=== PATIENT | male | born 1960 | race Caucasian/White ===

== ENCOUNTER → 2017-01-19 | Outpatient (CLI) | payer OTHER ==
--- NOTE | 2017-01-19 22:31 | CT ---
EXAMINATION TYPE: CT abdomen pelvis wo con DATE OF EXAM: 01/19/2017 7:41 PM COMPARISON: NONE INDICATION: Right sided abdominal and flank pain. DLP: 611.7 mGycm, Automated exposure control for dose reduction was used. CONTRAST: 0 mL of Omnipaque 300. Study performed without Oral Contrast TECHNIQUE: Axial images were obtained from above the diaphragm to the pubic rami in the axial plane a t 5 mm thick sections. Reconstructed images are reviewed on the computer in the coronal plane. FINDINGS: Limited CT sections are obtained the lung bases. The lung bases are clear. Some minimal calcificati on may be within coronary vessels. CT ABDOMEN: Liver: Normal Spleen: Normal Pancreas: Normal Adrenal glands: The adrenal glands are normal. Gallbladder: Normal Kidneys: No masses are evident. No hydronephrosis is present. No cysts are present. No renal stone s are identified. Aorta: Vascular calcification is within the aorta. Inferior vena cava: Normal. CT PELVIS: Loops of bowel within the abdomen and pelvis are normal. Study is without oral contrast limiting the evaluation. Appendix: Normal as visualized. Urinary bladder: Normal. No abnormal calcifications are evident. Genitourinary structures: Prostate contains calcification. Osseous structures: No suspicious lytic or sclerotic lesions. There may be hemangioma on the initial thoracic vertebral level. Schmorl's be considered. IMPRESSIONS: 1. No abnormal findings to account for right upper quadrant pain. 2. Normal appendix.
== END | disposition home or self-care (01) ==
LOC: RADCTMAIN 19:17
PROVIDERS: ATTEND Family Medicine
DX: R10.11 Right upper quadrant pain (principal)
CPT/HCPCS: 74176

== ENCOUNTER → 2017-01-29 | Outpatient (CLI) | payer OTHER ==
--- NOTE | 2017-01-29 13:32 | FL ---
EXAMINATION TYPE: FL small bowel follow through DATE OF EXAM: 01/29/2017 11:18 AM COMPARISON: NONE HISTORY: Abdominal Pain The patient ingested thin liquid barium without difficulty. Small bowel follow-through was performed with transit time of 2 hours 50 minutes. There is nonrotation of small and large bowel with small zoe wel residing within the right hemiabdomen and large bowel within the left hemiabdomen. Small bowel lo ops appear to be of normal caliber and demonstrate normal mucosal fold pattern. No evidence for intr insic or extrinsic mass. No evidence for mucosal abnormality. I do not see evidence for Crohn's dis ease. Normal-appearing terminal ileum. IMPRESSION: 1. Nonrotation of small and large bowel. Otherwise unremarkable study.
== END ==
LOC: RADFLMAIN 08:13
PROVIDERS: ATTEND Surgery
DX: R10.84 Generalized abdominal pain (principal); R10.11 Right upper quadrant pain
CPT/HCPCS: 74250

== ENCOUNTER → 2017-02-14 | Outpatient (CLI) | payer OTHER ==
[2017-02-14 12:00] LABS: CH 32.6; HCT 39.3 % (39.0-53.0); HDW 2.61; HGB 13.3 gm/dL (13.0-17.5); MCH 31.8 pg (25.0-35.0); MCV 93.6 fL (80.0-100.0); RDW 13.5 % (11.5-15.5); WBC 5.9 k/uL (3.8-10.6)
[2017-02-14 12:08] LABS: ALT 55 U/L (21-72); AST 39 U/L (17-59); Alkaline Phosphatase 84 U/L (38-126); Anion Gap 12 mmol/L; Blood Urea Nitrogen 16 mg/dL (9-20); Calcium 9.2 mg/dL (8.4-10.2); Carbon Dioxide 23 mmol/L (22-30); Chloride 110 mmol/L (98-107); Glucose 145 mg/dL (74-99); Non-African American GFR(MDRD) >60 (>60 ml/min/1.73 sqM); Potassium 4.3 mmol/L (3.5-5.1); Sodium 145 mmol/L (137-145); Total Bilirubin 0.5 mg/dL (0.2-1.3); Total Protein 7.3 g/dL (6.3-8.2)
== END | disposition home or self-care (01) ==
LOC: LABWHC1 10:22
PROVIDERS: ATTEND Surgery
DX: Z01.812 Encounter for preprocedural laboratory examination (principal); R10.11 Right upper quadrant pain
CPT/HCPCS: 80053; 85027

== ENCOUNTER 2017-02-18 10:57 | Inpatient (IN) | payer OTHER ==
[2017-02-13 13:43] VITALS: BMI 29.7
[~2017-02-18 10:57] MED LIST: DEXAMETHASONE SOD PHOSPHATE 10 MG/ML 1 ML VIAL IV ONE; ONDANSETRON 4 MG/2 ML VIAL IVP ONE; Pre Op ABX Message 1 EACH MISC MISCELLANE ONE; ceFAZolin 2 GM in SODIUM CHLORIDE 0.9% 100 ML IVPB ONE; metroNIDAZOLE-NS PMX 500 MG in SALINE 1 100ML.BAG IVPB ONE
[2017-02-18] MEDS: LACTATED RINGERS 1,000 ML IV SCH ×3 (11:39→23:45)
[2017-02-18] MEDS ORDERED: LIDOCAINE 1% 20 ML VIAL (10MG/ML) FOR IV START INTRADERMA ONE (11:39)
[2017-02-18] MEDS ORDERED: ONDANSETRON 4 MG/2 ML VIAL IVP ONE (12:03)
[2017-02-18] MEDS ORDERED: DEXAMETHASONE SOD PHOS (MDV) 100 MG/10 ML VIAL IVP ONE (12:04)
[2017-02-18] MEDS ORDERED: HEPARIN SODIUM,PORCINE 5,000 UNIT/ML 1 ML VIAL SQ ONE (12:38)
[2017-02-18] MEDS ORDERED: HEPARIN SODIUM,PORCINE 5,000 UNIT/ML 1 ML VIAL SQ STA (12:41)
[2017-02-18] MEDS ORDERED: ALVIMOPAN 12 MG CAPSULE PO ONE (12:41)
[2017-02-18] MEDS ORDERED: BUPIVACAIN-EPI 0.25%-1:200,000 30 ML VIAL SQ ONE ×3 (13:24)
[2017-02-18] MEDS ORDERED: NEOSTIGMINE 1 MG/ML 10 ML VIAL ONE (13:28)
[2017-02-18] MEDS ORDERED: GLYCOPYRROLATE 0.2 MG/ML 2 ML VIAL ONE (13:28)
[2017-02-18] MEDS ORDERED: PROPOFOL 10 MG/ML 20 ML VIAL IV ONE (13:28)
[2017-02-18] MEDS ORDERED: LIDOCAINE 1% INJ 10MG/ML (20 ML MDV) ONE (13:28)
[2017-02-18] MEDS ORDERED: fentaNYL (PF) 50 MCG/ML 2 ML AMP ONE (13:28)
[2017-02-18] MEDS ORDERED: SUCCINYLCHOLINE CHLORIDE 100 MG/5 ML SYR IV ONE (13:28)
[2017-02-18] MEDS ORDERED: PHENYLEPHRINE-0.9% NACL SYG 1 MG/10 ML SYRINGE ONE (13:28)
[2017-02-18] MEDS ORDERED: ROCURONIUM BROMIDE 10 MG/ML 10 ML VIAL IV ONE (13:28)
[2017-02-18] MEDS ORDERED: ALBUMIN HUMAN 5% 250 ML BOTTLE IVPB ONE (13:28)
[2017-02-18] MEDS ORDERED: HYDROmorphone (PF) 1 MG/ML ONE (13:28)
[2017-02-18] MEDS ORDERED: MIDAZOLAM 2 MG/2 ML VIAL ONE (13:28)
[2017-02-18] MEDS ORDERED: LACTATED RINGERS 1,000 ML IV ONE ×2 (13:53→15:34)
[2017-02-18] MEDS: HYDROmorphone 1 MG/ML 1 ML SYRINGE IVP PRN ×5 (15:55→23:51)
[2017-02-18] MEDS ORDERED: METOCLOPRAMIDE 5 MG/ML 2 ML VIAL IVP PRN (15:59)
[2017-02-18] MEDS ORDERED: KETOROLAC 30 MG/ML 1 ML VIAL IVP ONE (15:59)
[2017-02-18] MEDS ORDERED: BENZOCAINE/MENTHOL LOZENG 1 EACH LOZENGE MUCOUS MEM PRN (15:59)
[2017-02-18] MEDS ORDERED: KETOROLAC 30 MG/ML 1 ML VIAL IVP PRN (15:59)
--- NOTE | 2017-02-18 15:59 | P.OP ---
Date of Procedure: 02/18/17 Preoperative Diagnosis: Partial malrotation of the bowel, umbilical hernia Postoperative Diagnosis: Pastial malrotation of the bowel, right inguinal hernia and umbilical hernia Procedure(s) Performed: Diagnositic laparoscopy Lysis of adhesions Repair of umbilical hernia Appendectomy Implants: Anesthesia: DARRENA Surgeon: Gerda Toth Pathology: none sent Condition: stable Disposition: PACU Indications for Procedure: Pain in the upper abdomen History of intermittant bowel problems. Operative Findings: Pasrtial malrotation Congenital bands over the duodenum were causing partial obstrcuction. VEry floppy CEcum that easily recahes up accross the midline. was normal. Bowel was not twisted and it was healthy viable. Description of Procedure: A 6-year-old male who presented with upper abdominal pain. It was intermittent with bowel issues. Studies revealed partial malrotation of the bowel. Due to his continued symptoms had recommended a diagnostic laparoscopy. He is also known to have an umbilical hernia which is bothering him. He did not have any symptoms or any inguinal hernia at the time. He was seen in the preop operating holding area informed consent was obtained and sent to the operating room in supine position given general anesthesia after which appropriate timeout was called. Patient was prepped and draped in the usual sterile surgical fashion. The upper quadrant was identified and using the Optiview technique abdomen was entered and insufflated 15 mm of 3. Subumbilical 12 mm port left lower quadrant 5 mm port and 2 further left upper quadrant 5 mm port replaced. The small bowel was identified clearly and was run proximally and distally distracted and into the very floppy significant cecum which easily came or to the midline the cecum looked healthy however the appendix especially the mesentery looked congested. The appendix otherwise did not look abnormal. Small bowel was run all the way up to the ligament of Treitz and the wound was noted there was some adhesion bands between the colon and the duodenum partially obstructing it. These were taken down with the help of harmonic completely exposing the duodenum going down to the duodenojejunal flexure. This was on the right side of the abdomen. There were no other bands identified. Small incidental burn injury was noted on the surface of the bowel which was imbricated with the help of 2-0 silk thrombin was also applied over it. At this time attention was turned to the appendix and because of the unusual floppiness of the cecum malrotation an appendectomy was performed. The appendix was pulled up and by transecting the mesentery with the Harmonic and this staple was fired across the base of the appendix thus transecting and placed in Endo Catch bag and removed the 12 mm port site. Once that had been done and it was made sure that the hemostasis had been secured the 12 mm port was removed and using a Filemon Grayson the umbilical hernia site was closed as well as the port site. Local anesthesia was infiltrated in all the spaces and the stent procedure was terminated gas was turned off all ports were removed abdomen was desufflated. NG and Griffin catheter were removed prior to removing coming out of the operating room. Procedure was tolerated well there were no complications he was extubated.
[2017-02-18] MEDS ORDERED: diphenhydrAMINE 50 MG/ML 1 ML VIAL IVP ONE (16:00)
[2017-02-18] MEDS: MEPERIDINE 50 MG/ML SYRINGE IVP ONE ×2 (16:20→16:30)
[2017-02-18] MEDS: D5-0.45% NACL WITH KCL 20MEQ/L 1,000 ML IV SCH (19:57)
[2017-02-18] MEDS: FAMOTIDINE 20 MG/2 ML VIAL IV SCH (23:51)
[2017-02-19] MEDS: HEPARIN SODIUM,PORCINE 5,000 UNIT/ML 1 ML VIAL SQ SCH ×4 (01:28→23:47)
[2017-02-19] MEDS: D5-0.45% NACL WITH KCL 20MEQ/L 1,000 ML IV SCH ×3 (03:43→11:22)
[2017-02-19] MEDS: HYDROmorphone 1 MG/ML 1 ML SYRINGE IVP PRN ×4 (03:44→18:09)
[2017-02-19 08:58] LABS: Basophils % (A) 0 %; CH 32.9; CHCM 35.1; Eosinophils % (A) 0 %; HCT 39.5 % (39.0-53.0); HDW 2.61; HGB 13.5 gm/dL (13.0-17.5); Luc # (Auto) 0.09; Luc % (Auto) 1; Lymphocytes # (A) 1.1 k/uL (1.0-4.8); Lymphocytes % (A) 8 %; MCH 32.3 pg (25.0-35.0); MCHC 34.2 g/dL (31.0-37.0); MCV 94.3 fL (80.0-100.0); Mean Platelet Volume 6.6; Monocytes # (A) 0.5 k/uL (0-1.0); Monocytes % (A) 4 %; Neutrophils # (A) 12.1 k/uL (1.3-7.7); Neutrophils % (A) 88 %; RBC 4.19 m/uL (4.30-5.90); RDW 13.3 % (11.5-15.5); WBC 13.8 k/uL (3.8-10.6); WBC (Perox) 13.76
[2017-02-19 09:10] LABS: ALT 47 U/L (21-72); AST 28 U/L (17-59); Alkaline Phosphatase 91 U/L (38-126); Anion Gap 11 mmol/L; Blood Urea Nitrogen 13 mg/dL (9-20); Calcium 8.9 mg/dL (8.4-10.2); Carbon Dioxide 24 mmol/L (22-30); Chloride 106 mmol/L (98-107); Glucose 134 mg/dL (74-99); Non-African American GFR(MDRD) >60 (>60 ml/min/1.73 sqM); Potassium 4.7 mmol/L (3.5-5.1); Sodium 141 mmol/L (137-145); Total Bilirubin 0.6 mg/dL (0.2-1.3); Total Protein 7.2 g/dL (6.3-8.2)
[2017-02-19] MEDS: HYDROcodone/APAP 7.5-325MG 1 EACH TAB PO PRN ×4 (09:12→21:48)
[2017-02-19] MEDS: FAMOTIDINE 20 MG/2 ML VIAL IV SCH ×2 (09:16→21:49)
[2017-02-19] MEDS: ALVIMOPAN 12 MG CAPSULE PO SCH ×2 (09:16→21:48)
--- NOTE | 2017-02-19 13:56 | P.PN ---
Subjective A 56-year-old being seen postop for partial malrotation of the bowel an umbilical hernia patient elected to undergo diagnostic laparoscopic lysis of adhesions a repair of umbilical hernia and appendectomy done on the 18 of February. Early sitting up in bed has taken a diet. Denies any bloating. Has not had a bowel movement but does state passing gas. 56-year-old who presented on February 18 with a chief complaint of upper abdominal pain intermittent with bowel issues. Studies reviewed partial malrotation of the bowel. Patient continued to have symptoms recommendations were to undergo diagnostic laparoscopic. Patient is known to have an umbilical hernia. Patient elected to proceed and did undergo the diagnostic laparoscopic lysis of adhesions repair of the umbilical hernia with an appendectomy on the Objective - Vital Signs Vital signs: Vital Signs Temp 97.7 F 02/19/17 07:00 Pulse 95 02/19/17 07:00 Resp 16 02/19/17 07:00 BP 127/86 02/19/17 07:00 Pulse Ox 95 02/19/17 07:00 Intake & Output 02/18/17 02/19/17 02/19/17 18:59 06:59 18:59 Intake Total 2820 1500 Output Total 520 Balance 2300 1500 Intake: IV 2700 Intake, IV Titration 1500 Amount D5-0.45% NaCl with KCl 1500 20Meq/l 1,000 ml @ 125 mls/hr IV .Q8H [facility] Rx#: [id number] Oral 120 Output: Urine 500 Estimated Blood Loss 20 - Exam GENERAL APPEARANCE: 56-year-old male patient is alert, oriented, in no acute distress. Sitting up in bed taking a diet VITAL SIGNS: Reviewed HEENT: Head is normocephalic and atraumatic. Pupils are equal and reactive. The nares are patent. Oropharynx is clear without lesions. NECK: Supple without lymphadenopathy. Traches midline. HEART: S1, S2. Regular rate and rhythm. Denying any chest pain LUNGS: No crackles or wheezes are heard. Adequate air movement on room air ABDOMEN: Soft, surgical sites no redness slight surgical tenderness states urinating no difficulty reports no nausea vomiting tolerated diet no stool passing gas rectally nontender, nondistended with good bowel sounds. No peritoneal signs. No palpable organomegaly or masses. EXTREMITIES: Normal skin color and turgor. No cyanosis, rash, ulceration, clubbing or edema. Radial pedal pulses are 2/4 bilaterally. NEUROLOGICAL: No focal deficits. Strength and sensation are grossly intact. - Labs CBC & Chem 7: 02/19/17 08:31 02/19/17 08:31 Labs: Abnormal Lab Results - Last 24 Hours (Table) 02/19/17 02/19/17 Range/Units 08:31 08:31 WBC 13.8 H (3.8-10.6) k/uL RBC 4.19 L (4.30-5.90) m/uL Neutrophils # 12.1 H (1.3-7.7) k/uL Glucose 134 H (74-99) mg/dL Assessment and Plan Plan: Impression Present on admission upper abdominal pain with intermittent episodes of bowel issues Present on admission radiographic studies revealed partial malrotation of the bowel with an umbilical hernia Known history of an umbilical hernia 02/18/2017 diagnostic laparoscopic, lysis of adhesions, repair of an umbilical hernia, appendectomy Present on admission leukocytosis Plan Continue postop surgical care Increase activity to the level of tolerance IV fluid for hydration Resume home meds as appropriate pain control DVT and GI prophylaxis The above dictated assessment and findings were discussed with dr gilbert Lund and the plan of care have been dictated as directed. Kat Fay nurse practitioner acting as a scribe for dr hunt
[2017-02-19] MEDS ORDERED: ATORVASTATIN 20 MG TAB PO SCH (21:00)
[2017-02-20] MEDS: D5-0.45% NACL WITH KCL 20MEQ/L 1,000 ML IV SCH ×2 (01:23→10:09)
[2017-02-20 07:06] LABS: Basophils % (A) 0 %; CH 32.8; CHCM 35.1; Eosinophils # (A) 0.2 k/uL (0-0.7); Eosinophils % (A) 2 %; HCT 38.5 % (39.0-53.0); HDW 2.64; HGB 13.2 gm/dL (13.0-17.5); Luc # (Auto) 0.15; Luc % (Auto) 1; Lymphocytes # (A) 2.7 k/uL (1.0-4.8); Lymphocytes % (A) 26 %; MCH 32.2 pg (25.0-35.0); MCHC 34.3 g/dL (31.0-37.0); MCV 93.9 fL (80.0-100.0); Mean Platelet Volume 7.2; Monocytes # (A) 0.5 k/uL (0-1.0); Monocytes % (A) 4 %; Neutrophils # (A) 6.7 k/uL (1.3-7.7); Neutrophils % (A) 66 %; RDW 13.7 % (11.5-15.5); WBC 10.2 k/uL (3.8-10.6); WBC (Perox) 10.29
[2017-02-20 07:17] LABS: ALT 45 U/L (21-72); AST 27 U/L (17-59); Alkaline Phosphatase 88 U/L (38-126); Anion Gap 10 mmol/L; Blood Urea Nitrogen 14 mg/dL (9-20); Calcium 8.7 mg/dL (8.4-10.2); Carbon Dioxide 26 mmol/L (22-30); Chloride 106 mmol/L (98-107); Glucose 112 mg/dL (74-99); Non-African American GFR(MDRD) >60 (>60 ml/min/1.73 sqM); Potassium 3.9 mmol/L (3.5-5.1); Sodium 142 mmol/L (137-145); Total Bilirubin 0.4 mg/dL (0.2-1.3); Total Protein 6.9 g/dL (6.3-8.2)
[2017-02-20 07:48] VITALS: BP 153/104; PULSE 74; RESP 14; TEMP 97.9
[2017-02-20] MEDS: ALVIMOPAN 12 MG CAPSULE PO SCH (08:30)
[2017-02-20] MEDS: HEPARIN SODIUM,PORCINE 5,000 UNIT/ML 1 ML VIAL SQ SCH (08:30)
[2017-02-20] MEDS ORDERED: FAMOTIDINE 20 MG TAB PO SCH (09:00)
[2017-02-20] MEDS: HYDROcodone/APAP 7.5-325MG 1 EACH TAB PO PRN (10:12)
--- NOTE | 2017-02-20 10:55 | P.DS ---
Providers Date of admission: 02/18/17 10:57 Expected date of discharge: 02/20/17 Attending physician: Gerda Hunt Primary care physician: Rod Ramos [facility] Course: 56-year-old who presented on February 18 with a chief complaint of upper abdominal pain intermittent with bowel issues. Studies reviewed partial malrotation of the bowel. Patient continued to have symptoms recommendations were to undergo diagnostic laparoscopic. Patient is known to have an umbilical hernia. Patient elected to proceed and did undergo the diagnostic laparoscopic lysis of adhesions repair of the umbilical hernia with an appendectomy on the Postop patient stated pain was controlled with analgesics. Patient was up ambulating in the hallway. Patient had a bowel movement was tolerating a diet was felt to be appropriate to be discharged to home Impression Present on admission upper abdominal pain with intermittent episodes of bowel issues Present on admission radiographic studies revealed partial malrotation of the bowel with an umbilical hernia Known history of an umbilical hernia 02/18/2017 diagnostic laparoscopic, lysis of adhesions, repair of an umbilical hernia, appendectomy Present on admission leukocytosis The above dictated assessment and findings were discussed with dr gilbert Lund and the plan of care have been dictated as directed. Kat Fay nurse practitioner acting as a scribe for dr hunt Plan - Discharge Summary New Discharge Prescriptions: New Hydrocodone/Acetaminophen [[place] 7.5-325 Tablet] 1 each PO Q6H PRN #15 tablet PRN Reason: Mild Pain Continue Esomeprazole Magnesium [NexIUM] 20 mg PO DAILY Atorvastatin [Lipitor] 20 mg PO HS Losartan Potassium 100 mg PO DAILY Adalimumab [Humira Pen] 40 mg IM DAILY Discharge Medication List Adalimumab [Humira Pen] 40 mg IM DAILY 01/26/17 [History] Atorvastatin [Lipitor] 20 mg PO HS 01/26/17 [History] Esomeprazole Magnesium [NexIUM] 20 mg PO DAILY 01/26/17 [History] Losartan Potassium 100 mg PO DAILY 01/26/17 [History] Hydrocodone/Acetaminophen [[place] 7.5-325 Tablet] 1 each PO Q6H PRN #15 tablet [Rx] Follow up Appointment(s)/Referral(s): Gerda Hunt MD [STAFF PHYSICIAN] - 1 Week Activity/Diet/Wound Care/Special Instructions: May shower No lifting over 10 pounds Discharge Disposition: HOME SELF-CARE
== END 2017-02-20 11:20 | disposition home or self-care (01) | DRG 342 ==
LOC: 2ORMAIN 10:57 → 5MS5E 16:39 → 3SUR 17:04
PROVIDERS: ADMIT Surgery; ATTEND Surgery
PROC: 0WQF4ZZ Repair Abdominal Wall, Percutaneous Endoscopic Approach (ICD-10-PCS; principal; 2017-02-18 12:30)
PROC: 0DTJ4ZZ Resection of Appendix, Percutaneous Endoscopic Approach (ICD-10-PCS; 2017-02-18 12:30)
DX: Q43.3 Congenital malformations of intestinal fixation (principal); K31.5 Obstruction of duodenum; I10 Essential (primary) hypertension; K42.9 Umbilical hernia without obstruction or gangrene; K40.90 Unilateral inguinal hernia, without obstruction or gangrene, not specified as recurrent; E78.5 Hyperlipidemia, unspecified; I25.9 Chronic ischemic heart disease, unspecified; L40.9 Psoriasis, unspecified; Z79.899 Other long term (current) drug therapy; D72.829 Elevated white blood cell count, unspecified; Z87.891 Personal history of nicotine dependence
CPT/HCPCS: 80053; 85025; 88304

== ENCOUNTER → 2017-02-25 | Outpatient (CLI) | payer OTHER ==
[2017-02-25 16:12] LABS: Basophils # (A) 0.1 k/uL (0-0.2); Basophils % (A) 1 %; CH 33.3; CHCM 35.3; Eosinophils # (A) 0.7 k/uL (0-0.7); Eosinophils % (A) 6 %; HCT 45.6 % (39.0-53.0); HDW 2.65; Luc # (Auto) 0.17; Luc % (Auto) 2; Lymphocytes # (A) 2.1 k/uL (1.0-4.8); Lymphocytes % (A) 19 %; MCH 31.4 pg (25.0-35.0); MCV 95.1 fL (80.0-100.0); Mean Platelet Volume 6.7; Monocytes # (A) 0.7 k/uL (0-1.0); Monocytes % (A) 6 %; Neutrophils # (A) 7.7 k/uL (1.3-7.7); Neutrophils % (A) 67 %; RDW 13.7 % (11.5-15.5); WBC 11.4 k/uL (3.8-10.6); WBC (Perox) 10.59
== END | disposition home or self-care (01) ==
LOC: LABWHC1 15:29
PROVIDERS: ATTEND Surgery
DX: R10.84 Generalized abdominal pain (principal)
CPT/HCPCS: 36415; 85025

== ENCOUNTER 2017-06-04 06:08 | Day surgery (SDC) | payer OTHER ==
[2017-06-01 09:33] VITALS: BMI 27.8
[~2017-06-04 06:08] MED LIST changes: +HEPARIN SODIUM,PORCINE 5,000 UNIT/ML 1 ML VIAL SQ ONE; -Pre Op ABX Message 1 EACH MISC MISCELLANE ONE; -metroNIDAZOLE-NS PMX 500 MG in SALINE 1 100ML.BAG IVPB ONE
[2017-06-04 06:21] VITALS: TEMP 97.5
[2017-06-04] MEDS ORDERED: LIDOCAINE 1% 20 ML VIAL (10MG/ML) FOR IV START INTRADERMA ONE ×2 (06:30→06:35)
[2017-06-04] MEDS: LACTATED RINGERS 1,000 ML IV SCH ×2 (06:33→06:35)
[2017-06-04] MEDS ORDERED: BUPIVACAINE (PF) 0.25% 30 ML VIAL SQ ONE ×2 (07:20→07:57)
[2017-06-04] MEDS ORDERED: NEOSTIGMINE 1 MG/ML 10 ML VIAL ONE (07:30)
[2017-06-04] MEDS ORDERED: PROPOFOL 10 MG/ML 20 ML VIAL IV ONE (07:30)
[2017-06-04] MEDS ORDERED: LIDOCAINE 1% INJ 10MG/ML (20 ML MDV) ONE (07:30)
[2017-06-04] MEDS ORDERED: SUCCINYLCHOLINE CHLORIDE 100 MG/5 ML SYR IV ONE (07:30)
[2017-06-04] MEDS ORDERED: ROCURONIUM BROMIDE 10 MG/ML 10 ML VIAL IV ONE (07:30)
[2017-06-04] MEDS ORDERED: fentaNYL (PF) 50 MCG/ML 2 ML AMP ONE (07:30)
[2017-06-04] MEDS ORDERED: ePHEDrine SULFATE/0.9% NACL/PF 50 MG/5 ML SYRINGE IV ONE (07:30)
[2017-06-04] MEDS ORDERED: GLYCOPYRROLATE 0.2 MG/ML 2 ML VIAL ONE (07:30)
[2017-06-04] MEDS ORDERED: MIDAZOLAM 2 MG/2 ML VIAL ONE (07:30)
[2017-06-04] MEDS ORDERED: LACTATED RINGERS 1,000 ML IV ONE (09:18)
--- NOTE | 2017-06-04 09:47 | P.OP ---
Date of Procedure: 06/04/17 Preoperative Diagnosis: Symptomatic right inguinal hernia possible bilateral and umbilical hernia Postoperative Diagnosis: Right direct inguinal hernia Procedure(s) Performed: Robot assisted laparoscopic right inguinal hernia with mesh Anesthesia: RONALDO Surgeon: Gerda Toth Estimated Blood Loss (ml): 50 Condition: stable Disposition: PACU Description of Procedure: Informed consent was obtained patient and then The patient was brought to the operating room and placed in supine position. General anesthesia with endotracheal intubation was performed as per anesthesia team. A newberry catheter was inserted under sterile aseptic precautions. Chlorhexidine was used to prep the skin followed by application of sterile drapes . He was placed in the lithotomy position. A timeout was performed to verify correct patient, correct procedure and correct side. Patient was confirmed to receive perioperative IV antibiotics, subcutaneous heparin 5000 units and bilateral SCDs were placed. The left upper quadrant point was identified and a stab incision was made. Veress needle was introduced and placement was confirmed with the help of the drop test. The abdomen was then insufflated to 15 mmHg. Once that was done 5 mm port was introduced into the left upper quadrant using the Optiview technique after which a 12 mm port was placed in the infraraumbilical position and a 8 mm port in the right lower quadrant and then after that the left-sided 5 mm port was replaced with a robot 8 mm port under direct vision. The robot was then docked with the central camera port and the 2 side working ports. The scope was introduced into the abdomen down through the 12 mm port site. After taking the appropriate instruments the median umbilical fold was retracted laterally towards the left side a small incision was made at the junction of the umbilical fold and the peritoneum and carried all the way laterally thus creating a small plane in the preperitoneal space. This did this was further dissected with the help of blunt dissection using gentle stroking maneuvers all the way down to Ricardo ligament medially and laterally we went inferior exposing the vessels inferiorly. Patient was noted only to have a right inguinal hernia. It was direct. He was easily reduced. There was no indirect component to the hernia. The hernia sac was gradually removed with easy dissection. The pubic tubercle and the bone was easily identified. There was some bleeding from during this dissection which required suction irrigation as well as controlled with the help of bipolar and stated cautery which was used. Bleeding was completely controlled. The cavity was completely sucked dry. FloSeal was used to help with additional hemostasis. Once that was done in the appropriate lower fold having created 10 x 15 Bard Pro delphi programmer mesh was introduced in the abdominal cavity with the lower part above the level of the peritoneal fold was then unfolded so that it covered all the orifices and covered the Ricardo's ligament medially once again pain positioned perfectly to seal was applied to the inferior edge of the mesh as well as around the Ricardo's ligament after which the peritoneal flaps were closed with the help of running oh Vioxx suture once that was done procedure was completed all incisions and camera was removed and a laparoscope was introduced and the 12 mm port site was closed with the help of a Filemon Grayson the direct vision after which gas was turned off abdomen was thoroughly desufflated skins was closed with the help of 4-0 Monocryl and Dermabond. Newberry catheter was removed patient was extubated and taken to recovery room in stable condition patient tolerated the procedure well there were no complications
[2017-06-04] MEDS: HYDROmorphone 1 MG/ML 1 ML SYRINGE IVP PRN ×4 (09:59→10:25)
[2017-06-04 10:01] VITALS: RESP 16
[2017-06-04] MEDS ORDERED: HYDROcodone/APAP 5-325MG 1 EACH TAB PO ONE (10:50)
[2017-06-04 13:13] VITALS: BP 127/79; PULSE 93
== END 2017-06-04 13:32 | disposition home or self-care (01) ==
LOC: OR 06:08
PROVIDERS: ATTEND Surgery
DX: K40.90 Unilateral inguinal hernia, without obstruction or gangrene, not specified as recurrent (principal); Z79.1 Long term (current) use of non-steroidal anti-inflammatories (NSAID); Z79.891 Long term (current) use of opiate analgesic; Z79.52 Long term (current) use of systemic steroids; Z79.899 Other long term (current) drug therapy; Z87.891 Personal history of nicotine dependence; I10 Essential (primary) hypertension; E78.5 Hyperlipidemia, unspecified; L40.9 Psoriasis, unspecified; K21.9 Gastro-esophageal reflux disease without esophagitis
CPT/HCPCS: 49650; S2900

== ENCOUNTER → 2018-02-25 | Outpatient (CLI) | payer OTHER | END | disposition home or self-care (01) | LOC: LABWHC1 06:31 | PROVIDERS: ATTEND Nurse Practitioner Adult Health | DX: I10 Essential (primary) hypertension (principal); E78.5 Hyperlipidemia, unspecified | CPT/HCPCS: 36415; 80061; 84443 ==

== ENCOUNTER → 2018-09-29 | Outpatient (CLI) | payer BC ==
--- NOTE | 2018-09-29 19:16 | CT ---
EXAMINATION TYPE: CT abdomen pelvis w con DATE OF EXAM: 09/29/2018 COMPARISON: 01/19/2017 HISTORY: Right side abdominal pain x3 weeks. CT DLP: 1047 mGycm Automated exposure control for dose reduction was used. TECHNIQUE: Helical acquisition of images was performed from the lung bases through the pelvis. CONTRAST: Performed with Oral Contrast and with IV Contrast, patient injected with 100ml mL of Isovue 300. FINDINGS: LUNG BASES: No significant abnormality is appreciated. LIVER/GB: No significant abnormality is appreciated. PANCREAS: No significant abnormality is seen. SPLEEN: No significant abnormality is seen. ADRENALS: No significant abnormality is seen. KIDNEYS: No significant abnormality is seen. FREE AIR: No free air is visualized. RETROPERITONEAL ADENOPATHY: None visualized REPRODUCTIVE ORGANS: No significant abnormality is seen URINARY BLADDER: No significant abnormality is seen. PELVIC ADENOPATHY: None visualized. OSSEOUS STRUCTURES: No significant abnormality is seen. BOWEL: Small bowel occupies the right upper and lower quadrants whereas the large bowel occupies the left upper and lower quadrants; congenital variant anatomy. OTHER: No acute vascular findings. IMPRESSION: 1. NO ACUTE PROCESS IN THE: NO CT CORRELATE FOR THE PATIENT'S RIGHT-SIDED ABDOMINAL PAIN FOR 2 WEEKS. 2. Congenital anatomical variant hollow viscera noted.
== END | disposition home or self-care (01) ==
LOC: RADCTMAIN 16:39
PROVIDERS: ATTEND Family Medicine
DX: R10.9 Unspecified abdominal pain (principal)
CPT/HCPCS: 74177; Q9967

== ENCOUNTER → 2018-11-03 | Outpatient (CLI) | payer BC ==
--- NOTE | 2018-11-04 08:05 | US ---
EXAMINATION TYPE: US kidneys/renal and bladder DATE OF EXAM: 11/03/2018 COMPARISON: CT abdomen and pelvis September 29, 2018 CLINICAL HISTORY: N20.0 Kidney stones R31.9 Hematuria. Right side pain. EXAM MEASUREMENTS: Right Kidney: 10.5 x 5.0 x 5.0 cm Left Kidney: 9.3 x 4.1 x 5.8 cm Right Kidney: No hydronephrosis or masses seen Left Kidney: Mid anterior pedunculated cystic appearing lesion = 0.8 x 0.9 x 0.6 cm Bladder: wnl, distended Left jet seen There is no evidence for hydronephrosis at this point in time. No nephrolithiasis is seen. Subcentim eter exophytic lesion favor simple cyst posteriorly laterally mid pole level left kidney but too smal l to definitively characterize. The urinary bladder is satisfactorily distended. Distal left ureter jet is seen. Distal right jet is not clearly identified. IMPRESSION: No hydronephrosis or renal calculi identified bilaterally. Nonspecific subcentimeter lesions favored benign etiology. Consider image reevaluation 6-12 months time to reassess.
== END | disposition home or self-care (01) ==
LOC: RADUSWWP 15:57
PROVIDERS: ATTEND Surgery Plastic and Reconstructive Surgery
DX: N28.89 Other specified disorders of kidney and ureter (principal); R31.9 Hematuria, unspecified
CPT/HCPCS: 76770

== ENCOUNTER 2018-12-08 11:02 | Day surgery (SDC) | payer BC ==
[2018-12-07 13:19] VITALS: BMI 24.0
--- NOTE | 2018-12-08 06:08 | P.GSHP ---
History of Present Illness H&P Date: 12/08/18 CHIEF COMPLAINT: GERD and colon screen HISTORY OF PRESENT ILLNESS: The patient is a 57-year-old male who presents with gastroesophageal reflux disease and need for colon screen. Upper and lower endoscopy were offered for further evaluation and management. PAST MEDICAL HISTORY: Please see list. PAST SURGICAL HISTORY: Please see list. MEDICATIONS: Please see list. ALLERGIES: Please see list. SOCIAL HISTORY: No illicit drug use FAMILY HISTORY: No reports of Crohn disease or ulcerative colitis. REVIEW OF ORGAN SYSTEMS: CONSTITUTIONAL: No reports of fevers or chills. GI: Denies any blood in stools or constipation. PHYSICAL EXAM: VITAL SIGNS: Stable GENERAL: Well-developed pleasant in no acute distress. HEENT: No scleral icterus. Extraocular movements grossly intact. Moist buccal mucosa. NECK: Supple without lymphadenopathy. CHEST: Unlabored respirations. Equal bilateral excursions. CARDIOVASCULAR: Regular rate and rhythm. Distal 2+ pulses. ABDOMEN: Soft, nondistended. MUSCULOSKELETAL: No clubbing, cyanosis, or edema. ASSESSMENT: 1. Gastroesophageal reflux disease 2. Colon screen. PLAN: 1. Recommend proceeding with an upper and lower endoscopy Past Medical History Past Medical History: GERD/Reflux, Hyperlipidemia, Hypertension, Skin Disorder Additional Past Medical History / Comment(s): "PINCHED NERVE" HX PSORIASIS, HX DETACHED. RETINA RON EYES. PAST HX OF V-TACH,HX INTESTINAL MALROTATION History of Any Multi-Drug Resistant Organisms: None Reported Past Surgical History: Appendectomy, Cardiac Ablation, Heart Catheterization, Hernia Repair Additional Past Surgical History / Comment(s): 02/18/17-DIAG. LAP, LYSIS OF ADHESIONS, APPENDECTOMY, BILAT CATRACTS,RON EYE SX X7 Past Anesthesia/Blood Transfusion Reactions: No Reported Reaction Smoking Status: Former smoker - Past Family History Mother Family Medical History: No Reported History Medications and Allergies Home Medications Medication Instructions Recorded Confirmed Type Esomeprazole Magnesium [NexIUM] 20 mg PO DAILY 01/26/17 12/07/18 History Atorvastatin [Lipitor] 10 mg PO HS 12/06/18 12/07/18 History Gabapentin 600 mg PO TID 12/06/18 12/07/18 History Losartan [Cozaar] 50 mg PO QAM 12/06/18 12/07/18 History Secukinumab [Cosentyx Pen] 150 mg SQ Q30D 12/06/18 12/07/18 History Allergies Allergy/AdvReac Type Severity Reaction Status Date / Time No Known Allergies Allergy Verified 12/07/18 13:10
[~2018-12-08 11:02] MED LIST changes: -DEXAMETHASONE SOD PHOSPHATE 10 MG/ML 1 ML VIAL IV ONE; -HEPARIN SODIUM,PORCINE 5,000 UNIT/ML 1 ML VIAL SQ ONE; +LACTATED RINGERS 1,000 ML IV SCH; -ONDANSETRON 4 MG/2 ML VIAL IVP ONE; -ceFAZolin 2 GM in SODIUM CHLORIDE 0.9% 100 ML IVPB ONE
[2018-12-08 11:53] VITALS: RESP 16; TEMP 97.6
[2018-12-08] MEDS ORDERED: LIDOCAINE 1% 20 ML VIAL (10MG/ML) FOR IV START INTRADERMA ONE (11:57)
[2018-12-08] MEDS ORDERED: PROPOFOL 10 MG/ML 20 ML VIAL IV ONE (12:34)
--- NOTE | 2018-12-08 12:57 | P.PCN ---
Date of Procedure: 12/08/18 Description of Procedure: PREOPERATIVE DIAGNOSIS: Gastroesophageal reflux disease. POSTOPERATIVE DIAGNOSIS: Gastroesophageal reflux disease. Diaphragmatic hiatal hernia Gastritis OPERATION: Esophagogastroduodenoscopy with biopsies along antrum and gastroesophageal junction SURGEON: Lora Araya MD ANESTHESIA: MAC. INDICATIONS: The patient is a 57-year-old female who presents with a history of reflux disease. Benefits and risks of the procedure were described. Informed consent was obtained. DESCRIPTION: The patient was brought into the endoscopy suite and laid in the left lateral decubitus position. An Olympus gastroscope was passed along the posterior oropharynx down to the distal esophagus where the squamocolumnar junction was encountered at 40 cm from the incisors. The stomach was entered and no bile reflux was found. Additional findings are listed below. Biopsies with cold for ceps were obtained of the antrum. The first through third portion of the duodenum was examined and unremarkable. Retroflexion of the scope confirmed Hill grade 3 lower esophageal valve. The squamocolumnar junction demonstrated LA grade B erosive esophagitis. The stomach was desufflated. The patient tolerated the procedure well. FINDINGS: Squamocolumnar junction 37 cm from the incisors. Diaphragmatic hiatus at 40 cm. Hiatal hernia, 3 cm Hill grade 3 lower esophageal valve. LA grade B erosive esophagitis. No active duodenitis. Chronic gastritis Inflammatory polyp at gastroesophageal junction biopsied RECOMMENDATIONS: Upper endoscopy as needed.
--- NOTE | 2018-12-08 13:01 | P.PCN ---
Date of Procedure: 12/08/18 Description of Procedure: PREOPERATIVE DIAGNOSIS: Altered bowel function Left lower quadrant abdominal pain Chronic constipation POSTOPERATIVE DIAGNOSIS: Altered bowel function Left lower quadrant abdominal pain Chronic constipation Intermittent sigmoid volvulus OPERATION: Colonoscopy to the ascending colon SURGEON: Lora Araya MD. ANESTHESIA: MAC. INDICATIONS: The patient is a 57-year-old male who presents with altered bowel function including left lower quadrant abdominal pain and severe chronic constipation. Benefits and risks were described and informed consent was obtained. DESCRIPTION OF PROCEDURE: The patient had undergone Gatorade, MiraLAX and Dulcolax prep. He had been brought into the operating room and laid in the left lateral decubitus position. After adequate intravenous sedation, the rectum was examined with 2% lidocaine jelly. No external hemorrhoids were encountered. The rectal tone was within normal limits. No lesions were palpated in the rectal vault. The prostate was smooth and without abnormality. An Olympus colonoscope was advanced to the ascending colon however intermittent sigmoid volvulus was identified despite abdominal wall pressure and change of position of the patient. The prep was good. No scattered diverticulosis was encountered. No colonic polyps were found. No evidence of focal colitis was found. Retroflexion of the scope demonstrated no internal hemorrhoids without active bleeding or inflammation. The colon was desufflated. The patient had tolerated the procedure well. Withdrawal time was over 6 minutes. FINDINGS: [place]ch[place] preparation quality scale 2 (1-5) No internal hemorrhoids, grade 1 No external prolapsed hemorrhoids. No arteriovenous malformations. No adenomatous polyps. No focal colitis. No sigmoid diverticulosis Intermittent sigmoid volvulus with redundant sigmoid colon RECOMMENDATIONS: Lower endoscopy in 10 years, 2028 or Cologaurd Plan - Discharge Summary Discharge Rx Participant: Yes New Discharge Prescriptions: No Action Esomeprazole Magnesium [NexIUM] 20 mg PO DAILY Gabapentin 600 mg PO TID Losartan [Cozaar] 50 mg PO QAM Atorvastatin [Lipitor] 10 mg PO HS Secukinumab [Cosentyx Pen] 150 mg SQ Q30D Discharge Medication List Esomeprazole Magnesium [NexIUM] 20 mg PO DAILY 01/26/17 [History] Atorvastatin [Lipitor] 10 mg PO HS 12/06/18 [History] Gabapentin 600 mg PO TID 12/06/18 [History] Losartan [Cozaar] 50 mg PO QAM 12/06/18 [History] Secukinumab [Cosentyx Pen] 150 mg SQ Q30D 12/06/18 [History] Follow up Appointment(s)/Referral(s): Lora Araya MD [STAFF PHYSICIAN] - 12/14/18 Patient Instructions/Handouts: Hiatal Hernia (DC), Gastroesophageal Reflux Disease (DC) Activity/Diet/Wound Care/Special Instructions: Repeat colonoscopy in 10 years, 2028 or Cologaurd Discharge Disposition: HOME SELF-CARE
[2018-12-08 13:23] VITALS: BP 101/77; PULSE 67
== END 2018-12-08 13:39 | disposition home or self-care (01) ==
LOC: ORWHC2ENDO 11:02
PROVIDERS: ATTEND Surgery Plastic and Reconstructive Surgery
DX: K29.50 Unspecified chronic gastritis without bleeding (principal); K59.09 Other constipation; R10.32 Left lower quadrant pain; K56.2 Volvulus; Q43.8 Other specified congenital malformations of intestine; K21.0 Gastro-esophageal reflux disease with esophagitis; K44.9 Diaphragmatic hernia without obstruction or gangrene; K31.7 Polyp of stomach and duodenum; I10 Essential (primary) hypertension; E78.5 Hyperlipidemia, unspecified; L40.9 Psoriasis, unspecified; Z98.61 Coronary angioplasty status; Z87.891 Personal history of nicotine dependence; Z79.899 Other long term (current) drug therapy
CPT/HCPCS: 88305; 45378; 43239; J2704

== ENCOUNTER 2018-12-10 09:17 | Day surgery (SDC) | payer BC ==
[2018-12-06 13:55] VITALS: BMI 24.0
--- NOTE | 2018-12-10 02:44 | P.GSHP ---
History of Present Illness H&P Date: 12/10/18 CHIEF COMPLAINT: Ventral hernia HISTORY OF PRESENT ILLNESS: The patient is a 57-year-old male who presents with a history of swelling and pain along the abdomen from a hernia. Now he presents for surgical intervention. Separately he reports previous surgery with potential scar tissue and peritoneal adhesions. PAST MEDICAL HISTORY: Please see list. PAST SURGICAL HISTORY: Please see list. MEDICATIONS: Please see list. ALLERGIES: Please see list. SOCIAL HISTORY: No illicit drug use FAMILY HISTORY: No reports of Crohn disease or ulcerative colitis. REVIEW OF ORGAN SYSTEMS: CONSTITUTIONAL: No reports of fevers or chills. No reports of weight loss despite prior attempts. GI: Denies any blood in stools or constipation. PHYSICAL EXAM: VITAL SIGNS: Stable GENERAL: Well-developed pleasant male in no acute distress. HEENT: No scleral icterus. Extraocular movements grossly intact. Moist buccal mucosa. NECK: Supple without lymphadenopathy. CHEST: Unlabored respirations. Equal bilateral excursions. CARDIOVASCULAR: Regular rate and rhythm. Distal 2+ pulses. ABDOMEN: Soft, nondistended. Palpable defect of the abdomen. No peritoneal signs. MUSCULOSKELETAL: No clubbing, cyanosis, or edema. ASSESSMENT: 1. Ventral hernia 2. Previous surgery were peritoneal adhesions PLAN: 1. Recommend proceeding with robotic ventral hernia repair with mesh including lysis of adhesions 2. Benefits and risks of surgical intervention was discussed including possibility of open technique. 3. DVT prophylaxis. 4. Antibiotic prophylaxis. Past Medical History Past Medical History: GERD/Reflux, Hyperlipidemia, Hypertension, Skin Disorder Additional Past Medical History / Comment(s): "PINCHED NERVE" HX PSORIASIS, HX DETACHED. RETINA RON EYES. PAST HX OF V-TACH,HX INTESTINAL MALROTATION History of Any Multi-Drug Resistant Organisms: None Reported Past Surgical History: Appendectomy, Cardiac Ablation, Heart Catheterization, Hernia Repair Additional Past Surgical History / Comment(s): 02/18/17-DIAG. LAP, LYSIS OF ADHESIONS, APPENDECTOMY, BILAT CATRACTS,RON EYE SX X7 Past Anesthesia/Blood Transfusion Reactions: No Reported Reaction Smoking Status: Former smoker - Past Family History Mother Family Medical History: No Reported History Medications and Allergies Home Medications Medication Instructions Recorded Confirmed Type Esomeprazole Magnesium [NexIUM] 20 mg PO DAILY 01/26/17 12/08/18 History Atorvastatin [Lipitor] 10 mg PO HS 12/06/18 12/08/18 History Gabapentin 600 mg PO TID 12/06/18 12/08/18 History Losartan [Cozaar] 50 mg PO QAM 12/06/18 12/08/18 History Secukinumab [Cosentyx Pen] 150 mg SQ Q30D 12/06/18 12/08/18 History Allergies Allergy/AdvReac Type Severity Reaction Status Date / Time No Known Allergies Allergy Verified 12/07/18 13:10
[~2018-12-10 09:17] MED LIST changes: +DEXAMETHASONE SOD PHOSPHATE 10 MG/ML 1 ML VIAL IV ONE; +HEPARIN SODIUM,PORCINE 5,000 UNIT/ML 1 ML VIAL SQ ONE; +LIDOCAINE 1% 20 ML VIAL (10MG/ML) FOR IV START INTRADERMA PRN; +MIDAZOLAM (PF) 2 MG/2 ML VIAL IV PRN; +Pre Op ABX Message 1 EACH MISC MISCELLANE ONE; +ceFAZolin IN SWFI 2 GM/20 ML SYRINGE IVP ONE; +fentaNYL (PF) 50 MCG/ML 2 ML AMP IV PRN
[2018-12-10] MEDS ORDERED: MIDAZOLAM (PF) 2 MG/2 ML VIAL IV ONE (10:17)
--- NOTE | 2018-12-10 11:04 | P.ONQ ---
Anesthesiology Proc Note - PNB - Peripheral Nerve Block Performed Bilateral Rectus Abdominis Single Time Out Performed: Yes Procedure Stop Time: 10:15 Indication: Acute Post-Operative Pain Specifically requested for management of pain by DrAl: Lora Araya Sedation Type: Sedate with meaningful contact maintained Preparation: Sterile Prep Position: Supine Catheter: None Needle Types: Other (see comment) (Pajunk) Needle Size: 100mm (4") Needle Gauge: 21 Technique: Ultrasound Injectate: Other (see comment) (0.5% lidocaine/0.25% ropivacaine 30 mL per side) Adjunct: Epinephrine (see comment for dilution ratio) (1:200,000) Blood Aspirated: No Pain Paresthesia on Injection Noted: No Resistance on Injection: Normal Events: Uneventful and Well Tolerated
[2018-12-10 11:20] LABS: Basophils # (A) 0.1 k/uL (0-0.2); Basophils % (A) 1 %; Eosinophils # (A) 0.9 k/uL (0-0.7); Eosinophils % (A) 13 %; HCT 40.5 % (39.0-53.0); HGB 14.2 gm/dL (13.0-17.5); Lymphocytes # (A) 1.4 k/uL (1.0-4.8); Lymphocytes % (A) 20 %; MCH 31.8 pg (25.0-35.0); MCV 90.8 fL (80.0-100.0); Mean Platelet Volume 7.1; Monocytes # (A) 0.4 k/uL (0-1.0); Monocytes % (A) 5 %; Neutrophils % (A) 59 %; Platelet Count 263 k/uL (150-450); RBC 4.46 m/uL (4.30-5.90); RDW 14.4 % (11.5-15.5); WBC 6.9 k/uL (3.8-10.6)
[2018-12-10] MEDS ORDERED: BUPIVACAIN-EPI 0.5%-1:200,000 30 ML VIAL SQ ONE ×3 (14:21)
[2018-12-10] MEDS ORDERED: NEOSTIGMINE 1 MG/ML 10 ML VIAL ONE (14:30)
[2018-12-10] MEDS ORDERED: ROPIVACAINE 5 MG/ML 30 ML VIAL ONE (14:30)
[2018-12-10] MEDS ORDERED: ROCURONIUM BROMIDE 10 MG/ML 10 ML VIAL IV ONE (14:30)
[2018-12-10] MEDS ORDERED: PROPOFOL 10 MG/ML 20 ML VIAL IV ONE (14:30)
[2018-12-10] MEDS ORDERED: LIDOCAINE 1% INJ 10MG/ML (20 ML MDV) ONE (14:30)
[2018-12-10] MEDS ORDERED: fentaNYL (PF) 50 MCG/ML 2 ML AMP ONE (14:30)
[2018-12-10] MEDS ORDERED: HYDROmorphone (PF) 1 MG/ML ONE (14:30)
[2018-12-10] MEDS ORDERED: SUCCINYLCHOLINE CHLORIDE 100 MG/5 ML SYR IV ONE (14:30)
[2018-12-10] MEDS ORDERED: GLYCOPYRROLATE 0.2 MG/ML 2 ML VIAL ONE (14:30)
[2018-12-10] MEDS ORDERED: MIDAZOLAM 2 MG/2 ML VIAL ONE (14:30)
[2018-12-10] MEDS ORDERED: LIDOCAINE 0.5% (PF) 5 MG/ML (50 ML SDV) ONE (14:30)
[2018-12-10] MEDS ORDERED: LACTATED RINGERS 1,000 ML IV ONE ×2 (14:38→16:23)
[2018-12-10 16:19] VITALS: RESP 18; TEMP 97.7
[2018-12-10] MEDS: HYDROmorphone 1 MG/ML 1 ML SYRINGE IVP ONE ×4 (16:29→16:55)
[2018-12-10] MEDS ORDERED: TAMSULOSIN 0.4 MG CAP.ER.24H PO STA (16:40)
[2018-12-10] MEDS ORDERED: KETOROLAC 30 MG/ML 1 ML VIAL IVP ONE (16:43)
--- NOTE | 2018-12-10 16:49 | P.OP ---
Date of Procedure: 12/10/18 Description of Procedure: SURGEON: BAKARI SWEET MD PREOPERATIVE DIAGNOSES: 1. Right lower quadrant pain 2. Initial incarcerated umbilical hernia 3. Intra-abdominal peritoneal adhesions 4. Chronic pain syndrome 5. Hyperlipidemia 6. Hypertensive heart disease 7. Gastroesophageal reflux disease 8. History of intestinal malrotation 9. History of ventricular tachycardia 10. Psoariasis 11. Previous history of right inguinal hernia repair, robotic approach POSTOPERATIVE DIAGNOSES: 1. Right lower quadrant pain 2. Initial incarcerated umbilical hernia, 3-cm 3. Intra-abdominal peritoneal adhesions 4. Chronic pain syndrome 5. Hyperlipidemia 6. Hypertensive heart disease 7. Gastroesophageal reflux disease 8. History of intestinal malrotation 9. History of ventricular tachycardia 10. Psoariasis 11. Previous history of right inguinal hernia repair, robotic approach OPERATION: 1. Robotic-assisted daVinci Xi laparoscopic extensive lysis of adhesions 2. Robotic-assisted da Song Xi laparoscopic repair of initial incarcerated ventral hernia 3-cm with mesh, ventralight ST mesh 11.4 cm ANESTHESIA: General with local ESTIMATED BLOOD LOSS: 5 mL. SPECIMENS: None. COMPLICATIONS: None. Operative Findings: 1. Adhesion of distal jejunum to right lower quadrant mesh repair. 2. Evidence of recurrent right inguinal hernia 3. Colon unremarkable 4. Rest of small bowel unremarkable 5. Gallbladder with mild thickness INDICATIONS: The patient is a 57-year-old male who presents with moderate to severe right lower quadrant pain. He reports prior right inguinal hernia repair and persistent pain following. Surgical intervention with laparoscopic versus robotic and open techniques were reviewed. Placement of mesh was also reviewed. Benefits and risks were thoroughly described. Informed consent was obtained. DESCRIPTION OF PROCEDURE: The patient was brought into the operating room and laid in supine position. After general induction, the abdomen had been prepped and draped in standard sterile fashion. Ioban draping was also placed. Prior to incision, a timeout protocol was confirmed with surgical team regarding the patient's name including procedures to be performed. The robot was primed prior to the procedure. A field block using local anesthetia was placed along hernia site including the proposed port sites. Initial incision was made with an #11 blade along the left upper quadrant. A 0 degree 5 mm laparoscopic trocar entry was performed. Diagnostic laparoscopy demonstrated peritoneal adhesions along the right lower quadrant of jejunum to the abdominal wall. A 8 mm trocar was placed along the epigastrium and right upper quadrant. The 5-m m port was exchanged for an 8 mm robotic port. Placements of the ports were 20 cm from the target anatomy and 10 cm apart. The da Song XI robot was previously primed, prepped and draped then docked along the left side of the patient. I then sat at the robot Da Song XI console where working arms of the robot including Bovie cautery connected to robotic scissors, vessel sealer and graspers placed by the executive personal assistant. Fascial defect of 3 cm of the umbilicus was identified after cleaning the peritoneal fat of the abdominal wall and reducing incarcerated pre-peritoneal adhesions. A 12 mm port was placed along the left upper quadrant for placement of the mesh and for sutures. The incarcerated contents was reduced as the peritoneal fat was cleaned from the abdominal wall. Next, hemostasis was checked with cautery. The hernia defect was oversewn using #1 Stratafix with fascial imbrication x 3. Next, ventralight ST mesh 11.4 cm was placed with the rough side towards the abdominal wall. 2-0 VLOC 9 inch sutures were used to fixate the mesh. A final endoscopic imaging was obtained. All instruments and pneumoperitoneum were evacuated from the abdominal cavity. The da Song XI robot was undocked from the patient. I re-scrubbed into the case for closure of incisions. The incisions were reapproximated using 4-0 Monocryl in an interrupted subcuticular fashion. Liquid glue was applied to the skin. At the end of the procedure, needle, sponge, and instrument count had been verified correct by medical surgical tech. The patient was taken to the postanesthesia care unit in stable condition with abdominal binder.
[2018-12-10] MEDS ORDERED: ONDANSETRON 4 MG/2 ML VIAL IVP ONE (16:58)
[2018-12-10 17:58] VITALS: BP 130/91; PULSE 97
[2018-12-10] MEDS ORDERED: HYDROcodone/APAP 5-325MG 1 EACH TAB PO ONE ×2 (17:58→19:01)
[2018-12-10] MEDS ORDERED: PROMETHAZINE INJ 25 MG/ML 1 ML VIAL IVPB ONE (18:22)
== END 2018-12-10 19:21 | disposition home or self-care (01) ==
LOC: OR 09:17
PROVIDERS: ATTEND Surgery Plastic and Reconstructive Surgery
DX: K42.0 Umbilical hernia with obstruction, without gangrene (principal); K66.0 Peritoneal adhesions (postprocedural) (postinfection); K21.9 Gastro-esophageal reflux disease without esophagitis; E78.5 Hyperlipidemia, unspecified; I11.9 Hypertensive heart disease without heart failure; L40.9 Psoriasis, unspecified; Z87.891 Personal history of nicotine dependence; Z79.899 Other long term (current) drug therapy; G89.4 Chronic pain syndrome; Q43.3 Congenital malformations of intestinal fixation
CPT/HCPCS: 49653; S2900; 64488; 85025; 88302

== ENCOUNTER → 2019-01-06 | Outpatient (CLI) | payer BC ==
--- NOTE | 2019-01-06 07:31 | US ---
EXAMINATION TYPE: US abdomen limited DATE OF EXAM: 01/06/2019 COMPARISON: CT CLINICAL HISTORY: Chronic Cholecystitis K81.1. Pt states RUQ pain EXAM MEASUREMENTS: Liver Length: 15.8 cm Gallbladder Wall: 0.2 cm CBD: 0.3 cm Right Kidney: 11.3 x 5.1 x 5.0 cm Pancreas: wnl, body wnl head and tail obscured by overlying bowel gas Liver: wnl Gallbladder: wnl Evidence for sonographic Lantigua's sign: No CBD: wnl Right Kidney: wnl IMPRESSION: No sonographic evidence of cholelithiasis or acute cholecystitis. Unremarkable limited ab dominal ultrasound other than obscuration portions of the pancreas by overlying bowel gas.
== END | disposition home or self-care (01) ==
LOC: RADUSWWP 06:54
PROVIDERS: ATTEND Surgery Plastic and Reconstructive Surgery
DX: K81.1 Chronic cholecystitis (principal)
CPT/HCPCS: 76705

== ENCOUNTER → 2019-01-08 | Outpatient (CLI) | payer BC ==
--- NOTE | 2019-01-08 11:40 | NM ---
EXAMINATION TYPE: NM hepatobiliary w EF DATE OF EXAM: 01/08/2019 COMPARISON: NONE HISTORY: Right upper quadrant pain TECHNIQUE: After the intravenous administration of 4.5 mCi Tc 99m Mebrofenin hepatobiliary scintigrap hy is performed. Immediate images post injection. FINDINGS: There is satisfactory initial accumulation of tracer by the liver. The gallbladder is visualized wit hin 12 minutes. The small bowel activity is noted within 60 minutes. At one hour 8 ounces of oral e nsure plus is given to mimic CCK and gallbladder ejection fraction is calculated at 51 %, in the norm al range. Therefore there is no scintigraphic evidence of cystic or common bile duct obstruction to suggest acute cholecystitis or gallbladder dyskinesia. IMPRESSION: Exam is within normal limits.
== END | disposition home or self-care (01) ==
LOC: RADNMMAIN 08:53
PROVIDERS: ATTEND Surgery Plastic and Reconstructive Surgery
DX: K81.1 Chronic cholecystitis (principal)
CPT/HCPCS: 78226; A9537

== ENCOUNTER 2019-01-13 10:53 | Day surgery (SDC) | payer BC ==
[2019-01-11 14:39] VITALS: BMI 24.4
[~2019-01-13 10:53] MED LIST changes: +ONDANSETRON 4 MG/2 ML VIAL IVP ONE; -Pre Op ABX Message 1 EACH MISC MISCELLANE ONE; +SCOPOLAMINE 1.5MG/72HR PATCH TRANSDERM ONE; -fentaNYL (PF) 50 MCG/ML 2 ML AMP IV PRN
[2019-01-13] MEDS ORDERED: INDOCYANINE GREEN 25 MG VIAL IV STA (11:01)
--- NOTE | 2019-01-13 11:02 | P.GSHP ---
History of Present Illness H&P Date: 01/13/19 CHIEF COMPLAINT: Cholecystitis HISTORY OF PRESENT ILLNESS: The patient is a 58-year-old male who presents with history of epigastric including right upper quadrant abdominal pain. He underwent diagnostic studies for the gallbladder. Separately his clinical picture was consistent with cholecystitis. Now he presents for surgical intervention. PAST MEDICAL HISTORY: Please see list PAST SURGICAL HISTORY: Please see list MEDICATIONS: Please see list ALLERGIES: Denies. SOCIAL HISTORY: No illicit drug use or recent tobacco use FAMILY HISTORY: Pertinent for gallbladder disease REVIEW OF ORGAN SYSTEMS: CONSTITUTIONAL: No reports of fevers or chills. HEENT: Denies any troubles with the vision or hearing. PHYSICAL EXAM: VITAL SIGNS: Afebrile vital signs stable GENERAL: Well-developed pleasant male in no acute distress. HEENT: No scleral icterus. Extraocular movements grossly intact. Moist buccal mucosa. NECK: Supple without lymphadenopathy. CHEST: Unlabored respirations. Equal bilateral excursions. CARDIOVASCULAR: Regular rate regular rhythm rhythm. Distal 2+ pulses. ABDOMEN: Soft, nondistended. Tender along the epigastrium and right upper quadrant. MUSCULOSKELETAL: No clubbing, cyanosis, or edema. NEURO : No focal or lateralizing signs. Cranial nerves II-12 within normal limits. PSYCH: Alert and oriented to person, place and time. SKIN: Well perfused. Good skin turgor. ASSESSMENT: 1. Epigastric and right upper quadrant abdominal pain 2. Chronic cholecystitis PLAN: 1. Will need a robotic cholecystectomy possible open. Benefits and risks were described. 2. Heparin for DVT prophylaxis 5000 units. 3. Antibiotic prophylaxis. Past Medical History Past Medical History: GERD/Reflux, Hyperlipidemia, Hypertension, Skin Disorder Additional Past Medical History / Comment(s): "PINCHED NERVE" WITH CERVICAL PAIN., PSORIASIS, HX DETACHED. RETINA RON .,. HX OF V-TACH, HX INTESTINAL MALROTATION, ELONGATED COLON., CONSTIPATION. , UMBILICAL HERNIA & LYSIS OF ADHESIONS 12/10/18. History of Any Multi-Drug Resistant Organisms: None Reported Past Surgical History: Appendectomy, Cardiac Ablation, Heart Catheterization, Hernia Repair Additional Past Surgical History / Comment(s): 02/18/17-DIAG. LAP, LYSIS OF ADHESIONS, APPENDECTOMY, BILAT CATRACTS,RON EYE SX X7, HX OF RIGHT INGUINAL HERNIA REPAIR., UMBILICAL HERNIA REPAIR WITH LYSIS OF ADHESIONS (12/10/18). Past Anesthesia/Blood Transfusion Reactions: Postoperative Nausea & Vomiting (PONV) Past Psychological History: No Psychological Hx Reported Smoking Status: Former smoker Past Alcohol Use History: None Reported Additional Past Alcohol Use History / Comment(s): QUIT SMOKING 2006, SMOKED 1PACK A WEEK FROM AGE 22 Past Drug Use History: None Reported - Past Family History Mother Family Medical History: No Reported History Father Family Medical History: Pulmonary Embolus Medications and Allergies Home Medications Medication Instructions Recorded Confirmed Type Esomeprazole Magnesium [NexIUM] 20 mg PO DAILY 01/26/17 01/11/19 History Atorvastatin [Lipitor] 10 mg PO HS 12/06/18 01/11/19 History Gabapentin 600 mg PO TID 12/06/18 01/11/19 History Losartan [Cozaar] 50 mg PO QAM 12/06/18 01/11/19 History Secukinumab [Cosentyx Pen] 150 mg SQ Q30D 12/06/18 01/11/19 History HYDROcodone/APAP 5-325MG [[place] 1 tab PO Q6HR PRN 3 Days #10 tab 12/10/18 01/11/19 Rx 5-325] Cholecalciferol (Vitamin D3) 5,000 unit PO DAILY 01/11/19 01/11/19 History [Vitamin D3] Ibuprofen [Motrin] 800 mg PO Q8HR 01/11/19 01/11/19 History Multivitamins, Thera [Multivitamin 1 tab PO DAILY 01/11/19 01/11/19 History (formulary)] Allergies Allergy/AdvReac Type Severity Reaction Status Date / Time No Known Allergies Allergy Verified 01/11/19 14:04
[2019-01-13 11:51] LABS: Basophils % (A) 1 %; Eosinophils # (A) 0.8 k/uL (0-0.7); Eosinophils % (A) 12 %; HCT 37.9 % (39.0-53.0); HGB 13.2 gm/dL (13.0-17.5); Lymphocytes # (A) 1.6 k/uL (1.0-4.8); Lymphocytes % (A) 25 %; MCHC 34.9 g/dL (31.0-37.0); MCV 91.8 fL (80.0-100.0); Monocytes # (A) 0.4 k/uL (0-1.0); Monocytes % (A) 6 %; Neutrophils # (A) 3.5 k/uL (1.3-7.7); Neutrophils % (A) 55 %; Platelet Count 215 k/uL (150-450); RBC 4.13 m/uL (4.30-5.90); RDW 13.9 % (11.5-15.5); WBC 6.4 k/uL (3.8-10.6)
[2019-01-13 11:55] LABS: ALT 34 U/L (21-72); AST 29 U/L (17-59); Albumin 4.4 g/dL (3.5-5.0); Alkaline Phosphatase 65 U/L (38-126); Anion Gap 4 mmol/L; Blood Urea Nitrogen 21 mg/dL (9-20); Calcium 9.5 mg/dL (8.4-10.2); Carbon Dioxide 31 mmol/L (22-30); Chloride 108 mmol/L (98-107); Glucose 96 mg/dL (74-99); Potassium 4.4 mmol/L (3.5-5.1); Sodium 143 mmol/L (137-145); Total Bilirubin 0.4 mg/dL (0.2-1.3); Total Protein 6.9 g/dL (6.3-8.2)
[2019-01-13] MEDS ORDERED: BUPIVACAINE-EPI 0.5%-1:200,000 10 ML VIAL SQ ONE (13:25)
[2019-01-13] MEDS ORDERED: NEOSTIGMINE 1 MG/ML 10 ML VIAL ONE (13:36)
[2019-01-13] MEDS ORDERED: ROCURONIUM BROMIDE 10 MG/ML 10 ML VIAL IV ONE (13:36)
[2019-01-13] MEDS ORDERED: GLYCOPYRROLATE 0.2 MG/ML 2 ML VIAL ONE (13:36)
[2019-01-13] MEDS ORDERED: PROPOFOL 10 MG/ML 20 ML VIAL IV ONE (13:36)
[2019-01-13] MEDS ORDERED: fentaNYL (PF) 50 MCG/ML 2 ML AMP ONE (13:36)
[2019-01-13] MEDS ORDERED: MIDAZOLAM 2 MG/2 ML VIAL ONE (13:36)
[2019-01-13] MEDS ORDERED: LIDOCAINE 1% INJ 10MG/ML (20 ML MDV) ONE (13:36)
[2019-01-13] MEDS ORDERED: INDOCYANINE GREEN 25 MG VIAL IV ONE (13:36)
[2019-01-13] MEDS ORDERED: LACTATED RINGERS 1,000 ML IV ONE ×2 (14:13→16:30)
[2019-01-13 15:28] VITALS: TEMP 97.1
[2019-01-13] MEDS: HYDROmorphone 0.5 MG/0.5 ML SYRINGE IVP PRN ×4 (15:30→15:52)
[2019-01-13 15:47] VITALS: RESP 16
--- NOTE | 2019-01-13 15:52 | P.OP ---
Date of Procedure: 01/13/19 Description of Procedure: SURGEON: LORA ARAYA MD PREOPERATIVE DIAGNOSES: 1. Right upper quadrant abdominal pain 2. Chronic cholecystitis 3. History of Intra-abdominal peritoneal adhesions 4. Chronic pain syndrome 5. Hyperlipidemia 6. Hypertensive heart disease 7. Gastroesophageal reflux disease 8. History of ventricular tachycardia 9. Psoariasis 10. Previous history of right inguinal hernia repair with chronic right lower quadrant abdominal pain 11. Pre-existing obstructive uropathy POSTOPERATIVE DIAGNOSES: 1. Right upper quadrant abdominal pain 2. Chronic cholecystitis 3. History of Intra-abdominal peritoneal adhesions 4. Chronic pain syndrome 5. Hyperlipidemia 6. Hypertensive heart disease 7. Gastroesophageal reflux disease 8. History of ventricular tachycardia 9. Psoariasis 10. Previous history of right inguinal hernia repair with chronic right lower quadrant abdominal pain 11. Pre-existing obstructive uropathy 12. Abdominal wall seroma OPERATION: Robotic-assisted da Song Xi laparoscopic cholecystectomy, multiport with FIREFLY Robotic-assisted da Song Xi laparoscopic lysis of adhesions Drainage of intra-abdominal seroma midabdomen ESTIMATED BLOOD LOSS: 5 mL. SPECIMENS REMOVED: Gallbladder. COMPLICATIONS: None. OPERATIVE FINDINGS: 1. Chronic cholecystitis with pericholecystic adhesions duodenum to gallbladder 2. Recurrent peritoneal adhesions small bowel to right groin released 3. Abdominal seroma involving recent mesh drained 4. Identified recurrent indirect right inguinal hernia without obstruction 5. Left-sided unremarkable for inguinal hernia 6. Small bowel unremarkable 7. Colon unremarkable INDICATIONS: The patient is a 58-year-old male who presents with cholelcystitis. Surgical intervention with a laparoscopic cholecystectomy was described at length including injury to the biliary tree, bleeding, infection, need for further surgery. Informed consent was obtained. Robotic assisted laparoscopic approach was described. Benefits and risks of the procedure including but not limited to bleeding, infection, injury to the biliary tree was described. Informed consent was obtained. DESCRIPTION OF PROCEDURE: Patient was brought to the operating room, placed in supine position. After general induction, the abdomen had been prepped and draped in standard sterile fashion. The robotic da Song XI system was primed. After a timeout protocol was performed, the patient had been prepped and draped in standard sterile fashion. The patient was injected with indocyanine green. A 5 mm 0 degrees laparoscopic trocar entry was performed along the left upper quadrant. The abdomen insufflated to 15 mmHg pressure which was tolerated well. Diagnostic laparoscopy demonstrated no injury to bowel or viscera. A small defect along the mesentery was identified and explored without bleeding. Initially a gelatinous material was identified of the abdominal wall from his most recent umbilical hernia repair with mesh placement. Recurrent small bowel peritoneal adhesion to the right lower pelvis was identified. All findings are consistent with this area of pain. The left groin was without defect or hernias. The small bowel and colon were unremarkable. The liver surface was unremarkable. Next, two 8 mm robotic ports were placed along the right upper abdomen. The camera 8-mm port was maintained along the epigastrium. Another 8 mm port was placed along the left upper abdominal wall after exchanging the 5 mm port. Please note that the ports were placed at least 10 to 15 cm away from the target anatomy of the gallbladder. The robot was docked along the left lateral abdomen. The patient was repositioned in reverse Trendelenburg position. Using a grasper for arm 3, a grasper for arm 4, including hook cautery for arm 1, the robotic system was docked and primed as described. Instruments were interchanged by the emergency medicine physician assistant including hook cautery, Bovie cautery and clip appliers. I had sat at the console. The gallbladder was elevated and immediately adhesions of the infundibulum and body was identified consistent with chronic cholecystitis. Adhesions were addressed using cautery. Once the gallbladder was released. Cholecystectomy was performed. The gallbladder fundus was retracted over the dome of the liver. Initial attention was brought to the infundibulum which was gently retracted in the inferior lateral approach. Using a grasper, the cystic duct including the cystic artery was carefully skeletonized. FIREFLY was used to identify the cystic artery and cystic structures. Large PLASTIC clips were used throughout the entire case. Using a clip agricultural specialist 2 clips were placed proximally, and 1 clip was placed distally along the cystic duct and then cauterized with the cautery. Again care was taken to avoid any injury to the biliary tree as the common bile duct was clearly visualized during this portion of dissection. Next, the cystic artery was similarly clipped and cauterized. Electro-Bovie cautery was used to remove the gallbladder from the hepatic fossa. Hemostasis was checked and found to be adequate. The robot was undocked and repositioned for the pelvis. The bed was flattened. Next, the abdominal wall gelatinous material was explored and released of clear fluid consistent with seroma along the mesh. No evidence of infection of the mesh was identified. Next along the right pelvis, recurrent peritoneal adhesion was addressed with both blunt including sharp dissection was minimal Bovie cautery without injury to the small bowel. Careful inspection of the right groin confirmed recurrent indirect inguinal hernia without obstruction. The fluid of seroma was removed using a sponge. The robot was undocked. I re-scrubbed into the case. Using a 10 mm Endo Catch bag via the left upper quadrant incision, the specimen was removed from the abdominal cavity. All pneumoperitoneum instruments were evacuated from the abdominal cavity. The incisions were reapproximated using 4-0 Monocryl in an interrupted subcuticular fashion. Fascial defects were less than 8 mm in size. Please note along the trocar sites, local anesthetic was placed as a field block prior to insertion of all instruments. Liquid glue was applied to the skin. At the end of the procedure needle, sponge, and instrument count had been verified correct by the surgical tech. The patient was transferred to postanesthesia care unit in stable condition. Intraoperative films were shared with the patient's family who were very pleased with the level of care. Plan - Discharge Summary Discharge Rx Participant: Yes New Discharge Prescriptions: New Tamsulosin [Flomax] 0.4 mg PO DAILY #30 cap Ibuprofen [Motrin] 600 mg PO Q8HR PRN #30 tab PRN Reason: Pain HYDROcodone/APAP 5-325MG [[place] 5-325] 1 tab PO Q4HR PRN 3 Days #18 tab PRN Reason: Pain No Action Esomeprazole Magnesium [NexIUM] 20 mg PO DAILY Gabapentin 600 mg PO TID Losartan [Cozaar] 50 mg PO QAM Atorvastatin [Lipitor] 10 mg PO HS Secukinumab [Cosentyx Pen] 150 mg SQ Q30D HYDROcodone/APAP 5-325MG [[place] 5-325] 1 tab PO Q6HR PRN 3 Days #10 tab PRN Reason: Pain Multivitamins, Thera [Multivitamin (formulary)] 1 tab PO DAILY Ibuprofen [Motrin] 800 mg PO Q8HR Cholecalciferol (Vitamin D3) [Vitamin D3] 5,000 unit PO DAILY Discharge Medication List Esomeprazole Magnesium [NexIUM] 20 mg PO DAILY 01/26/17 [History] Atorvastatin [Lipitor] 10 mg PO HS 12/06/18 [History] Gabapentin 600 mg PO TID 12/06/18 [History] Losartan [Cozaar] 50 mg PO QAM 12/06/18 [History] Secukinumab [Cosentyx Pen] 150 mg SQ Q30D 12/06/18 [History] HYDROcodone/APAP 5-325MG [[place] 5-325] 1 tab PO Q6HR PRN 3 Days #10 tab 12/10/18 [Rx] Cholecalciferol (Vitamin D3) [Vitamin D3] 5,000 unit PO DAILY 01/11/19 [History] Ibuprofen [Motrin] 800 mg PO Q8HR 01/11/19 [History] Multivitamins, Thera [Multivitamin (formulary)] 1 tab PO DAILY 01/11/19 [Histor y] HYDROcodone/APAP 5-325MG [[place] 5-325] 1 tab PO Q4HR PRN 3 Days #18 tab 01/13/19 [Rx] Ibuprofen [Motrin] 600 mg PO Q8HR PRN #30 tab 01/13/19 [Rx] Tamsulosin [Flomax] 0.4 mg PO DAILY #30 cap 01/13/19 [Rx] Follow up Appointment(s)/Referral(s): Lora Araya MD [STAFF PHYSICIAN] - 02/02/19 Patient Instructions/Handouts: Low Fat Diet (DC), Laparoscopic Cholecystectomy (DC) Activity/Diet/Wound Care/Special Instructions: No lifting over 4 pounds 1 week. May shower. No bathtub soaks. Low fat diet for the weekend. Discharge Disposition: HOME SELF-CARE
[2019-01-13] MEDS ORDERED: ONDANSETRON 4 MG/2 ML VIAL IVP ONE (15:53)
[2019-01-13] MEDS ORDERED: TAMSULOSIN 0.4 MG CAP.ER.24H PO STA (16:17)
[2019-01-13] MEDS ORDERED: HYDROcodone/APAP 5-325MG 1 EACH TAB PO ONE (16:36)
[2019-01-13 16:44] VITALS: BP 116/94; PULSE 99
== END 2019-01-13 17:23 | disposition home or self-care (01) ==
LOC: OR 10:53
PROVIDERS: ATTEND Surgery Plastic and Reconstructive Surgery
DX: K81.1 Chronic cholecystitis (principal); E78.5 Hyperlipidemia, unspecified; G89.4 Chronic pain syndrome; I11.9 Hypertensive heart disease without heart failure; K21.9 Gastro-esophageal reflux disease without esophagitis; L40.9 Psoriasis, unspecified; N13.9 Obstructive and reflux uropathy, unspecified; Z87.891 Personal history of nicotine dependence; Z98.42 Cataract extraction status, left eye; Z98.41 Cataract extraction status, right eye; Z79.1 Long term (current) use of non-steroidal anti-inflammatories (NSAID); Z79.891 Long term (current) use of opiate analgesic; Z79.899 Other long term (current) drug therapy; I47.2 Ventricular tachycardia; K66.0 Peritoneal adhesions (postprocedural) (postinfection); L76.34 Postprocedural seroma of skin and subcutaneous tissue following other procedure; Y83.8 Other surgical procedures as the cause of abnormal reaction of the patient, or of later complication, without mention of misadventure at the time of the procedure
CPT/HCPCS: 88304; 80053; 85025; 47562; 10140; J2250 ×2; J1644; J1100; J2710; J2405; J2001; J3010; J2704; J1170; J0690

== ENCOUNTER → 2019-02-24 | Outpatient (CLI) | payer BC ==
[2019-02-24 12:37] VITALS: BP 143/91; PULSE 81; RESP 16
--- NOTE | 2019-02-24 14:55 | P.PAINCN ---
History of Present Illness - Reason for Consult Consult date: 02/24/19 - History of Present Illness This is 58 years old male with a chronic history of abdominal pain, upper abdominal pain and right groin pain, patient reported that he had multiple surgical interventions, secondary to gastrointestinal problems, and recently he had robotic-assisted laparoscopic cholecystectomy with lysis of epidural adhesions, and he continued to have upper abdominal pain, but his main problem currently is right side lower quadrant abdominal, pain associated with numbness and tingling sensation, patient had right inguinal hernia surgery, and currently he continued to have severe numbness and pain, he denies any motor or sensory deficit he denies any fever or night sweats Past Medical History Past Medical History: GERD/Reflux, Hyperlipidemia, Hypertension, Skin Disorder Additional Past Medical History / Comment(s): "PINCHED NERVE" WITH CERVICAL PAIN., PSORIASIS, Hx ron. detached retinas,. HX OF V-TACH, HX INTESTINAL MALROTATION, ELONGATED COLON., CONSTIPATION. inguinal hernia currently History of Any Multi-Drug Resistant Organisms: None Reported Past Surgical History: Appendectomy, Cardiac Ablation, Cholecystectomy, Heart Catheterization, Hernia Repair Additional Past Surgical History / Comment(s): DIAG. LAP, LYSIS OF ADHESIONS, BILAT CATARACTS,RON EYE SX X7, HX OF RIGHT INGUINAL HERNIA REPAIR., UMBILICAL HERNIA REPAIR WITH LYSIS OF ADHESIONS (12/10/18). Past Anesthesia/Blood Transfusion Reactions: Postoperative Nausea & Vomiting (PONV) Past Psychological History: No Psychological Hx Reported Smoking Status: Former smoker Past Alcohol Use History: None Reported Additional Past Alcohol Use History / Comment(s): QUIT SMOKING 2006, SMOKED 1PACK A WEEK FROM AGE 22 Past Drug Use History: None Reported - Past Family History Mother Family Medical History: No Reported History Father Family Medical History: Pulmonary Embolus Medications and Allergies Home Medications Medication Instructions Recorded Confirmed Type Esomeprazole Magnesium [NexIUM] 20 mg PO DAILY 01/26/17 02/24/19 History Atorvastatin [Lipitor] 10 mg PO HS 12/06/18 02/24/19 History Gabapentin 600 mg PO TID 12/06/18 02/24/19 History Losartan [Cozaar] 50 mg PO QAM 12/06/18 02/24/19 History Secukinumab [Cosentyx Pen] 150 mg SQ Q30D 12/06/18 02/24/19 History Cholecalciferol (Vitamin D3) 5,000 unit PO DAILY 01/11/19 02/24/19 History [Vitamin D3] Multivitamins, Thera [Multivitamin 1 tab PO DAILY 01/11/19 02/24/19 History (formulary)] Allergies Allergy/AdvReac Type Severity Reaction Status Date / Time No Known Allergies Allergy Verified 02/24/19 12:28 Physical Exam Vitals: Vital Signs Pulse Resp BP Pulse Ox 02/24/19 12:29 81 16 143/91 99 Physical Examinations : -Constitutiona : Cooperative , not in acute distress . -HEENT : nech ; supple , no Lymphadenopathy , normal thyroid size . eyes : no ptosis , no icterus, no photophobia . ENT : normal of hearing , normal oropharynx , no Thrush . - Respiratory : Chest clear to auscultations Bilaterally , no wheezing , no Rhonchi . - Cardiovascula : regular rate and rhythem , S1 , S2 , no S3 , no S4. - Gastrointestina : abdomen soft ,tenderness in the right lower quadrant,++ dysesthesia, right lower quadrant, bowel sounds , no organomegally . - Genitourinary : Defferred . - neurologic : Cranial nerve II to XII intact , no focal neurological deffecit . -psychatric : alert , oriented X 3 , appropriate affect , intact judgment and insight . -Lymphatic : no Lymphadenopathy . - musculoskeltal : Lumber spine moter stegnth lower extremities ,thigh and legs 5/5 Right side , 5/5 Left side Assessment and Plan Plan: Assessment and plan= right ilioinguinal and right iliohypogastric neuralgia Patient could benefit from right ilioinguinal right iliohypogastric nerve block x2 under ultrasound guidance and possible RFA in the future Patient should continue to use Neurontin 600 mg 3 times a day Time with Patient: Less than 30 PQRS Measure Charge Sheet PQRS Narrative: Smoking Status Former smoker Blood Pressure 143/91 Pain Intensity [Bilateral 5 Abdomen] Scale Used Numeric (1 - 10) Hx Alcohol Use (MH) No Home Medications: Ambulatory Orders Esomeprazole Magnesium [NexIUM] 20 mg PO DAILY 01/26/17 Atorvastatin [Lipitor] 10 mg PO HS 12/06/18 Gabapentin 600 mg PO TID 12/06/18 Losartan [Cozaar] 50 mg PO QAM 12/06/18 Secukinumab [Cosentyx Pen] 150 mg SQ Q30D 12/06/18 Cholecalciferol (Vitamin D3) [Vitamin D3] 5,000 unit PO DAILY 01/11/19 Multivitamins, Thera [Multivitamin (formulary)] 1 tab PO DAILY 01/11/19
== END | disposition home or self-care (01) ==
LOC: PNWHC3 12:05
PROVIDERS: ATTEND Specialist
DX: G89.29 Other chronic pain (principal); G58.8 Other specified mononeuropathies; E78.5 Hyperlipidemia, unspecified; I10 Essential (primary) hypertension; Z87.891 Personal history of nicotine dependence; Z90.49 Acquired absence of other specified parts of digestive tract; Z98.890 Other specified postprocedural states; Z79.899 Other long term (current) drug therapy
CPT/HCPCS: 99211

== ENCOUNTER → 2019-03-02 | Day surgery (SDC) | payer BC ==
[2019-02-28 14:56] VITALS: BMI 24.4
[~2019-03-02] MED LIST changes: -DEXAMETHASONE SOD PHOSPHATE 10 MG/ML 1 ML VIAL IV ONE; -HEPARIN SODIUM,PORCINE 5,000 UNIT/ML 1 ML VIAL SQ ONE; +IV FLUID CONTINUATION 1,000 ML IV ONE; +LACTATED RINGERS 1,000 ML IV ONE; +LIDOCAINE 1% 20 ML VIAL (10MG/ML) FOR IV START INTRADERMA ONE; -LIDOCAINE 1% 20 ML VIAL (10MG/ML) FOR IV START INTRADERMA PRN; -MIDAZOLAM (PF) 2 MG/2 ML VIAL IV PRN; -ONDANSETRON 4 MG/2 ML VIAL IVP ONE; -SCOPOLAMINE 1.5MG/72HR PATCH TRANSDERM ONE; -ceFAZolin IN SWFI 2 GM/20 ML SYRINGE IVP ONE
[2019-03-02 06:34] VITALS: TEMP 97.1
[2019-03-02 07:49] VITALS: BP 126/85; PULSE 79; RESP 18
--- NOTE | 2019-03-02 09:03 | P.PCN ---
Date of Procedure: 03/02/19 Description of Procedure: PREOPERATIVE DIAGNOSIS: Intractable abdominal pain POSTOPERATIVE DIAGNOSIS: Same PROCEDURE Right sided ilioinguinal and iliohypogastric nerve block with ultrasound guidance ANESTHESIA: Local with 1% lidocaine 2 mL EBL: Minimal PROCEDURE INDICATION: This is a very pleasant 58 showed gentleman with a history of right sided groin pain who presents today for right ilioinguinal and iliohypogastric nerve block.. PROCEDURE DESCRIPTION / TECHNIQUE: The patient was seen and identified in the preoperative area. Risks, benefits, complications including but not limited to infections ,bleeding ,allergic reaction to the medications ,nerve damage and not complete pain relief , and alternatives were discussed with the patient. The patient agreed to proceed with the procedure and signed the consent. IV was started, and vital signs were stable. Patient was taken to the OR and time out was completed. The patient was placed in the supine position. The area over the right groin was prepped and draped in usual sterile fashion the ultrasound machine was used to identify the appropriate fascial planes. Local anesthetic was applied to skin subcu taste tissue. A needle was then advanced through the skin and subcutaneous tissue and the tip of the needle was seen to be in the fascial plane between the internal oblique and the transversalis abdominis. After negative aspiration, solution containing 10 mL of 0.5% bupivacaine and 40 mg of Depo-Medrol was injected in incremental fashion. Good spread was seen in the fascial planes. The needle was withdrawn intact, skin was cleansed, and bandages were applied. COMPLICATIONS: None DISPOSITION / PLANS: The patient was returned to the supine position and transferred to the recovery area in a stable condition for observation. There was no evidence of lower extremity motor or sensory deficit after the procedure. Patient was discharged from the recovery room after meeting discharge criteria. Home discharge instructions were given to the patient by the staff. Follow up plan: Follow-up in the clinic in 2-3 weeks.
== END ==
LOC: ORPAIN 06:20
PROVIDERS: ATTEND Pain Medicine Pain Medicine
DX: R10.31 Right lower quadrant pain (principal); R10.10 Upper abdominal pain, unspecified; I10 Essential (primary) hypertension; E78.5 Hyperlipidemia, unspecified; K21.9 Gastro-esophageal reflux disease without esophagitis; L40.9 Psoriasis, unspecified; Z90.49 Acquired absence of other specified parts of digestive tract; K59.00 Constipation, unspecified; Z87.891 Personal history of nicotine dependence; Z79.899 Other long term (current) drug therapy
CPT/HCPCS: 64425; J1030

== ENCOUNTER → 2019-03-23 | Outpatient (CLI) | payer BC ==
[2019-03-23 13:45] VITALS: BP 138/89; PULSE 79; RESP 16
--- NOTE | 2019-03-23 16:55 | P.PAINPG ---
Subjective Progress Note Date: 03/23/19 This is a follow-up visit for this 58 years old male the chronic history of severe right groin pain, he is diagnosed with right sided ilioinguinal and iliohypogastric neuralgia, recently we have none right-sided ilioinguinal and iliohypogastric nerve block under ultrasound guidance, patient reported that his pain is completely gone after the block, currently is pain free he denies any numbness or tingling, he is very satisfied with the results of the treatment Objective - Vital Signs Vital signs: Vital Signs Temp Pulse 79 03/23/19 13:36 Resp 16 03/23/19 13:36 BP 138/89 03/23/19 13:36 Pulse Ox 99 03/23/19 13:36 Intake & Output 03/22/19 03/23/19 03/23/19 18:59 06:59 18:59 Weight 86.183 kg - Exam Physical Examinations : -Constitutiona : Cooperative , not in acute distress . -HEENT : nech : supple , no Lymphadenopathy , normal thyroid size . eyes : no ptosis , no icterus, no photophobia . - neurologic : Cranial nerve II to XII intact , no focal neurological deffecit . -psychatric : alert , oriented X 3 , appropriate affect , intact judgment and insight . -Lymphatic : no Lymphadenopathy . - musculoskeltal : Lumber spine moter stegnth lower extremities ,thigh and legs 5/5 Right side , 5/5 Left side Assessment and Plan Plan: Assessment and plan= right groin pain secondary to Right ilioinguinal and iliohypogastric neuralgia. Pain improved after the block, patient will follow up in the pain clinic when necessary, Time with Patient: Less than 30 PQRS Measure Charge Sheet Measure #130: Documentation of Current Meds in Medical Chart: Patient's medicati ons documented in chart Measure #226: Tobacco Use: Screen & Cessation Intervention: Pt not a tobacco user Measure #111: Pneumonia Vaccination: Pneumococcal vaccine administered or previously received Measure #47: Advance Care Plan: Advance care planning discussed & documented, pt chose/unable to give Measure #412: Opioid Treatment Agreement: No documentation of signed opioid treatment agreement Measure #408: Opioid Therapy Follow-up Evaluation: Patient had NO f/u eval mi nimum every 3 months during opioid therapy Measure #317: Preventitive Care & Scrn High Bld Press & F/U: Normal blood pressure, f/u not required Measure #128: Body Mass Index (BMI) Screening & Follow-up: BMI documented ABOVE normal parameters - f/u documented Measure #131: Pain Assessment & Follow-up: Pain positive & plan documented, Pain negative & plan not documented, Follow-up PRN Measure #431: Unhealthy Alcohol Use Preventative Care & Scrn: Patient not identified as an unhealthy alcohol user PQRS Narrative: Smoking Status Former smoker Blood Pressure 138/89 Pain Intensity [Right Groin] 1 Scale Used Numeric (1 - 10) Hx Alcohol Use (MH) No Home Medications: Ambulatory Orders Esomeprazole Magnesium [NexIUM] 20 mg PO DAILY 01/26/17 Atorvastatin [Lipitor] 10 mg PO HS 12/06/18 Gabapentin 600 mg PO TID 12/06/18 Losartan [Cozaar] 50 mg PO QAM 12/06/18 Secukinumab [Cosentyx Pen] 150 mg SQ Q30D 12/06/18 Cholecalciferol (Vitamin D3) [Vitamin D3] 5,000 unit PO DAILY 01/11/19 Multivitamins, Thera [Multivitamin (formulary)] 1 tab PO DAILY 01/11/19 Controlled Substance Measures - Controlled Substance Measures Is patient prescribed a controlled substance at discharge?: No
== END | disposition home or self-care (01) ==
LOC: PNWHC3 13:00
PROVIDERS: ATTEND Specialist
DX: G89.29 Other chronic pain (principal); G58.8 Other specified mononeuropathies; Z87.891 Personal history of nicotine dependence; Z79.899 Other long term (current) drug therapy
CPT/HCPCS: 99211

== ENCOUNTER → 2019-04-15 | Outpatient (CLI) | payer BC ==
[2019-04-15 06:58] LABS: HCT 41.7 % (39.0-53.0); HGB 14.5 gm/dL (13.0-17.5); MCH 32.1 pg (25.0-35.0); MCHC 34.6 g/dL (31.0-37.0); MCV 92.8 fL (80.0-100.0); Mean Platelet Volume 6.7; Platelet Count 232 k/uL (150-450); RDW 12.9 % (11.5-15.5); WBC 7.9 k/uL (3.8-10.6)
[2019-04-15 07:13] LABS: ALT 29 U/L (21-72); AST 25 U/L (17-59); African American GFR (CKD) >90 (>60 ml/min/1.73 sqM); Albumin 4.4 g/dL (3.5-5.0); Alkaline Phosphatase 65 U/L (38-126); Anion Gap 9 mmol/L; Blood Urea Nitrogen 24 mg/dL (9-20); Calcium 9.1 mg/dL (8.4-10.2); Carbon Dioxide 30 mmol/L (22-30); Chloride 103 mmol/L (98-107); Glucose 142 mg/dL (74-99); Potassium 4.2 mmol/L (3.5-5.1); Sodium 142 mmol/L (137-145); Total Bilirubin 0.4 mg/dL (0.2-1.3); Total Protein 7.2 g/dL (6.3-8.2)
== END | disposition home or self-care (01) ==
LOC: LABPAT 06:38
PROVIDERS: ATTEND Surgery Plastic and Reconstructive Surgery
DX: K56.2 Volvulus (principal)
CPT/HCPCS: 36415; 80053; 85027

== ENCOUNTER 2019-04-22 07:24 | Inpatient (IN) | payer BC ==
--- NOTE | 2019-04-21 16:50 | P.GSHP ---
History of Present Illness H&P Date: 04/22/19 CHIEF COMPLAINT: History of sigmoid volvulus HISTORY OF PRESENT ILLNESS: The patient is a 58-year-old male with long-standing history of chronic constipation including large bowel obstruction secondary to sigmoid volvulus. He completed a colonoscopy which excluded underlying neoplasm. Now he presents for sigmoid colon resection. PAST MEDICAL HISTORY: Please see list. PAST SURGICAL HISTORY: Please see list. MEDICATIONS: Please see list. ALLERGIES: Please see list. SOCIAL HISTORY: No illicit drug use FAMILY HISTORY: No reports of Crohn disease or ulcerative colitis. REVIEW OF ORGAN SYSTEMS: CONSTITUTIONAL: Denies any fever or chills. HEENT: Denies any trouble with vision or nosebleeds. No difficulty swallowing. LYMPHATIC: The patient denies any lumps and bumps around the neck. ENDOCRINE: Denies any thyroid disorders. No blood sugar glucose intolerance. RESPIRATORY: Denies pneumonia. Denies any troubles with breathing or dyspnea on exertion. CARDIOVASCULAR: Denies any chest pain, palpitations, or recent heart attacks. GASTROINTESTINAL: Has constipation and recent colonoscopy. GENITOURINARY: Has increased urinary frequency. MUSCULOSKELETAL: Has back pain, stiffness, joint arthritis. NEUROLOGIC: Denies any numbness or tingling along the distal extremities. No seizure disorders or headaches. PSYCHIATRIC: Denies depression or suidical ideation. HEMATOLOGIC: Denies any abnormal bleeding or bruising. PHYSICAL EXAM: VITAL SIGNS: Stable GENERAL: Well-developed pleasant in no acute distress. HEENT: No scleral icterus. Extraocular movements grossly intact. Moist buccal mucosa. NECK: Supple without lymphadenopathy. CHEST: Unlabored respirations. Equal bilateral excursions. CARDIOVASCULAR: Regular rate and rhythm. Distal 2+ pulses. ABDOMEN: Soft, nondistended, tender along the left lower quadrant without peritonitis MUSCULOSKELETAL: No clubbing, cyanosis, or edema. NERUO: Regular 2-12 grossly intact. PSYCH: Alert and oriented to person place and time. ASSESSMENT: 1. Left lower quadrant abdominal pain 2. Sigmoid volvulus. 3. Hypertensive heart disease with cardiomyopathy. PLAN: 1. Benefits and risks of surgical intervention particular sigmoid volvulus reviewed in detail. Robotic-assisted approach was also described. 2. He has completed an enhanced colon recovery program. 3. DVT prophylaxis. 4. Antibiotic prophylaxis. Past Medical History Past Medical History: GERD/Reflux, Hyperlipidemia, Hypertension, Skin Disorder Additional Past Medical History / Comment(s): Inguinal hernia. "PINCHED NERVE" WITH CERVICAL PAIN, PSORIASIS. Hx bilateral detached retinas. HX OF V-TACH, INTESTINAL MALROTATION, ELONGATED COLON, CONSTIPATION. History of Any Multi-Drug Resistant Organisms: None Reported Past Surgical History: Appendectomy, Cardiac Ablation, Cholecystectomy, Heart Catheterization, Hernia Repair Additional Past Surgical History / Comment(s): DIAGNOSTIC LAP, LYSIS OF ADHESIONS, BILATERAL CATARACTS, BILATERAL EYE SURGERY X7, HX OF RIGHT INGUINAL HERNIA REPAIR, UMBILICAL HERNIA REPAIR WITH LYSIS OF ADHESIONS. Past Anesthesia/Blood Transfusion Reactions: Postoperative Nausea & Vomiting (PONV) Smoking Status: Former smoker - Past Family History Mother Family Medical History: No Reported History Father Family Medical History: Pulmonary Embolus Medications and Allergies Home Medications Medication Instructions Recorded Confirmed Type Esomeprazole Magnesium [NexIUM] 20 mg PO DAILY 01/26/17 04/13/19 History Atorvastatin [Lipitor] 10 mg PO HS 12/06/18 04/13/19 History Gabapentin 600 mg PO TID 12/06/18 04/13/19 History Losartan [Cozaar] 50 mg PO QAM 12/06/18 04/13/19 History Secukinumab [Cosentyx Pen] 150 mg SQ Q30D 12/06/18 04/13/19 History Cholecalciferol (Vitamin D3) 5,000 unit PO DAILY 01/11/19 04/13/19 History [Vitamin D3] Multivitamins, Thera [Multivitamin 1 tab PO DAILY 01/11/19 04/13/19 History (formulary)] Acetaminophen/Diphenhydramine 1 tab PO HS 04/13/19 04/13/19 History [Tylenol PM 500-25mg] Allergies Allergy/AdvReac Type Severity Reaction Status Date / Time No Known Allergies Allergy Verified 04/13/19 14:43
[~2019-04-22 07:24] MED LIST changes: +ACETAMINOPHEN TAB 500 MG TAB PO ONE; +ALVIMOPAN 12 MG CAPSULE PO ONE; +Antibiotics per Pharmacy 1 EACH MISC MISCELLANE PRN; +DEXAMETHASONE SOD PHOSPHATE 10 MG/ML 1 ML VIAL IV ONE; +HEPARIN SODIUM,PORCINE 5,000 UNIT/ML 1 ML VIAL SQ ONE; +HYDROmorphone 0.5 MG/0.5 ML SYRINGE IVP PRN; -IV FLUID CONTINUATION 1,000 ML IV ONE; -LACTATED RINGERS 1,000 ML IV ONE; -LIDOCAINE 1% 20 ML VIAL (10MG/ML) FOR IV START INTRADERMA ONE; +MIDAZOLAM 2 MG/2 ML VIAL IV PRN; +ONDANSETRON 4 MG/2 ML VIAL IVP ONE; +SCOPOLAMINE 1.5MG/72HR PATCH TRANSDERM ONE; +metroNIDAZOLE-NS PMX 500 MG in SALINE 1 100ML.BAG IVPB ONE
[2019-04-22] MEDS ORDERED: LIDOCAINE 1% 20 ML VIAL (10MG/ML) FOR IV START INTRADERMA ONE (07:45)
[2019-04-22] MEDS ORDERED: fentaNYL (PF) 50 MCG/ML 2 ML AMP IVP ONE (08:21)
[2019-04-22] MEDS ORDERED: NALOXONE 0.4 MG/ML 1 ML VIAL IV PRN (08:32)
--- NOTE | 2019-04-22 08:39 | P.HPADDEND ---
H&P Addendum H&P Addendum Date: 04/22/19 Benefits and risks of robotic sigmoid colectomy described. Patient wishes to proceed with surgery.
[2019-04-22] MEDS ORDERED: PROPOFOL 10 MG/ML 20 ML VIAL IV ONE (08:55)
[2019-04-22] MEDS ORDERED: GLYCOPYRROLATE 0.2 MG/ML 2 ML VIAL ONE (08:55)
[2019-04-22] MEDS ORDERED: NEOSTIGMINE 1 MG/ML 10 ML VIAL ONE (08:55)
[2019-04-22] MEDS ORDERED: HEPARIN SODIUM,PORCINE 5,000 UNIT/ML 1 ML VIAL ONE (08:55)
[2019-04-22] MEDS ORDERED: LIDOCAINE 1% INJ 10MG/ML (20 ML MDV) ONE (08:55)
[2019-04-22] MEDS ORDERED: fentaNYL (PF) 50 MCG/ML 2 ML AMP ONE (08:55)
[2019-04-22] MEDS ORDERED: VECURONIUM 10 MG VIAL IV ONE (08:55)
[2019-04-22] MEDS ORDERED: PHENYLEPHRINE-0.9% NACL SYG 1 MG/10 ML SYRINGE ONE (08:55)
[2019-04-22] MEDS ORDERED: MIDAZOLAM 2 MG/2 ML VIAL ONE (08:55)
[2019-04-22] MEDS ORDERED: LACTATED RINGERS 1,000 ML IV ONE ×3 (09:15→12:06)
[2019-04-22] MEDS ORDERED: BUPIVACAIN-EPI 0.25%-1:200,000 30 ML VIAL SQ ONE (09:30)
[2019-04-22] MEDS ORDERED: KETOROLAC 30 MG/ML 1 ML VIAL IVP PRN (13:12)
[2019-04-22] MEDS ORDERED: BENZOCAINE/MENTHOL LOZENG 1 EACH LOZENGE MUCOUS MEM PRN (13:12)
--- NOTE | 2019-04-22 13:32 | P.OP ---
Date of Procedure: 04/22/19 Description of Procedure: SURGEON: BAKARI SWEET MD PREOPERATIVE DIAGNOSES: 1. History of sigmoid volvulus with large bowel obstruction 2. Left lower quadrant abdominal pain 3. Gastroesophageal reflux disease 4. Hypertensive heart disease 5. Chronic pain syndrome 6. Postop nausea and vomiting 7. Hyperlipidemia POSTOPERATIVE DIAGNOSES: 1. History of sigmoid volvulus with large bowel obstruction 2. Left lower quadrant abdominal pain 3. Gastroesophageal reflux disease 4. Hypertensive heart disease 5. Chronic pain syndrome 6. Postop nausea and vomiting 7. Hyperlipidemia 8. Intestinal malrotation with Hamilton's bands 9. Sigmoid volvulus secondary to [place]'s bands OPERATION: 1. Robotic-assisted da Song X laparoscopic lysis of adhesions over 1 hour for Hamilton's bands 2. Robotic-assisted daVinci Xi laparoscopic sigmoid colectomy, multi-port ANESTHESIA: General with epidural ESTIMATED BLOOD LOSS: 30 mL SPECIMENS REMOVED: sigmoid colon FINDINGS: 1. Appendectomy noted with cecum adherent to distal sigmoid colon 2. Transverse colon adherent to descending colon 3. Extensive division of [place]'s bands performed secondary to intestinal malrotation with cecum and ascending colon at left quadrant of abdomen 4. Moderate redundant sigmoid colon with volvulus from Hamilton's bands also resected with side to side linear anastomosis with 60 mm blue staple loads 5. No recurrent umbilical hernia 6. Small recurrent indirect hernia of right groin 7. No abdominal wall adhesions identified from previous umbilical hernia repair 8. No left inguinal hernia identified INDICATIONS: The patient is a 58-year-old male who presents with history of sigmoid volvulus with left lower quadrant abdominal pain. He has chronic left lower quadrant abdominal pain as a result. He completed a colonoscopy. Surgical options were described including robotic assisted technique. Benefits and risks, including infection, possibility for additional surgery, including possible colostomy was discussed at length. Informed consent was obtained. DESCRIPTION: Earlier the patient had undergone a bowel prep using the enhanced colon recovery program and placement of epidural . The patient was transferred to the operating room and placed supine. The patient was then intubated. A Griffin catheter placed. The abdomen was then prepped and draped in standard sterile fashion. After a timeout protocol was performed, attention was then brought to the left upper quadrant whereby a 0 degree 5 mm laparoscopic trocar entry was performed. The abdominal cavity was entered and insufflated to 15 mmHg pressure, which he tolerated well. Diagnostic laparoscopy demonstrated cecum at the left abdomen with appendix previously removed with staple line. Moderately redundant sigmoid colon including cecum into the pelvis confirmed. No recurrent umbilical hernia found. No abdominal wall adhesions found. No hernia of the left groin found. All 4 arms of the robot were used. Next a robotic 8-mm trocar was placed along the left lateral abdominal wall 15 cm proximal from the pelvis. A 8 mm port was placed along the right lateral abdominal wall followed by another robotic 12-mm port placed along the right upper quadrant. Ports were placed 8 cm apart from each other including 15cm away from the target anatomy of the left pelvis. The 5-mm port was exchanged for an 12 mm robotic port. The stapler 12-mm port was placed along the right upper and left upper quadrant. The patient was then placed in Trendelenburg position, 16. The robotic da Song Xi system was primed. The robot was docked along the left-side of the patient. Using a grasper for arm 1, a grasper for arm 3, including vessel sealer for arm 4, the robotic system was docked and primed as described. Instruments were interchanged by the miner assistant including scissors the cartridge, needle tank driver, robotic stapler and vessel sealer. The cecum was identified deep into the pelvis where [place]'s bands adhesions to the sigmoid colon were divided using vessel sealer. Upon further assessment the ascending colon was adherent to the left colon also similarly divided using a vessel sealer. The transverse colon was also adherent to the descending colon and sigmoid colon and also divided for Hamilton's bands all findings confirming intestinal malrotation, congenital. Sigmoid volvulus was also confirmed with his intestinal malrotation. Once all adhesions were addressed, attention was brought to sigmoid resection. Extensive resection and lysis of adhesions of [place]'s bands occurred for over one hour. The sigmoid colon and descending colon were mobilized along the white line of [place] using vessel sealer. The sigmoid colon was moderately redundant. A stay suture using 3-0 silk was placed along the anterior serosa of the descending colon including along the rectum. The sigmoid mesentery was mobilized using a vessel sealer whereby the distal sigmoid colon was marked and tagged. Using robot stapler 60 mm blue load, the distal redundant sigmoid colon was divided. The mesentery of the sigmoid colon was mobilized towards the descending colon using a vessel sealer. Next, the proximal sigmoid colon was divided using robotic stapler 60 mm blue load. The descending colon was similarly marked using 3-0 silk. The rest of the sigmoid colon mesentery was mobilized using vessel sealer. The proximal and distal colon was brought in an isoperistaltic fashion after placing interrupted sutures along the proposed ro-lumen using 3-0 silk. Along the tinea coli of the proximal including distal limbs, a colotomy was prepared along both limbs. Next, a 60 mm blue stapler was fired to create the ro-lumen. The colotomy of the ro-lumen was closed using 3-0 silk and 60 mm blue loads. The robot was undocked. I re-scrubbed into the case. Via the 12 mm port of the left upper lateral trocar, the colon was removed using 15-mm bag after widening the incision to 3-cm. All sponges were removed from the abdominal cavity. Minimal contamination had occurred throughout the case. The incision of the left upper quadrant was oversewn using 0 Vicryl in [place]. Next all pneumoperitoneum was evacuated from the abdominal cavity. The 8-mm trocar sites were reapproximated using 4-0 Monocryl in an interrupted subcuticular fashion. The larger trocar sites were irrigated using warm normal saline and hydrogen peroxide solution of the colon extraction site. Local anesthetic was infiltrated to all wounds for postop analgesia. An Optifoam surgical dressing was placed over the colon extraction site. Liquid glue was applied to the rest of the skin incisions. The patient had tolerated the procedure well. Estimated blood loss was approximately 30 mL. The patient was extubated successfully. Intraoperative photos were reviewed with the patient's family who were overall pleased with the level of care. The patient was transferred to the postanesthesia care unit in stable condition. Console time 168 minutes COMPLEXITY: Increased complexity of procedure secondary to patient's congenital intestinal malrotation with multiple Hamilton's bands requiring extensive lysis of adhesions over one hour. Additionally, active sigmoid volvulus confirmed. Above findings required additional 1-2 hours of the operation.
[2019-04-22 14:56] VITALS: BMI 26.3
[2019-04-22] MEDS: DICLOFENAC 0.1% OPHTH SOLN 2.5 ML BTL LEFT EYE SCH ×3 (15:05→22:27)
[2019-04-22] MEDS: SODIUM CHLORIDE 0.9% 1,000 ML IV SCH (15:06)
[2019-04-22 15:49] LABS: Basophils % (A) 0 %; Eosinophils % (A) 0 %; HCT 40.3 % (39.0-53.0); HGB 13.5 gm/dL (13.0-17.5); Lymphocytes # (A) 0.9 k/uL (1.0-4.8); Lymphocytes % (A) 6 %; MCH 31.5 pg (25.0-35.0); MCHC 33.6 g/dL (31.0-37.0); MCV 93.9 fL (80.0-100.0); Mean Platelet Volume 6.7; Monocytes # (A) 0.3 k/uL (0-1.0); Monocytes % (A) 2 %; Neutrophils # (A) 13.8 k/uL (1.3-7.7); Neutrophils % (A) 92 %; Platelet Count 254 k/uL (150-450); RBC 4.29 m/uL (4.30-5.90); RDW 12.9 % (11.5-15.5)
[2019-04-22 15:55] LABS: African American GFR (CKD) >90 (>60 ml/min/1.73 sqM); Anion Gap 9 mmol/L; Blood Urea Nitrogen 13 mg/dL (9-20); Calcium 8.7 mg/dL (8.4-10.2); Carbon Dioxide 26 mmol/L (22-30); Chloride 105 mmol/L (98-107); Glucose 148 mg/dL (74-99); Potassium 4.3 mmol/L (3.5-5.1); Sodium 140 mmol/L (137-145)
[2019-04-22] MEDS: ONDANSETRON 4 MG/2 ML VIAL IVP SCH (16:46)
[2019-04-22] MEDS: METOCLOPRAMIDE 5 MG/ML 2 ML VIAL IVP PRN (19:36)
[2019-04-22] MEDS ORDERED: SODIUM CHLORIDE 0.9% 2,000 ML IV ONE (20:10)
[2019-04-22] MEDS: metroNIDAZOLE-NS PMX 500 MG in SALINE 1 100ML.BAG IVPB SCH (22:08)
[2019-04-22] MEDS: HEPARIN SODIUM,PORCINE 5,000 UNIT/ML 1 ML VIAL SQ SCH (22:29)
[2019-04-22] MEDS: ALVIMOPAN 12 MG CAPSULE PO SCH (22:29)
[2019-04-23] MEDS: SODIUM CHLORIDE 0.9% 1,000 ML IV SCH ×3 (01:17→23:58)
[2019-04-23] MEDS: ONDANSETRON 4 MG/2 ML VIAL IVP SCH ×5 (01:39→23:52)
[2019-04-23] MEDS: metroNIDAZOLE-NS PMX 500 MG in SALINE 1 100ML.BAG IVPB SCH ×3 (02:15→12:48)
[2019-04-23 07:15] LABS: Basophils % (A) 0 %; Eosinophils % (A) 0 %; HCT 36.2 % (39.0-53.0); HGB 12.4 gm/dL (13.0-17.5); Lymphocytes # (A) 1.3 k/uL (1.0-4.8); Lymphocytes % (A) 8 %; MCH 31.7 pg (25.0-35.0); MCHC 34.2 g/dL (31.0-37.0); MCV 92.7 fL (80.0-100.0); Mean Platelet Volume 6.6; Monocytes # (A) 0.8 k/uL (0-1.0); Monocytes % (A) 5 %; Neutrophils # (A) 12.9 k/uL (1.3-7.7); Neutrophils % (A) 85 %; Platelet Count 228 k/uL (150-450); RBC 3.91 m/uL (4.30-5.90); RDW 12.8 % (11.5-15.5); WBC 15.1 k/uL (3.8-10.6)
[2019-04-23 07:31] LABS: ALT 27 U/L (21-72); AST 23 U/L (17-59); African American GFR (CKD) >90 (>60 ml/min/1.73 sqM); Albumin 3.5 g/dL (3.5-5.0); Alkaline Phosphatase 59 U/L (38-126); Anion Gap 6 mmol/L; Blood Urea Nitrogen 12 mg/dL (9-20); Carbon Dioxide 27 mmol/L (22-30); Chloride 106 mmol/L (98-107); Glucose 105 mg/dL (74-99); Sodium 139 mmol/L (137-145); Total Bilirubin 0.3 mg/dL (0.2-1.3); Total Protein 5.9 g/dL (6.3-8.2)
[2019-04-23] MEDS: METOCLOPRAMIDE 5 MG/ML 2 ML VIAL IVP PRN (07:54)
[2019-04-23] MEDS: HEPARIN SODIUM,PORCINE 5,000 UNIT/ML 1 ML VIAL SQ SCH ×2 (07:54→20:58)
[2019-04-23] MEDS: TAMSULOSIN 0.4 MG CAP.ER.24H PO SCH (07:55)
[2019-04-23] MEDS: LOSARTAN 50 MG TAB PO SCH (07:55)
[2019-04-23] MEDS: ALVIMOPAN 12 MG CAPSULE PO SCH ×2 (07:55→20:58)
[2019-04-23] MEDS: DICLOFENAC 0.1% OPHTH SOLN 2.5 ML BTL LEFT EYE SCH ×5 (07:55→23:53)
[2019-04-23] MEDS ORDERED: DEXAMETHASONE SOD PHOSPHATE 10 MG/ML 1 ML VIAL IV PRN (11:24)
[2019-04-23] MEDS ORDERED: SCOPOLAMINE 1.5MG/72HR PATCH TRANSDERM STA (11:25)
--- NOTE | 2019-04-23 11:29 | P.PN ---
Subjective Progress Note Date: 04/23/19 CHIEF COMPLAINT: Intestinal malrotation HISTORY OF PRESENT ILLNESS: The patient is a 58-year-old male status post lysis of adhesions and sigmoid resection, 04/22/2019. "I have no pain! I am just very nauseated" His pain is 0/10. He has not gotten out of bed or eaten anything as a result of his nausea. He is looking to have the epidural removed although he has poor pain tolerance. His and son is at bedside. He is afebrile ROS: No vomiting. No bowel movements. No fevers or chills. No new chest pain. No productive sputum PHYSICAL EXAM: VITAL SIGNS: Reviewed CONSTITUTIONAL: Well developed and in no acute distress. EYES: Conjuctivae without sclera icterus. Extraocular movements grossly intact. HEAD, EARS, NOSE, THROAT: Moist buccal mucosa. Head is atraumatic, normocephalic. Hears conversational speech. No nasal drainage. NECK: Supple. No thyroidomegaly. RESPIRATORY: Non-labored respirations and equal bilateral excursions. CARDIOVASCULAR: Palpable 2+ radial pulses. ABDOMEN: Incisions clean dry and intact. Soft. No peritonitis. MUSCULOSKELETAL: No gross deformity of the lower extremities noted. No clubbing. No cyanosis. SKIN: Good skin turgor. Well perfused. NEUROLOGIC: Cranial nerves I through XII grossly intact. No focal or lateralizing signs. PSYCH: Appropriate affect. Alert and oriented to person, place and time. CLINCAL LABS: White blood cell count 15,400, post-reactive ASSESSMENT: 1. Congenital intestinal malrotation 2. Sigmoid volvulus with obstruction PLAN: 1. Trial of scopolamine patch and Decadron for severe pre-existing postoperative nausea and vomiting 2. If he is still nauseated despite interventions, then will remove epidural. 3. Disposition in 72 hours 4. Flomax for pre-existing history of obstructive uropathy. Objective - Vital Signs Vital signs: Vital Signs Temp 98.9 F 04/23/19 07:00 Pulse 99 04/23/19 07:00 Resp 16 04/23/19 07:00 BP 122/76 04/23/19 07:00 Pulse Ox 95 04/23/19 07:00 Intake & Output 04/22/19 04/23/19 04/23/19 18:59 06:59 18:59 Intake Total 2250 Output Total 480 1050 Balance 1770 -1050 Intake: IV 2250 Output: Urine 450 1050 Estimated Blood Loss 30 Other: Voiding Method Indwelling Catheter Indwelling Catheter Indwelling Catheter - Labs CBC & Chem 7: 04/23/19 06:54 04/23/19 06:54 Labs: Abnormal Lab Results - Last 24 Hours (Table) 04/22/19 04/22/19 04/23/19 Range/Units 15:09 15:09 06:54 WBC 15.0 H 15.1 H (3.8-10.6) k/uL RBC 4.29 L 3.91 L (4.30-5.90) m/uL Hgb 12.4 L (13.0-17.5) gm/dL Hct 36.2 L (39.0-53.0) % Neutrophils # 13.8 H 12.9 H (1.3-7.7) k/uL Lymphocytes # 0.9 L (1.0-4.8) k/uL Glucose 148 H (74-99) mg/dL Calcium (8.4-10.2) mg/dL Total Protein (6.3-8.2) g/dL 04/23/19 Range/Units 06:54 WBC (3.8-10.6) k/uL RBC (4.30-5.90) m/uL Hgb (13.0-17.5) gm/dL Hct (39.0-53.0) % Neutrophils # (1.3-7.7) k/uL Lymphocytes # (1.0-4.8) k/uL Glucose 105 H (74-99) mg/dL Calcium 8.0 L (8.4-10.2) mg/dL Total Protein 5.9 L (6.3-8.2) g/dL Assessment and Plan (1) Intestinal malrotation Current Visit: Yes Status: Acute Code(s): Q43.3 - CONGENITAL MALFORMATIONS OF INTESTINAL FIXATION SNOMED Code(s): 53532106 (2) Sigmoid volvulus Current Visit: Yes Status: Acute Code(s): K56.2 - VOLVULUS SNOMED Code(s): 172195493 (3) Post-operative nausea and vomiting Current Visit: Yes Status: Acute Code(s): R11.2 - NAUSEA WITH VOMITING, UNSPECIFIED; Z98.890 - OTHER SPECIFIED POSTPROCEDURAL STATES SNOMED Code(s): 3466710 (4) History of postoperative nausea Current Visit: Yes Status: Acute Code(s): Z87.898 - PERSONAL HISTORY OF OTHER SPECIFIED CONDITIONS SNOMED Code(s): 588860223 (5) History of colectomy Current Visit: Yes Status: Acute Code(s): Z90.49 - ACQUIRED ABSENCE OF OTHER SPECIFIED PARTS OF DIGESTIVE TRACT SNOMED Code(s): 820283815
[2019-04-23] MEDS: ROPIVACAINE 250 MG, HYDROMORPHONE (PF) 5 MG in SODIUM CHLORIDE 0.9% 200 ML EPIDURAL PRN ×2 (11:55→12:46)
[2019-04-23] MEDS: PIPERACILLIN-TAZOBACTAM 3.375 GM in SODIUM CHLORIDE 0.9% 100 ML IVPB SCH ×2 (15:54→23:53)
--- NOTE | 2019-04-23 19:39 | P.PN ---
Progress Note - Text Progress Note Date: 04/23/19 Postoperative day # 1 status post sigmoid colectomy/epidural catheter placed for postoperative analgesia, patient doing well epidural site okay, patient currently on combination of epidural infusion solution of Ropivacaine 0.0625% and Dilaudid 20 g per mL the infusion rate at 6 ml per hour , patient had no motor deficit epidural site okay , vital signs stable , VAS 2 /10 , and the recovery room patient was complaining of some itching and redness on the left eye , she was started on diclofenac ophthalmology eye drops and he reported that his vision completely normal now, and he has no itching in his eyes Assessment and plan= post operative day #1 patient doing well ,pain well controlled , there is no anesthesia related complications
[2019-04-24] MEDS: ONDANSETRON 4 MG/2 ML VIAL IVP SCH ×3 (05:55→17:49)
[2019-04-24] MEDS: PIPERACILLIN-TAZOBACTAM 3.375 GM in SODIUM CHLORIDE 0.9% 100 ML IVPB SCH ×2 (08:34→17:07)
[2019-04-24] MEDS: ALVIMOPAN 12 MG CAPSULE PO SCH ×2 (08:34→20:04)
[2019-04-24] MEDS: LOSARTAN 50 MG TAB PO SCH (08:34)
[2019-04-24] MEDS: SODIUM CHLORIDE 0.9% 1,000 ML IV SCH ×2 (08:35→14:11)
[2019-04-24] MEDS: DICLOFENAC 0.1% OPHTH SOLN 2.5 ML BTL LEFT EYE SCH ×4 (08:35→23:57)
[2019-04-24] MEDS: HEPARIN SODIUM,PORCINE 5,000 UNIT/ML 1 ML VIAL SQ SCH ×2 (08:35→20:04)
[2019-04-24] MEDS: TAMSULOSIN 0.4 MG CAP.ER.24H PO SCH (08:35)
[2019-04-24] MEDS ORDERED: diphenhydrAMINE 50 MG/ML 1 ML VIAL IVP PRN (08:42)
[2019-04-24 09:36] LABS: Basophils % (A) 0 %; Eosinophils # (A) 0.1 k/uL (0-0.7); Eosinophils % (A) 1 %; HCT 36.4 % (39.0-53.0); HGB 12.7 gm/dL (13.0-17.5); Lymphocytes # (A) 1.8 k/uL (1.0-4.8); Lymphocytes % (A) 16 %; MCH 32.2 pg (25.0-35.0); MCHC 34.9 g/dL (31.0-37.0); MCV 92.2 fL (80.0-100.0); Mean Platelet Volume 7.5; Monocytes # (A) 0.4 k/uL (0-1.0); Monocytes % (A) 4 %; Neutrophils % (A) 79 %; Platelet Count 213 k/uL (150-450); RBC 3.95 m/uL (4.30-5.90); RDW 14.6 % (11.5-15.5); WBC 11.4 k/uL (3.8-10.6)
[2019-04-24 09:46] LABS: African American GFR (CKD) >90 (>60 ml/min/1.73 sqM); Anion Gap 8 mmol/L; Blood Urea Nitrogen 12 mg/dL (9-20); Calcium 8.7 mg/dL (8.4-10.2); Carbon Dioxide 31 mmol/L (22-30); Chloride 102 mmol/L (98-107); Glucose 146 mg/dL (74-99); Potassium 3.7 mmol/L (3.5-5.1); Sodium 141 mmol/L (137-145)
[2019-04-24] MEDS ORDERED: IBUPROFEN 600 MG TAB PO PRN (14:52)
--- NOTE | 2019-04-24 14:57 | P.PN ---
Subjective Progress Note Date: 04/24/19 CHIEF COMPLAINT: Intestinal malrotation HISTORY OF PRESENT ILLNESS: The patient is a 58-year-old male status post lysis of adhesions and sigmoid resection, 04/22/2019. POD 2. He has responded well to anti-emetics. He is passing flatus. No further reports of nausea. "That pain I used to have at my left belly is completely gone. Gas now goes to my rectum!" as he compares prior to his current surgery. His family is at bedside. "I have no pain!" ROS: No vomiting. No fevers or chills. No new chest pain. No productive sputum PHYSICAL EXAM: VITAL SIGNS: Reviewed CONSTITUTIONAL: Well developed and in no acute distress. EYES: Conjuctivae without sclera icterus. Extraocular movements grossly intact. HEAD, EARS, NOSE, THROAT: Moist buccal mucosa. Head is atraumatic, normocephalic. Hears conversational speech. No nasal drainage. NECK: Supple. No thyroidomegaly. RESPIRATORY: Non-labored respirations and equal bilateral excursions. CARDIOVASCULAR: Palpable 2+ radial pulses. ABDOMEN: Incisions clean dry and intact. Soft. MUSCULOSKELETAL: No gross deformity of the lower extremities noted. No clubbing. No cyanosis. SKIN: Good skin turgor. Well perfused. NEUROLOGIC: Cranial nerves I through XII grossly intact. No focal or lateralizing signs. PSYCH: Appropriate affect. Alert and oriented to person, place and time. CLINCAL LABS: White blood cell count 15,400, post-reactive now down to 11,400. ASSESSMENT: 1. Congenital intestinal malrotation 2. Sigmoid volvulus with obstruction 3. Status post sigmoid colectomy. PLAN: 1. Remove epidural 2. Remove newberry 3. Full liquid diet upon discharge 4. Tylenol and ibuprofen for pain. 5. Follow up in office in 48hrs on Thursday 6. Discharge home tomorrow. Objective - Vital Signs Vital signs: Vital Signs Temp 97.8 F 04/24/19 07:00 Pulse 89 04/24/19 07:00 Resp 17 04/24/19 08:00 BP 125/78 04/24/19 07:00 Pulse Ox 97 04/24/19 07:00 Intake & Output 04/23/19 04/24/19 04/24/19 18:59 06:59 18:59 Intake Total 5.95 1170 Output Total 4150 Balance 5.95 -2980 Intake: Intake, IV Titration 5.95 1050 Amount Piperacillin-Tazobactam 3 100 .375 gm In Sodium Chloride 0.9% 100 ml @ 25 mls/hr IVPB Q8HR [facility] Rx# :[id number] Ropivacaine 250 mg 5.95 Hydromorphone (Pf) 5 mg In Sodium Chloride 0.9% 200 ml @ Per Protocol EPIDURAL .Q0M PRN Rx#: [id number] Sodium Chloride 0.9% 1, 950 000 ml @ 100 mls/hr IV . Q10H [facility] Rx#:[id number] Oral 120 Output: Urine 4150 Other: Voiding Method Indwelling Catheter Indwelling Catheter Indwelling Catheter - Labs CBC & Chem 7: 04/24/19 09:23 04/24/19 09:23 Labs: Abnormal Lab Results - Last 24 Hours (Table) 04/24/19 04/24/19 Range/Units 09:23 09:23 WBC 11.4 H (3.8-10.6) k/uL RBC 3.95 L (4.30-5.90) m/uL Hgb 12.7 L (13.0-17.5) gm/dL Hct 36.4 L (39.0-53.0) % Neutrophils # 9.0 H (1.3-7.7) k/uL Carbon Dioxide 31 H (22-30) mmol/L Glucose 146 H (74-99) mg/dL Assessment and Plan (1) Intestinal malrotation Current Visit: Yes Status: Acute Code(s): Q43.3 - CONGENITAL MALFORMATIONS OF INTESTINAL FIXATION SNOMED Code(s): 16944370 (2) Sigmoid volvulus Current Visit: Yes Status: Acute Code(s): K56.2 - VOLVULUS SNOMED Code(s): 859136888 (3) Post-operative nausea and vomiting Current Visit: Yes Status: Acute Code(s): R11.2 - NAUSEA WITH VOMITING, UNSPECIFIED; Z98.890 - OTHER SPECIFIED POSTPROCEDURAL STATES SNOMED Code(s): 7931721 (4) History of postoperative nausea Current Visit: Yes Status: Acute Code(s): Z87.898 - PERSONAL HISTORY OF O THER SPECIFIED CONDITIONS SNOMED Code(s): 703943571 (5) History of colectomy Current Visit: Yes Status: Acute Code(s): Z90.49 - ACQUIRED ABSENCE OF OTHER SPECIFIED PARTS OF DIGESTIVE TRACT SNOMED Code(s): 842718755
--- NOTE | 2019-04-24 20:59 | P.PN ---
Progress Note - Text Progress Note Date: 04/24/19 58 years old male status post sigmoid colectomy , post op day #2 , doing well, epidural catheter removed, patient will be on oral pain medication when necessary
[2019-04-25] MEDS: ONDANSETRON 4 MG/2 ML VIAL IVP SCH ×2 (00:01→06:23)
[2019-04-25] MEDS: SODIUM CHLORIDE 0.9% 1,000 ML IV SCH (00:01)
[2019-04-25] MEDS: PIPERACILLIN-TAZOBACTAM 3.375 GM in SODIUM CHLORIDE 0.9% 100 ML IVPB SCH ×2 (00:01→08:35)
[2019-04-25 07:10] VITALS: BP 140/78; PULSE 79; RESP 17; TEMP 97.9
[2019-04-25] MEDS: LOSARTAN 50 MG TAB PO SCH (08:36)
[2019-04-25] MEDS: DICLOFENAC 0.1% OPHTH SOLN 2.5 ML BTL LEFT EYE SCH (08:36)
[2019-04-25] MEDS: HEPARIN SODIUM,PORCINE 5,000 UNIT/ML 1 ML VIAL SQ SCH (08:36)
[2019-04-25] MEDS: ALVIMOPAN 12 MG CAPSULE PO SCH (08:36)
[2019-04-25] MEDS: TAMSULOSIN 0.4 MG CAP.ER.24H PO SCH (08:36)
[2019-04-25 08:38] LABS: Calcium 8.5 mg/dL (8.4-10.2); Potassium 4.1 mmol/L (3.5-5.1)
[2019-04-25 08:58] LABS: Basophils % (A) 0 %; Eosinophils # (A) 0.4 k/uL (0-0.7); Eosinophils % (A) 5 %; HCT 36.5 % (39.0-53.0); HGB 12.6 gm/dL (13.0-17.5); Lymphocytes # (A) 1.4 k/uL (1.0-4.8); Lymphocytes % (A) 16 %; MCH 31.8 pg (25.0-35.0); MCHC 34.5 g/dL (31.0-37.0); Mean Platelet Volume 6.9; Monocytes # (A) 0.6 k/uL (0-1.0); Monocytes % (A) 7 %; Neutrophils # (A) 6.3 k/uL (1.3-7.7); Neutrophils % (A) 72 %; Platelet Count 218 k/uL (150-450); RBC 3.97 m/uL (4.30-5.90); RDW 14.5 % (11.5-15.5); WBC 8.7 k/uL (3.8-10.6)
--- NOTE | 2019-04-25 11:29 | P.DS ---
<Luciana Leon - Last Filed: 04/25/19 11:27> Providers Expected date of discharge: 04/25/19 - Discharge Diagnosis(es) (1) History of colectomy Status: Acute (2) History of postoperative nausea Status: Acute (3) Intestinal malrotation Status: Acute (4) Sigmoid volvulus Status: Acute Hospital Course: 58-year-old male who underwent robotic-assisted da Song laparoscopic lysis of adhesions and sigmoid colectomy. Patient has done well postoperatively without any immediate competitions. He is tolerating liquid diet. Passing flatus and having bowel movements. Vital signs have been stable. Pain is controlled on oral medications. He is stable for discharge home today. Please see EMR for further hospital course details. Discharge Diagnosis 1. History of sigmoid volvulus with large bowel obstruction 2. Left lower quadrant abdominal pain 3. Gastroesophageal reflux disease 4. Hypertensive heart disease 5. Chronic pain syndrome 6. Postop nausea and vomiting 7. Hyperlipidemia 8. Intestinal malrotation with Hamilton's bands 9. Sigmoid volvulus secondary to [place]'s bands Nurse practitioner note has been reviewed by physician. Signing provider agrees with the documented findings, assessment, and plan of care. Plan - Discharge Summary Discharge Rx Participant: Yes New Discharge Prescriptions: New Ibuprofen [Motrin] 600 mg PO Q8HR PRN #30 tab PRN Reason: Pain Acetaminophen Tab [Tylenol Tab] 650 mg PO Q4H PRN #30 tablet PRN Reason: Pain Continue Esomeprazole Magnesium [NexIUM] 20 mg PO DAILY Gabapentin 600 mg PO TID Losartan [Cozaar] 50 mg PO QAM Atorvastatin [Lipitor] 10 mg PO HS Secukinumab [Cosentyx Pen] 150 mg SQ Q30D Multivitamins, Thera [Multivitamin (formulary)] 1 tab PO DAILY Acetaminophen/Diphenhydramine [Tylenol PM 500-25mg] 1 tab PO HS Cholecalciferol [Vitamin D3 (25 Mcg = 1000 Iu)] 5,000 unit PO DAILY Discharge Medication List Esomeprazole Magnesium [NexIUM] 20 mg PO DAILY 01/26/17 [History] Atorvastatin [Lipitor] 10 mg PO HS 12/06/18 [History] Gabapentin 600 mg PO TID 12/06/18 [History] Losartan [Cozaar] 50 mg PO QAM 12/06/18 [History] Secukinumab [Cosentyx Pen] 150 mg SQ Q30D 12/06/18 [History] Multivitamins, Thera [Multivitamin (formulary)] 1 tab PO DAILY 01/11/19 [History] Acetaminophen/Diphenhydramine [Tylenol PM 500-25mg] 1 tab PO HS 04/13/19 [Hist ory] Cholecalciferol [Vitamin D3 (25 Mcg = 1000 Iu)] 5,000 unit PO DAILY 04/22/19 [History] Acetaminophen Tab [Tylenol Tab] 650 mg PO Q4H PRN #30 tablet 04/25/19 [Rx] Ibuprofen [Motrin] 600 mg PO Q8HR PRN #30 tab 04/25/19 [Rx] Follow up Appointment(s)/Referral(s): Lora Araya MD [STAFF PHYSICIAN] - 04/26/19 8:30 am Rod Mckinnon MD [Primary Care Provider] - 05/02/19 11:15 am Patient Instructions/Handouts: Laparoscopic Bowel Resection (DC), Full Liquid Diet (DC) Activity/Diet/Wound Care/Special Instructions: Continue full liquid diet. Motrin or Tylenol as needed for pain No lifting over 5 pounds You may shower. No soaking or tubs baths Light activity until you are seen at follow up appointment Discharge Disposition: HOME SELF-CARE <Lora Araya - Last Filed: 04/25/19 18:03> Providers Date of admission: 04/22/19 07:24 Attending physician: Lora Araya Consults: 04/22/19 14:11 Consult Physician Urgent Consulting Provider: Vinicio Xie Consult Reason/Comments: LEFT EYE PAIN AND IRRITATION POSSIBLE CORNEAL ABRASION Do you want consulting provider notified?: Yes Primary care physician: Rod Mckinnon - Discharge Diagnosis(es) (1) Intestinal malrotation Status: Acute (2) Sigmoid volvulus Status: Acute (3) Post-operative nausea and vomiting Status: Acute (4) History of postoperative nausea Status: Acute (5) History of colectomy Status: Acute
== END 2019-04-25 12:00 | disposition home or self-care (01) | DRG 329 ==
LOC: 2ORMAIN 07:24 → 4SSUR 12:49
PROVIDERS: ADMIT Surgery Plastic and Reconstructive Surgery; ATTEND Surgery Plastic and Reconstructive Surgery
PROC: 0DTN4ZZ Resection of Sigmoid Colon, Percutaneous Endoscopic Approach (ICD-10-PCS; principal; 2019-04-22 08:55)
PROC: 0DNW4ZZ Release Peritoneum, Percutaneous Endoscopic Approach (ICD-10-PCS; principal; 2019-04-22 08:55)
PROC: 8E0W4CZ Robotic Assisted Procedure of Trunk Region, Percutaneous Endoscopic Approach (ICD-10-PCS; principal; 2019-04-22 08:55)
DX: Q43.3 Congenital malformations of intestinal fixation (principal); K56.2 Volvulus; I42.9 Cardiomyopathy, unspecified; K59.09 Other constipation; I11.9 Hypertensive heart disease without heart failure; K21.9 Gastro-esophageal reflux disease without esophagitis; E78.5 Hyperlipidemia, unspecified; M54.2 Cervicalgia; K40.91 Unilateral inguinal hernia, without obstruction or gangrene, recurrent; L40.9 Psoriasis, unspecified; G89.4 Chronic pain syndrome; Z90.49 Acquired absence of other specified parts of digestive tract; Z79.899 Other long term (current) drug therapy; Z87.891 Personal history of nicotine dependence; Z90.89 Acquired absence of other organs; Z98.42 Cataract extraction status, left eye; Z98.41 Cataract extraction status, right eye; Z83.6 Family history of other diseases of the respiratory system
CPT/HCPCS: 80048; 80053; 85025; 86850; 86900; 86901; 88307

== ENCOUNTER → 2019-06-06 | Outpatient (CLI) | payer BC ==
--- NOTE | 2019-06-06 14:34 | US ---
EXAMINATION TYPE: US thyroid st tissue head/neck DATE OF EXAM: 06/06/2019 COMPARISON: NONE CLINICAL HISTORY: R22.1 SWELLING MASS AND LUMP IN NECK. Edema. GLAND SIZE: Right Lobe: 4.4 x 1.6 x 1.8 cm Overall Parenchyma: homogenous Left Lobe: 4.8 x 1.5 x 1.6 cm Overall Parenchyma: homogeneous Isthmus Thickness: .3 cm NODULES RIGHT: # of nodules measured on right: 0 LEFT: # of nodules measured on left: 0 ISTHMUS: # of nodules measured in the isthmus: 0 Bilateral neck scanned, no evidence of lymphadenopathy. IMPRESSION: Mildly enlarged homogeneous thyroid gland. No discrete thyroid nodule.
== END | disposition home or self-care (01) ==
LOC: RADUSWWP 14:01
PROVIDERS: ATTEND Family Medicine
DX: E04.9 Nontoxic goiter, unspecified (principal)
CPT/HCPCS: 76536

== ENCOUNTER → 2019-06-10 | Outpatient (CLI) | payer BC ==
[2019-06-10 17:06] LABS: Basophils # (A) 0.1 k/uL (0-0.2); Basophils % (A) 1 %; Eosinophils # (A) 0.6 k/uL (0-0.7); Eosinophils % (A) 7 %; HCT 40.8 % (39.0-53.0); HGB 13.3 gm/dL (13.0-17.5); Lymphocytes # (A) 2.1 k/uL (1.0-4.8); Lymphocytes % (A) 24 %; MCH 31.1 pg (25.0-35.0); MCHC 32.7 g/dL (31.0-37.0); MCV 95.1 fL (80.0-100.0); Mean Platelet Volume 6.6; Monocytes # (A) 0.5 k/uL (0-1.0); Monocytes % (A) 6 %; Neutrophils # (A) 5.1 k/uL (1.3-7.7); Neutrophils % (A) 60 %; Platelet Count 270 k/uL (150-450); RBC 4.29 m/uL (4.30-5.90); RDW 13.2 % (11.5-15.5); WBC 8.5 k/uL (3.8-10.6)
[2019-06-10 23:22] LABS: ALT 36 U/L (10-49); AST 29 U/L (14-35)
== END | disposition home or self-care (01) ==
LOC: LABWHC1 15:54
PROVIDERS: ATTEND Dermatology
DX: L40.0 Psoriasis vulgaris (principal)
CPT/HCPCS: 36415; 84450; 84460; 85025; 86480

== ENCOUNTER → 2019-07-14 | Outpatient (CLI) | payer BC ==
--- NOTE | 2019-07-14 09:57 | CT ---
EXAMINATION TYPE: CT soft tissue neck w con DATE OF EXAM: 07/14/2019 HISTORY: Right side neck lump COMPARISON: Thyroid ultrasound June 06, 2019 CT DLP: 643 mGycm. Automated Exposure Control for Dose Reduction was Utilized. TECHNIQUE: CT scan of the neck is performed with IV Contrast, patient injected with 100 mL of Isovue 300, axial images are obtained, coronal and sagittal reformatted images are reviewed. FINDINGS: Airway: Thyroid gland within normal limits which correlates with recent ultrasound.. Parotid/submandibular glands: No gross abnormality seen. Carotid/Vascular Structures: No significant plaque or stenosis at carotid bulb level bilaterally. Inc idental dominant left vertebral artery with stenotic or occluded small caliber distal right vertebral artery. Osseous Structures: Mild multilevel spurring in the cervical spine. Other: Bovine-type arch which is normal variant. Direct origin of left vertebral artery from the arch noted. Additional normal variant. Metallic BB placed at level of palpable abnormality right upper neck axial image 52 below level of hy oid bone at level of false vocal cord. No suspicious solid or cystic mass or fluid collection is seen at this level. No suspicious adenopathy is noted. Platysmas muscle is unremarkable at this level see n best on sagittal images. IMPRESSION: No suspicious mass or adenopathy to correspond to area of clinical concern
== END | disposition home or self-care (01) ==
LOC: RADCTMAIN 09:01
PROVIDERS: ATTEND Otolaryngology
DX: R22.1 Localized swelling, mass and lump, neck (principal)
CPT/HCPCS: 70491; Q9967

== ENCOUNTER → 2019-07-21 | Outpatient (CLI) | payer BC ==
[2019-07-21 09:09] LABS: HCT 38.7 % (39.0-53.0); HGB 13.6 gm/dL (13.0-17.5); MCH 32.9 pg (25.0-35.0); Mean Platelet Volume 5.7; Platelet Count 249 k/uL (150-450); RBC 4.11 m/uL (4.30-5.90); RDW 13.2 % (11.5-15.5); WBC 7.6 k/uL (3.8-10.6)
== END | disposition home or self-care (01) ==
LOC: LABPAT 08:25
PROVIDERS: ATTEND Surgery Plastic and Reconstructive Surgery
DX: Z01.812 Encounter for preprocedural laboratory examination (principal)
CPT/HCPCS: 36415; 85027

== ENCOUNTER → 2019-07-22 | Day surgery (SDC) | payer BC ==
[2019-07-20 11:45] VITALS: BMI 27.1
[~2019-07-22] MED LIST changes: -ACETAMINOPHEN TAB 500 MG TAB PO ONE; +ACETAMINOPHEN TAB 500 MG TAB PO STA; -ALVIMOPAN 12 MG CAPSULE PO ONE; -Antibiotics per Pharmacy 1 EACH MISC MISCELLANE PRN; +GABAPENTIN 300 MG CAP PO STA; +GLYCOPYRROLATE 0.2 MG/ML 2 ML VIAL ONE; +HYDROcodone/APAP 5-325MG 1 EACH TAB PO ONE; +KETOROLAC 30 MG/ML 1 ML VIAL ONE; -LACTATED RINGERS 1,000 ML IV SCH; +LIDOCAINE 1% 20 ML VIAL (10MG/ML) FOR IV START INTRADERMA PRN; +LIDOCAINE 1% 20 ML VIAL (10MG/ML) FOR IV START SQ ONE; +LIDOCAINE 1% INJ 10MG/ML (20 ML MDV) ONE; +LIDOCAINE 1%-EPI 1:100,000 20 ML VIAL SQ ONE; +LIDOCAINE 2%-EPI 1:100,000 20 ML VIAL ONE; +MIDAZOLAM 2 MG/2 ML VIAL IV ONE; +MIDAZOLAM 2 MG/2 ML VIAL ONE; +NEOSTIGMINE 1 MG/ML 10 ML VIAL ONE; -ONDANSETRON 4 MG/2 ML VIAL IVP ONE; +PHENYLEPHRINE-0.9% NACL SYG 1 MG/10 ML SYRINGE ONE; +PROPOFOL 10 MG/ML 20 ML VIAL IV ONE; +ROCURONIUM BROMIDE 10 MG/ML 10 ML VIAL IV ONE; +ROPIVACAINE 5 MG/ML 30 ML VIAL ONE; +SUCCINYLCHOLINE CHLORIDE 100 MG/5 ML SYR IV ONE; +TAMSULOSIN 0.4 MG CAP.ER.24H PO ONE; +ePHEDrine SULFATE/0.9% NACL/PF 50 MG/5 ML SYRINGE IV ONE; +fentaNYL (PF) 50 MCG/ML 2 ML AMP ONE; -metroNIDAZOLE-NS PMX 500 MG in SALINE 1 100ML.BAG IVPB ONE
--- NOTE | 2019-07-22 07:56 | P.GSHP ---
History of Present Illness H&P Date: 07/22/19 CHIEF COMPLAINT: Inguinal hernia, right. HISTORY OF PRESENT ILLNESS: The patient is a 58-year-old male who presents with a history of swelling and pain along the right groin. He has noted increased swelling including pain of the area. Now he presents for repair of his recurrent inguinal hernia. PAST MEDICAL HISTORY: Please see list. PAST SURGICAL HISTORY: Please see list. MEDICATIONS: Please see list. ALLERGIES: Please see list. SOCIAL HISTORY: No illicit drug use FAMILY HISTORY: No reports of Crohn disease or ulcerative colitis. REVIEW OF ORGAN SYSTEMS: CONSTITUTIONAL: No reports of fevers or chills. No reports of weight loss despite prior attempts. GI: Denies any blood in stools or constipation. PHYSICAL EXAM: VITAL SIGNS: Stable GENERAL: Well-developed pleasant in no acute distress. HEENT: No scleral icterus. Extraocular movements grossly intact. Moist buccal mucosa. NECK: Supple without lymphadenopathy. CHEST: Unlabored respirations. Equal bilateral excursions. CARDIOVASCULAR: Regular rate and rhythm. Distal 2+ pulses. ABDOMEN: Soft, nondistended. No peritoneal signs. Moderate tenderness right lower quadrant MUSCULOSKELETAL: No clubbing, cyanosis, or edema. ASSESSMENT: 1. Inguinal hernia, right recurrent and symptomatic. PLAN: 1. Recommend proceeding robotic right inguinal repair with mesh 2. Benefits and risks of surgical intervention was discussed including possibility of open technique. 3. DVT prophylaxis. 4. Antibiotic prophylaxis. Past Medical History Past Medical History: GERD/Reflux, Hyperlipidemia, Hypertension, Skin Disorder Additional Past Medical History / Comment(s): Inguinal hernia. "PINCHED NERVE" WITH CERVICAL PAIN, PSORIASIS. Hx bilateral detached retinas. HX OF V-TACH, INTESTINAL MALROTATION, ELONGATED COLON. History of Any Multi-Drug Resistant Organisms: None Reported Past Surgical History: Appendectomy, Cardiac Ablation, Cholecystectomy, Heart Catheterization, Hernia Repair Additional Past Surgical History / Comment(s): DIAGNOSTIC LAP, LYSIS OF ADHESIONS, CATARACTS, BILATERAL EYE SURGERY X7 (DETACHED RETINA'S., RIGHT INGUINAL HERNIA REPAIR, UMBILICAL HERNIA WITH LYSIS OF ADHESIONS. Past Anesthesia/Blood Transfusion Reactions: Motion Sickness, Postoperative Nausea & Vomiting (PONV) Past Psychological History: No Psychological Hx Reported Smoking Status: Former smoker Past Alcohol Use History: Rare Additional Past Alcohol Use History / Comment(s): QUIT SMOKING 2006, SMOKED 1PACK A WEEK FROM AGE 22. Past Drug Use History: None Reported - Past Family History Mother Family Medical History: No Reported History Father Family Medical History: Pulmonary Embolus Medications and Allergies Home Medications Medication Instructions Recorded Confirmed Type Esomeprazole Magnesium [NexIUM] 20 mg PO DAILY 01/26/17 07/20/19 History Atorvastatin [Lipitor] 10 mg PO HS 12/06/18 07/20/19 History Gabapentin 600 mg PO TID 12/06/18 07/20/19 History Losartan [Cozaar] 50 mg PO QAM 12/06/18 07/20/19 History Secukinumab [Cosentyx Pen] 150 mg SQ Q30D 12/06/18 07/20/19 History Multivitamins, Thera [Multivitamin 1 tab PO DAILY 01/11/19 07/20/19 History (formulary)] Acetaminophen/Diphenhydramine 1 tab PO HS 04/13/19 07/20/19 History [Tylenol PM 500-25mg] Cholecalciferol [Vitamin D3 (25 5,000 unit PO DAILY 04/22/19 07/20/19 History Mcg = 1000 Iu)] Ibuprofen [Motrin] 600 mg PO Q6HR PRN 07/20/19 07/20/19 History Sertraline [Zoloft] 100 mg PO DAILY 07/20/19 07/20/19 History Allergies Allergy/AdvReac Type Severity Reaction Status Date / Time No Known Allergies Allergy Verified 07/20/19 11:16
[2019-07-22] MEDS: LACTATED RINGERS 1,000 ML IV SCH ×2 (10:50→10:51)
[2019-07-22] MEDS: ONDANSETRON 4 MG/2 ML VIAL IVP ONE ×2 (10:52→15:43)
--- NOTE | 2019-07-22 11:43 | P.ANPRN ---
Procedure Note - Anesthesia - Nerve Block Performed Right Transversus Abdominis Single Time Out Performed: Yes Date of Procedure: 07/22/19 Procedure Start Time: 11:02 Procedure Stop Time: 11:06 Location of Patient Procedure: PreOp Indication: Acute Post-Operative Pain, Requested by Surgeon Sedation Type: Sedate with meaningful contact maintained Preparation: Sterile Prep Position: Supine Needle Types: Pajunk Needle Gauge: 21 Ultrasound used to visualize needle placement: Yes Ultrasound used to observe medication spread: Yes Blood Aspirated: No Pain Paresthesia on Injection Noted: No Resistance on Injection: Normal Image Stored and Saved: Yes Events: Uneventful and Well Tolerated (ropi .5% 25cc plus xylo 2% 10cc)
[2019-07-22 14:48] VITALS: TEMP 97.1
[2019-07-22 15:34] VITALS: RESP 17
[2019-07-22 16:17] VITALS: BP 133/80; PULSE 98
--- NOTE | 2019-07-22 16:30 | P.OP ---
Date of Procedure: 07/22/19 Description of Procedure: SURGEON: LORA ARAYA MD PREOPERATIVE DIAGNOSES: 1. Recurrent right inguinal hernia with chronic right lower quadrant abdominal pain 3. 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 Chronic pain syndrome 5. Hyperlipidemia 6. Hypertensive heart disease 7. Gastroesophageal reflux disease 8. History of ventricular tachycardia 9. Psoariasis 10. Pre-existing obstructive uropathy POSTOPERATIVE DIAGNOSES: 1. Recurrent right inguinal hernia with chronic right lower quadrant abdominal pain 3. 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 Chronic pain syndrome 5. Hyperlipidemia 6. Hypertensive heart disease 7. Gastroesophageal reflux disease 8. History of ventricular tachycardia 9. Psoariasis 10. Pre-existing obstructive uropathy OPERATION: 1. Robotic-assisted da Song Xi laparoscopic removal of right inguinal preperitoneal mesh with extensive lysis of adhesions over 1 hour. 2. Robotic-assisted da Song Xi laparoscopic repair of recurrent right inguinal hernia with mesh, 11.[address] ANESTHESIA: General with local anesthetic ESTIMATED BLOOD LOSS: 5 mL. SPECIMENS REMOVED: Mesh from previous right inguinal hernia COMPLICATIONS: None. INDICATIONS: The patient is a 58-year-old gentleman who presents with history of chronic right groin pain following right inguinal hernia repair done by different provider. Diagnostic studies demonstrated recurrence of right inguinal hernia. Laparoscopic versus open and robotic approaches were discussed. As this is a recurrence, risk of cosmetic deformity, chronic pain, numbness along the groin were reviewed. Benefits and risks including bleeding, infection, injury to the vas deferens as well as sterility were reviewed. Placement of mesh was also described. Informed consent was obtained. DESCRIPTION: In the preoperative area, the patient was marked with indelible marker along the inguinal hernia. The patient was brought to the operating room and initially laid in supine position. The abdomen had been prepped and draped in standard sterile fashion. Ioban draping was also placed. Prior to incision, a timeout protocol was confirmed with surgical team regarding patient's name including procedures to be performed and location along the right groin. Initial positioning for the robotic assisted ports were selected whereby 20 cm superior to the target anatomy, 0 degree 5 mm laparoscopic trocar entry was performed at the left upper quadrant. The abdomen was insufflated to 15 mmHg which he had tolerated well. Diagnostic laparoscopy demonstrated an indirect inguinal hernia along the right groin the prior preperitoneal repair. Next, along the epigastrium, 8 mm robot trocar was placed. An 8-mm robotic trocar was placed under direct visualization at the right upper quadrant. An 8 mm port was placed at the left upper quadrant. All trocars were positioned between 8 to 10-cm apart from each other. The [employer] XI robot was primed, draped, prepared for docking along the left side of the patient. I then went to the [employer] Xi console. The call center assistant was at bedside for exchange of the robot arms and equipment. No hernia was identified along the left groin. The right inguinal hernia mesh was lifted from the abdominal wall upon development as a flap along the mesh border from superior to inferior without injury to the vas deferens and spermatic cord structures. The prior mesh was found rolled onto itself with coiling at the inguinal ring consistent with the patient's area of pain. The mesh was resected along its proximal half to avoid any injuries to the neurovascular bundle structures. Retained mesh at the conjoined tendon area was resected. Complete resection of the prior mesh at the inferior border was avoided to prevent direct injury to neurovascular bundles including the spermatic cord structures. The resected area of mesh left a defect of the peritoneum which was closed with a patch using an onlay, an 11.[address] mesh by [employer] that was cut in half and entered into the abdominal cavity via the 8 mm trocar. The mesh was tacked to the pelvis using 2-0 VLOC 9-inch length permanent sutures. The robot was undocked from the patient's bedside. I then rescrubbed into the case. Insufflation was released from the abdominal cavity and all instruments were removed from the abdominal cavity. The rest of incisions were reapproximated using 4-0 Monocryl in a running subcuticular fashion. Local anesthetic was placed along the incision including for a right groin block. Incisions were cleansed using dilute hydrogen peroxide. Liquid glue was applied to the skin. At the end of the procedure, the needle, sponge and instrument counts had been verified correct by the claims technician. The patient had tolerated the procedure well and was taken to the postanesthesia care unit in stable condition. Plan - Discharge Summary Discharge Rx Participant: Yes New Discharge Prescriptions: New Ibuprofen [Motrin] 600 mg PO Q8HR PRN #30 tab PRN Reason: Pain Acetaminophen Tab [Tylenol Tab] 500 mg PO Q6H PRN #30 tablet PRN Reason: Pain Tamsulosin [Flomax] 0.4 mg PO DAILY #5 cap.er.24h No Action Esomeprazole Magnesium [NexIUM] 20 mg PO DAILY Gabapentin 600 mg PO TID Losartan [Cozaar] 50 mg PO QAM Atorvastatin [Lipitor] 10 mg PO HS Secukinumab [Cosentyx Pen] 150 mg SQ Q30D Multivitamins, Thera [Multivitamin (formulary)] 1 tab PO DAILY Acetaminophen/Diphenhydramine [Tylenol PM 500-25mg] 1 tab PO HS Cholecalciferol [Vitamin D3 (25 Mcg = 1000 Iu)] 5,000 unit PO DAILY Sertraline [Zoloft] 100 mg PO DAILY Ibuprofen [Motrin] 600 mg PO Q6HR PRN PRN Reason: Pain Discharge Medication List Esomeprazole Magnesium [NexIUM] 20 mg PO DAILY 01/26/17 [History] Atorvastatin [Lipitor] 10 mg PO HS 12/06/18 [History] Gabapentin 600 mg PO TID 12/06/18 [History] Losartan [Cozaar] 50 mg PO QAM 12/06/18 [History] Secukinumab [Cosentyx Pen] 150 mg SQ Q30D 12/06/18 [History] Multivitamins, Thera [Multivitamin (formulary)] 1 tab PO DAILY 01/11/19 [Hi story] Acetaminophen/Diphenhydramine [Tylenol PM 500-25mg] 1 tab PO HS 04/13/19 [History] Cholecalciferol [Vitamin D3 (25 Mcg = 1000 Iu)] 5,000 unit PO DAILY 04/22/19 [History] Ibuprofen [Motrin] 600 mg PO Q6HR PRN 07/20/19 [History] Sertraline [Zoloft] 100 mg PO DAILY 07/20/19 [History] Acetaminophen Tab [Tylenol Tab] 500 mg PO Q6H PRN #30 tablet 07/22/19 [Rx] Ibuprofen [Motrin] 600 mg PO Q8HR PRN #30 tab 07/22/19 [Rx] Tamsulosin [Flomax] 0.4 mg PO DAILY #5 cap.er.24h 07/22/19 [Rx] Follow up Appointment(s)/Referral(s): Lora Araya MD [STAFF PHYSICIAN] - 07/26/19 Patient Instructions/Handouts: Laparoscopic Herniorrhaphy (IP), Inguinal Hernia Repair (DC) Activity/Diet/Wound Care/Special Instructions: No lifting for 4 pounds in 4 weeks until August 21January shower. No bathtub soaks for 2 weeks until August 05. DO NOT DRIVE WHILE ON NARCOTICS. Discharge Disposition: HOME SELF-CARE
== END | disposition home or self-care (01) ==
LOC: OR 09:58
PROVIDERS: ATTEND Surgery Plastic and Reconstructive Surgery
DX: K40.91 Unilateral inguinal hernia, without obstruction or gangrene, recurrent (principal); Q43.8 Other specified congenital malformations of intestine; K66.0 Peritoneal adhesions (postprocedural) (postinfection); G89.4 Chronic pain syndrome; E78.5 Hyperlipidemia, unspecified; I11.9 Hypertensive heart disease without heart failure; K21.9 Gastro-esophageal reflux disease without esophagitis; I47.2 Ventricular tachycardia; L40.9 Psoriasis, unspecified; N13.9 Obstructive and reflux uropathy, unspecified; G58.8 Other specified mononeuropathies; Z90.49 Acquired absence of other specified parts of digestive tract; Z98.42 Cataract extraction status, left eye; Z98.41 Cataract extraction status, right eye; Z87.891 Personal history of nicotine dependence; Z84.89 Family history of other specified conditions; Z79.899 Other long term (current) drug therapy
CPT/HCPCS: 49329; 49651; S2900; 64486; 64488; 88304

== ENCOUNTER → 2019-08-10 | Outpatient (CLI) | payer BC ==
--- NOTE | 2019-08-10 15:49 | CT ---
EXAMINATION TYPE: CT abdomen pelvis w con DATE OF EXAM: 08/10/2019 COMPARISON: 09/29/2018 HISTORY: Right sided abdominal pain x [address] DLP: 1254 mGycm CONTRAST: CT scan of the abdomen and pelvis is performed with Oral Contrast and with IV Contrast, patient injec kanika with 100 mL of Isovue M300. FINDINGS: LUNG BASES-: No visible nodule. No infiltrate. LIVER/GB: No calcified gallstones. No space occupying hepatic lesion. Biliary tree is of normal ca liber. PANCREAS: No inflammation. No distinct mass. SPLEEN: No splenic enlargement. No lesion seen. ADRENALS: No nodule. No thickening. KIDNEYS/BLADDER: No hydronephrosis. No nephrolithiasis. No distinct renal mass. Urinary bladder g rossly unremarkable. BOWEL: Normal appendix. Normal bowel caliber. No inflammation. Sigmoid resection. No evidence for o bstructive change. Small bowel is of normal caliber. No evidence for recurrent or residual disease. G ENITAL ORGANS: No gross abnormality. LYMPH NODES: No greater than 1cm abdominal or pelvic lymph nodes are appreciated. AORTA: No significant abnormality. OSSEOUS STRUCTURES: No significant abnormality is seen. OTHER: No significant additional abnormality is seen. IMPRESSION: 1. Partial sigmoid resection. No evidence for obstructive change.
== END | disposition home or self-care (01) ==
LOC: RADCTMAIN 13:40
PROVIDERS: ATTEND Surgery Plastic and Reconstructive Surgery
DX: K56.50 Intestinal adhesions [bands], unspecified as to partial versus complete obstruction (principal); Z98.890 Other specified postprocedural states
CPT/HCPCS: 74177; Q9967 ×2

== ENCOUNTER 2019-08-15 11:01 | Inpatient (IN) | payer BC ==
--- NOTE | 2019-08-15 11:28 | ED ---
General Adult HPI <Luis Pacheco - Last Filed: 08/15/19 14:28> - General Source: patient, RN notes reviewed Mode of arrival: ambulatory Limitations: no limitations <Jean Robins - Last Filed: 08/15/19 14:34> - General Chief complaint: Abdominal Pain Stated complaint: abdominal pain Time Seen by Provider: 08/15/19 11:27 - History of Present Illness Initial comments: 58-year-old male with a past medical history of intestinal malrotation with several surgeries in the past couple years including inguinal hernia repair 3 weeks ago presents to the emergency department for a chief complaint of right s ided abdominal pain. This has been ongoing since about one week ago. States he has been talking with Dr. Corcoran about this and did have an outpatient CT ordered. States she wanted him to be admitted at that time but he had refused. States that he was told to come to the ER if things are getting worse for possible admission and he states the pain is seeming to get worse. States it is on his right side. Denies fevers or chills.Patient has no other complaints at this time including shortness of breath, chest pain, nausea or vomiting, headache, or visual changes. (Jean Robins) - Related Data Home Medications Medication Instructions Recorded Confirmed Esomeprazole Magnesium [NexIUM] 20 mg PO DAILY 01/26/17 07/20/19 Atorvastatin [Lipitor] 10 mg PO HS 12/06/18 07/22/19 Gabapentin 600 mg PO TID 12/06/18 07/20/19 Losartan [Cozaar] 50 mg PO QAM 12/06/18 07/20/19 Secukinumab [Cosentyx Pen] 150 mg SQ Q30D 12/06/18 07/22/19 Multivitamins, Thera [Multivitamin 1 tab PO DAILY 01/11/19 07/22/19 (formulary)] Acetaminophen/Diphenhydramine 1 tab PO HS 04/13/19 07/22/19 [Tylenol PM 500-25mg] Cholecalciferol [Vitamin D3 (25 5,000 unit PO DAILY 04/22/19 07/22/19 Mcg = 1000 Iu)] Ibuprofen [Motrin] 600 mg PO Q6HR PRN 07/20/19 07/20/19 Sertraline [Zoloft] 100 mg PO DAILY 07/20/19 07/22/19 Previous Rx's Medication Instructions Recorded Acetaminophen Tab [Tylenol Tab] 500 mg PO Q6H PRN #30 tablet 07/22/19 Ibuprofen [Motrin] 600 mg PO Q8HR PRN #30 tab 07/22/19 Tamsulosin [Flomax] 0.4 mg PO DAILY #5 cap.er.24h 07/22/19 HYDROcodone/APAP 7.5-325MG [Hollister 1 tab PO Q4H PRN 3 Days #18 tab 07/26/19 7.5-325] Allergies Allergy/AdvReac Type Severity Reaction Status Date / Time No Known Allergies Allergy Verified 07/22/19 10:10 Review of Systems ROS Other: All systems not noted in ROS Statement are negative. <Luis Pacheco - Last Filed: 08/15/19 14:28> ROS Other: All systems not noted in ROS Statement are negative. <Jaen Robins - Last Filed: 08/15/19 14:34> ROS Statement: Those systems with pertinent positive or pertinent negative responses have been documented in the HPI. Past Medical History Past Medical History: GERD/Reflux, Hyperlipidemia, Hypertension, Skin Disorder Additional Past Medical History / Comment(s): Inguinal hernia. "PINCHED NERVE" WITH CERVICAL PAIN, PSORIASIS. Hx bilateral detached retinas. HX OF V-TACH, IN TESTINAL MALROTATION, ELONGATED COLON, CONSTIPATION. History of Any Multi-Drug Resistant Organisms: None Reported Past Surgical History: Appendectomy, Cardiac Ablation, Cholecystectomy, Heart Catheterization, Hernia Repair Additional Past Surgical History / Comment(s): DIAGNOSTIC LAP, LYSIS OF ADHESIONS, BILATERAL CATARACTS, BILATERAL EYE SURGERY X7, HX OF RIGHT INGUINAL HERNIA REPAIR, UMBILICAL HERNIA REPAIR WITH LYSIS OF ADHESIONS. Past Anesthesia/Blood Transfusion Reactions: Postoperative Nausea & Vomiting (PONV) Past Psychological History: No Psychological Hx Reported Past Alcohol Use History: None Reported - Past Family History Mother Family Medical History: No Reported History Father Family Medical History: Pulmonary Embolus <Jean Robins P - Last Filed: 08/15/19 14:34> General Exam Limitations: no limitations General appearance: alert, in no apparent distress Head exam: Present: atraumatic, normocephalic, normal inspection Eye exam: Present: normal appearance, PERRL, EOMI. Absent: scleral icterus, conjunctival injection, periorbital swelling ENT exam: Present: normal exam, mucous membranes moist Neck exam: Present: normal inspection, full ROM. Absent: tenderness, meningismus, lymphadenopathy Respiratory exam: Present: normal lung sounds bilaterally. Absent: respiratory distress, wheezes, rales, rhonchi, stridor Cardiovascular Exam: Present: regular rate, normal rhythm, normal heart sounds. Absent: systolic murmur, diastolic murmur, rubs, gallop, clicks GI/Abdominal exam: Present: soft, tenderness (Mild mid right abdominal tenderness), normal bowel sounds. Absent: distended, guarding, rebound, rigid Neurological exam: Present: alert <Jean Robins - Last Filed: 08/15/19 14:34> Course <Luis Pacheco - Last Filed: 08/15/19 14:28> Vital Signs 08/15/19 08/15/19 08/15/19 11:04 11:58 14:00 Temperature 98 F Pulse Rate 87 76 79 Respiratory 18 18 18 Rate Blood Pressure 134/88 149/101 156/99 O2 Sat by Pulse 97 96 98 Oximetry 08/15/19 14:19 Temperature 98.3 F Pulse Rate 77 Respiratory 18 Rate Blood Pressure 153/102 O2 Sat by Pulse 98 Oximetry - Reevaluation(s) Reevaluation #1: 08/15/19 13:52 Patient was reevaluated by myself, Dr. Pacheco. Patient states he has been having abdominal discomfort and did have recent computed tomography scan. Patient states discomfort is currently 4/10. Abdomen is soft with mild to moderate right mid abdominal tenderness. Results reviewed. Case discussed with Dr. Corcoran who was in the OR and will come evaluate the patient. 08/15/19 14:28 Patient was seen by Dr. Corcoran who will keep for observation. (Luis Pacheco) Medical Decision Making - Lab Data Result diagrams: 08/15/19 11:35 08/15/19 11:35 <Luis Pacheco - Last Filed: 08/15/19 14:28> - Lab Data Result diagrams: 08/15/19 11:35 08/15/19 11:35 <Jean Robins - Last Filed: 08/15/19 14:34> - Medical Decision Making CT abdomen and pelvis performed on 08/10/2019 shows a partial sigmoid resection without evidence for obstructive change. CBC CMP unremarkable. Urinalysis is negative. X-ray is nonspecific. Patient has continued to have abdominal pain despite multiple pain medications. Patient has history of several abdominal surgeries in the past few years secondary to malrotation. As patient has the following Dr. Corcoran for this bout of pain we did consult her. She recommends keeping patient on observation. (Alexi Robins) - Lab Data Lab Results 08/15/19 08/15/19 08/15/19 Range/Units 11:35 11:35 11:35 WBC 7.7 (3.8-10.6) k/uL RBC 4.50 (4.30-5.90) m/uL Hgb 14.1 (13.0-17.5) gm/dL Hct 40.8 (39.0-53.0) % MCV 90.7 (80.0-100.0) fL MCH 31.4 (25.0-35.0) pg MCHC 34.6 (31.0-37.0) g/dL RDW 12.7 (11.5-15.5) % Plt Count 262 (150-450) k/uL Neutrophils % 60 % Lymphocytes % 26 % Monocytes % 5 % Eosinophils % 7 % Basophils % 0 % Neutrophils # 4.6 (1.3-7.7) k/uL Lymphocytes # 2.0 (1.0-4.8) k/uL Monocytes # 0.4 (0-1.0) k/uL Eosinophils # 0.5 (0-0.7) k/uL Basophils # 0.0 (0-0.2) k/uL Sodium 141 (137-145) mmol/L Potassium 4.1 (3.5-5.1) mmol/L Chloride 107 (98-107) mmol/L Carbon Dioxide 24 (22-30) mmol/L Anion Gap 10 mmol/L BUN 16 (9-20) mg/dL Creatinine 1.00 (0.66-1.25) mg/dL Est GFR (CKD-EPI)AfAm >90 (>60 ml/min/1.73 sqM) Est GFR (CKD-EPI)NonAf 84 (>60 ml/min/1.73 sqM) Glucose 109 H (74-99) mg/dL Plasma Lactic Acid Edgar 1.1 (0.7-2.0) mmol/L Calcium 9.8 (8.4-10.2) mg/dL Total Bilirubin 0.5 (0.2-1.3) mg/dL AST 31 (17-59) U/L ALT 34 (21-72) U/L Alkaline Phosphatase 85 (38-126) U/L Total Protein 7.7 (6.3-8.2) g/dL Albumin 4.7 (3.5-5.0) g/dL Amylase 56 (30-110) U/L Urine Color Urine Appearance (Clear) Urine pH (5.0-8.0) Ur Specific [place] (1.001-1.035) Urine Protein (Negative) Urine Glucose (UA) (Negative) Urine Ketones (Negative) Urine Blood (Negative) Urine Nitrite (Negative) Urine Bilirubin (Negative) Urine Urobilinogen (<2.0) mg/dL Ur Leukocyte Esterase (Negative) Urine RBC (0-5) /hpf Urine WBC (0-5) /hpf Ur Squamous Epith Cells (0-4) /hpf 08/15/19 Range/Units 11:35 WBC (3.8-10.6) k/uL RBC (4.30-5.90) m/uL Hgb (13.0-17.5) gm/dL Hct (39.0-53.0) % MCV (80.0-100.0) fL MCH (25.0-35.0) pg MCHC (31.0-37.0) g/dL RDW (11.5-15.5) % Plt Count (150-450) k/uL Neutrophils % % Lymphocytes % % Monocytes % % Eosinophils % % Basophils % % Neutrophils # (1.3-7.7) k/uL Lymphocytes # (1.0-4.8) k/uL Monocytes # (0-1.0) k/uL Eosinophils # (0-0.7) k/uL Basophils # (0-0.2) k/uL Sodium (137-145) mmol/L Potassium (3.5-5.1) mmol/L Chloride (98-107) mmol/L Carbon Dioxide (22-30) mmol/L Anion Gap mmol/L BUN (9-20) mg/dL Creatinine (0.66-1.25) mg/dL Est GFR (CKD-EPI)AfAm (>60 ml/min/1.73 sqM) Est GFR (CKD-EPI)NonAf (>60 ml/min/1.73 sqM) Glucose (74-99) mg/dL Plasma Lactic Acid Edgar (0.7-2.0) mmol/L Calcium (8.4-10.2) mg/dL Total Bilirubin (0.2-1.3) mg/dL AST (17-59) U/L ALT (21-72) U/L Alkaline Phosphatase (38-126) U/L Total Protein (6.3-8.2) g/dL Albumin (3.5-5.0) g/dL Amylase (30-110) U/L Urine Color Light Yellow Urine Appearance Clear (Clear) Urine pH 6.5 (5.0-8.0) Ur Specific [place] 1.006 (1.001-1.035) Urine Protein Negative (Negative) Urine Glucose (UA) Negative (Negative) Urine Ketones Negative (Negative) Urine Blood Small H (Negative) Urine Nitrite Negative (Negative) Urine Bilirubin Negative (Negative) Urine Urobilinogen <2.0 (<2.0) mg/dL Ur Leukocyte Esterase Negative (Negative) Urine RBC 4 (0-5) /hpf Urine WBC <1 (0-5) /hpf Ur Squamous Epith Cells <1 (0-4) /hpf Disposition <Luis Pacheco - Last Filed: 08/15/19 14:28> Is patient prescribed a controlled substance at d/c from ED?: No Time of Disposition: 14:34 <Jean Robins - Last Filed: 08/15/19 14:34> Clinical Impression: Abdominal pain Disposition: ADMITTED IP TO THIS HOSP Condition: Fair Referrals: Rod Mckinnon MD [Primary Care Provider] - 1-2 days
[2019-08-15] MEDS ORDERED: KETOROLAC 30 MG/ML 1 ML VIAL IVP STA (11:36)
[2019-08-15] MEDS ORDERED: SODIUM CHLORIDE 0.9% 1,000 ML IV STA (11:36)
[2019-08-15 12:00] LABS: Basophils % (A) 0 %; Eosinophils # (A) 0.5 k/uL (0-0.7); Eosinophils % (A) 7 %; HCT 40.8 % (39.0-53.0); HGB 14.1 gm/dL (13.0-17.5); Lymphocytes % (A) 26 %; MCH 31.4 pg (25.0-35.0); MCHC 34.6 g/dL (31.0-37.0); MCV 90.7 fL (80.0-100.0); Mean Platelet Volume 7.1; Monocytes # (A) 0.4 k/uL (0-1.0); Monocytes % (A) 5 %; Neutrophils # (A) 4.6 k/uL (1.3-7.7); Neutrophils % (A) 60 %; Platelet Count 262 k/uL (150-450); RDW 12.7 % (11.5-15.5); WBC 7.7 k/uL (3.8-10.6)
--- NOTE | 2019-08-15 12:00 | XR ---
EXAMINATION TYPE: XR KUB DATE OF EXAM: 08/15/2019 COMPARISON: 08/10/2019 HISTORY: Pain TECHNIQUE: One view abdominal series FINDINGS: The osseous structures are intact. The bowel gas pattern is nonspecific. Calcifications in the pelvi s appear vascular. Hypertrophic change of the acetabulum with mild arthropathy correlate for femoral acetabular impingement. Density paracentrally the right overlying the sacrum is too small to characte rize. Hypertrophic change of the vertebral column.. IMPRESSION: 1. Nonspecific abdomen.
[2019-08-15 12:01] LABS: Appearance,Urine Clear (Clear); Bilirubin,Urine Negative (Negative); Blood,Urine Small (Negative); Color,Urine Light Yellow; Glucose,Urine (UA) Negative (Negative); Ketones,Urine Negative (Negative); Leukocyte Esterase,Urine Negative (Negative); Nitrite,Urine Negative (Negative); PH, Urine 6.5 (5.0-8.0); Protein,Urine Negative (Negative); RBC,Urine 4 /hpf (0-5); Specific Gravity,Urine 1.006 (1.001-1.035); Squamous Epithelial Cell,Urine <1 /hpf (0-4); Urobilinogen,Urine <2.0 mg/dL (<2.0); WBC,Urine <1 /hpf (0-5)
[2019-08-15 12:08] LABS: ALT 34 U/L (21-72); AST 31 U/L (17-59); African American GFR (CKD) >90 (>60 ml/min/1.73 sqM); Albumin 4.7 g/dL (3.5-5.0); Alkaline Phosphatase 85 U/L (38-126); Amylase 56 U/L (30-110); Anion Gap 10 mmol/L; Blood Urea Nitrogen 16 mg/dL (9-20); Calcium 9.8 mg/dL (8.4-10.2); Carbon Dioxide 24 mmol/L (22-30); Chloride 107 mmol/L (98-107); Glucose 109 mg/dL (74-99); Non-African American GFR(CKD) 84 (>60 ml/min/1.73 sqM); Potassium 4.1 mmol/L (3.5-5.1); Sodium 141 mmol/L (137-145); Total Bilirubin 0.5 mg/dL (0.2-1.3); Total Protein 7.7 g/dL (6.3-8.2)
[2019-08-15] MEDS ORDERED: LOSARTAN 50 MG TAB PO STA (13:36)
[2019-08-15] MEDS ORDERED: MORPHINE SULFATE 4 MG/ML SYRINGE IVP STA (14:05)
[2019-08-15] MEDS ORDERED: NALOXONE 0.4 MG/ML 1 ML VIAL IV PRN (14:35)
[2019-08-15] MEDS: SODIUM CHLORIDE 0.9% 1,000 ML IV SCH ×2 (15:01→17:04)
[2019-08-15] MEDS ORDERED: SODIUM CHLORIDE 0.9% 1,000 ML IV ONE (15:22)
--- NOTE | 2019-08-15 15:30 | P.GSHP ---
History of Present Illness H&P Date: 08/15/19 CHIEF COMPLAINT: Chronic abdominal pain HISTORY OF PRESENT ILLNESS: The patient is a 58 year old male comes in with chronic abdominal pain particularly of the right upper and right lower quadrant. He had a right inguinal hernia repair over a year ago with recurrence. He is status post removal of foreign body including repair of right inguinal hernia almost 1 month ago. He states was feeling quite well 1 week ago however the last 2 days he felt a pop along the right upper quadrant and he has cramping persistent abdominal pain. No blood in stools. Appetite is low. He presents to the ER where his pain is still persistent prompting admission. He has significant history for congenital malformation including congenital adhesions that puts him at risk for bowel obstruction. PAST MEDICAL HISTORY: See list. PAST SURGICAL HISTORY: See list. MEDICATIONS: See list. ALLERGIES: See list. SOCIAL HISTORY: See list. FAMILY HISTORY: See list. REVIEW OF ORGAN SYSTEMS: CONSTITUTIONAL: No fevers or chills. No recent weight loss. EYES: Denies any trouble with vision. Wears glasses. HEENT: No difficulties with hearing. No nosebleeds. No difficulty swallowing. RESPIRATORY: Denies pneumonia. Denies any troubles with breathing or dyspnea on exertion. CARDIOVASCULAR: Denies any chest pain, palpitations, or recent heart attacks. GASTROINTESTINAL: Denies fatty food intolerance. No change in bowel habits and gas bloat. GENITOURINARY: Denies any blood in urine or increased urinary frequency. NEUROLOGICAL: Denies any numbness or tingling along the distal extremities. No seizure disorders or headaches. MUSCULOSKELETAL: Has back pain, stiffness or joint arthritis. SKIN: No current skin cancer. No rash. PSYCHIATRIC: Denies current depression or suicidal thoughts. ENDOCRINE: Denies current thyroid disorders. Denies any blood sugar glucose intolerance. HEME/LYMPHATIC: Denies any lumps and bumps around the neck. No recent deep venous thrombosis. ALLERGY/IMMUNOLOGY: No immunoglobulin therapy. No immune deficiencies. BREAST: Denies current breast lumps, pain or nipple discharge. PHYSICAL EXAM: VITALS: Reviewed CONSTITUTIONAL: Well developed and in no acute distress. EYES: Conjuctivae without sclera icterus. Pupils are equally round and reactive to light. Extraocular movements grossly intact. HEAD, EARS, NOSE, THROAT: Moist buccal mucosa. Head is atraumatic, normocephalic. Hears conversational speech. No nasal drainage. Good dentition. NECK: Supple. No JV distention. No thyroidomegaly. RESPIRATORY: Non-labored respirations and equal bilateral excursions. No gross wheezes. CARDIOVASCULAR: Regular rate and rhythm. Extremities without moderate edema. Palpable 2+ radial pulses. ABDOMEN: Soft. No peritonitis. Mild tenderness right lower quadrant. Laparoscopic sites granulated. MUSCULOSKELETAL: Nail and fingers with good capillary refill. SKIN: Warm and well perfused with good skin turgor. NEUROLOGIC: Cranial nerves I through XII grossly intact. Sensation upper and extremities intact. No focal or lateralizing signs. PSYCH: Appropriate affect. Alert and oriented to person, place and time. Displays appropriate insight. CLINCAL LABS: Reviewed. No leukocytosis RADIOLOGY: Report reviewed. Nonspecific bowel gas pattern confirmed IMAGING: Abdominal x-ray revealed a nonspecific bowel gas pattern. Recent CT of the abdomen and pelvis with the last week also independently reviewed without any features of free air or bowel obstruction. No internal hernias identified. This my personal interpretation. ASSESSMENT: 1. Intractable abdominal pain history of congenital malformations and peritoneal adhesions PLAN: 1. IV fluid hydration including monitor pain control 2. May need additional studies including upper GI with small bowel follow through with his history of congenital malformations Past Medical History Past Medical History: GERD/Reflux, Hyperlipidemia, Hypertension, Skin Disorder Additional Past Medical History / Comment(s): Inguinal hernia. "PINCHED NERVE" WITH CERVICAL PAIN, PSORIASIS. Hx bilateral detached retinas. HX OF V-TACH, INTESTINAL MALROTATION, ELONGATED COLON, CONSTIPATION. History of Any Multi-Drug Resistant Organisms: None Reported Past Surgical History: Appendectomy, Cardiac Ablation, Cholecystectomy, Heart Catheterization, Hernia Repair Additional Past Surgical History / Comment(s): DIAGNOSTIC LAP, LYSIS OF ADHESIONS, BILATERAL CATARACTS, BILATERAL EYE SURGERY X7, HX OF RIGHT INGUINAL HERNIA REPAIR, UMBILICAL HERNIA REPAIR WITH LYSIS OF ADHESIONS. Past Anesthesia/Blood Transfusion Reactions: Postoperative Nausea & Vomiting (PONV) Past Psychological History: No Psychological Hx Reported Past Alcohol Use History: None Reported - Past Family History Mother Family Medical History: No Reported History Father Family Medical History: Pulmonary Embolus Medications and Allergies Home Medications Medication Instructions Recorded Confirmed Type Esomeprazole Magnesium [NexIUM] 20 mg PO DAILY 01/26/17 08/15/19 History Atorvastatin [Lipitor] 10 mg PO HS 12/06/18 08/15/19 History Gabapentin 600 mg PO TID 12/06/18 08/15/19 History Secukinumab [Cosentyx Pen] 150 mg SQ Q30D 12/06/18 08/15/19 History Multivitamins, Thera [Multivitamin 1 tab PO DAILY 01/11/19 08/15/19 History (formulary)] Acetaminophen/Diphenhydramine 2 tab PO HS 04/13/19 08/15/19 History [Tylenol PM 500-25mg] Cholecalciferol [Vitamin D3 (25 5,000 unit PO DAILY 04/22/19 08/15/19 History Mcg = 1000 Iu)] Sertraline [Zoloft] 100 mg PO DAILY 07/20/19 08/15/19 History Losartan Potassium 100 mg PO DAILY 08/15/19 08/15/19 History Allergies Allergy/AdvReac Type Severity Reaction Status Date / Time No Known Allergies Allergy Verified 08/15/19 14:48 Surgical - Exam Vital Signs Temp Pulse Resp BP Pulse Ox 98 F 87 18 134/88 97 08/15/19 11:04 08/15/19 11:04 08/15/19 11:04 08/15/19 11:04 08/15/19 11:04 Results - Labs 08/15/19 11:35 08/15/19 11:35 Abnormal Lab Results - Last 24 Hours (Table) 08/15/19 08/15/19 Range/Units 11:35 11:35 Glucose 109 H (74-99) mg/dL Urine Blood Small H (Negative) Diabetes panel 08/15/19 Range/Units 11:35 Sodium 141 (137-145) mmol/L Potassium 4.1 (3.5-5.1) mmol/L Chloride 107 (98-107) mmol/L Carbon Dioxide 24 (22-30) mmol/L BUN 16 (9-20) mg/dL Creatinine 1.00 (0.66-1.25) mg/dL Glucose 109 H (74-99) mg/dL Calcium 9.8 (8.4-10.2) mg/dL AST 31 (17-59) U/L ALT 34 (21-72) U/L Alkaline Phosphatase 85 (38-126) U/L Total Protein 7.7 (6.3-8.2) g/dL Albumin 4.7 (3.5-5.0) g/dL Calcium panel 08/15/19 Range/Units 11:35 Calcium 9.8 (8.4-10.2) mg/dL Albumin 4.7 (3.5-5.0) g/dL Pituitary panel 08/15/19 Range/Units 11:35 Sodium 141 (137-145) mmol/L Potassium 4.1 (3.5-5.1) mmol/L Chloride 107 (98-107) mmol/L Carbon Dioxide 24 (22-30) mmol/L BUN 16 (9-20) mg/dL Creatinine 1.00 (0.66-1.25) mg/dL Glucose 109 H (74-99) mg/dL Calcium 9.8 (8.4-10.2) mg/dL Adrenal panel 08/15/19 Range/Units 11:35 Sodium 141 (137-145) mmol/L Potassium 4.1 (3.5-5.1) mmol/L Chloride 107 (98-107) mmol/L Carbon Dioxide 24 (22-30) mmol/L BUN 16 (9-20) mg/dL Creatinine 1.00 (0.66-1.25) mg/dL Glucose 109 H (74-99) mg/dL Calcium 9.8 (8.4-10.2) mg/dL Total Bilirubin 0.5 (0.2-1.3) mg/dL AST 31 (17-59) U/L ALT 34 (21-72) U/L Alkaline Phosphatase 85 (38-126) U/L Total Protein 7.7 (6.3-8.2) g/dL Albumin 4.7 (3.5-5.0) g/dL Assessment and Plan (1) Intractable abdominal pain Current Visit: Yes Status: Acute Code(s): R10.9 - UNSPECIFIED ABDOMINAL PAIN SNOMED Code(s): 96035565 (2) Congenital adhesions of peritoneum Current Visit: Yes Status: Acute Code(s): Q43.3 - CONGENITAL MALFORMATIONS OF INTESTINAL FIXATION SNOMED Code(s): 38353876 (3) Intestinal malrotation Current Visit: No Status: Acute Code(s): Q43.3 - CONGENITAL MALFORMATIONS OF INTESTINAL FIXATION SNOMED Code(s): 02589622
[2019-08-15] MEDS: GABAPENTIN 300 MG CAP PO SCH ×2 (16:14→20:42)
[2019-08-15] MEDS: HYDROmorphone 1 MG/ML 1 ML SYRINGE IVP PRN ×3 (16:19→22:28)
[2019-08-15] MEDS: ACETAMINOPHEN TAB 500 MG TAB PO SCH (20:44)
[2019-08-15] MEDS: diphenhydrAMINE 25 MG CAP PO SCH (20:45)
[2019-08-15] MEDS ORDERED: diphenhydrAMINE 25 MG CAP PO SCH (21:00)
[2019-08-16] MEDS: ONDANSETRON 4 MG/2 ML VIAL IVP PRN ×3 (01:12→19:41)
[2019-08-16] MEDS: HYDROmorphone 1 MG/ML 1 ML SYRINGE IVP PRN ×7 (01:51→23:15)
[2019-08-16] MEDS: PANTOPRAZOLE 40 MG TABLET PO SCH (06:46)
[2019-08-16] MEDS: SERTRALINE 100 MG TAB PO SCH (08:52)
[2019-08-16] MEDS: GABAPENTIN 300 MG CAP PO SCH ×3 (08:52→20:22)
[2019-08-16] MEDS: LOSARTAN 50 MG TAB PO SCH (08:53)
--- NOTE | 2019-08-16 15:00 | P.PN ---
Progress Note - Text Progress Note Date: 08/16/19 Patient off the floor during rounds for UGI with SBFT. Dr. Araya will evaluate patient this afternoon. Continue NPO until UGI with SBFT results are available.
[2019-08-16] MEDS: SODIUM CHLORIDE 0.9% 1,000 ML IV SCH ×2 (19:40→21:28)
[2019-08-16] MEDS ORDERED: TAMSULOSIN 0.4 MG CAP.ER.24H PO STA (19:55)
[2019-08-16] MEDS: diphenhydrAMINE 25 MG CAP PO SCH (20:22)
[2019-08-16] MEDS: ACETAMINOPHEN TAB 500 MG TAB PO SCH (20:22)
--- NOTE | 2019-08-16 20:25 | P.PN ---
Subjective Progress Note Date: 08/16/19 CHIEF COMPLAINT: Intractable abdominal pain HISTORY OF PRESENT ILLNESS: The patient is a 58-year-old male who presents with intractable abdominal pain. 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 His pain has been moderate to severe however controlled with IV pain medication. He is currently undergoing a small bowel follow-through. He reports 3 areas of pain including along the subxiphoid, right upper quadrant and right lower quadrant. He also reports vomiting the barium secondary to the pain of the right upper quadrant. ROS: No fevers or chills. No new chest pain. No productive sputum PHYSICAL EXAM: VITAL SIGNS: Reviewed CONSTITUTIONAL: Well developed and in no acute distress. EYES: Conjuctivae without sclera icterus. Extraocular movements grossly intact. HEAD, EARS, NOSE, THROAT: Moist buccal mucosa. Head is atraumatic, normocephalic. Hears conversational speech. No nasal drainage. NECK: Supple. No thyroidomegaly. RESPIRATORY: Non-labored respirations and equal bilateral excursions. CARDIOVASCULAR: Palpable 2+ radial pulses. Regular rate. Regular rhythm. ABDOMEN: Tender right upper quadrant and epigastrium. MUSCULOSKELETAL: No gross deformity of the lower extremities noted. No clubbing. No cyanosis. SKIN: Good skin turgor. Well perfused. NEUROLOGIC: Cranial nerves I through XII grossly intact. No focal or lateralizing signs. PSYCH: Appropriate affect. Alert and oriented to person, place and time. CLINICAL LABS: White blood cell count normal ASSESSMENT: 1. Intractable abdominal pain secondary to congenital malformation and volvulus 2. Congenital band disease PLAN: 1. At this time, completion of small bowel follow-through is still pending. 2. High suspicion for remnant congenital band disease causing pain and intermittent obstruction 3. May start trial of diet following completion of small bowel follow-through 4. I did review with him he may need exploratory laparotomy versus laparoscopy for extensive lysis of adhesions 5. Full inpatient hospitalization likely secondary to peritoneal adhesions and intractable abdominal pain Objective - Vital Signs Vital signs: Vital Signs Temp 98 F 08/16/19 18:48 Pulse 73 08/16/19 18:48 Resp 18 08/16/19 18:48 BP 125/80 08/16/19 18:48 Pulse Ox 93 L 08/16/19 18:48 Intake & Output 08/16/19 08/16/19 08/17/19 06:59 18:59 06:59 Intake Total 800 800 Balance 800 800 Intake: Intake, IV Titration 800 800 Amount Sodium Chloride 0.9% 1, 800 800 000 ml @ 100 mls/hr IV . Q10H [facility] Rx#:[id number] Other: Voiding Method Toilet Toilet Toilet # Voids 1 - Labs CBC & Chem 7: 08/15/19 11:35 08/15/19 11:35 Assessment and Plan (1) Intractable abdominal pain Current Visit: Yes Status: Acute Code(s): R10.9 - UNSPECIFIED ABDOMINAL PAIN SNOMED Code(s): 54943043 (2) Congenital adhesions of peritoneum Current Visit: Yes Status: Acute Code(s): Q43.3 - CONGENITAL MALFORMATIONS OF INTESTINAL FIXATION SNOMED Code(s): 74906597 (3) Intestinal malrotation Current Visit: No Status: Acute Code(s): Q43.3 - CONGENITAL MALFORMATIONS OF INTESTINAL FIXATION SNOMED Code(s): 52277965
[2019-08-17] MEDS: HYDROmorphone 1 MG/ML 1 ML SYRINGE IVP PRN ×7 (02:12→21:27)
[2019-08-17] MEDS: SODIUM CHLORIDE 0.9% 1,000 ML IV SCH ×2 (05:40→15:36)
[2019-08-17] MEDS: GABAPENTIN 300 MG CAP PO SCH ×3 (07:50→20:30)
[2019-08-17] MEDS: TAMSULOSIN 0.4 MG CAP.ER.24H PO SCH (07:51)
[2019-08-17] MEDS: SERTRALINE 100 MG TAB PO SCH (07:51)
[2019-08-17] MEDS: LOSARTAN 50 MG TAB PO SCH (07:51)
[2019-08-17] MEDS: PANTOPRAZOLE 40 MG TABLET PO SCH (07:51)
[2019-08-17] MEDS: ONDANSETRON 4 MG/2 ML VIAL IVP PRN (08:43)
--- NOTE | 2019-08-17 08:46 | FL ---
EXAMINATION TYPE: FL UGI w small bowel DATE OF EXAM: 08/16/2019 COMPARISON: NONE HISTORY: Abdominal pain and vomiting TECHNIQUE: A double contrast UGI study is performed with small bowel follow through. 47 seconds of f luoroscopy time was utilized during the examination. FINDINGS: The esophagus shows normal motility and emptying into the stomach. No evidence of hiatal hernia or s tricture noted. The stomach shows normal distensibility, peristalsis, and mucosal folds. No evidence of any mass or ulcer disease. Mild esophageal reflux was seen during real time performance of this study. Contrast does not extend into the duodenum despite prolonged imaging. Subsequent images demonstrate f locculation of contrast in the small bowel in the right upper quadrant. The patient then vomited matilde rity of the contrast and contrast was readministered atrophy 1 hour and 35 minute image. Subsequently small bowel with cells in the right abdomen at the 2 hour and 40 minute image and 4 hour and 40 sin te image. At the 8 hour and 40 minute image contrast is seen throughout the colon. No obstruction. IMPRESSION: 1. No evidence of bowel obstruction. 2. There is delayed emptying into the proximal small bowel that could be on the basis of inflammatory process from peptic ulcer disease in the gastric antrum or duodenitis or stricture although strictur e is not definitively seen. 3. All of the small bowel is located in the right mid abdomen in this patient with known prior small bowel resection. Correlate with surgical history to exclude internal hernia. 4. Mild degree gastroesophageal reflux noted.
--- NOTE | 2019-08-17 13:49 | P.PN ---
Subjective Progress Note Date: 08/17/19 CHIEF COMPLAINT: Abdominal pain HISTORY OF PRESENT ILLNESS: Patient seen and examined at the bedside with Dr. Odonnell. Patient reports his abdominal pain is about the same as yesterday. He continues to require IV Dilaudid for pain control. He is currently albaro erating diet without nausea or vomiting. Upper GI with small bowel follow- through completed yesterday reveals no evidence of bowel obstruction. Delayed emptying into the proximal small bowel that could be on the basis of inflammatory process from peptic ulcer disease in the gastric antrum or duode nitis or stricture although stricture is not definitely seen. All the small bowel is located in the right mid abdomen in this patient with known prior small bowel resection. Mild degree gastroesophageal reflux noted. PHYSICAL EXAM: VITAL SIGNS: Reviewed. GENERAL: Well-developed in no acute distress. HEENT: No sclera icterus. Extraocular movements grossly intact. Moist buccal mucosa. Head is atraumatic, normocephalic. ABDOMEN: Soft. Nondistended. Tenderness upon palpation. NEUROLOGIC: Alert and oriented. Cranial nerves II through XII grossly intact. ASSESSMENT: 1. Abdominal pain 2. Congenial band disease 3. Delayed gastric emptying PLAN: Continue diet as tolerated Pain management Patient will be re-evaluated by Dr. Araya tomorrow Nurse practitioner note has been reviewed by physician. Signing provider agrees with the documented findings, assessment, and plan of care. Objective - Vital Signs Vital signs: Vital Signs Temp 98.6 F 08/17/19 07:44 Pulse 73 08/17/19 07:44 Resp 18 08/17/19 07:44 BP 106/70 08/17/19 07:44 Pulse Ox 92 L 08/17/19 07:44 Intake & Output 08/16/19 08/17/19 08/17/19 18:59 06:59 18:59 Intake Total 800 600 Balance 800 600 Intake: Intake, IV Titration 800 Amount Sodium Chloride 0.9% 1, 800 000 ml @ 100 mls/hr IV . Q10H [facility] Rx#:[id number] Oral 600 Other: Voiding Method Toilet Toilet Toilet # Voids 1 1 1 - Labs CBC & Chem 7: 08/15/19 11:35 08/15/19 11:35
[2019-08-17] MEDS: diphenhydrAMINE 25 MG CAP PO SCH (20:30)
[2019-08-17] MEDS: ACETAMINOPHEN TAB 500 MG TAB PO SCH (20:30)
[2019-08-18] MEDS: HYDROmorphone 1 MG/ML 1 ML SYRINGE IVP PRN ×8 (00:39→22:00)
[2019-08-18] MEDS: SODIUM CHLORIDE 0.9% 1,000 ML IV SCH ×3 (03:11→23:16)
[2019-08-18] MEDS: LOSARTAN 50 MG TAB PO SCH (09:43)
[2019-08-18] MEDS: GABAPENTIN 300 MG CAP PO SCH ×3 (09:43→22:00)
[2019-08-18] MEDS: TAMSULOSIN 0.4 MG CAP.ER.24H PO SCH (09:44)
[2019-08-18] MEDS: PANTOPRAZOLE 40 MG TABLET PO SCH (09:44)
[2019-08-18] MEDS: SERTRALINE 100 MG TAB PO SCH (09:44)
[2019-08-18] MEDS: LORATADINE-PSEUDOEPH 5-120 MG 1 EACH TAB.ER.12H PO PRN (09:50)
[2019-08-18] MEDS: ONDANSETRON 4 MG/2 ML VIAL IVP PRN (10:11)
--- NOTE | 2019-08-18 10:28 | P.HPADDEND ---
H&P Addendum H&P Addendum Date: 08/18/19 Upper GI results reviewed demonstrating potential of peptic ulcer disease. We'll proceed with upper endoscopy. Benefits and risks were described.
[2019-08-18] MEDS ORDERED: PROPOFOL 10 MG/ML 20 ML VIAL IV ONE (10:40)
[2019-08-18] MEDS ORDERED: LIDOCAINE 1% INJ 10MG/ML (20 ML MDV) ONE (10:40)
[2019-08-18] MEDS ORDERED: IV FLUID CONTINUATION 1,000 ML IV ONE (10:40)
--- NOTE | 2019-08-18 11:05 | P.PCN ---
Date of Procedure: 08/18/19 Description of Procedure: PREOPERATIVE DIAGNOSIS: Abnormal upper GI for peptic ulcer disease Epigastric abdominal pain POSTOPERATIVE DIAGNOSIS: Abnormal upper GI for peptic ulcer disease Epigastric abdominal pain Gastritis OPERATION: Esophagogastroduodenoscopy SURGEON: Lora Araya MD ANESTHESIA: MAC. INDICATIONS: The patient is a 58-year-old male who presents with a history of epigastric abdominal pain including studies demonstrating active peptic ulcer disease. Upper endoscopy is over for diagnostic assessment. Benefits and risks of the procedure were described. Informed consent was obtained. DESCRIPTION: The patient was brought into the endoscopy suite and laid in the left lateral decubitus position. An Olympus gastroscope was passed along the posterior oropharynx down to the distal esophagus where the squamocolumnar junction was encountered at 40 cm from the incisors. The stomach was entered and retained food and contrast was found within the stomach. Additional findings are listed below. The first through third portion of the duodenum was examined and unremarkable. The squamocolumnar junction demonstrated LA grade A erosive esophagitis. The stomach was desufflated. The patient tolerated the procedure well. FINDINGS: Squamocolumnar junction 40 cm from the incisors. Diaphragmatic hiatus at 40 cm. Hill grade 2 lower esophageal valve. LA grade A erosive esophagitis. No active duodenitis. Chronic gastritis No evidence of peptic ulcer disease or duodenal ulcer disease Retained fluid and contrast in the stomach RECOMMENDATIONS: Upper endoscopy as needed.
[2019-08-18] MEDS ORDERED: ONDANSETRON 4 MG/2 ML VIAL IVP PRN (14:12)
[2019-08-18] MEDS ORDERED: LIDOCAINE 1% 20 ML VIAL (10MG/ML) FOR IV START INTRADERMA PRN (14:12)
[2019-08-18] MEDS: LACTATED RINGERS 1,000 ML IV SCH (18:22)
[2019-08-18] MEDS: ACETAMINOPHEN TAB 500 MG TAB PO SCH (22:00)
[2019-08-18] MEDS: diphenhydrAMINE 25 MG CAP PO SCH (22:00)
[2019-08-19] MEDS: KETOROLAC 30 MG/ML 1 ML VIAL IVP SCH ×5 (00:21→23:53)
[2019-08-19] MEDS: HYDROmorphone 1 MG/ML 1 ML SYRINGE IVP PRN ×6 (01:00→23:51)
[2019-08-19] MEDS ORDERED: SCOPOLAMINE 1.5MG/72HR PATCH TRANSDERM ONE (06:00)
[2019-08-19] MEDS ORDERED: DEXAMETHASONE SOD PHOSPHATE 10 MG/ML 1 ML VIAL IV ONE ×2 (06:00→15:30)
[2019-08-19] MEDS: TAMSULOSIN 0.4 MG CAP.ER.24H PO SCH (07:53)
[2019-08-19] MEDS: LOSARTAN 50 MG TAB PO SCH (07:53)
[2019-08-19] MEDS: GABAPENTIN 300 MG CAP PO SCH ×3 (07:53→21:46)
[2019-08-19] MEDS: PANTOPRAZOLE 40 MG TABLET PO SCH (07:53)
[2019-08-19] MEDS: SERTRALINE 100 MG TAB PO SCH (07:54)
[2019-08-19] MEDS: LORATADINE-PSEUDOEPH 5-120 MG 1 EACH TAB.ER.12H PO PRN (09:36)
--- NOTE | 2019-08-19 13:40 | P.HPADDEND ---
H&P Addendum H&P Addendum Date: 08/19/19 Patient has history of congenital malformation and malrotation with abnormal peritoneal adhesions. We'll proceed with robotic lysis of adhesions possible open for recurrent abdominal pain
[2019-08-19] MEDS ORDERED: IV FLUID CONTINUATION 1,000 ML IV ONE (14:49)
[2019-08-19] MEDS: LACTATED RINGERS 1,000 ML IV SCH ×3 (15:10→16:28)
[2019-08-19] MEDS ORDERED: MIDAZOLAM 2 MG/2 ML VIAL IVP ONE (15:20)
[2019-08-19] MEDS ORDERED: ONDANSETRON 4 MG/2 ML VIAL IVP ONE (15:30)
[2019-08-19] MEDS: SODIUM CHLORIDE 0.9% 1,000 ML IV SCH ×3 (15:52→23:51)
[2019-08-19] MEDS ORDERED: HYDROmorphone (PF) 1 MG/ML ONE (15:54)
[2019-08-19] MEDS ORDERED: LIDOCAINE 1% INJ 10MG/ML (20 ML MDV) ONE (15:54)
[2019-08-19] MEDS ORDERED: PROPOFOL 10 MG/ML 20 ML VIAL IV ONE (15:54)
[2019-08-19] MEDS ORDERED: HEPARIN SODIUM,PORCINE 5,000 UNIT/ML 1 ML VIAL ONE (15:54)
[2019-08-19] MEDS ORDERED: SUCCINYLCHOLINE CHLORIDE 100 MG/5 ML SYR IV ONE (15:54)
[2019-08-19] MEDS ORDERED: PHENYLEPHRINE-0.9% NACL SYG 1 MG/10 ML SYRINGE ONE (15:54)
[2019-08-19] MEDS ORDERED: GLYCOPYRROLATE 0.2 MG/ML 2 ML VIAL ONE (15:54)
[2019-08-19] MEDS ORDERED: MIDAZOLAM 2 MG/2 ML VIAL ONE (15:54)
[2019-08-19] MEDS ORDERED: ROCURONIUM BROMIDE 10 MG/ML 10 ML VIAL IV ONE (15:54)
[2019-08-19] MEDS ORDERED: NEOSTIGMINE 1 MG/ML 10 ML VIAL ONE (15:54)
[2019-08-19] MEDS ORDERED: fentaNYL (PF) 50 MCG/ML 2 ML AMP ONE (15:54)
[2019-08-19] MEDS ORDERED: ROPIVACAINE 5 MG/ML 30 ML VIAL ONE (15:54)
[2019-08-19] MEDS ORDERED: SODIUM CHLORIDE 0.9% 100 ML with ceFAZolin 2,000 MG IV ONE ×2 (16:22)
[2019-08-19] MEDS ORDERED: LIDOCAINE 1%-EPI 1:100,000 20 ML VIAL SQ ONE (16:27)
--- NOTE | 2019-08-19 17:02 | P.ANPRN ---
Procedure Note - Anesthesia - Nerve Block Performed Bilateral Transversus Abdominis Single Time Out Performed: Yes Date of Procedure: 08/19/19 Procedure Start Time: 15:20 Procedure Stop Time: 15:35 Location of Patient: PreOp Indication: Requested by Surgeon Specifically requested for management of pain by DrAl: Lora Araya Sedation Type: Sedate with meaningful contact maintained Preparation: Sterile Prep Position: Supine Needle Types: Pajunk Needle Gauge: 21 Ultrasound used to visualize needle placement: Yes Ultrasound used to observe medication spread: Yes Injectate: 0.5% Ropivacaine (see comment for volume) (20 ml per side) Blood Aspirated: No Pain Paresthesia on Injection Noted: No Resistance on Injection: Normal Image Stored and Saved: Yes Events: Uneventful and Well Tolerated
[2019-08-19] MEDS ORDERED: LACTATED RINGERS 1,000 ML IV ONE ×3 (17:12→21:11)
[2019-08-19] MEDS ORDERED: METOCLOPRAMIDE 5 MG/ML 2 ML VIAL IVP PRN (20:09)
[2019-08-19] MEDS: HYDROmorphone 0.5 MG/0.5 ML SYRINGE IVP PRN ×2 (20:45→20:55)
--- NOTE | 2019-08-19 21:34 | P.OP ---
Date of Procedure: 08/19/19 Description of Procedure: SURGEON: BAKARI SWEET MD PREOPERATIVE DIAGNOSES: 1. Abnormal upper GI for internal hernia 2. 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 Right upper quadrant abdominal pain 4. History of small bowel obstruction 5. Hypertensive heart disease 6. Gastroesophageal reflux disease 7. Depressive disorder 8. Chronic pain syndrome 9. History of postop urinary retention POSTOPERATIVE DIAGNOSES: 1. Abnormal upper GI for internal hernia 2. 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 Right upper quadrant abdominal pain 4. History of small bowel obstruction 5. Hypertensive heart disease 6. Gastroesophageal reflux disease 7. Depressive disorder 8. Chronic pain syndrome 9. History of postop urinary retention OPERATION: 1. Robotic-assisted da Song Xi laparoscopic with extensive lysis of adhesions over 1 hr minutes. 2. Open reduction of internal hernia, right upper quadrant 3. Application of PREVENA universal wound VAC system ESTIMATED BLOOD LOSS: 100 mL. SPECIMENS REMOVED: None. COMPLICATIONS: None. OPERATIVE FINDINGS: 1. Multiple adhesive band disease involving the mid to proximal jejunum lysed 2. Congenital adhesive band involving fourth portion of duodenum and proximal jejunum at right upper quadrant creating functional small bowel obstruction with internal hernia INDICATIONS: The patient is a 58-year-old male who presents with intermittentsmall bowel obstruction including right upper quadrant abdominal pain. He has history of congenital malrotation anadhesive band disease. Multiple diagnostic studies were performed with upper GI demonstrated internal hernia. Surgical intervention with diagnostic laparoscopy, lysis of adhesions were described. Robotic assisted laparoscopic approach was describedincluding possibility of open technique. Benefits and risks of the procedure including but not limited to bleeding, infection, injury to the small bowel was described. Informed consent was obtained. DESCRIPTION OF PROCEDURE: Patient was brought to the operating room, placed in supine position. After general induction, the abdomen had been prepped and draped in standard sterile fashion. The robotic da Song XI system was primed. After a timeout protocol was performed, the patient had been prepped and draped in standard sterile fashion. The robot was docked along the left lateral abdomen. A 5 mm 0 degrees laparoscopic trocar entry was performed along the left upper quadrant. The abdomen was insufflated to 15 mmHg pressure which was tolerated well. Diagnostic laparoscopy was performed demonstrated intact right lower quadrant inguinal hernia repair. No postoperative adhesions were identified of the pelvis. Next, three 8 mm robotic ports were placed along the left lateral abdominal wall. The camera 8-mm port was maintained along mid-lateral abdomen. Please note that the ports were placed at least 10 to 15 cm away from the target anatomy. Instruments including graspers and vessel sealer were interchanged by the syrup mixer assistant. I had sat at the console. The entire colon was identified along the left abdomen. The small bowel was found along the right abdomen. The cecum was found within the left pelvis. The small bowel was investigated from the terminal ileum to the ligament of Treitz. Congenital adhesive band disease with intraloop adhesions were addressed along the mid jejunum along 2 points identified along the right upper abdomen. Sharp dissection using scissors without enterotomies were performed to free the small bowel. Extensive lysis of adhesions over 1 hr was performed with 77 minutes on the console. Next, along the proximal jejunum to duodenum, rotational internal hernia was identified with the adhesion extending to the spine. Additional fourth trocar was placed along the epigastrium. Despite rotational maneuvers, the adhesive band was deeply tethered requiring open technique to release. The robot was undocked. I re-scrubbed into the case. All instruments were accounted for prior to open technique. A midline incision from the xiphoid to below the umbilicus was made while using pneumoperitoneum. the abdomen was entered. A universal retraction system was used to gain exposure of the internal hernia at the right upper quadrant. A congenital band tethering the third to fourth portion of the duodenum at the right upper quadrant was found adherent to the back and released using Enseal and electro Bovie cautery without enterotomy. Once released, the internal hernia was reduced and the functional bowel obstruction was removed. The small bowel was once again inspected twice proximal to distal to the terminal ileum were all adhesive bands were addressed. The abdomen was closed using double stranded 0 PDS. The trocar incisions were reapproximated using 4-0 Monocryl in an interrupted subcuticular fashion. Exofin was applied to the skin. The skin of the midline incision was oversewn using 3-0 Vicryl. A PREVENA universal length wound VAC system was placed along the midline followed by an abdominal binder. At the end of the procedure needle, sponge, and instrument count had been verified correct by the ag equipment field service technician. The patient was transferred to postanesthesia care unit in stable condition. Intraoperative images including findings were discussed and reviewed with the patient's family who were pleased with the level of care
[2019-08-19] MEDS: ACETAMINOPHEN TAB 500 MG TAB PO SCH (21:45)
[2019-08-19] MEDS: diphenhydrAMINE 25 MG CAP PO SCH (21:45)
[2019-08-20] MEDS: HYDROmorphone 1 MG/ML 1 ML SYRINGE IVP PRN ×3 (02:27→08:03)
[2019-08-20] MEDS: KETOROLAC 30 MG/ML 1 ML VIAL IVP SCH ×3 (02:43→17:56)
[2019-08-20 06:57] LABS: Basophils % (A) 0 %; Eosinophils % (A) 0 %; HCT 38.7 % (39.0-53.0); HGB 13.5 gm/dL (13.0-17.5); Lymphocytes # (A) 0.8 k/uL (1.0-4.8); Lymphocytes % (A) 7 %; MCH 31.6 pg (25.0-35.0); MCHC 34.8 g/dL (31.0-37.0); MCV 90.8 fL (80.0-100.0); Mean Platelet Volume 6.9; Monocytes # (A) 0.6 k/uL (0-1.0); Monocytes % (A) 5 %; Neutrophils % (A) 88 %; Platelet Count 273 k/uL (150-450); RBC 4.26 m/uL (4.30-5.90); RDW 12.8 % (11.5-15.5); WBC 12.5 k/uL (3.8-10.6)
[2019-08-20] MEDS: TAMSULOSIN 0.4 MG CAP.ER.24H PO SCH (07:05)
[2019-08-20] MEDS: PANTOPRAZOLE 40 MG TABLET PO SCH (07:05)
[2019-08-20] MEDS: HYDROcodone/APAP 5-325MG 1 EACH TAB PO PRN (07:05)
[2019-08-20 07:07] LABS: African American GFR (CKD) >90 (>60 ml/min/1.73 sqM); Anion Gap 8 mmol/L; Blood Urea Nitrogen 14 mg/dL (9-20); Calcium 8.7 mg/dL (8.4-10.2); Carbon Dioxide 29 mmol/L (22-30); Chloride 102 mmol/L (98-107); Glucose 124 mg/dL (74-99); Magnesium 1.5 mg/dL (1.6-2.3); Non-African American GFR(CKD) 87 (>60 ml/min/1.73 sqM); Phosphorus 4.5 mg/dL (2.5-4.5); Potassium 4.4 mmol/L (3.5-5.1); Sodium 139 mmol/L (137-145)
[2019-08-20] MEDS: LOSARTAN 50 MG TAB PO SCH (08:03)
[2019-08-20] MEDS: SERTRALINE 100 MG TAB PO SCH (08:03)
[2019-08-20] MEDS: GABAPENTIN 300 MG CAP PO SCH ×3 (08:03→22:19)
[2019-08-20] MEDS ORDERED: ENOXAPARIN 30 MG/0.3 ML SYRINGE SQ SCH (09:00)
[2019-08-20] MEDS: MAGNESIUM SULFATE-D5W PMX 1 GM in DEXTROSE/WATER 1 100ML.BAG IVPB SCH ×4 (09:53→13:19)
[2019-08-20] MEDS ORDERED: HYDROmorphone PCA 10 MG/50 ML BAG IV PRN (10:20)
[2019-08-20] MEDS ORDERED: NALOXONE 0.4 MG/ML 1 ML VIAL IV PRN (10:20)
--- NOTE | 2019-08-20 10:22 | P.PN ---
Subjective Progress Note Date: 08/20/19 Principal diagnosis: Small bowel obstruction Patient complaining of muscular spastic pain along his incision site. White blood cell count 12.5. Hemoglobin stable. Magnesium slightly low as well. No nausea or vomiting Objective - Vital Signs Vital signs: Vital Signs Temp 98.4 F 08/20/19 07:00 Pulse 92 08/20/19 07:00 Resp 16 08/20/19 07:00 BP 147/91 08/20/19 07:00 Pulse Ox 99 08/20/19 07:00 Intake & Output 08/19/19 08/20/19 08/20/19 18:59 06:59 18:59 Intake Total 1300 2315 Output Total 3250 600 Balance 1300 -935 -600 Intake: IV 1300 1765 Intake, IV Titration 550 Amount Sodium Chloride 0.9% 1, 500 000 ml @ 100 mls/hr IV . Q10H AILYN Rx#:[id number] ceFAZolin 2 gm In Sodium 50 Chloride 0.9% 50 ml @ 100 mls/hr IVPB Q8HR AILYN Rx# :[id number] Output: Urine 3050 600 Uretheral (Griffin) 1800 Estimated Blood Loss 200 Other: Voiding Method Toilet Indwelling Catheter Indwelling Catheter # Voids 3 - Exam Abdomen: Soft, tenderness a long midline incision, dressing clean and dry - Labs CBC & Chem 7: 08/20/19 06:25 08/20/19 06:25 Labs: Abnormal Lab Results - Last 24 Hours (Table) 08/20/19 08/20/19 Range/Units 06:25 06:25 WBC 12.5 H (3.8-10.6) k/uL RBC 4.26 L (4.30-5.90) m/uL Hct 38.7 L (39.0-53.0) % Neutrophils # 11.0 H (1.3-7.7) k/uL Lymphocytes # 0.8 L (1.0-4.8) k/uL Glucose 124 H (74-99) mg/dL Magnesium 1.5 L (1.6-2.3) mg/dL Assessment and Plan (1) Abdominal pain Narrative/Plan: Will provide Dilaudid HEALTH SERVICES INFORMATION SPECIALIST today. Continue Griffin for now. Supplement magnesium. Ambulate 1 pain better controlled. Current Visit: Yes Status: Acute Code(s): R10.9 - UNSPECIFIED ABDOMINAL PAIN SNOMED Code(s): 53358601
[2019-08-20] MEDS: SODIUM CHLORIDE 0.9% 1,000 ML IV SCH ×2 (15:50→22:18)
[2019-08-20] MEDS: diphenhydrAMINE 25 MG CAP PO SCH (22:18)
[2019-08-20] MEDS: ACETAMINOPHEN TAB 500 MG TAB PO SCH (22:19)
[2019-08-21] MEDS: KETOROLAC 30 MG/ML 1 ML VIAL IVP SCH (02:29)
[2019-08-21 07:16] LABS: Basophils % (A) 0 %; Eosinophils # (A) 0.5 k/uL (0-0.7); Eosinophils % (A) 6 %; HCT 36.9 % (39.0-53.0); HGB 12.5 gm/dL (13.0-17.5); Lymphocytes # (A) 1.2 k/uL (1.0-4.8); Lymphocytes % (A) 13 %; MCH 31.7 pg (25.0-35.0); MCV 93.3 fL (80.0-100.0); Mean Platelet Volume 7.1; Monocytes # (A) 0.5 k/uL (0-1.0); Monocytes % (A) 6 %; Neutrophils % (A) 75 %; Platelet Count 228 k/uL (150-450); RBC 3.96 m/uL (4.30-5.90); RDW 12.9 % (11.5-15.5); WBC 9.4 k/uL (3.8-10.6)
[2019-08-21 07:30] LABS: African American GFR (CKD) >90 (>60 ml/min/1.73 sqM); Anion Gap 5 mmol/L; Blood Urea Nitrogen 15 mg/dL (9-20); Calcium 8.3 mg/dL (8.4-10.2); Carbon Dioxide 29 mmol/L (22-30); Chloride 107 mmol/L (98-107); Glucose 109 mg/dL (74-99); Non-African American GFR(CKD) 79 (>60 ml/min/1.73 sqM); Potassium 3.9 mmol/L (3.5-5.1); Sodium 141 mmol/L (137-145)
[2019-08-21] MEDS: ENOXAPARIN 40 MG/0.4 ML SYRINGE SQ SCH (07:57)
[2019-08-21] MEDS: TAMSULOSIN 0.4 MG CAP.ER.24H PO SCH (07:57)
[2019-08-21] MEDS: PANTOPRAZOLE 40 MG TABLET PO SCH (07:57)
[2019-08-21] MEDS: GABAPENTIN 300 MG CAP PO SCH ×3 (07:57→21:05)
[2019-08-21] MEDS: SERTRALINE 100 MG TAB PO SCH (07:58)
[2019-08-21] MEDS: LOSARTAN 50 MG TAB PO SCH (07:58)
[2019-08-21] MEDS: SODIUM CHLORIDE 0.9% 1,000 ML IV SCH (10:30)
--- NOTE | 2019-08-21 11:37 | P.PN ---
Subjective Progress Note Date: 08/21/19 Principal diagnosis: Small bowel obstruction patient doing better today. Pain is improved. No more spasms. T-max 99.1. White blood cell count 9.4. Patient passing flatus. Objective - Vital Signs Vital signs: Vital Signs Temp 99.1 F 08/21/19 07:10 Pulse 91 08/21/19 07:10 Resp 16 08/21/19 07:10 BP 134/83 08/21/19 07:10 Pulse Ox 93 L 08/21/19 07:10 Intake & Output 08/20/19 08/21/19 08/21/19 18:59 06:59 18:59 Output Total 2550 1300 Balance -2550 -1300 Output: Urine 2550 1300 Other: Voiding Method Indwelling Catheter Indwelling Catheter - Exam abdomen: Soft, nondistended, mild tenderness, incision clean and dry - Labs CBC & Chem 7: 08/21/19 06:53 08/21/19 06:53 Labs: Abnormal Lab Results - Last 24 Hours (Table) 08/21/19 08/21/19 Range/Units 06:53 06:53 RBC 3.96 L (4.30-5.90) m/uL Hgb 12.5 L (13.0-17.5) gm/dL Hct 36.9 L (39.0-53.0) % Glucose 109 H (74-99) mg/dL Calcium 8.3 L (8.4-10.2) mg/dL Assessment and Plan (1) Abdominal pain Narrative/Plan: start full liquid diet. Remove Griffin catheter in a.m. Ambulate. Current Visit: Yes Status: Acute Code(s): R10.9 - UNSPECIFIED ABDOMINAL PAIN SNOMED Code(s): 04156329
[2019-08-21] MEDS: HYDROmorphone 1 MG/ML 1 ML SYRINGE IVP PRN ×4 (12:19→21:05)
[2019-08-21] MEDS: LACTATED RINGERS 1,000 ML IV SCH (13:48)
[2019-08-21] MEDS: HYDROcodone/APAP 5-325MG 1 EACH TAB PO PRN ×2 (15:57→22:34)
[2019-08-21] MEDS: ACETAMINOPHEN TAB 500 MG TAB PO SCH (21:03)
[2019-08-21] MEDS: diphenhydrAMINE 25 MG CAP PO SCH (21:05)
[2019-08-22] MEDS: SODIUM CHLORIDE 0.9% 1,000 ML IV SCH ×2 (02:12→09:31)
[2019-08-22 07:06] VITALS: BP 135/85; PULSE 84; RESP 16; TEMP 98.7
[2019-08-22] MEDS: HYDROcodone/APAP 5-325MG 1 EACH TAB PO PRN ×2 (07:06→13:36)
[2019-08-22] MEDS: LOSARTAN 50 MG TAB PO SCH (09:28)
[2019-08-22] MEDS: SERTRALINE 100 MG TAB PO SCH (09:28)
[2019-08-22] MEDS: ENOXAPARIN 40 MG/0.4 ML SYRINGE SQ SCH (09:28)
[2019-08-22] MEDS: PANTOPRAZOLE 40 MG TABLET PO SCH (09:28)
[2019-08-22] MEDS: TAMSULOSIN 0.4 MG CAP.ER.24H PO SCH (09:28)
[2019-08-22] MEDS: GABAPENTIN 300 MG CAP PO SCH (09:28)
[2019-08-22 11:44] VITALS: BMI 28.5
--- NOTE | 2019-08-22 12:05 | P.DS ---
Providers Date of admission: 08/17/19 08:54 Expected date of discharge: 08/22/19 Attending physician: Lora Araya Primary care physician: Rod Mckinnon Hospital Course: The patient is a 58 year old male comes in with chronic abdominal pain particularly of the right upper and right lower quadrant. He had a right inguinal hernia repair over a year ago with recurrence. He is status post removal of foreign body including repair of right inguinal hernia almost 1 month ago. He states was feeling quite well 1 week ago however the last 2 days he felt a pop along the right upper quadrant and he has cramping persistent abdominal pain. No blood in stools. Appetite is low. He presents to the ER where his pain is still persistent prompting admission. He has significant history for congenital malformation including congenital adhesions that puts him at risk for bowel obstruction. Patient underwent upper GI with results reviewed by Dr. Araya revealing potential of peptic ulcer disease. He underwent EGD with Dr. Araya revealing no evidence of peptic ulcer disease or duodenal ulcer disease. It did reveal LA grade a erosive esophagitis. No active duodenitis. Patient also underwent robotic assisted laparoscopic extensive lysis of adhesions and open reduction of internal hernia right upper quadrant with Dr. Araya on 08/19/2019. Patient is doing well postoperatively without any immediate complications. He is passing flatus. Tolerating diet without nausea or vomiting. Voiding without difficulty. He is stable for discharge home today. Please see EMR for further hospital course details. Discharge diagnosis 1. Abnormal upper GI for internal hernia 2. 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 Right upper quadrant abdominal pain 4. History of small bowel obstruction 5. Hypertensive heart disease 6. Gastroesophageal reflux disease 7. Depressive disorder 8. Chronic pain syndrome 9. History of postop urinary retention Nurse practitioner note has been reviewed by physician. Signing provider agrees with the documented findings, assessment, and plan of care. Patient Condition at Discharge: Stable Plan - Discharge Summary Discharge Rx Participant: Yes New Discharge Prescriptions: New Hydrocodone/Acetaminophen [[place] 5-325] 1 tab PO Q6HR PRN 3 Days #12 tab PRN Reason: Pain No Action Esomeprazole Magnesium [NexIUM] 20 mg PO DAILY Gabapentin 600 mg PO TID Atorvastatin [Lipitor] 10 mg PO HS Secukinumab [Cosentyx Pen] 150 mg SQ Q30D Multivitamins, Thera [Multivitamin (formulary)] 1 tab PO DAILY Acetaminophen/Diphenhydramine [Tylenol PM 500-25mg] 2 tab PO HS Cholecalciferol [Vitamin D3 (25 Mcg = 1000 Iu)] 5,000 unit PO DAILY Sertraline [Zoloft] 100 mg PO DAILY Losartan Potassium 100 mg PO DAILY Discharge Medication List Esomeprazole Magnesium [NexIUM] 20 mg PO DAILY 01/26/17 [History] Atorvastatin [Lipitor] 10 mg PO HS 12/06/18 [History] Gabapentin 600 mg PO TID 12/06/18 [History] Secukinumab [Cosentyx Pen] 150 mg SQ Q30D 12/06/18 [History] Multivitamins, Thera [Multivitamin (formulary)] 1 tab PO DAILY 01/11/19 [History] Acetaminophen/Diphenhydramine [Tylenol PM 500-25mg] 2 tab PO HS 04/13/19 [History] Cholecalciferol [Vitamin D3 (25 Mcg = 1000 Iu)] 5,000 unit PO DAILY 04/22/19 [History] Sertraline [Zoloft] 100 mg PO DAILY 07/20/19 [History] Losartan Potassium 100 mg PO DAILY 08/15/19 [History] Hydrocodone/Acetaminophen [[place] 5-325] 1 tab PO Q6HR PRN 3 Days #12 tab 08/22/19 [Rx] Follow up Appointment(s)/Referral(s): Lora Araya MD [STAFF PHYSICIAN] - 08/23/19 (Patient has appointment scheduled for tomorrow) Rod Mckinnon MD [Primary Care Provider] - 1-2 days Activity/Diet/Wound Care/Special Instructions: No driving while taking [place] No lifting over 10 pounds You may shower. No soaking or tub baths Very light activity until you are reevaluated at your follow up appointment with your surgeon
[2019-08-22] MEDS: LACTATED RINGERS 1,000 ML IV SCH (14:56)
== END 2019-08-22 15:30 | disposition home or self-care (01) | DRG 336 ==
LOC: EC 11:01 → 1SOBS 14:28 → OBSVTOIN 08-17 08:54 → 4SSUR 08-19 15:16
PROVIDERS: ADMIT Surgery Plastic and Reconstructive Surgery; ATTEND Surgery Plastic and Reconstructive Surgery
PROC: 0DJ08ZZ Inspection of Upper Intestinal Tract, Via Natural or Artificial Opening Endoscopic (ICD-10-PCS; 2019-08-18)
PROC: 0DQV0ZZ Repair Mesentery, Open Approach (ICD-10-PCS; 2019-08-19)
PROC: 8E0W4CZ Robotic Assisted Procedure of Trunk Region, Percutaneous Endoscopic Approach (ICD-10-PCS; 2019-08-19)
PROC: 0DNA4ZZ Release Jejunum, Percutaneous Endoscopic Approach (ICD-10-PCS; principal; 2019-08-19 17:00)
DX: Q43.3 Congenital malformations of intestinal fixation (principal); K22.10 Ulcer of esophagus without bleeding; K46.0 Unspecified abdominal hernia with obstruction, without gangrene; I11.9 Hypertensive heart disease without heart failure; K59.00 Constipation, unspecified; G89.4 Chronic pain syndrome; K29.50 Unspecified chronic gastritis without bleeding; K30 Functional dyspepsia; G58.9 Mononeuropathy, unspecified; K21.9 Gastro-esophageal reflux disease without esophagitis; F32.9 Major depressive disorder, single episode, unspecified; E78.5 Hyperlipidemia, unspecified; L40.9 Psoriasis, unspecified; M54.2 Cervicalgia; Z79.899 Other long term (current) drug therapy; Z98.890 Other specified postprocedural states; Z90.49 Acquired absence of other specified parts of digestive tract; Z86.79 Personal history of other diseases of the circulatory system; Z98.42 Cataract extraction status, left eye; Z98.41 Cataract extraction status, right eye; Z83.2 Family history of diseases of the blood and blood-forming organs and certain disorders involving the immune mechanism
CPT/HCPCS: 36415; 43235; 64488; 74018; 74245; 80048; 80053; 81001; 82150; 83605; 83735; 84100; 85025; 94760; 94762; 96361; 96374; 96375; 99285

== ENCOUNTER 2019-08-26 09:33 | Emergency (ER) | payer BC ==
[2019-08-26 09:45] VITALS: RESP 18; TEMP 97.9
[2019-08-26] MEDS ORDERED: HYDROmorphone 0.5 MG/0.5 ML SYRINGE IVP STA (10:14)
[2019-08-26] MEDS ORDERED: ONDANSETRON 4 MG/2 ML VIAL IVP STA (10:14)
[2019-08-26] MEDS ORDERED: SODIUM CHLORIDE 0.9% 1,000 ML IV ONE (10:14)
--- NOTE | 2019-08-26 10:14 | ED ---
Abdominal Pain HPI <Luis Pacheco - Last Filed: 08/26/19 13:00> - General Source: patient Mode of arrival: ambulatory Limitations: no limitations <Radha Poole - Last Filed: 08/26/19 15:05> - General Chief Complaint: Abdominal Pain Stated Complaint: abdominal pains Time Seen by Provider: 08/26/19 10:01 - History of Present Illness Initial Comments: 58yo male presenting for abdominal pain nausea or diarrhea. Patient states he had an open abdominal surgery performed by Dr. Corcoran for lysis of adhesions and hernia repair. He states he was to the surgery went well however he had a surgery performed secondary to pain of the right mid abdomen just adjacent to the umbilicus. He states that the pain that he had prior to surgery is still present and has not gone away denies any radiation of the pain to the back of denies vomiting. He states he has been having bowel movements denies melena he matochezia. Patient states that he has constipation with the [place] has not been taking it for pain management. When the abdominal pain nausea persisted today he decided to present to the emergency Department patient also noted he had watery diarrhea since his discharge from the hospital. Patient denies fevers, dysuria urgency frequency or any other complaints. Upon arrival patient does not appear in acute distress afebrile (Radha Poole) - Related Data Home Medications Medication Instructions Recorded Confirmed Esomeprazole Magnesium [NexIUM] 20 mg PO DAILY 01/26/17 08/26/19 Atorvastatin [Lipitor] 10 mg PO HS 12/06/18 08/26/19 Gabapentin 600 mg PO TID 12/06/18 08/26/19 Secukinumab [Cosentyx Pen] 150 mg SQ Q30D 12/06/18 08/26/19 Cholecalciferol [Vitamin D3 (25 5,000 unit PO DAILY 04/22/19 08/26/19 Mcg = 1000 Iu)] Sertraline [Zoloft] 100 mg PO DAILY 07/20/19 08/26/19 Alfuzosin HCl [Alfuzosin HCl ER] 10 mg PO DAILY 08/26/19 08/26/19 Losartan Potassium [Cozaar] 50 mg PO DAILY 08/26/19 08/26/19 Multivitamins, Thera [Multivitamin 1 tab PO DAILY 08/26/19 08/26/19 (formulary)] Previous Rx's Medication Instructions Recorded Cephalexin [Keflex] 500 mg PO BID 7 Days #14 cap 08/26/19 Allergies Allergy/AdvReac Type Severity Reaction Status Date / Time No Known Allergies Allergy Verified 08/26/19 12:26 Review of Systems ROS Other: All systems not noted in ROS Statement are negative. <Luis Pacheco - Last Filed: 08/26/19 13:00> ROS Other: All systems not noted in ROS Statement are negative. <Radha Poole - Last Filed: 08/26/19 15:05> ROS Statement: Those systems with pertinent positive or pertinent negative responses have been documented in the HPI. Past Medical History Past Medical History: Chest Pain / Angina, Eye Disorder, GERD/Reflux, Hyperlipidemia, Hypertension, Skin Disorder Additional Past Medical History / Comment(s): Intestinal malrotation/elongated colon/bowel obstruction/sigmoid volvulus, constipation, recurrent R inguinal hernia with recent repair, cervical pain/pinched nerve, bilateral detached retinas, Vtach with ablation, History of Any Multi-Drug Resistant Organisms: None Reported Past Surgical History: Appendectomy, Cardiac Ablation, Cholecystectomy, Heart C atheterization, Hernia Repair Additional Past Surgical History / Comment(s): R inguinal hernia repairs with last one done 07/22/19, colon resection/lysis of adhesions on 04/22/19, diagnostic laparoscopy/lysis of adhesions, multiple colon surgeries, bilateral cataract removals/lens implants, bilateral retinal detachment surgeries (7). Past Anesthesia/Blood Transfusion Reactions: Postoperative Nausea & Vomiting (PONV) Past Psychological History: Anxiety Smoking Status: Former smoker Past Alcohol Use History: None Reported Past Drug Use History: None Reported - Past Family History Mother Family Medical History: Musculoskeletal Disorder, Neurologic Disorder Additional Family Medical History / Comment(s): Parkinsons Father Family Medical History: Pulmonary Embolus <Radha Poole - Last Filed: 08/26/19 15:05> General Exam Limitations: no limitations <Radha Poole - Last Filed: 08/26/19 15:05> - General Exam Comments Initial Comments: General: The patient is awake and alert, in no distress Eye: +3 mm pupils are equal, round and reactive to light, extra-ocular moveme nts are intact. No nystagmus. There is normal conjunctiva bilaterally. No signs of icterus. Ears, nose, mouth and throat: There are moist mucous membranes and no oral le sions. Neck: The neck is supple, there is no tenderness or JVD. Cardiovascular: There is a regular rate and rhythm. No murmur, rub or gallop is appreciated. Respiratory: Lungs are clear to auscultation, respirations are non-labored, breath sounds are equal. No wheezes, stridor, rales, or rhonchi. Gastrointestinal: Soft, non-distended, right sided mid abdominal pain without masses or organomegaly noted. There is no rebound or guarding present. Midline incision of the abdomen with C/D/I bandages, there are smaller healing incisions adjacent on each side of bandage without dehiscence no surrounding warmth or redness Musculoskeletal: Normal ROM, no tenderness. Strength 5/5. Sensation intact. Radial pulses equal bilaterally 2+. Neurological: A&O x 3. CN II-XII intact grossly, There are no obvious motor or sensory deficits. Coordination appears grossly intact. Speech is normal. Skin: Skin is warm and dry and no rashes or lesions are noted. Psychiatric: Cooperative, appropriate mood & affect, normal judgment. (Radha Poole) Course <Luis Pacheco - Last Filed: 08/26/19 13:00> Vital Signs 08/26/19 08/26/19 09:41 12:57 Temperature 97.9 F Pulse Rate 105 H 77 Respiratory 18 18 Rate Blood Pressure 138/94 152/89 O2 Sat by Pulse 98 99 Oximetry - Reevaluation(s) Reevaluation #1: 08/26/19 13:00 Patient earlier evaluated by myself, Dr. Pacheco. Patient states discomfort is 5/10. Abdomen is soft with mild tenderness more of the right mid abdomen. Patient updated on results. Case discussed with Dr. Corcoran when she got out of surgery who requested 2 L of fluid. This was ordered. She will come evaluate her patient. (Luis Pacheco) Medical Decision Making - Lab Data Result diagrams: 08/26/19 09:55 08/26/19 09:55 <Luis Pacheco - Last Filed: 08/26/19 13:00> - Lab Data Result diagrams: 08/26/19 09:55 08/26/19 09:55 <Radha Poole - Last Filed: 08/26/19 15:05> - Medical Decision Making 58yo female presenting today for chief complaint of abdominal pain. CT revealed postoperative findings, possible ileus no definitive obstruction at this time. Subcutaneous findings as noted on CT patient was [place] [facility] his general surgeon in the emergency department she recommended IV fluids and discharged home with urology follow-up. Patient did have recent urinary catheterization during surgical procedure there are significant amount of leukocyte esterase and urine patient be treated with Keflex. Patient was also evaluated by my attending provider who was agreeable with care plan and discharge. Patient is agreeable with discharge return parameters discussed as well as importance of follow-up (Radha Poole) - Lab Data Lab Results 08/26/19 08/26/19 08/26/19 Range/Units 09:50 09:55 09:55 WBC 15.8 H (3.8-10.6) k/uL RBC 4.79 (4.30-5.90) m/uL Hgb 15.3 (13.0-17.5) gm/dL Hct 43.8 (39.0-53.0) % MCV 91.5 (80.0-100.0) fL MCH 31.9 (25.0-35.0) pg MCHC 34.9 (31.0-37.0) g/dL RDW 12.4 (11.5-15.5) % Plt Count 427 (150-450) k/uL Neutrophils % 77 % Lymphocytes % 13 % Monocytes % 5 % Eosinophils % 5 % Basophils % 1 % Neutrophils # 12.1 H (1.3-7.7) k/uL Lymphocytes # 2.0 (1.0-4.8) k/uL Monocytes # 0.7 (0-1.0) k/uL Eosinophils # 0.8 H (0-0.7) k/uL Basophils # 0.1 (0-0.2) k/uL Sodium 143 (137-145) mmol/L Potassium 4.3 (3.5-5.1) mmol/L Chloride 102 (98-107) mmol/L Carbon Dioxide 28 (22-30) mmol/L Anion Gap 13 mmol/L BUN 18 (9-20) mg/dL Creatinine 1.00 (0.66-1.25) mg/dL Est GFR (CKD-EPI)AfAm >90 (>60 ml/min/1.73 sqM) Est GFR (CKD-EPI)NonAf 84 (>60 ml/min/1.73 sqM) Glucose 123 H (74-99) mg/dL Plasma Lactic Acid Edgar (0.7-2.0) mmol/L Calcium 10.4 H (8.4-10.2) mg/dL Total Bilirubin 0.6 (0.2-1.3) mg/dL AST 58 (17-59) U/L ALT 66 H (4-49) U/L Alkaline Phosphatase 103 (38-126) U/L Total Protein 8.4 H (6.3-8.2) g/dL Albumin 5.0 (3.5-5.0) g/dL Lipase 207 (23-300) U/L Urine Color Yellow Urine Appearance Clear (Clear) Urine pH 6.0 (5.0-8.0) Ur Specific [place] 1.023 (1.001-1.035) Urine Protein Trace H (Negative) Urine Glucose (UA) Negative (Negative) Urine Ketones Trace H (Negative) Urine Blood Moderate H (Negative) Urine Nitrite Negative (Negative) Urine Bilirubin Negative (Negative) Urine Urobilinogen <2.0 (<2.0) mg/dL Ur Leukocyte Esterase Negative (Negative) Urine RBC 37 H (0-5) /hpf Urine WBC 1 (0-5) /hpf Ur Squamous Epith Cells <1 (0-4) /hpf Urine Bacteria Rare H (None) /hpf Urine Mucus Rare H (None) /hpf 08/26/19 Range/Units 09:55 WBC (3.8-10.6) k/uL RBC (4.30-5.90) m/uL Hgb (13.0-17.5) gm/dL Hct (39.0-53.0) % MCV (80.0-100.0) fL MCH (25.0-35.0) pg MCHC (31.0-37.0) g/dL RDW (11.5-15.5) % Plt Count (150-450) k/uL Neutrophils % % Lymphocytes % % Monocytes % % Eosinophils % % Basophils % % Neutrophils # (1.3-7.7) k/uL Lymphocytes # (1.0-4.8) k/uL Monocytes # (0-1.0) k/uL Eosinophils # (0-0.7) k/uL Basophils # (0-0.2) k/uL Sodium (137-145) mmol/L Potassium (3.5-5.1) mmol/L Chloride (98-107) mmol/L Carbon Dioxide (22-30) mmol/L Anion Gap mmol/L BUN (9-20) mg/dL Creatinine (0.66-1.25) mg/dL Est GFR (CKD-EPI)AfAm (>60 ml/min/1.73 sqM) Est GFR (CKD-EPI)NonAf (>60 ml/min/1.73 sqM) Glucose (74-99) mg/dL Plasma Lactic Acid Edgar 2.0 (0.7-2.0) mmol/L Calcium (8.4-10.2) mg/dL Total Bilirubin (0.2-1.3) mg/dL AST (17-59) U/L ALT (4-49) U/L Alkaline Phosphatase (38-126) U/L Total Protein (6.3-8.2) g/dL Albumin (3.5-5.0) g/dL Lipase (23-300) U/L Urine Color Urine Appearance (Clear) Urine pH (5.0-8.0) Ur Specific [place] (1.001-1.035) Urine Protein (Negative) Urine Glucose (UA) (Negative) Urine Ketones (Negative) Urine Blood (Negative) Urine Nitrite (Negative) Urine Bilirubin (Negative) Urine Urobilinogen (<2.0) mg/dL Ur Leukocyte Esterase (Negative) Urine RBC (0-5) /hpf Urine WBC (0-5) /hpf Ur Squamous Epith Cells (0-4) /hpf Urine Bacteria (None) /hpf Urine Mucus (None) /hpf Disposition <Luis Pacheco - Last Filed: 08/26/19 13:00> Is patient prescribed a controlled substance at d/c from ED?: No Time of Disposition: 13:24 <Radha Poole - Last Filed: 08/26/19 15:05> Clinical Impression: Abdominal pain, UTI (urinary tract infection) Disposition: HOME SELF-CARE Condition: Good Additional Instructions: Please use medication as discussed. Please follow-up with family doctor in the next 2 daysm [place] as she discussed and urology. Please return to emergency room if the symptoms increase or worsen or for any other concerns. Prescriptions: Cephalexin [Keflex] 500 mg PO BID 7 Days #14 cap Referrals: Rod Mckinnon MD [Primary Care Provider] - 1-2 days Luciano Bui MD [STAFF PHYSICIAN] - 1-2 days
[2019-08-26] MEDS ORDERED: SODIUM CHLORIDE 0.9% 1,000 ML IV SCH (10:15)
[2019-08-26 10:41] LABS: Basophils # (A) 0.1 k/uL (0-0.2); Basophils % (A) 1 %; Eosinophils # (A) 0.8 k/uL (0-0.7); Eosinophils % (A) 5 %; HCT 43.8 % (39.0-53.0); HGB 15.3 gm/dL (13.0-17.5); Lymphocytes % (A) 13 %; MCH 31.9 pg (25.0-35.0); MCHC 34.9 g/dL (31.0-37.0); MCV 91.5 fL (80.0-100.0); Mean Platelet Volume 7.2; Monocytes # (A) 0.7 k/uL (0-1.0); Monocytes % (A) 5 %; Neutrophils # (A) 12.1 k/uL (1.3-7.7); Neutrophils % (A) 77 %; Platelet Count 427 k/uL (150-450); RBC 4.79 m/uL (4.30-5.90); RDW 12.4 % (11.5-15.5); WBC 15.8 k/uL (3.8-10.6)
[2019-08-26 10:46] LABS: ALT 66 U/L (4-49); AST 58 U/L (17-59); African American GFR (CKD) >90 (>60 ml/min/1.73 sqM); Alkaline Phosphatase 103 U/L (38-126); Anion Gap 13 mmol/L; Blood Urea Nitrogen 18 mg/dL (9-20); Calcium 10.4 mg/dL (8.4-10.2); Carbon Dioxide 28 mmol/L (22-30); Chloride 102 mmol/L (98-107); Glucose 123 mg/dL (74-99); Non-African American GFR(CKD) 84 (>60 ml/min/1.73 sqM); Potassium 4.3 mmol/L (3.5-5.1); Sodium 143 mmol/L (137-145); Total Bilirubin 0.6 mg/dL (0.2-1.3); Total Protein 8.4 g/dL (6.3-8.2)
[2019-08-26 10:52] LABS: Appearance,Urine Clear (Clear); Bacteria,Urine Rare /hpf; Bilirubin,Urine Negative (Negative); Blood,Urine Moderate (Negative); Color,Urine Yellow; Glucose,Urine (UA) Negative (Negative); Ketones,Urine Trace (Negative); Leukocyte Esterase,Urine Negative (Negative); Mucus,Urine Rare /hpf; Nitrite,Urine Negative (Negative); Protein,Urine Trace (Negative); RBC,Urine 37 /hpf (0-5); Specific Gravity,Urine 1.023 (1.001-1.035); Squamous Epithelial Cell,Urine <1 /hpf (0-4); Urobilinogen,Urine <2.0 mg/dL (<2.0); WBC,Urine 1 /hpf (0-5)
--- NOTE | 2019-08-26 11:34 | CT ---
EXAMINATION TYPE: CT abdomen pelvis w con DATE OF EXAM: 08/26/2019 COMPARISON: 08/10/2019 HISTORY: Abdominal pain CT DLP: 1169.3 mGycm CONTRAST: CT scan of the abdomen and pelvis is performed without Oral Contrast and with IV Contrast, patient in jected with 100 mL of Isovue 300. FINDINGS: LUNG BASES-: No visible nodule. No infiltrate. LIVER/GB: There is evidence of cholecystectomy. No space occupying hepatic lesion. Biliary tree is of normal caliber. PANCREAS: No inflammation. No distinct mass. SPLEEN: No splenic enlargement. No lesion seen. ADRENALS: No nodule. No thickening. KIDNEYS/BLADDER: No hydronephrosis. No nephrolithiasis. Simple cyst left kidney measures 1.1 cm. No solid renal lesions detected. Urinary bladder grossly unremarkable. BOWEL: There is evidence for small bowel ileus without definite obstructive change at this time. No e vidence for pneumoperitoneum. Tiny focus of air within the anterior abdominal wall musculature may be postsurgical in nature. Small anterior abdominal wall subcutaneous cyst seroma measures 1.5 cm. No e vidence for abscess. Small amount of ascites is seen within the right hemiabdomen and pelvis. GENITAL ORGANS: No gross abnormality. LYMPH NODES: No greater than 1cm abdominal or pelvic lymph nodes are appreciated. AORTA: No significant abnormality. OSSEOUS STRUCTURES: No significant abnormality is seen. OTHER: No significant additional abnormality is seen. IMPRESSION: 1. Postoperative changes as discussed. Findings compatible with small bowel ileus without definitive obstructive change at this time. No evidence for abscess. 2. Small amount of ascites. 3. Small subcutaneous seroma noted at the level of the umbilicus.
[2019-08-26 12:59] VITALS: BP 152/89; PULSE 77
[2019-08-26] MEDS ORDERED: SODIUM CHLORIDE 0.9% 1,000 ML IV STA (12:59)
--- NOTE | 2019-08-26 20:01 | P.PN ---
Subjective Progress Note Date: 08/26/19 Patient seen and evaluated. Reports chronic right lower abdominal pain present prior to surgery. Previous right upper abdominal pain resolved from adhesions. Low appetite and reports diarrhea. He was doing well upon discharge and started having worsening right lower abdominal pain last night. Recommend CDiff testing. Also ibuprofen for pain for intolerance to [place]. May have neurologic cause for re-current right lower quadrant/back pain. Will need referral to neurology. Follow up as outpatient. Objective - Vital Signs Vital signs: Vital Signs Temp 97.9 F 08/26/19 09:41 Pulse 77 08/26/19 12:57 Resp 18 08/26/19 12:57 BP 152/89 08/26/19 12:57 Pulse Ox 99 08/26/19 12:57 Intake & Output 08/26/19 08/26/19 08/27/19 06:59 18:59 06:59 Weight 90.718 kg - Labs CBC & Chem 7: 08/26/19 09:55 08/26/19 09:55 Labs: Abnormal Lab Results - Last 24 Hours (Table) 08/26/19 08/26/19 08/26/19 Range/Units 09:50 09:55 09:55 WBC 15.8 H (3.8-10.6) k/uL Neutrophils # 12.1 H (1.3-7.7) k/uL Eosinophils # 0.8 H (0-0.7) k/uL Glucose 123 H (74-99) mg/dL Calcium 10.4 H (8.4-10.2) mg/dL ALT 66 H (4-49) U/L Total Protein 8.4 H (6.3-8.2) g/dL Urine Protein Trace H (Negative) Urine Ketones Trace H (Negative) Urine Blood Moderate H (Negative) Urine RBC 37 H (0-5) /hpf Urine Bacteria Rare H (None) /hpf Urine Mucus Rare H (None) /hpf
== END 2019-08-26 13:41 | disposition home or self-care (01) ==
LOC: EC 09:33
DX: N39.0 Urinary tract infection, site not specified (principal); R11.0 Nausea; R19.7 Diarrhea, unspecified; K21.9 Gastro-esophageal reflux disease without esophagitis; E78.5 Hyperlipidemia, unspecified; I10 Essential (primary) hypertension; F41.9 Anxiety disorder, unspecified; Z98.890 Other specified postprocedural states; Z87.891 Personal history of nicotine dependence; Z79.899 Other long term (current) drug therapy; Z86.79 Personal history of other diseases of the circulatory system; Z90.49 Acquired absence of other specified parts of digestive tract
CPT/HCPCS: 36415; 80053; 83605; 83690; 85025; 81001; 74177; 99284; 96374; 96375; 96361 ×3; J2405; J1170; Q9967

== ENCOUNTER 2019-08-27 07:12 | Inpatient (IN) | payer BC ==
[2019-08-27] MEDS ORDERED: HYDROmorphone 1 MG/ML 1 ML SYRINGE IVP STA ×2 (07:38→09:56)
[2019-08-27] MEDS ORDERED: SODIUM CHLORIDE 0.9% 1,000 ML IV STA (07:38)
[2019-08-27] MEDS ORDERED: ONDANSETRON 4 MG/2 ML VIAL IVP STA (07:38)
[2019-08-27] MEDS ORDERED: PANTOPRAZOLE 40 MG/10 ML VIAL IVP STA (07:38)
--- NOTE | 2019-08-27 07:44 | ED ---
General Adult HPI - General Chief complaint: Abdominal Pain Stated complaint: NVD Time Seen by Provider: 08/27/19 07:28 Source: patient, family, RN notes reviewed, old records reviewed Mode of arrival: ambulatory Limitations: no limitations - History of Present Illness Initial comments: Patient is a pleasant 58-year-old male presenting to the emergency Department with diarrhea. Patient is postoperative 1 week adhesion lysis surgery. Patient states abdominal discomfort is now more diffuse. Patient has nausea and reflux and belching. Patient is having frequent watery diarrhea. Patient was in the emergency department yesterday with similar symptoms. No fevers. Patient questions if he could've acquired the stomach flu. - Related Data Home Medications Medication Instructions Recorded Confirmed Esomeprazole Magnesium [NexIUM] 20 mg PO DAILY 01/26/17 08/26/19 Atorvastatin [Lipitor] 10 mg PO HS 12/06/18 08/26/19 Gabapentin 600 mg PO TID 12/06/18 08/26/19 Secukinumab [Cosentyx Pen] 150 mg SQ Q30D 12/06/18 08/26/19 Cholecalciferol [Vitamin D3 (25 5,000 unit PO DAILY 04/22/19 08/26/19 Mcg = 1000 Iu)] Sertraline [Zoloft] 100 mg PO DAILY 07/20/19 08/26/19 Alfuzosin HCl [Alfuzosin HCl ER] 10 mg PO DAILY 08/26/19 08/26/19 Losartan Potassium [Cozaar] 50 mg PO DAILY 08/26/19 08/26/19 Multivitamins, Thera [Multivitamin 1 tab PO DAILY 08/26/19 08/26/19 (formulary)] Previous Rx's Medication Instructions Recorded Cephalexin [Keflex] 500 mg PO BID 7 Days #14 cap 08/26/19 Allergies Allergy/AdvReac Type Severity Reaction Status Date / Time No Known Allergies Allergy Verified 08/27/19 07:29 Review of Systems ROS Statement: Those systems with pertinent positive or pertinent negative responses have been documented in the HPI. ROS Other: All systems not noted in ROS Statement are negative. Constitutional: Denies: fever Eyes: Denies: eye pain ENT: Denies: ear pain Respiratory: Denies: cough Cardiovascular: Denies: chest pain Endocrine: Denies: fatigue Gastrointestinal: Reports: as per HPI, abdominal pain, nausea, diarrhea Genitourinary: Denies: dysuria Musculoskeletal: Denies: back pain Skin: Denies: rash Neurological: Denies: weakness Past Medical History Past Medical History: Chest Pain / Angina, Eye Disorder, GERD/Reflux, Hyperlipidemia, Hypertension, Skin Disorder Additional Past Medical History / Comment(s): Intestinal malrotation/elongated colon/bowel obstruction/sigmoid volvulus, constipation, recurrent R inguinal hernia with recent repair, cervical pain/pinched nerve, bilateral detached retinas, Vtach with ablation, History of Any Multi-Drug Resistant Organisms: None Reported Past Surgical History: Appendectomy, Cardiac Ablation, Cholecystectomy, Heart Catheterization, Hernia Repair Additional Past Surgical History / Comment(s): R inguinal hernia repairs with last one done 07/22/19, colon resection/lysis of adhesions on 04/22/19, diagnostic laparoscopy/lysis of adhesions, multiple colon surgeries, bilateral cataract removals/lens implants, bilateral retinal detachment surgeries (7). Past Anesthesia/Blood Transfusion Reactions: Postoperative Nausea & Vomiting (PONV) Past Psychological History: Anxiety Smoking Status: Former smoker Past Alcohol Use History: None Reported Past Drug Use History: None Reported - Past Family History Mother Family Medical History: Musculoskeletal Disorder, Neurologic Disorder Additional Family Medical History / Comment(s): Parkinsons Father Family Medical History: Pulmonary Embolus General Exam Limitations: no limitations General appearance: alert, in no apparent distress Head exam: Present: normocephalic Eye exam: Present: normal appearance, PERRL ENT exam: Present: mucous membranes dry Neck exam: Present: normal inspection Respiratory exam: Present: normal lung sounds bilaterally Cardiovascular Exam: Present: regular rate, normal rhythm Expanded Peripheral pulses: 2+: Dorsalis Pedis (R), Dorsalis Pedis (L) GI/Abdominal exam: Present: soft, tenderness (Mild diffuse tenderness), normal bowel sounds. Absent: distended, guarding, rebound, rigid Extremities exam: Present: normal inspection Neurological exam: Present: alert Psychiatric exam: Present: normal affect, normal mood Skin exam: Present: normal color Course Vital Signs 08/27/19 07:20 Temperature 98.0 F Pulse Rate 102 H Respiratory 10 L Rate Blood Pressure 122/83 O2 Sat by Pulse 100 Oximetry Medical Decision Making - Medical Decision Making Patient reevaluated and updated. Patient states his discomfort is starting to return and requests admission. Case was discussed with Dr. Gastelum, covering for Dr. Corcoran, who will admit. - Lab Data Result diagrams: 08/27/19 08:12 08/27/19 08:12 Lab Results 08/27/19 08/27/19 08/27/19 Range/Units 08:12 08:12 08:12 WBC 14.0 H (3.8-10.6) k/uL RBC 4.38 (4.30-5.90) m/uL Hgb 13.9 (13.0-17.5) gm/dL Hct 39.6 (39.0-53.0) % MCV 90.3 (80.0-100.0) fL MCH 31.6 (25.0-35.0) pg MCHC 35.1 (31.0-37.0) g/dL RDW 12.4 (11.5-15.5) % Plt Count 395 (150-450) k/uL Neutrophils % 85 % Lymphocytes % 8 % Monocytes % 4 % Eosinophils % 2 % Basophils % 0 % Neutrophils # 11.9 H (1.3-7.7) k/uL Lymphocytes # 1.2 (1.0-4.8) k/uL Monocytes # 0.6 (0-1.0) k/uL Eosinophils # 0.3 (0-0.7) k/uL Basophils # 0.0 (0-0.2) k/uL PT 11.0 (9.0-12.0) sec INR 1.0 (<1.2) APTT 25.6 (22.0-30.0) sec Sodium 141 (137-145) mmol/L Potassium 4.5 (3.5-5.1) mmol/L Chloride 104 (98-107) mmol/L Carbon Dioxide 23 (22-30) mmol/L Anion Gap 14 mmol/L BUN 17 (9-20) mg/dL Creatinine 0.86 (0.66-1.25) mg/dL Est GFR (CKD-EPI)AfAm >90 (>60 ml/min/1.73 sqM) Est GFR (CKD-EPI)NonAf >90 (>60 ml/min/1.73 sqM) Glucose 123 H (74-99) mg/dL Calcium 10.4 H (8.4-10.2) mg/dL Total Bilirubin 0.8 (0.2-1.3) mg/dL AST 40 (17-59) U/L ALT 51 H (4-49) U/L Alkaline Phosphatase 88 (38-126) U/L Total Protein 7.7 (6.3-8.2) g/dL Albumin 4.6 (3.5-5.0) g/dL Amylase 50 (30-110) U/L Lipase 207 (23-300) U/L C. difficile (EIA) Intrp (Negative) 08/27/19 Range/Units 08:15 WBC (3.8-10.6) k/uL RBC (4.30-5.90) m/uL Hgb (13.0-17.5) gm/dL Hct (39.0-53.0) % MCV (80.0-100.0) fL MCH (25.0-35.0) pg MCHC (31.0-37.0) g/dL RDW (11.5-15.5) % Plt Count (150-450) k/uL Neutrophils % % Lymphocytes % % Monocytes % % Eosinophils % % Basophils % % Neutrophils # (1.3-7.7) k/uL Lymphocytes # (1.0-4.8) k/uL Monocytes # (0-1.0) k/uL Eosinophils # (0-0.7) k/uL Basophils # (0-0.2) k/uL PT (9.0-12.0) sec INR (<1.2) APTT (22.0-30.0) sec Sodium (137-145) mmol/L Potassium (3.5-5.1) mmol/L Chloride (98-107) mmol/L Carbon Dioxide (22-30) mmol/L Anion Gap mmol/L BUN (9-20) mg/dL Creatinine (0.66-1.25) mg/dL Est GFR (CKD-EPI)AfAm (>60 ml/min/1.73 sqM) Est GFR (CKD-EPI)NonAf (>60 ml/min/1.73 sqM) Glucose (74-99) mg/dL Calcium (8.4-10.2) mg/dL Total Bilirubin (0.2-1.3) mg/dL AST (17-59) U/L ALT (4-49) U/L Alkaline Phosphatase (38-126) U/L Total Protein (6.3-8.2) g/dL Albumin (3.5-5.0) g/dL Amylase (30-110) U/L Lipase (23-300) U/L C. difficile (EIA) Intrp Negative (Negative) - Radiology Data Radiology results: image reviewed (Tylenol x-ray shows nonspecific findings, likely ileus.) Disposition Clinical Impression: Ileus Disposition: ADMITTED IP TO THIS HOSP Is patient prescribed a controlled substance at d/c from ED?: No Referrals: Rod Mckinnon MD [Primary Care Provider] - 1-2 days Decision Time: 09:55
[2019-08-27 08:33] LABS: Basophils % (A) 0 %; Eosinophils # (A) 0.3 k/uL (0-0.7); Eosinophils % (A) 2 %; HCT 39.6 % (39.0-53.0); HGB 13.9 gm/dL (13.0-17.5); Lymphocytes # (A) 1.2 k/uL (1.0-4.8); Lymphocytes % (A) 8 %; MCH 31.6 pg (25.0-35.0); MCHC 35.1 g/dL (31.0-37.0); MCV 90.3 fL (80.0-100.0); Mean Platelet Volume 7.2; Monocytes # (A) 0.6 k/uL (0-1.0); Monocytes % (A) 4 %; Neutrophils # (A) 11.9 k/uL (1.3-7.7); Neutrophils % (A) 85 %; Platelet Count 395 k/uL (150-450); RBC 4.38 m/uL (4.30-5.90); RDW 12.4 % (11.5-15.5)
[2019-08-27 08:39] LABS: African American GFR (CKD) >90 (>60 ml/min/1.73 sqM); Albumin 4.6 g/dL (3.5-5.0); Amylase 50 U/L (30-110); Anion Gap 14 mmol/L; Carbon Dioxide 23 mmol/L (22-30); Chloride 104 mmol/L (98-107); Glucose 123 mg/dL (74-99); Non-African American GFR(CKD) >90 (>60 ml/min/1.73 sqM); Potassium 4.5 mmol/L (3.5-5.1); Sodium 141 mmol/L (137-145); Total Protein 7.7 g/dL (6.3-8.2)
[2019-08-27 08:40] LABS: ALT 51 U/L (4-49); AST 40 U/L (17-59); Alkaline Phosphatase 88 U/L (38-126); Blood Urea Nitrogen 17 mg/dL (9-20); Calcium 10.4 mg/dL (8.4-10.2); Total Bilirubin 0.8 mg/dL (0.2-1.3)
--- NOTE | 2019-08-27 08:48 | XR ---
EXAMINATION TYPE: XR KUB , 2 VIEWS DATE OF EXAM ORDERED: 08/27/2019 HISTORY: abdominal pain. COMPARISON: Previous study dated 08/15/2019. FINDINGS: The abdominal gas pattern is nonspecific with nondistended loops of large and small bowel throughout the abdomen. There is no evidence of obstruction or free air. There are phleboliths within the pelvis. IMPRESSION: NONSPECIFIC ABDOMINAL PICTURE MOST CONSISTENT WITH MILD ILEUS. FOLLOW-UP CLINICALLY INDICATED WOTRISH D BE SUGGESTED.
[2019-08-27 08:56] LABS: Partial Thromboplastin Time 25.6 sec (22.0-30.0)
[2019-08-27] MEDS ORDERED: NALOXONE 0.4 MG/ML 1 ML VIAL IV PRN (09:56)
[2019-08-27] MEDS: SODIUM CHLORIDE 0.9% 1,000 ML IV SCH ×2 (10:05→19:55)
[2019-08-27] MEDS: HYDROmorphone 1 MG/ML 1 ML SYRINGE IVP PRN ×3 (12:58→22:13)
[2019-08-27] MEDS: ONDANSETRON 4 MG/2 ML VIAL IVP PRN ×2 (14:12→22:12)
[2019-08-27] MEDS: ATORVASTATIN 10 MG TAB PO SCH (19:58)
[2019-08-27] MEDS: GABAPENTIN 300 MG CAP PO SCH (20:21)
[2019-08-27] MEDS: CEPHALEXIN 500 MG CAP PO SCH (20:21)
[2019-08-27 20:30] LABS: Appearance,Urine Clear (Clear); Bilirubin,Urine Negative (Negative); Blood,Urine Moderate (Negative); Color,Urine Light Yellow; Glucose,Urine (UA) Negative (Negative); Ketones,Urine Negative (Negative); Leukocyte Esterase,Urine Negative (Negative); Mucus,Urine Rare /hpf; Nitrite,Urine Negative (Negative); Protein,Urine Negative (Negative); RBC,Urine 12 /hpf (0-5); Specific Gravity,Urine 1.014 (1.001-1.035); Urobilinogen,Urine <2.0 mg/dL (<2.0); WBC,Urine 1 /hpf (0-5)
[2019-08-28] MEDS: SODIUM CHLORIDE 0.9% 1,000 ML IV SCH ×3 (02:53→20:54)
[2019-08-28] MEDS: CEPHALEXIN 500 MG CAP PO SCH ×2 (08:40→20:54)
[2019-08-28] MEDS: CHOLECALCIFEROL 1,000 UNIT TAB PO SCH (08:40)
[2019-08-28] MEDS: MULTIVITAMINS, THERA 1 EACH TAB PO SCH (08:41)
[2019-08-28] MEDS: GABAPENTIN 300 MG CAP PO SCH ×3 (08:41→21:00)
[2019-08-28] MEDS: LOSARTAN 50 MG TAB PO SCH (08:41)
[2019-08-28] MEDS: PANTOPRAZOLE 40 MG/10 ML VIAL IV SCH (08:42)
[2019-08-28] MEDS: SERTRALINE 100 MG TAB PO SCH (08:42)
[2019-08-28] MEDS ORDERED: NON FORMULARY DRUG (Esomeprazole Magnesium [Nexium] 20 MG) PO SCH (09:00)
[2019-08-28] MEDS: HYDROmorphone 1 MG/ML 1 ML SYRINGE IVP PRN ×4 (11:46→22:07)
--- NOTE | 2019-08-28 14:05 | P.GSHP ---
History of Present Illness H&P Date: 08/28/19 Chief Complaint: abdominal pain, nausea this a 58-year-old male who presented to the emergency room twice yesterday. Patient points of abdominal pain nausea and distention. The patient is approximately 10 days postop from diagnostic laparoscopy and then opened exploratory laparotomy with lysis of adhesions. The patient states that he has had poor oral intake over the last few days. Past Medical History Past Medical History: Chest Pain / Angina, Eye Disorder, GERD/Reflux, Hyperlipidemia, Hypertension, Skin Disorder Additional Past Medical History / Comment(s): Intestinal malrotation/elongated colon/bowel obstruction/sigmoid volvulus, constipation, recurrent R inguinal hernia with recent repair, cervical pain/pinched nerve, bilateral detached retinas, Vtach with ablation, History of Any Multi-Drug Resistant Organisms: None Reported Past Surgical History: Appendectomy, Cardiac Ablation, Cholecystectomy, Heart Catheterization, Hernia Repair Additional Past Surgical History / Comment(s): R inguinal hernia repairs with last one done 07/22/19, colon resection/lysis of adhesions on 04/22/19, diagnostic laparoscopy/lysis of adhesions, multiple colon surgeries, bilateral cataract removals/lens implants, bilateral retinal detachment surgeries (7). Past Anesthesia/Blood Transfusion Reactions: Postoperative Nausea & Vomiting (PONV) Past Psychological History: Anxiety Additional Psychological History / Comment(s): Pt resides with his spouse and son. He is independent. Smoking Status: Unknown if ever smoked Past Alcohol Use History: None Reported Additional Past Alcohol Use History / Comment(s): QUIT SMOKING 2006, SMOKED 1PACK A WEEK FROM AGE 22. Past Drug Use History: None Reported - Past Family History Mother Family Medical History: Musculoskeletal Disorder, Neurologic Disorder Additional Family Medical History / Comment(s): Parkinsons Father Family Medical History: Pulmonary Embolus Medications and Allergies Home Medications Medication Instructions Recorded Confirmed Type Esomeprazole Magnesium [NexIUM] 20 mg PO DAILY 01/26/17 08/27/19 History Atorvastatin [Lipitor] 10 mg PO HS 12/06/18 08/27/19 History Gabapentin 600 mg PO TID 12/06/18 08/27/19 History Secukinumab [Cosentyx Pen] 150 mg SQ Q30D 12/06/18 08/27/19 History Cholecalciferol [Vitamin D3 (25 5,000 unit PO DAILY 04/22/19 08/27/19 History Mcg = 1000 Iu)] Sertraline [Zoloft] 100 mg PO DAILY 07/20/19 08/27/19 History Alfuzosin HCl [Alfuzosin HCl ER] 10 mg PO DAILY 08/26/19 08/27/19 History Cephalexin [Keflex] 500 mg PO BID 7 Days #14 cap 08/26/19 08/27/19 Rx Losartan Potassium [Cozaar] 50 mg PO DAILY 08/26/19 08/27/19 History Multivitamins, Thera [Multivitamin 1 tab PO DAILY 08/26/19 08/27/19 History (formulary)] Allergies Allergy/AdvReac Type Severity Reaction Status Date / Time No Known Allergies Allergy Verified 08/27/19 10:06 Surgical - Exam Vital Signs Temp Pulse Resp BP Pulse Ox 98.0 F 102 H 10 L 122/83 100 08/27/19 07:20 08/27/19 07:20 08/27/19 07:20 08/27/19 07:20 08/27/19 07:20 - General well developed, well nourished, no distress - Eyes PERRL - ENT normal pinna - Neck no masses - Respiratory normal expansion - Cardiovascular Rhythm: regular - Abdomen midline incision clean dry intact. Abdomen soft. There is no evidence of any peritoneal signs. There is no rebound or guarding. There is some minor discomfort with deep palpation Abdomen: soft Results - Labs 08/27/19 08:12 08/27/19 08:12 Abnormal Lab Results - Last 24 Hours (Table) 08/27/19 Range/Units 19:20 Urine Blood Moderate H (Negative) Urine RBC 12 H (0-5) /hpf Urine Mucus Rare H (None) /hpf - Imaging Abdominal x-ray: report reviewed (flat plate abdomen shows evidence of ileus) Assessment and Plan Assessment: postop ileus. Patient remained on clear liquid diet. He'll be observed closely.
[2019-08-28] MEDS: ATORVASTATIN 10 MG TAB PO SCH (20:54)
[2019-08-29] MEDS: HYDROmorphone 1 MG/ML 1 ML SYRINGE IVP PRN ×2 (01:06→08:59)
[2019-08-29] MEDS: SODIUM CHLORIDE 0.9% 1,000 ML IV SCH ×3 (03:37→21:17)
[2019-08-29] MEDS: MULTIVITAMINS, THERA 1 EACH TAB PO SCH (09:00)
[2019-08-29] MEDS: PANTOPRAZOLE 40 MG/10 ML VIAL IV SCH (09:00)
[2019-08-29] MEDS: CEPHALEXIN 500 MG CAP PO SCH ×2 (09:00→21:17)
[2019-08-29] MEDS: SERTRALINE 100 MG TAB PO SCH (09:00)
[2019-08-29] MEDS: GABAPENTIN 300 MG CAP PO SCH ×3 (09:00→21:17)
[2019-08-29] MEDS: CHOLECALCIFEROL 1,000 UNIT TAB PO SCH (09:00)
[2019-08-29] MEDS: LOSARTAN 50 MG TAB PO SCH (09:00)
[2019-08-29] MEDS: KETOROLAC 30 MG/ML 1 ML VIAL IVP PRN ×2 (11:53→19:38)
[2019-08-29] MEDS ORDERED: LACTULOSE 20 GM/30 ML CUP PO PRN (11:56)
--- NOTE | 2019-08-29 13:54 | P.CONS ---
History of Present Illness - Reason for Consult Leukocytosis - History of Present Illness 57-year-old pleasant gentleman had a laparotomy with additional lysis 2 days ago was discharged home started having constipation unable to move his bowel came back again patient was discharged on [place] but only took a few. Patient had some nausea presently not nauseous not throwing up. Patient is on Dilaudid as nursing staff and patient to avoid Dilaudid and patient will be to start on GI prophylaxis. Patient has a his bowel sounds is still not passing gas did not move his bowels yet. Patient had an episode of diarrhea for 5 days ago after that never move his bowel. Patient denied any blood in the stools dark stools hematemesis much easier. Review of Systems REVIEW OF SYSTEMS: CONSTITUTIONAL: No fever, no malaise, no fatigue. HEENT: No recent visual problems or hearing problems. Denied any sore throat. CARDIOVASCULAR: No chest pain, orthopnea, PND, no palpitations, no syncope. PULMONARY: No shortness of breath, no cough, no hemoptysis. GASTROINTESTINAL: As mentioned in HPI NEUROLOGICAL: No headaches, no weakness, no numbness. HEMATOLOGICAL: Denies any bleeding or petechiae. GENITOURINARY: Denies any burning micturition, frequency, or urgency. MUSCULOSKELETAL/RHEUMATOLOGICAL: Denies any joint pain, swelling, or any muscle pain. ENDOCRINE: Denies any polyuria or polydipsia. The rest of the 14-point review of systems is negative. Past Medical History Past Medical History: Chest Pain / Angina, Eye Disorder, GERD/Reflux, Hyperlipidemia, Hypertension, Skin Disorder Additional Past Medical History / Comment(s): Intestinal malrotation/elongated colon/bowel obstruction/sigmoid volvulus, constipation, recurrent R inguinal hernia with recent repair, cervical pain/pinched nerve, bilateral detached retinas, Vtach with ablation, History of Any Multi-Drug Resistant Organisms: None Reported Past Surgical History: Appendectomy, Cardiac Ablation, Cholecystectomy, Heart Catheterization, Hernia Repair Additional Past Surgical History / Comment(s): R inguinal hernia repairs with last one done 07/22/19, colon resection/lysis of adhesions on 04/22/19, diagnostic laparoscopy/lysis of adhesions, multiple colon surgeries, bilateral cataract removals/lens implants, bilateral retinal detachment surgeries (7). Past Anesthesia/Blood Transfusion Reactions: Postoperative Nausea & Vomiting (PONV) Past Psychological History: Anxiety Additional Psychological History / Comment(s): Pt resides with his spouse and son. He is independent. Smoking Status: Unknown if ever smoked Past Alcohol Use History: None Reported Additional Past Alcohol Use History / Comment(s): QUIT SMOKING 2006, SMOKED 1PACK A WEEK FROM AGE 22. Past Drug Use History: None Reported - Past Family History Mother Family Medical History: Musculoskeletal Disorder, Neurologic Disorder Additional Family Medical History / Comment(s): Parkinsons Father Family Medical History: Pulmonary Embolus Medications and Allergies Home Medications Medication Instructions Recorded Confirmed Type Esomeprazole Magnesium [NexIUM] 20 mg PO DAILY 01/26/17 08/27/19 History Atorvastatin [Lipitor] 10 mg PO HS 12/06/18 08/27/19 History Gabapentin 600 mg PO TID 12/06/18 08/27/19 History Secukinumab [Cosentyx Pen] 150 mg SQ Q30D 12/06/18 08/27/19 History Cholecalciferol [Vitamin D3 (25 5,000 unit PO DAILY 04/22/19 08/27/19 History Mcg = 1000 Iu)] Sertraline [Zoloft] 100 mg PO DAILY 07/20/19 08/27/19 History Alfuzosin HCl [Alfuzosin HCl ER] 10 mg PO DAILY 08/26/19 08/27/19 History Cephalexin [Keflex] 500 mg PO BID 7 Days #14 cap 08/26/19 08/27/19 Rx Losartan Potassium [Cozaar] 50 mg PO DAILY 08/26/19 08/27/19 History Multivitamins, Thera [Multivitamin 1 tab PO DAILY 08/26/19 08/27/19 History (formulary)] Allergies Allergy/AdvReac Type Severity Reaction Status Date / Time No Known Allergies Allergy Verified 08/27/19 10:06 Physical Exam Vitals: Vital Signs Temp Pulse Resp BP BP Pulse Ox 08/29/19 08:00 97.6 F 70 18 128/80 98 08/29/19 03:56 97.8 F 70 16 117/76 95 08/29/19 03:50 69 17 08/28/19 23:20 69 17 08/28/19 20:00 98.0 F 69 17 142/92 08/28/19 16:00 98.2 F 77 18 114/77 95 Intake and Output 08/28/19 08/29/1908/29/19 22:59 06:59 14:59 Intake Total 1320 Balance 1320 Intake: Oral 1320 Other: Voiding Method Toilet # Voids 1 1 PHYSICAL EXAMINATION: GENERAL: The patient is alert and oriented x3, not in any acute distress. Well developed, well nourished. HEENT: Pupils are round and equally reacting to light. EOMI. No scleral icterus. No conjunctival pallor. Normocephalic, atraumatic. No pharyngeal erythema. No thyromegaly. CARDIOVASCULAR: S1 and S2 present. No murmurs, rubs, or gallops. PULMONARY: Chest is clear to auscultation, no wheezing or crackles. ABDOMEN: Patient had abdominal binder in place no severe distention bowel sounds were present but sluggish. MUSCULOSKELETAL: No joint swelling or deformity. EXTREMITIES: No cyanosis, clubbing, or pedal edema. NEUROLOGICAL: Gross neurological examination did not reveal any focal deficits. SKIN: No rashes. Results CBC & Chem 7: 08/27/19 08:12 08/27/19 08:12 Assessment and Plan Plan: Leukocytosis: Reactive no evidence of infection at this time no need for antibiotics. She is getting ceftezolin as per surgery. Postoperative ileus and constipation: Avoid opiate and ALLERGIES see a patient will be started on Toradol as mentioned above and patient is getting Protonix which will be continued. As patient is not nauseous and throwing up we'll try and use lactulose and senna which probably can help him move his bowels. -Hyperlipidemia next and have an hypertension -Gastroesophageal reflux disease for above-mentioned chronic medical problems patient will be resumed on his home medications
[2019-08-29] MEDS: SENNOSIDES 8.6 MG TAB PO SCH ×2 (14:31→21:17)
[2019-08-29] MEDS ORDERED: FAMOTIDINE 20 MG TAB PO SCH (21:00)
[2019-08-29] MEDS: ATORVASTATIN 10 MG TAB PO SCH (21:17)
[2019-08-30 07:31] VITALS: BP 148/93; PULSE 82; RESP 17; TEMP 98.7
[2019-08-30] MEDS: SODIUM CHLORIDE 0.9% 1,000 ML IV SCH ×2 (07:34→12:36)
[2019-08-30] MEDS: CHOLECALCIFEROL 1,000 UNIT TAB PO SCH (07:35)
[2019-08-30] MEDS: KETOROLAC 30 MG/ML 1 ML VIAL IVP PRN ×2 (07:35→12:37)
[2019-08-30] MEDS: PANTOPRAZOLE 40 MG/10 ML VIAL IV SCH (07:35)
[2019-08-30] MEDS: SENNOSIDES 8.6 MG TAB PO SCH (07:36)
[2019-08-30] MEDS: GABAPENTIN 300 MG CAP PO SCH (07:36)
[2019-08-30] MEDS: CEPHALEXIN 500 MG CAP PO SCH (07:36)
[2019-08-30] MEDS: MULTIVITAMINS, THERA 1 EACH TAB PO SCH (07:36)
[2019-08-30] MEDS: LOSARTAN 50 MG TAB PO SCH (07:37)
[2019-08-30] MEDS: SERTRALINE 100 MG TAB PO SCH (07:37)
--- NOTE | 2019-08-30 07:50 | P.PN ---
Progress Note - Text Progress Note Date: 08/29/19 the patient still has some complaints of mild nausea. He has had no significant flatus or bowel movement. He describes some crampy pain. On exam is lesser stable. His abdomen soft. Incision sites clean dry intact. Status post exploratory laparotomy with postoperative ileus. The patient will continue sips of clear liquids. He will be continued to be observed.
[2019-08-30] MEDS ORDERED: TAMSULOSIN 0.4 MG CAP.ER.24H PO SCH (09:00)
--- NOTE | 2019-08-30 10:53 | P.PN ---
Subjective Progress Note Date: 08/30/19 CHIEF COMPLAINT: Abdominal pain HISTORY OF PRESENT ILLNESS: Patient seen and examined at the bedside with Dr. Odonnell. Patient denies abdominal pain. He denies nausea or vomiting. He reports multiple episodes of diarrhea overnight. PHYSICAL EXAM: VITAL SIGNS: Reviewed. GENERAL: Well-developed in no acute distress. HEENT: No sclera icterus. Extraocular movements grossly intact. Moist buccal mucosa. Head is atraumatic, normocephalic. ABDOMEN: Soft. Minimal distention. Nontender. NEUROLOGIC: Alert and oriented. Cranial nerves II through XII grossly intact. ASSESSMENT: 1. Postoperative ileus PLAN: Advance diet to full liquids If patient continues to tolerate full liquid diet, anticipate discharge home tomorrow morning. Patient instructed to remain on full liquid diet for an additional 2-3 days after discharge Nurse practitioner note has been reviewed by physician. Signing provider agrees with the documented findings, assessment, and plan of care. Objective - Vital Signs Vital signs: Vital Signs Temp 98.7 F 08/30/19 07:30 Pulse 82 08/30/19 07:30 Resp 17 08/30/19 07:30 BP 148/93 08/30/19 07:30 Pulse Ox 98 08/30/19 07:30 Intake & Output 08/29/19 08/30/19 08/30/19 18:59 06:59 18:59 Intake Total 1280 1320 Balance 1280 1320 Intake: Intake, IV Titration 960 1320 Amount Sodium Chloride 0.9% 1, 960 1320 000 ml @ 120 mls/hr IV . Q8H20M AILYN Rx#:[id number] Oral 320 Other: Voiding Method Toilet Toilet # Voids 1 1 - Labs CBC & Chem 7: 08/27/19 08:12 08/27/19 08:12
--- NOTE | 2019-08-30 11:38 | P.PN ---
Subjective Patient is admitted for postoperative ileus did the have multiple bowel movements which is diarrhea did not pass gas yet. Patient is clinically othe rwise doing well does have bowel sounds. General surgery wanted advance his diet and discharge him tomorrow. Constitutional: Denied any fatigue denied any fever. Cardio vascular: denied any chest pain, palpitations Gastrointestinal denied any nausea vomiting Pulmonary: Denied any shortness of breath cough Neurologic denied any new focal deficits All inpatient medications were reviewed and appropriate changes in these medications as dictated in the interval history and assessment and plan. Objective - Vital Signs Vital signs: Vital Signs Temp 98.7 F 08/30/19 07:30 Pulse 82 08/30/19 07:30 Resp 17 08/30/19 07:30 BP 148/93 08/30/19 07:30 Pulse Ox 98 08/30/19 07:30 Intake & Output 08/29/19 08/30/19 08/30/19 18:59 06:59 18:59 Intake Total 1280 1320 Balance 1280 1320 Intake: Intake, IV Titration 960 1320 Amount Sodium Chloride 0.9% 1, 960 1320 000 ml @ 120 mls/hr IV . Q8H20M [facility] Rx#:[id number] Oral 320 Other: Voiding Method Toilet Toilet # Voids 1 1 - Exam PHYSICAL EXAMINATION: GENERAL: The patient is alert and oriented x3, not in any acute distress. Well developed, well nourished. HEENT: Pupils are round and equally reacting to light. EOMI. No scleral icterus. No conjunctival pallor. Normocephalic, atraumatic. No pharyngeal erythema. No thyromegaly. CARDIOVASCULAR: S1 and S2 present. No murmurs, rubs, or gallops. PULMONARY: Chest is clear to auscultation, no wheezing or crackles. ABDOMEN: Soft, nontender, nondistended, normoactive bowel sounds. No palpable organomegaly. MUSCULOSKELETAL: No joint swelling or deformity. EXTREMITIES: No cyanosis, clubbing, or pedal edema. NEUROLOGICAL: Gross neurological examination did not reveal any focal deficits. SKIN: No rashes. - Labs CBC & Chem 7: 08/27/19 08:12 08/27/19 08:12 Assessment and Plan Plan: Leukocytosis: Reactive no evidence of infection at this time no need for antibiotics. She is getting ceftezolin as per surgery. Postoperative ileus and constipation: Avoid opiate and ALLERGIES she had multiple bowel movements which is diarrhea. -Hyperlipidemia next and have an hypertension -Gastroesophageal reflux disease for above-mentioned chronic medical problems patient will be resumed on his home medications
== END 2019-08-30 13:00 | disposition home or self-care (01) | DRG 390 ==
LOC: EC 07:12 → 5NMEDONC 09:56 → 1SOBS 11:37 → OBSVTOIN 08-28 12:27 → 4SSUR 08-29 14:08
PROVIDERS: ADMIT Surgery; ATTEND Surgery
DX: K56.7 Ileus, unspecified (principal); D72.829 Elevated white blood cell count, unspecified; E78.5 Hyperlipidemia, unspecified; F41.9 Anxiety disorder, unspecified; I10 Essential (primary) hypertension; K21.9 Gastro-esophageal reflux disease without esophagitis; K59.00 Constipation, unspecified; Z79.899 Other long term (current) drug therapy; Z87.891 Personal history of nicotine dependence; Z90.49 Acquired absence of other specified parts of digestive tract; Z98.42 Cataract extraction status, left eye; Z98.41 Cataract extraction status, right eye; Z96.1 Presence of intraocular lens; Z82.0 Family history of epilepsy and other diseases of the nervous system; Z82.49 Family history of ischemic heart disease and other diseases of the circulatory system
CPT/HCPCS: 36415; 74018; 80053; 81001; 82150; 83690; 85025; 85610; 85730; 87324; 96361; 96374; 96375; 96376; 99285

== ENCOUNTER → 2019-10-12 | Outpatient (CLI) | payer BC ==
[2019-10-12 13:09] VITALS: BP 132/94; PULSE 97; RESP 16
--- NOTE | 2019-10-12 19:58 | P.PAINPG ---
Subjective Progress Note Date: 10/12/19 this is a follow-up visit for this 58 years old male with a chronic history of abdominal pain, she reported that he has 2 different kind of pain one in the right groin area and he was diagnosed with a right ilioinguinal hypogastric neuralgia which was started after hernia surgery, previously we have done a right sided ilioinguinal and iliohypogastric nerve block which helped his pain significantly, the pain was gone for several months, until recently he started having the same pain again, also patient complaining of constant abdominal pain which is localized mostly in the right upper, and epigastric area, and he is diagnosed with congenital malrotation with congenital peritoneal adhesions, patient had multiple surgical interventions and he continued to have severe abdominal pain, was evaluated at the [facility], and no surgical intervention is indicated, she'll continue to use Neurontin 600 mg 3 times a day with minimal benefit, currently he denies any vomiting or any fever. Objective - Vital Signs Vital signs: Vital Signs Temp Pulse 97 10/12/19 12:55 Resp 16 10/12/19 12:55 BP 132/94 10/12/19 12:55 Pulse Ox 97 10/12/19 12:55 - Exam Physical Examinations : -Constitutiona : Cooperative , not in acute distress . -HEENT : nech : supple , no Lymphadenopathy , normal thyroid size . : eyes : no ptosis , no icterus, no photophobia . : ENT : normal of hearing , normal oropharynx , no Thrush . - Respiratory : Chest clear to auscultations Bilaterally , no wheezing , no Rhonchi . - Cardiovascula : regular rate and rhythem , S1 , S2 , no S3 , no S4. - Gastrointestina : abdominal scar healed appropriately .soft, mild tenderness in the right upper quadrant,+bowel sounds, no organomegaly ++ Dysesthesia in the right lower quadrant - Genitourinary : Defferred . - neurologic : Cranial nerve II to XII intact , no focal neurological deffecit . -psychatric : alert , oriented X 3 , appropriate affect , intact judgment and insight . -Lymphatic : no Lymphadenopathy . - musculoskeltal : Lumber spine moter stegnth lower extremities ,thigh and legs 5/5 Right side , 5/5 Left side Assessment and Plan Plan: assessment and plan=1-right ilioinguinal right iliohypogastric neuralgia. She'll could benefit from right ilioinguinal and right iliohypogastric nerve block under ultrasound guidance. 2-upper abdominal pain mostly secondary to congenital malrotation with peritonial adhesions, in the future patient potentially could benefit From celiac plexus block. Recommend continuing Neurontin 600 mg 3 times a day as prescribed by his primary care Time with Patient: Less than 30 PQRS Measure Charge Sheet Measure #130: Documentation of Current Meds in Medical Chart: Patient's medications documented in chart Measure #226: Tobacco Use: Screen & Cessation Intervention: Pt not a tobacco user Measure #111: Pneumonia Vaccination: Pneumococcal vaccine administered or previously received Measure #47: Advance Care Plan: Advance care planning discussed & documented, pt chose/unable to give Measure #412: Opioid Treatment Agreement: No documentation of signed opioid treatment agreement Measure #408: Opioid Therapy Follow-up Evaluation: Patient had NO f/u eval minimum every 3 months during opioid therapy Measure #317: Preventitive Care & Scrn High Bld Press & F/U: Normal blood pressure, f/u not required Measure #128: Body Mass Index (BMI) Screening & Follow-up: BMI documented ABOVE normal parameters - f/u documented Measure #131: Pain Assessment & Follow-up: Pain positive & plan documented, Follow-up scheduled Measure #431: Unhealthy Alcohol Use Preventative Care & Scrn: Patient not identified as an unhealthy alcohol user PQRS Narrative: Smoking Status Former smoker Blood Pressure 132/94 Pain Intensity [Right Groin] 4 Pain Intensity [Right Abdomen] 5 Scale Used Numeric (1 - 10) Hx Alcohol Use (MH) No Home Medications: Ambulatory Orders Esomeprazole Magnesium [NexIUM] 20 mg PO DAILY 01/26/17 Atorvastatin [Lipitor] 10 mg PO HS 12/06/18 Gabapentin 600 mg PO TID 12/06/18 Secukinumab [Cosentyx Pen] 150 mg SQ Q30D 12/06/18 Cholecalciferol [Vitamin D3 (25 Mcg = 1000 Iu)] 5,000 unit PO DAILY 04/22/19 Sertraline [Zoloft] 100 mg PO DAILY 07/20/19 Losartan Potassium [Cozaar] 50 mg PO DAILY 08/26/19 Multivitamins, Thera [Multivitamin (formulary)] 1 tab PO DAILY 08/26/19 Controlled Substance Measures - Controlled Substance Measures Is patient prescribed a controlled substance at discharge?: No
== END | disposition home or self-care (01) ==
LOC: PNWHC3 12:51
PROVIDERS: ATTEND Specialist
DX: G58.8 Other specified mononeuropathies (principal); Q43.3 Congenital malformations of intestinal fixation; R10.10 Upper abdominal pain, unspecified; Z87.891 Personal history of nicotine dependence; Z79.899 Other long term (current) drug therapy
CPT/HCPCS: 99211

== ENCOUNTER → 2019-10-18 | Day surgery (SDC) | payer BC ==
[2019-10-17 10:58] VITALS: BMI 28.4
[~2019-10-18] MED LIST changes: -ACETAMINOPHEN TAB 500 MG TAB PO STA; +BUPIVACAINE (PF) 0.5% 30 ML VIAL ONE; -DEXAMETHASONE SOD PHOSPHATE 10 MG/ML 1 ML VIAL IV ONE; -GABAPENTIN 300 MG CAP PO STA; -GLYCOPYRROLATE 0.2 MG/ML 2 ML VIAL ONE; -HEPARIN SODIUM,PORCINE 5,000 UNIT/ML 1 ML VIAL SQ ONE; -HYDROcodone/APAP 5-325MG 1 EACH TAB PO ONE; -HYDROmorphone 0.5 MG/0.5 ML SYRINGE IVP PRN; -KETOROLAC 30 MG/ML 1 ML VIAL ONE; +LACTATED RINGERS 1,000 ML IV ONE; +LACTATED RINGERS 1,000 ML IV SCH; +LIDOCAINE 1% 20 ML VIAL (10MG/ML) FOR IV START INTRADERMA ONE; -LIDOCAINE 1% 20 ML VIAL (10MG/ML) FOR IV START INTRADERMA PRN; -LIDOCAINE 1% 20 ML VIAL (10MG/ML) FOR IV START SQ ONE; -LIDOCAINE 1% INJ 10MG/ML (20 ML MDV) ONE; -LIDOCAINE 1%-EPI 1:100,000 20 ML VIAL SQ ONE; -LIDOCAINE 2%-EPI 1:100,000 20 ML VIAL ONE; -MIDAZOLAM 2 MG/2 ML VIAL IV ONE; -MIDAZOLAM 2 MG/2 ML VIAL IV PRN; -NEOSTIGMINE 1 MG/ML 10 ML VIAL ONE; -PHENYLEPHRINE-0.9% NACL SYG 1 MG/10 ML SYRINGE ONE; -PROPOFOL 10 MG/ML 20 ML VIAL IV ONE; -ROCURONIUM BROMIDE 10 MG/ML 10 ML VIAL IV ONE; -ROPIVACAINE 5 MG/ML 30 ML VIAL ONE; -SCOPOLAMINE 1.5MG/72HR PATCH TRANSDERM ONE; -SUCCINYLCHOLINE CHLORIDE 100 MG/5 ML SYR IV ONE; -TAMSULOSIN 0.4 MG CAP.ER.24H PO ONE; +TRIAMCINOLONE ACETONIDE 40 MG/ML 1 ML VIAL ONE; -ePHEDrine SULFATE/0.9% NACL/PF 50 MG/5 ML SYRINGE IV ONE
[2019-10-18 10:20] VITALS: TEMP 97.6
--- NOTE | 2019-10-18 11:22 | P.PCN ---
Date of Procedure: 10/18/19 Anesthesia: MAC (Moderate conscious sedation with IV fentanyl and percent) Surgeon: Floresita Chahal Pathology: none sent Condition: stable Disposition: PACU Description of Procedure: The patient was seen in the preoperative holding area consent was obtained then he was brought into the procedure room and placed in the supine position. Ultrasound machine was used to identify the anatomy on the right side of the abdomen above the ASIS and slightly medial to it. The level between the internal oblique muscle and the transverse abdominal muscle was identified with ultrasound and even the ilioinguinal and iliohypogastric nerves were seen. The color Doppler was applied to avoid any vessels in the area then I used 22-gauge 3-1/2 inch Quincke spinal needle needle to go through the skin after localizing the skin with 1% of lidocaine and to inject 10 MLS of Marcaine 0.5% +20 mg of Kenalog and the level between the internal abdominal muscle and the transversus abdominis muscle patient and the transversus abdominis muscle downwards and avoiding any vessels and of course superficial to the transverse abdominis muscle and the bowel. The patient tolerated procedure well and he was taken to PACU in stable condition.
[2019-10-18 11:28] VITALS: RESP 16
[2019-10-18 11:41] VITALS: BP 119/83; PULSE 77
== END ==
LOC: ORPAIN 09:55
PROVIDERS: ATTEND Anesthesiology
DX: G58.8 Other specified mononeuropathies (principal); Q43.3 Congenital malformations of intestinal fixation; I10 Essential (primary) hypertension; Z98.890 Other specified postprocedural states; Z87.891 Personal history of nicotine dependence; Z79.899 Other long term (current) drug therapy
CPT/HCPCS: 64425; 76942; J2250; J3301; J3010; 99152

== ENCOUNTER → 2019-11-01 | Outpatient (CLI) | payer BC ==
--- NOTE | 2019-11-01 12:18 | P.PN ---
Progress Note - Text Progress Note Date: 11/01/19 This is a 58-year-old gentleman with history of chronic abdominal pain due to congenital intestinal malrotation with multiple surgeries on the abdomen. He also has right ilioinguinal neuralgia. The patient received ilioinguinal nerve block with ultrasound guidance few weeks ago which has helped his pain significantly and he grades his pain from the neuralgia at about 2 out of 10. However the patient is complaining of increasing abdominal pain in the upper abdomen area due to his previous multiple surgeries and he would like us to try to do the celiac plexus block which I mentioned to him previously. The patient denies taking any anticoagulants are he denies any ALLERGIES to IV contrast dye. He does have nausea but he does not have history of vomiting. Patient denies new-onset weakness, bowel/bladder incontinence, or any other signs or symptoms of cauda equina syndrome. There are no signs of acute intoxication, and no indications of medication diversion or overuse. In addition to above, 13-point review of systems is also negative for chest pain, shortness of breath, changes in vision, changes in hearing, new onset weakness, abdominal pain, diarrhea, extreme fatigue, malaise, fever, skin changes, homicidal or suicidal ideation, or bowel or bladder incontinence. Vital Signs: Reviewed in EMR Gen: AAOx3, NAD HEENT: PERRLA,hearing grossly normal Pulm: resp unlabored Heart: Regular Neck: supple, trachea midline Abdomen is soft with mild tenderness diffusely Neuro: CN II-XII grossly intact, Imaging: Reviewed in EMR/chart Assessment: Chronic abdominal pain due to multiple surgeries on the abdomen status post correction of congenital intestinal malrotation Right peroneal inguinal neuralgia with significant improvement after ilioinguinal nerve block with ultrasound guidance Plan: 1. Explanation: Opioid and psychological risk scores were reviewed. Diagnoses, prognoses, and multiple treatment options including but not limited to physical therapy, interventional therapies, adjuvant medical therapies, narcotic me dication therapies, and surgery were discussed with the patient and all questions were answered to the patient's satisfaction. 2. Opioid agreement: No opioids are prescribed 3. Counseling: The patient was counseled extensively on SMOKING CESSATION, BODY MASS INDEX, EXERCISE. Specifically, the patient was instructed regarding the importance of smoking cessation, obesity, and exercise in the context of both chronic pain and overall health. 4. Procedures: Schedule for celiac plexus block under fluoroscopic guidance 5. Consultations: None 6. Investigations: None 7. Medications: None 8. Disposition: To be scheduled for the above-mentioned procedure 9. Maps were reviewed and were appropriate. PQRS measures: 1-Patient's medications are documented in the chart. 2-Tobacco use is negative, counseling given 3-Patient has had a pneumococcal vaccine. 4-Advanced care planning discussed, patient unable to give 5-Opioid contract not signed with the patient. 6-Pain positive, follow-up visit or procedure scheduled 7-Patient's blood pressure measured and documented within normal limits. The patient will follow up with his primary care physician. 8-Patient's weight was measured, and body mass index ABOVE the normal limits, and counseling was done. Patient instructed to follow up with PCP. 9-Patient WAS NOT identified as an unhealthy alcohol user.
[2019-11-01 12:19] VITALS: BP 115/69; PULSE 90; RESP 18
== END | disposition home or self-care (01) ==
LOC: PNWHC3 11:59
PROVIDERS: ATTEND Anesthesiology
DX: G89.29 Other chronic pain (principal); R10.9 Unspecified abdominal pain; Z98.890 Other specified postprocedural states
CPT/HCPCS: 99211

== ENCOUNTER 2019-11-09 08:45 | Day surgery (SDC) | payer BC ==
[2019-11-07 13:23] VITALS: BMI 28.5
[2019-11-09 09:19] VITALS: TEMP 97.2
[2019-11-09] MEDS ORDERED: LACTATED RINGERS 1,000 ML IV ONE (09:26)
[2019-11-09] MEDS ORDERED: LIDOCAINE 1% (10MG/ML) FOR IV START INTRADERMA ONE (09:26)
--- NOTE | 2019-11-09 09:44 | P.PCN ---
Date of Procedure: 11/09/19 Description of Procedure: PREOPERATIVE DIAGNOSIS: lumbar radiculopathy POSTOPERATIVE DIAGNOSIS: Abdominal pain PROCEDURE 1. Celiac plexus block Imaging: Fluoroscopy was used, images where saved to the medical record ANESTHESIA: Local with 1% lidocaine 5 ml and IV conscious sedation per nurse anesthesia EBL: Minimal PROCEDURE INDICATION: Patient presents with chronic abdominal pain and malrotati on of the gut. PROCEDURE DESCRIPTION / TECHNIQUE: The patient was seen and identified in the preoperative area. Risks, benefits, complications including but not limited to infections ,bleeding ,allergic reaction to the medications, nerve damage and incomplete pain relief , as well as alternatives to the procedure were discussed with the patient. The patient agreed to proceed with the procedure and signed the consent. IV was started, and vital signs were stable. Patient was taken to the OR and time out was completed. The patient was placed in the prone position on procedure table and a pillow was placed under the abdomen to reduce lumbar lordosis. The lumbosacral area was prepped and draped in the usual sterile fashion. Vitals were closely monitored during the p rocedure. Using anterior-posterior fluoroscopy, the T12 AND L1 levels were identified and the skin over this site was marked and then infiltrated with 1% lidocaine subcutaneously. Subsequently, a 25-gauge 5 inch spinal needle was advanced along the border of the L1 vertebra with close attention to avoid the exiting nerve root. AP, oblique, lateral views were obtained throughout the needle placement to confirm placement and avoid the spinal canal as well as the exiting nerve roots. After depth was confirmed, negative aspiration was confirmed, IV contrast dye was used to confirm spread of medication along the sympathetic ganglion. At that point negative aspiration was obtained and 2% lidocaine with 1-200,000 of epinephrine were used to confirm spread and avoid vascular injection. Needle was withdrawn intact, skin was cleansed, and bandages were applied. COMPLICATIONS: None DISPOSITION / PLANS: The patient was placed in a supine position and transferred to the recovery area in a stable condition for observation. There was no evidence of lower extremity motor or sensory deficit after the procedure. Patient was discharged from the recovery room after meeting discharge criteria. Home discharge instructions were given to the patient by the staff. The patient was reexamined prior to discharge. The patient will follow up as directed.
[2019-11-09] MEDS ORDERED: MIDAZOLAM 2 MG/2 ML VIAL ONE (09:47)
[2019-11-09] MEDS ORDERED: LIDOCAINE 2%-EPI 1:100,000 20 ML VIAL ONE (09:47)
[2019-11-09] MEDS ORDERED: fentaNYL (PF) 50 MCG/ML 2 ML AMP ONE (09:47)
[2019-11-09] MEDS ORDERED: DEXAMETHASONE SOD PHOS (MDV) 100 MG/10 ML VIAL ONE (09:47)
[2019-11-09] MEDS ORDERED: IOPAMIDOL M200 10 ML VIAL ONE (09:47)
[2019-11-09] MEDS ORDERED: IV FLUID CONTINUATION 600 ML IV ONE (10:06)
--- NOTE | 2019-11-09 10:14 | FL ---
EXAMINATION TYPE: FL guided pain mgmt statistic DATE OF EXAM: 11/09/2019 HISTORY: Fluoroscopy time 10 seconds of fluoroscopy provided. IMPRESSION: 1. Fluoroscopy time.
[2019-11-09 10:29] VITALS: BP 130/84; PULSE 95; RESP 16
== END 2019-11-09 10:36 | disposition home or self-care (01) ==
LOC: ORPAIN 08:45
PROVIDERS: ATTEND Hospitalist
DX: G89.29 Other chronic pain (principal); R10.9 Unspecified abdominal pain; Q43.3 Congenital malformations of intestinal fixation; M54.16 Radiculopathy, lumbar region
CPT/HCPCS: 64530; J2250; J3010; J1100; Q9966; 99152

== ENCOUNTER → 2020-01-20 | Outpatient (CLI) | payer BC ==
--- NOTE | 2020-01-20 13:37 | NM ---
EXAMINATION TYPE: NM gastric emptying static DATE OF EXAM: 01/20/2020 COMPARISON: NONE HISTORY: Pain Following administration of 2.1 mCi Tc 99m Sulfur Colloid with 4 oz. egg whites, 2 pieces of toast, 8 oz. of water, projection images of the abdomen were obtained 6 minutes minutes post ingestion. Patient Emptying Values 1 Hour 0 % 2 Hours 4 % 3 Hours 41 % 4 Hours 70 % Gastro-esophagel reflux: None IMPRESSION: Gastric emptying: Findings compatible with gastroparesis. Gastroesophageal reflux: None Gastric emptying normal percentage values: 30 minutes: <70% of retention (> 30% emptying) suggests abnormally fast emptying. 60 minutes: <90% retention (>10% emptying) is normal; less than 30% retention (>70% emptying) suggest s abnormally rapid emptying. 90 minutes: <65% retention (> 35% emptying) is normal. 120 minutes: <60% retention (> 40% emptying) is normal. 180 minutes: <30% retention (> 70% emptying) is normal. Gastric emptying T-1/2: Solid: The normal range is 60-105 minutes Liquid only: Normal range is 10-45 minutes. Liquid only-children: At 60 minutes, normal range is 44-58 % . Liquid only-infants: At 60 minutes, normal range is 32-64 %. Additional references: Gastric Emptying Scintigraphy [email or web address]://[email or web address]
== END | disposition home or self-care (01) ==
LOC: RADNMMAIN 06:55
PROVIDERS: ATTEND Student in an Organized Health Care Education/Training Program
DX: K59.8 Other specified functional intestinal disorders (principal); Q43.3 Congenital malformations of intestinal fixation
CPT/HCPCS: 78264; A9541

== ENCOUNTER → 2020-03-05 | Outpatient (CLI) | payer BC ==
--- NOTE | 2020-03-05 10:36 | FL ---
EXAMINATION TYPE: FL barium enema, contrast and DATE OF EXAM: 03/05/2020 COMPARISON: CT dated 08/28/2019 HISTORY: Abdominal pain, intestinal malabsorption, multiple prior abdominal surgeries TECHNIQUE: A single contrast enema study is performed. FINDINGS: Bench Assembler Battery view of the abdomen shows overall non-obstructive bowel gas pattern. There is no obstruction to flow identified. No evident stricture or mass. Mild caliber change noted a t the sigmoid colon level likely related to patient's prior surgery, anastomosis, small outpouching l ikely is postsurgical. Colon is present largely within the left hemiabdomen. Cecum is present to the left of midline. Patient's colon was filled in a retrograde manner with [id number]. 16 images obtained. 1.37 minutes f luoroscopy time. IMPRESSION: As above, probable postop findings.
== END | disposition home or self-care (01) ==
LOC: RADFLMAIN 08:38
PROVIDERS: ATTEND Surgery
DX: K59.8 Other specified functional intestinal disorders (principal); Q43.3 Congenital malformations of intestinal fixation
CPT/HCPCS: 74270; Q9967

== ENCOUNTER → 2020-03-15 | Outpatient (CLI) | payer BC ==
--- NOTE | 2020-03-15 13:32 | P.PAINPG ---
Subjective Progress Note Date: 03/15/20 this is a follow-up visit for this 58 years old male with a chronic history of abdominal pain, patient complaining of constant abdominal pain which is localized mostly in the right upper, and epigastric area, and he is diagnosed with congenital malrotation with congenital peritoneal adhesions, patient had multiple surgical interventions and he continued to have severe abdominal pain, was evaluated at the [facility], and he expected to have surgical interventions in end of April 2020, she'll continue to use Zoloft 100 mg and Neurontin 600 mg 3 times a day, currently he denies any vomiting or any fever, Marsh of 2019 we did the celiac plexus block and patient had excellent pain relief for 6 weeks, and is supposed to have the block repeated, but 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 -HEENT : nech : supple , no Lymphadenopathy , normal thyroid size . : eyes : no ptosis , no icterus, no photophobia . : ENT : normal of hearing , normal oropharynx , no Thrush . - Respiratory : Chest clear to auscultations Bilaterally , no wheezing , no Rhonchi . - Cardiovascula : regular rate and rhythem , S1 , S2 , no S3 , no S4. - Gastrointestina : abdominal scar healed appropriately .soft, mild tenderness in the right upper quadrant,+bowel sounds, no organomegaly - Genitourinary : Defferred . - neurologic : Cranial nerve II to XII intact , no focal neurological deffecit . -psychatric : alert , oriented X 3 , appropriate affect , intact judgment and insight . -Lymphatic : no Lymphadenopathy . - musculoskeltal : Lumber spine moter stegnth lower extremities ,thigh and legs 5/5 Right side , 5/5 Left side Assessment and Plan Plan: -upper abdominal pain mostly secondary to congenital malrotation with peritonial adhesions, he could benefit repeat celiac plexus block Time with Patient: Less than 30 PQRS Measure Charge Sheet Measure #130: Documentation of Current Meds in Medical Chart: Patient's medications documented in chart Measure #226: Tobacco Use: Screen & Cessation Intervention: Pt not a tobacco user Measure #111: Pneumonia Vaccination: Pneumococcal vaccine administered or pre viously received Measure #47: Advance Care Plan: Advance care planning discussed & documented, pt chose/unable to give Measure #412: Opioid Treatment Agreement: No documentation of signed opioid treatment agreement Measure #408: Opioid Therapy Follow-up Evaluation: Patient had NO f/u eval minimum every 3 months during opioid therapy Measure #317: Preventitive Care & Scrn High Bld Press & F/U: Normal blood pressure, f/u not required Measure #128: Body Mass Index (BMI) Screening & Follow-up: BMI documented ABOVE normal parameters - f/u documented Measure #131: Pain Assessment & Follow-up: Pain positive & plan documented, Follow-up scheduled Measure #431: Unhealthy Alcohol Use Preventative Care & Scrn: Patient not identified as an unhealthy alcohol user PQRS Narrative: Smoking Status Former smoker Blood Pressure 136/88 Pain Intensity [Right Abdomen] 5 Scale Used Numeric (1 - 10) Hx Alcohol Use (MH) No Home Medications: Ambulatory Orders Esomeprazole Magnesium [NexIUM] 20 mg PO DAILY 01/26/17 Atorvastatin [Lipitor] 10 mg PO HS 12/06/18 Gabapentin 600 mg PO TID 12/06/18 Secukinumab [Cosentyx Pen] 300 mg SQ Q30D 12/06/18 Cholecalciferol [Vitamin D3 (25 Mcg = 1000 Iu)] 5,000 unit PO DAILY 04/22/19 Sertraline [Zoloft] 100 mg PO DAILY 07/20/19 Losartan Potassium [Cozaar] 100 mg PO DAILY 08/26/19 Multivitamins, Thera [Multivitamin (formulary)] 1 tab PO DAILY 08/26/19 Controlled Substance Measures - Controlled Substance Measures Is patient prescribed a controlled substance at discharge?: No
[2020-03-16 10:11] VITALS: BP 136/88; PULSE 97; RESP 16
== END | disposition home or self-care (01) ==
LOC: PNWHC3 12:47
PROVIDERS: ATTEND Specialist
DX: Q43.3 Congenital malformations of intestinal fixation (principal); R10.10 Upper abdominal pain, unspecified; Z87.891 Personal history of nicotine dependence; Z79.899 Other long term (current) drug therapy
CPT/HCPCS: 99211

== ENCOUNTER → 2020-03-22 | Day surgery (SDC) | payer BC ==
[~2020-03-22] MED LIST changes: -BUPIVACAINE (PF) 0.5% 30 ML VIAL ONE; +IOPAMIDOL M200 10 ML VIAL ONE; +IV FLUID CONTINUATION 1,000 ML IV ONE; -LACTATED RINGERS 1,000 ML IV SCH; -LIDOCAINE 1% 20 ML VIAL (10MG/ML) FOR IV START INTRADERMA ONE; +ROPIVACAINE 5MG/ML 20ML VIAL ONE; -TRIAMCINOLONE ACETONIDE 40 MG/ML 1 ML VIAL ONE; +methylPREDNISolone ACETATE 40 MG/ML 1 ML VIAL ONE
[2020-03-22 07:47] VITALS: RESP 16; TEMP 97
--- NOTE | 2020-03-22 09:11 | P.PCN ---
Date of Procedure: 03/22/20 Procedure(s) Performed: PREOPERATIVE DIAGNOSIS: Chronic and severe abdominal pain. Peritoneal adhesions, congenital lumbar rotation POSTOPERATIVE DIAGNOSIS: Same as preop diagnosis PROCEDURE: Diagnostic celiac plexus block under fluoroscopy guidance (fluorosc opy images available in the Radiology Department ) ANESTHESIA: Moderate sedation with Versed 2 mg and Fentanyl 100 Mcg EBL: Minimal PROCEDURE INDICATION: The patient has a history of abdominal pain, secondary to peritoneal adhesions and congenital malrotation and he failed conservative treatment PROCEDURE DESCRIPTION: The patient was seen and identified in the preoperative area. Risks, benefits, complications, and alternatives were discussed with the patient. The patient agreed to proceed with the procedure and signed the consent. IV was started, and vital signs were stable.Patient was taken to the OR and time out was completed.The patient was placed in the prone position on procedure table and a pillow was placed under the abdomen to reduce the lumbar lordosis. The lumbosacral area was prepped and draped in the usual sterile fashion. Critical pause was taken. Vital signs were closely monitored during the procedure. Conscious sedation was used during the procedure to decrease patients anxiety. The procedure was performed on the left side. Using anterior-posterior fluoroscopy, the L1 spinous process and vertebral body were identified. Then, the fluoroscope was turned obliquely until the transverse process of L1 vertebra was totally behind the L1 vertebral body. Skin was then marked and infiltrated with Lidocaine 1% subcutaneously with a 25-guage needle at the level of the L1 vertebral body. Subsequently, a 22-guage 5-inch /7-inch spinal needles was inserted and advanced toward anterior side of the L1 vertebral body under oblique fluoroscopic guidance and while keeping a ``tunnel view of the needle. Subsequently, 3 ml of the water soluble dye Omnipaque was injected under life fluoroscopy to confirm needle position. The spread of the dye along the anterior side of the L1 vertebral body was verified with AP and latter fluoroscopy. After satisfactory positioning of the needle and negative aspiration for CSF, blood, or any other contents, a total of 15 mL of 0.5% preservative-free Ropivacaine mixed with 80 mg of Depo-Medrol was injected with 5 ml increments and intermittent aspiration. Washout of the dye was seen and the needle was then withdrawn intact .At the end of the procedure, the operated areas were cleaned. Band-Aids were applied. COMPLICATIONS: None DISPOSITION / PLANS: The patient was placed in a supine position and transferred to the recovery area in a stable condition for observation and was discharged from the recovery room after meeting discharge criteria.Home discharge instructions given to the patient by the staff.The patient was reexamined prior to discharge.
[2020-03-22 09:31] VITALS: BP 126/86; PULSE 74
--- NOTE | 2020-03-23 14:38 | FL ---
Fluoroscopy History: Evette. Pel. Blo. fl time [address] Hamilton. 2 images scanned.
== END ==
LOC: ORPAIN 07:25
PROVIDERS: ATTEND Specialist
DX: G89.29 Other chronic pain (principal); R10.9 Unspecified abdominal pain; K66.0 Peritoneal adhesions (postprocedural) (postinfection); Q76.49 Other congenital malformations of spine, not associated with scoliosis
CPT/HCPCS: 64530; J2250; J1030; J3010; Q9966; J2795; 99152

== ENCOUNTER → 2020-04-10 | Outpatient (CLI) | payer BC ==
[2020-04-10 13:42] VITALS: BP 119/70; PULSE 88; RESP 14; TEMP 98.3
--- NOTE | 2020-04-10 13:53 | P.PAINPG ---
Subjective Subjective Progress Note Date: 03/15/20 this is a follow-up visit for this 58 years old male with a chronic history of abdominal pain, patient complaining of constant abdominal pain which is localized mostly in the right upper, and epigastric area, and he is diagnosed with congenital malrotation with congenital peritoneal adhesions, patient had multiple surgical interventions and he continued to have severe abdominal pain, was evaluated at the [facility], and he expected to have surgical interventions in end of April 2020, she'll continue to use Zoloft 100 mg and Neurontin 600 mg 3 times a day, currently he denies any vomiting or any fever, [place]2019 we did the celiac plexus block and patient had excellent pain relief for 6 weeks. In the past he has also had right II/IH blocks with great relief. Had repeat celiac plexus block 03/2020 and here for follow up. Patient feels that the block helped and he is at about 3-4/10 pain right now when his best over the past week has been a 3/10. Pain is in the abdomen described as sharp stabbing and cramping but currently well controlled. He is due to go to [facility] for surgery to correct his congenital malrotation and he is hopeful that this will help with the pain for good and he won't need further injections. Objective - Exam -Constitutiona : Cooperative , not in acute distress . -HEENT : nech : supple , no Lymphadenopathy , normal thyroid size . : eyes : no ptosis , no icterus, no photophobia . : ENT : normal of hearing , normal oropharynx , no Thrush . - Respiratory : Chest clear to auscultations Bilaterally , no wheezing , no Rhonchi . - Cardiovascula : regular rate and rhythm , S1 , S2 , no S3 , no S4. - Gastrointestina : abdominal scar healed appropriately .soft, mild tenderness in the right upper quadrant,+bowel sounds, no organomegaly - Genitourinary : Defferred . - neurologic : Cranial nerve II to XII intact , no focal neurological deficit . -psychatric : alert , oriented X 3 , appropriate affect , intact judgment and insight . -Lymphatic : no Lymphadenopathy . - musculoskeltal : Lumber spine motor strength lower extremities ,thigh and legs 5/5 Right side , 5/5 Left side Assessment and Plan Plan: -upper abdominal pain mostly secondary to congenital malrotation with peritonial adhesions - Has had 1-2 month benefit from celiac plexus blocks in the past - IS going to [facility] for surgery to correct malrotation, will call us after he wants to see us again to consider repeat celiac plexus blocks Time with Patient: Less than 30 Smoking Status Former smoker Blood Pressure 136/88 Pain Intensity [Right Abdomen] 5 Scale Used Numeric (1 - 10) Hx Alcohol Use (MH) No Controlled Substance Measures - Controlled Substance Measures Is patient prescribed a controlled substance at discharge?: No PQRS Measure Charge Sheet Measure #226: Tobacco Use: Screen & Cessation Intervention: Pt not a tobacco user Measure #111: Pneumonia Vaccination: Pneumococcal vaccine administered or previously received Measure #47: Advance Care Plan: Advance care planning discussed & documented, pt chose/unable to give Measure #317: Preventitive Care & Scrn High Bld Press & F/U: Normal blood pressure, f/u not required Measure #128: Body Mass Index (BMI) Screening & Follow-up: BMI documented within normal parameters Measure #131: Pain Assessment & Follow-up: Pain positive & plan documented, Follow-up PRN Measure #431: Unhealthy Alcohol Use Preventative Care & Scrn: Patient not identified as an unhealthy alcohol user PQRS Narrative: Smoking Status Former smoker Pain Intensity [Abdomen] 2 Scale Used Numeric (1 - 10) Hx Alcohol Use (MH) No Home Medications: Ambulatory Orders Esomeprazole Magnesium [NexIUM] 20 mg PO DAILY 01/26/17 Atorvastatin [Lipitor] 10 mg PO HS 12/06/18 Gabapentin 600 mg PO TID 12/06/18 Secukinumab [Cosentyx Pen] 300 mg SQ Q30D 12/06/18 Cholecalciferol [Vitamin D3 (25 Mcg = 1000 Iu)] 5,000 unit PO DAILY 04/22/19 Sertraline [Zoloft] 100 mg PO DAILY 07/20/19 Losartan Potassium [Cozaar] 100 mg PO DAILY 08/26/19 Multivitamins, Thera [Multivitamin (formulary)] 1 tab PO DAILY 08/26/19 Controlled Substance Measures - Controlled Substance Measures Is patient prescribed a controlled substance at discharge?: No
== END | disposition home or self-care (01) ==
LOC: PNWHC3 13:18
PROVIDERS: ATTEND Anesthesiology
DX: R10.9 Unspecified abdominal pain (principal); Q45.8 Other specified congenital malformations of digestive system; Z87.891 Personal history of nicotine dependence; Z79.899 Other long term (current) drug therapy; Z79.891 Long term (current) use of opiate analgesic
CPT/HCPCS: 99211

== ENCOUNTER → 2020-05-22 | Outpatient (CLI) | payer BC ==
[2020-05-22 15:20] LABS: Basophils % (A) 0 %; Eosinophils # (A) 0.5 k/uL (0-0.7); Eosinophils % (A) 6 %; HCT 31.2 % (39.0-53.0); Lymphocytes # (A) 1.8 k/uL (1.0-4.8); Lymphocytes % (A) 18 %; MCH 30.1 pg (25.0-35.0); MCHC 32.1 g/dL (31.0-37.0); MCV 93.6 fL (80.0-100.0); Mean Platelet Volume 7.1; Monocytes # (A) 0.6 k/uL (0-1.0); Monocytes % (A) 6 %; Neutrophils # (A) 6.6 k/uL (1.3-7.7); Neutrophils % (A) 68 %; Platelet Count 493 k/uL (150-450); RBC 3.33 m/uL (4.30-5.90); RDW 13.2 % (11.5-15.5); WBC 9.6 k/uL (3.8-10.6)
[2020-05-22 20:21] LABS: African American GFR (CKD) 96.4 (60.0-200.0); Albumin 3.7 g/dL (3.80-4.90); Albumin/Globulin Ratio 1.76 (1.60-3.17); Anion Gap 6.5 mmol/L (4.00-12.00); Calcium 8.8 mg/dL (8.7-10.3); Carbon Dioxide 29.5 mmol/L (21.6-31.8); Globulin 2.1 g/dL (1.6-3.3); Magnesium 1.5 mg/dL (1.5-2.4); Non-African American GFR(CKD) 83.2 (60.0-200.0); Phosphorus 3.5 mg/dL (2.4-5.1); Potassium 4.3 mmol/L (3.5-5.5); Total Bilirubin 0.2 mg/dL (0.3-1.2); Total Protein 5.8 g/dL (6.2-8.2)
== END | disposition home or self-care (01) ==
LOC: LABWHC1 14:58
PROVIDERS: ATTEND Surgery
DX: Z48.89 Encounter for other specified surgical aftercare (principal)
CPT/HCPCS: 36415; 80053; 83735; 84100; 85025

== ENCOUNTER → 2020-07-13 | Outpatient (CLI) | payer BC ==
[2020-07-13 14:37] LABS: Basophils # (A) 0.1 k/uL (0-0.2); Basophils % (A) 1 %; Eosinophils # (A) 0.6 k/uL (0-0.7); Eosinophils % (A) 7 %; HCT 44.9 % (39.0-53.0); Lymphocytes % (A) 23 %; MCH 29.4 pg (25.0-35.0); MCHC 30.9 g/dL (31.0-37.0); Mean Platelet Volume 6.8; Monocytes # (A) 0.4 k/uL (0-1.0); Monocytes % (A) 5 %; Neutrophils # (A) 5.5 k/uL (1.3-7.7); Neutrophils % (A) 63 %; Platelet Count 307 k/uL (150-450); RBC 4.73 m/uL (4.30-5.90); RDW 13.9 % (11.5-15.5); WBC 8.7 k/uL (3.8-10.6)
[2020-07-13 14:43] LABS: HGB 13.9 gm/dL (13.0-17.5)
[2020-07-13 19:53] LABS: ALT 26 U/L (10-49); AST 29 U/L (14-35); Albumin/Globulin Ratio 1.81 (1.60-3.17); Alkaline Phosphatase 103 U/L (41-126); Bilirubin, Conjugated <0.20 mg/dL (0.20-0.40); Globulin 2.6 g/dL (1.6-3.3); Total Bilirubin 0.3 mg/dL (0.3-1.2); Total Protein 7.3 g/dL (6.2-8.2)
== END | disposition home or self-care (01) ==
LOC: LABWHC1 12:50
PROVIDERS: ATTEND Dermatology
DX: L40.0 Psoriasis vulgaris (principal)
CPT/HCPCS: 36415; 80076; 85025; 86480

== ENCOUNTER → 2020-10-23 | Outpatient (CLI) | payer BC ==
--- NOTE | 2020-10-23 10:10 | CT ---
EXAMINATION TYPE: CT thoracic spine wo con DATE OF EXAM: 10/23/2020 COMPARISON: None HISTORY: 59-year-old male M54.6, thoracic spine pain, Numbness in arms and back pain TECHNIQUE: Contiguous axial scanning of the thoracic spine without IV contrast. Coronal and sagittal reconstructions performed. CT DLP: 1654.48 mGycm Automated exposure control for dose reduction was used. FINDINGS: The thoracic aorta appears aneurysmal with the ascending measuring at least 4.0 cm and the upper desc ending measuring at least 3.6 cm there is scattered coronary artery calcifications are present. Mild to moderate endplate spondylosis mid to lower thoracic spine with anterior endplate spurring and mild disc vacuum and mild endplate irregularity. No evident canal compromise is seen. 4 moderate end plate spondylosis lower cervical spine at C6-C7. Mild facet arthropathy both upper and lower thoracic spine. No vertebral compression collapse or zeenat lignment. IMPRESSION: 1. MILD/MODERATE DEGENERATIVE DISC DISEASE MID TO LOWER THORACIC SPINE. SOME SCATTERED MILD FACET ART HROPATHY IN BOTH THE UPPER AND LOWER THORACIC SPINE. 2. NO VERTEBRAL COMPRESSION COLLAPSE OR MALALIGNMENT. 3. INCIDENTAL ANEURYSMAL THORACIC AORTA WITH THE ASCENDING MEASURING AT LEAST 4.0 CM AND THE UPPER DE SCENDING MEASURING AT LEAST 3.6 CM. FOLLOW-UP CLINICALLY INDICATED.
--- NOTE | 2020-10-23 10:14 | CT ---
EXAMINATION TYPE: CT lumbar spine wo con DATE OF EXAM: 10/23/2020 COMPARISON: None HISTORY: 59-year-old male M54.5 Back pain TECHNIQUE: Contiguous axial scanning of the lumbar spine without IV contrast. Coronal and sagittal re constructions performed. CT DLP: 993.59 mGycm Automated exposure control for dose reduction was used. FINDINGS: Moderate stool burden. Scattered diverticular change. There seems to be some surgical material involv ing the colon relating to prior bowel surgery. Facet arthropathy at the mid to lower lumbar spine. Mild multilevel degenerative disc disease with disc bulging. By CT, no large focal disc herniation or significant spinal canal stenosis is seen. Straightening of the normal lumbar lordosis but with preserved alignment. Vertebral body heights are preserved. On the left, changes result in mild neural foraminal narrowing at L4-L5 and L5-S1. On the right, changes result in mild neuroforaminal narrowing at L4-L5 and moderate at L5-S1. IMPRESSION: 1. MILD DEGENERATIVE DISC DISEASE. NO LARGE FOCAL DISC HERNIATION OR SPINAL CANAL STENOSIS IDENTIFIED BY CT. 2. FACET ARTHROPATHY IN THE MID TO LOWER LUMBAR SPINE. VERTEBRAE MILD BILATERAL NEUROFORAMINA STENOSIS AT L4-L5. MODERATE RIGHT AND MILD LEFT NEUROFORAMINAL STENOSIS AT L5-S1.
== END | disposition home or self-care (01) ==
LOC: RADCTMAIN 07:16
PROVIDERS: ATTEND Family Medicine
DX: M48.061 Spinal stenosis, lumbar region without neurogenic claudication (principal); M48.07 Spinal stenosis, lumbosacral region; M51.34 Other intervertebral disc degeneration, thoracic region; M51.36 Other intervertebral disc degeneration, lumbar region; M47.814 Spondylosis without myelopathy or radiculopathy, thoracic region; M47.816 Spondylosis without myelopathy or radiculopathy, lumbar region
CPT/HCPCS: 72128; 72131

== ENCOUNTER → 2020-11-10 | Outpatient (CLI) | payer BC ==
--- NOTE | 2020-11-11 13:04 | MR ---
EXAMINATION TYPE: MR cervical spine wo con DATE OF EXAM: 11/10/2020 COMPARISON: None HISTORY: Pain in neck and right arm for 3 years. TECHNIQUE: Multiplanar, multisequence images of the cervical spine were acquired. C2-C3: No evidence for degenerative disc disease. No disc bulge/herniation or protrusion. No Canal stenosis. Foramina are patent bilaterally. There is some facet arthropathy change greater on the lef t. C3-C4: Minimal posterior disc bulge effaces the anterior thecal sac, there is facet arthropathy, dege nerative joint hypertrophy resulting foraminal encroachment right greater than left, no significant s naty stenosis. C4-C5: Right-sided foraminal encroachment is present, there is facet arthropathy, uncovertebral joint hypertrophy. No evident disc herniation. No central stenosis. C5-C6: Uncovertebral joint hypertrophy and facet arthropathy result in bilateral foraminal encroachme nt. There is posterior extension endplate disc complex causing minimal anterior mass effect on the th ecal sac. No significant central stenosis. C6-C7: Posterior broad-based disc bulge contacts the anterior cervical cord. There is a posterior ext ension endplate disc complex, only mild central stenosis. Foraminal encroachment is present right gre ater than left due to uncovertebral joint hypertrophy and facet arthropathy. C7-T1: No evidence for degenerative disc disease. No disc bulge/herniation or protrusion. No Canal stenosis. Foramina are patent bilaterally. Cervical segments are intact. There is normal alignment. Cervical spinal cord is of normal signal. Craniovertebral junction relationships are within normal limits. Cervical vertebral bodies show pre served height and alignment, there is mild spondylosis, endplate discogenic marrow signal change. Los s of disc height signal is greatest at C6-7, loss of disc signal also present at intervertebral level s C4-5, C3-4, C5-6, CT 3 IMPRESSION: Degenerative disc disease most notably at C6-7, multilevel foraminal encroachment.
== END | disposition home or self-care (01) ==
LOC: RADMRIMAIN 07:30
PROVIDERS: ATTEND Nurse Practitioner Family
DX: M50.123 Cervical disc disorder at C6-C7 level with radiculopathy (principal); M99.71 Connective tissue and disc stenosis of intervertebral foramina of cervical region
CPT/HCPCS: 72141

== ENCOUNTER → 2021-02-25 | Outpatient (CLI) | payer BC ==
--- NOTE | 2021-02-25 15:53 | MR ---
MR brain without contrast HISTORY:G44.009 Multiplanar multisequence imaging obtained through the brain, no previous exam available for correlat ion There is no restricted diffusion. Maxillary sinuses show inflammatory change, air-fluid level present on the right, sphenoid sinus and ethmoid air cells also show extensive inflammatory change as does t he frontal sinus. There are normal vascular flow voids. Cerebellopontine angles, corpus callosum, pit uitary, cervical medullary junction are within normal limits. The orbits show symmetric appearance. T here is no hemorrhage or hydrocephalus. Brain signal is maintained. There is no mass effect. IMPRESSION: Sinus disease. Unremarkable brain MRI.
== END | disposition home or self-care (01) ==
LOC: RADMRIMAIN 12:28
PROVIDERS: ATTEND Family Medicine
DX: G44.009 Cluster headache syndrome, unspecified, not intractable (principal); J32.9 Chronic sinusitis, unspecified
CPT/HCPCS: 70551

== ENCOUNTER → 2021-04-10 | Outpatient (CLI) | payer BC ==
[~2021-04-10] MED LIST changes: -IOPAMIDOL M200 10 ML VIAL ONE; -IV FLUID CONTINUATION 1,000 ML IV ONE; -LACTATED RINGERS 1,000 ML IV ONE; -MIDAZOLAM 2 MG/2 ML VIAL ONE; +REGADENOSON 0.4 MG/5 ML SYRINGE IV PRN; -ROPIVACAINE 5MG/ML 20ML VIAL ONE; -fentaNYL (PF) 50 MCG/ML 2 ML AMP ONE; -methylPREDNISolone ACETATE 40 MG/ML 1 ML VIAL ONE
--- NOTE | 2021-04-10 10:16 | CT ---
EXAMINATION TYPE: CT angio chest DATE OF EXAM: 04/10/2021 COMPARISON: None HISTORY: 60-year-old male I 7 1.2, thoracic aortic aneurysm without rupture . TECHNIQUE: Contiguous axial scanning of the chest performed with IV Contrast, patient injected with 1 00 mL of Isovue 370. Coronal/sagittal MIP reconstructions performed. 3-D reconstructions generated on a dedicated independent workstation. CT DLP: 321.8 mGycm Automated exposure control for dose reduction was used. FINDINGS: Heart normal size without pericardial effusion. Mild LAD coronary artery calcifications are present. Aortic root mildly aneurysmal at 4.2 cm. Ascending aorta mildly aneurysmal at 4.0 cm. Bovine configuration to the aortic arch as well as direct takeoff of the left vertebral artery direct ly from the aortic arch. Upper descending thoracic aorta is ectatic at 3.4 cm. Mid descending thoracic aorta is ectatic at 2.6 cm. Lower descending thoracic aorta borderline ectatic at 2.5 cm. No thoracic lymphadenopathy. Trace biapical pleural parenchymal scarring. No consolidation or pleural effusion. Visualized upper abdomen shows mottled arterial phase enhancement of the spleen which is normal as we ll as a tiny inferior splenule. Tiny cortical hypodensity upper pole left kidney measuring 9 mm likel y tiny cortical cyst. Bones: Mild degenerative disc disease mid to lower thoracic spine. IMPRESSION: 1. MILDLY ANEURYSMAL AORTIC ROOT AND ASCENDING AORTA MEASURING UP TO 4.2 CM. 2. ECTATIC DESCENDING THORACIC AORTA MEASURING UP TO 3.4 CM. 3. ANATOMIC VARIATION WITH BOVINE CONFIGURATION TO THE AORTIC ARCH WELL DIRECT TAKEOFF OF THE L EFT VERTEBRAL ARTERY FROM THE AORTIC ARCH.
--- NOTE | 2021-04-10 11:33 | NM ---
EXAMINATION TYPE: NM stress lexiscan cardiolite DATE OF EXAM: 04/10/2021 COMPARISON: NONE HISTORY: Wrist pain TECHNIQUE: After the intravenous administration of 9.2 mCi Tc 99m Sestamibi - Cardiolite resting SPE CT images acquired 60 minutes post injection. The patient received 0.4mg Lexiscan, 25.7 mCi Tc 99m Sestamibi - Stress images obtained [address] injection FINDINGS: Review of stress and rest SPECT images demonstrates no distinct perfusion abnormality. Gated analysi s shows normal wall motion with an estimated left ventricular ejection fraction of 50 %. Small fixed inferior defect involving the apex may be artifactual correlate clinically. IMPRESSION: No scintigraphic evidence for reversible ischemia.
--- NOTE | 2021-04-10 13:12 | EST ---
EXERCISE STRESS AGE: 60 SEX: M HT: 5'11" WT: 219 lbs. PROTOCOL: Lexiscan STAGE: NA DURATION OF EXERCISE: NA HEART RATE REST: 62 BLOOD PRESSURE REST: 131/86 MAXIMUM HEART RATE ACHIEVED: 78 MAXIMUM BLOOD PRESSURE: 140/89 85% MPHR: 138 100% MPHR: 162 METS: NA INDICATIONS: Palpitations. CLINICAL INFORMATION: Baseline rhythm is sinus mechanism, rate 62, normal axis and intervals. Nonspecific ST- T wave changes. Baseline blood pressure 131/86 mmHg. Patient received injection of Lexiscan. Electrocardiograph monitoring revealed no evidence of diagnostic ischemic ST deviation. Cardiolite was injected per protocol. CONCLUSION: 1. Nondiagnostic electrocardiograph stress testing. 2. Nuclear images will be reported separately. MMODL / IJN: [id number] /
== END | disposition home or self-care (01) ==
LOC: RADCTMAIN 07:39
PROVIDERS: ATTEND Family Medicine
DX: I71.2 Thoracic aortic aneurysm, without rupture (principal); M25.539 Pain in unspecified wrist; R00.2 Palpitations
CPT/HCPCS: 93017; 71275; 78452; A9500; J2785; Q9967

== ENCOUNTER → 2021-04-25 | Outpatient (CLI) | payer BC ==
--- NOTE | 2021-04-25 08:24 | MR ---
EXAMINATION TYPE: MR angio head wo con DATE OF EXAM: 04/25/2021 COMPARISON: MRI brain February 25, 2021 HISTORY: Headaches TECHNIQUE: Time of flight images focusing on the [place] of [place] were performed without contrast.. 2-D and 3-D postprocessing imaging is performed on independent workstation and reviewed. FINDINGS: There is dominant left vertebral artery with smaller caliber right vertebral artery. Both v ertebral arteries are patent to the basilar junction. There are patent bilateral posterior communicat ing arteries. There is no significant focal stenosis or aneurysmal change in the posterior circulatio n. There is patent anterior communicating artery on image 91 series 301 with slight fusiform dilatation or mild aneurysmal change to the left A2 segment increased in diameter to 3.4 mm image 94 from 2.5 mm proximal to this image 96 and then tapering to 1.9 mm distal to this images 126 and 1:15 for referen ce. Remainder of anterior circulation shows no additional suspicious prominence or aneurysm. No signi ficant focal stenosis noted. IMPRESSION: Small 3.4 mm fusiform aneurysm left A2 segment from 2.5 mm proximal to this distal left A 1 segment.
== END | disposition home or self-care (01) ==
LOC: RADMRIMAIN 07:32
PROVIDERS: ATTEND Psychiatry & Neurology Neurology
DX: I67.1 Cerebral aneurysm, nonruptured (principal)
CPT/HCPCS: 70544

== ENCOUNTER → 2021-05-08 | Outpatient (CLI) | payer BC ==
[2021-05-08 23:00] LABS: Basophils # (A) 0.04 X 10*3/uL (0.00-0.10); Basophils % (A) 0.6 %; Eosinophils # (A) 0.43 X 10*3/uL (0.04-0.35); HGB 12.9 g/dL (13.0-17.0); Lymphocytes # (A) 1.64 X 10*3/uL (0.90-5.00); Lymphocytes % (A) 22.8 %; MCH 32.3 pg (27.0-32.0); MCHC 33.9 g/dL (32.0-37.0); MCV 95.2 fL (80.0-97.0); Mean Platelet Volume 9.6 fL (9.5-12.2); Monocytes # (A) 0.63 X 10*3/uL (0.20-1.00); Monocytes % (A) 8.8 %; Neutrophils # (A) 4.41 X 10*3/uL (1.80-7.70); Neutrophils % (A) 61.1 %; Platelet Count 220 X 10*3/uL (140-440); RBC 3.99 X 10*6/uL (4.40-5.60); RDW 13.9 % (11.5-14.5)
[2021-05-09 01:14] LABS: Erythrocyte Sedimentation Rate 35 mm/Hr (0-20)
[2021-05-09 02:57] LABS: DNA Double-Stranded NEGATIVE (NEGATIVE)
[2021-05-09 21:50] LABS: African American GFR (CKD) 76.8 (60.0-200.0); Albumin 4.9 g/dL (3.80-4.90); Albumin/Globulin Ratio 2.13 (1.60-3.17); Anion Gap 14.2 mmol/L (4.00-12.00); BUN/Creat Ratio 10.83 Ratio (12.00-20.00); C Reactive Protein 0.8 mg/dL (0.0-0.8); Calcium 10.2 mg/dL (8.7-10.3); Carbon Dioxide 23.8 mmol/L (21.6-31.8); Globulin 2.3 g/dL (1.6-3.3); Non-African American GFR(CKD) 66.3 (60.0-200.0); Potassium 4.2 mmol/L (3.5-5.5); Total Bilirubin 0.3 mg/dL (0.3-1.2); Total Protein 7.2 g/dL (6.2-8.2)
[2021-05-09 21:57] LABS: T4, Free (Free Thyroxine) 1.1 ng/dL (0.80-1.80)
== END | disposition home or self-care (01) ==
LOC: LABWHC1 16:06
PROVIDERS: ATTEND Psychiatry & Neurology Neurology
DX: Z00.00 Encounter for general adult medical examination without abnormal findings (principal); R51.9 Headache, unspecified
CPT/HCPCS: 36415; 80053; 84439; 84443; 85025; 85652; 86038; 86140; 86225; 86618

== ENCOUNTER → 2021-07-10 | Outpatient (CLI) | payer BC ==
--- NOTE | 2021-07-10 21:07 | CT ---
EXAMINATION TYPE: CT angio chest DATE OF EXAM: 07/10/2021 5:15 PM COMPARISON: CTA chest December 09, 2020 HISTORY: f/u aneurysm CT DLP: 894.1 mGycm Automated exposure control for dose reduction was used. CONTRAST: CTA scan of the thorax is performed without and with IV Contrast, patient injected with 100 mL of Iso apollo 370, aneurysm protocol. 3D reconstructed images are created on an independent workstation and re viewed.. FINDINGS: LUNGS: The lungs remain grossly clear, there is no concerning parenchymal mass or nodule identified. There is no pleural effusion or pneumothorax seen. The tracheobronchial tree is patent. MEDIASTINUM: There is satisfactory enhancement of the central pulmonary arteries. Ectatic or slightly aneurysmal ascending aorta up to 3.8 cm in diameter in the aortic root coronal image 44 not signific antly changed from prior CT when accounting for technical differences. Persistent bovine type arch an d direct origin of vertebral artery from arch, normal variant. There are no greater than 1 cm hilar o r mediastinal lymph nodes. No cardiomegaly or pericardial effusion is seen. Coronary artery calcifi cation is redemonstrated. OTHER: Mild multilevel spurring. IMPRESSION: Ectasia/mild aneurysm ascending aorta up to 3.8 cm on my Measurements. No significant silvia nge from prior when accounting for technical differences.
== END | disposition home or self-care (01) ==
LOC: RADCTMAIN 16:40
PROVIDERS: ATTEND Surgery
DX: I71.2 Thoracic aortic aneurysm, without rupture (principal)
CPT/HCPCS: 71275; Q9967

== ENCOUNTER → 2022-05-14 | Outpatient (CLI) | payer BC ==
[2022-05-14 23:26] LABS: Basophils # (A) 0.04 X 10*3/uL (0.00-0.10); Basophils % (A) 0.5 %; Eosinophils # (A) 0.65 X 10*3/uL (0.04-0.35); Eosinophils % (A) 8.3 %; HGB 11.9 g/dL (13.0-17.0); Immature Grans, Automated 0.3 %; Lymphocytes # (A) 1.82 X 10*3/uL (0.90-5.00); Lymphocytes % (A) 23.2 %; MCV 91.1 fL (80.0-97.0); Mean Platelet Volume 9.5 fL (9.5-12.2); Monocytes # (A) 0.47 X 10*3/uL (0.20-1.00); NRBC Per 100 WBC 0 /100 WBCS (0.0-0.0); Neutrophils # (A) 4.83 X 10*3/uL (1.80-7.70); Neutrophils % (A) 61.7 %; Platelet Count 237 X 10*3/uL (140-440); RBC 3.84 X 10*6/uL (4.40-5.60); WBC 7.83 X 10*3/uL (4.50-10.00)
[2022-05-15 00:41] LABS: ALT 22 U/L (10-49); AST 25 U/L (14-35); African American GFR (CKD) 75.5 (60.0-200.0); Albumin 4.2 g/dL (3.8-4.9); Albumin/Globulin Ratio 1.73 (1.60-3.17); Alkaline Phosphatase 125 U/L (41-126); BUN/Creat Ratio 7.16 Ratio (12.00-20.00); Bilirubin, Conjugated <0.20 mg/dL (0.20-0.40); Blood Urea Nitrogen 8.7 mg/dL (9.0-27.0); Calcium 9.4 mg/dL (8.7-10.3); Carbon Dioxide 27.7 mmol/L (20.0-27.5); Chloride 105 mmol/L (96-109); Globulin 2.5 g/dL (1.6-3.3); Glucose 103 mg/dL (70-110); Non-African American GFR(CKD) 65.1 (60.0-200.0); Potassium 3.6 mmol/L (3.5-5.5); Sodium 143 mmol/L (135-145); Total Protein 6.7 g/dL (6.2-8.2)
== END | disposition home or self-care (01) ==
LOC: LABWHC1 16:03
PROVIDERS: ATTEND Student in an Organized Health Care Education/Training Program
DX: L40.0 Psoriasis vulgaris (principal)
CPT/HCPCS: 36415; 80053; 82248; 85025; 86480

== ENCOUNTER 2022-12-04 18:05 | Observation (INO) | payer BC ==
--- NOTE | 2022-12-04 18:57 | ED ---
Chest Pain HPI - General Chief Complaint: Chest Pain Stated Complaint: Chest pain Time Seen by Provider: 12/04/22 18:29 Source: patient Mode of arrival: ambulatory Limitations: no limitations - History of Present Illness Initial Comments: This patient's 61-year-old man who presents with left arm and left chest pain that has come on this evening basically while at rest. He does note that he has had symptoms like this intermittently going back for weeks now. The patient did have some associated dyspnea. No other symptoms. MD Complaint: chest pain -: hour(s) Onset: during rest Pain Location: left chest Pain Radiation: LUE Severity: moderate Quality: aching, sharp Consistency: constant Improves With: nothing Worsens With: nothing Anginal Symptoms: dyspnea Treatments Prior to Arrival: none - Related Data Home Medications Medication Instructions Recorded Confirmed Atorvastatin [Lipitor] 10 mg PO HS 12/06/18 12/04/22 Sertraline [Zoloft] 100 mg PO BID 07/20/19 12/04/22 Multivitamins, Thera [Multivitamin 1 tab PO DAILY 08/26/19 12/04/22 (formulary)] Atogepant [Qulipta] 60 mg PO DAILY 12/04/22 12/04/22 Cholecalciferol [Vitamin D3 (125 125 mcg PO DAILY 12/04/22 12/04/22 Mcg = 5000 Iu)] Labetalol HCl 300 mg PO DAILY 12/04/22 12/04/22 Losartan Potassium [Cozaar] 100 mg PO DAILY 12/04/22 12/04/22 Pantoprazole Sodium [Protonix] 40 mg PO BID 12/04/22 12/04/22 Pramipexole [Mirapex] 1 mg PO TID 12/04/22 12/04/22 Testosterone Cypionate 200 mg IM Q14D 12/04/22 12/04/22 [Depo-Testosterone] Verapamil HCl [Calan] 120 mg PO TID 12/04/22 12/04/22 rOPINIRole HCL [Requip] 2 mg PO HS 12/04/22 12/04/22 traZODone HCL [Desyrel] 100 mg PO HS 12/04/22 12/04/22 Allergies Allergy/AdvReac Type Severity Reaction Status Date / Time No Known Allergies Allergy Verified 12/04/22 21:28 Review of Systems ROS Statement: Those systems with pertinent positive or pertinent negative responses have been documented in the HPI. ROS Other: All systems not noted in ROS Statement are negative. Constitutional: Denies: fever, chills Respiratory: Reports: dyspnea. Denies: cough Cardiovascular: Reports: chest pain. Denies: palpitations, dyspnea on exertion, edema, syncope Gastrointestinal: Denies: abdominal pain, nausea, vomiting, diarrhea, constipation Genitourinary: Denies: dysuria, hematuria Musculoskeletal: Denies: back pain Skin: Denies: rash Neurological: Denies: headache, weakness EKG Findings - EKG Results: EKG: interpreted by ERMD, sinus rhythm (Rate 81 bpm), normal axis, normal ST/T - Blocks, Mcallister, Hypertrophy, ST Abn: AV and intraventricular conduction: right bundle branch block (fixed/intermittent, complete/incomplete) (Incomplete), left anterior fascicular block Past Medical History Past Medical History: Chest Pain / Angina, Eye Disorder, GERD/Reflux, Hyperlipidemia, Hypertension, Musculoskeletal Disorder, Skin Disorder Additional Past Medical History / Comment(s): Intestinal malrotation/elongated colon/bowel obstruction/sigmoid volvulus - abdominal/intestinal pain chronic, constipation, recurrent R inguinal hernia with recent repair, cervical pain/pinched nerve, bilateral detached retinas, Vtach with ablation, Psoriasis. History of Any Multi-Drug Resistant Organisms: None Reported Past Surgical History: Appendectomy, Bowel Resection, Cardiac Ablation, Cholecystectomy, Heart Catheterization, Hernia Repair Additional Past Surgical History / Comment(s): R inguinal hernia repairs with last one done 07/22/19, colon resection/lysis of adhesions on 04/22/19, diagnostic laparoscopy/lysis of adhesions, multiple colon surgeries, bilateral cataract removals/lens implants, bilateral retinal detachment surgeries (7). Pain proc, last 10/18/19 Past Anesthesia/Blood Transfusion Reactions: Postoperative Nausea & Vomiting (PONV) Past Psychological History: Anxiety Smoking Status: Former smoker Past Alcohol Use History: None Reported Past Drug Use History: None Reported - Past Family History Mother Family Medical History: Musculoskeletal Disorder, Neurologic Disorder Additional Family Medical History / Comment(s): Parkinsons Father Family Medical History: Pulmonary Embolus General Exam Limitations: no limitations General appearance: alert, in no apparent distress Head exam: Present: atraumatic, normocephalic Eye exam: Present: normal appearance. Absent: scleral icterus, conjunctival injection Neck exam: Present: normal inspection Respiratory exam: Present: normal lung sounds bilaterally. Absent: respiratory distress, wheezes, rales, rhonchi, stridor Cardiovascular Exam: Present: regular rate, normal rhythm, normal heart sounds. Absent: systolic murmur, diastolic murmur, rubs, gallop GI/Abdominal exam: Present: soft. Absent: distended, tenderness, guarding, rebound, rigid, mass Extremities exam: Present: normal inspection, normal capillary refill. Absent: pedal edema, calf tenderness Back exam: Present: normal inspection. Absent: CVA tenderness (R), CVA tenderness (L) Neurological exam: Present: alert Skin exam: Present: warm, dry, intact, normal color. Absent: rash Course Vital Signs 12/04/22 12/04/22 12/04/22 18:12 18:41 22:00 Temperature 98.7 F Pulse Rate 87 81 73 Respiratory 20 20 18 Rate Blood Pressure 131/82 113/74 113/67 O2 Sat by Pulse 97 98 98 Oximetry 12/05/22 00:00 Temperature Pulse Rate 67 Respiratory 17 Rate Blood Pressure 96/60 O2 Sat by Pulse 97 Oximetry Chest Pain MDM - MDM Patient's 61-year-old man presenting with chest pain with radiation to left upper extremity. The patient's initial workup is negative, will admit to have telemetry monitoring, serial cardiac enzymes and cardiology consultation. Disposition Clinical Impression: Chest pain Disposition: ADMITTED IP TO THIS HOSP Condition: Good Is patient prescribed a controlled substance at d/c from ED?: No
[2022-12-04 19:02] LABS: Basophils % (A) 0 %; Eosinophils # (A) 0.7 k/uL (0-0.7); Eosinophils % (A) 6 %; HCT 37.6 % (39.0-53.0); HGB 13.6 gm/dL (13.0-17.5); Hyperchromasia Slight; Lymphocytes # (A) 1.8 k/uL (1.0-4.8); Lymphocytes % (A) 17 %; MCH 31.8 pg (25.0-35.0); MCHC 36.3 g/dL (31.0-37.0); MCV 87.7 fL (80.0-100.0); Mean Platelet Volume 7.1; Monocytes # (A) 0.5 k/uL (0-1.0); Monocytes % (A) 5 %; Neutrophils # (A) 7.6 k/uL (1.3-7.7); Neutrophils % (A) 70 %; Platelet Count 264 k/uL (150-450); RBC 4.29 m/uL (4.30-5.90); RDW 13.8 % (11.5-15.5); WBC 10.9 k/uL (3.8-10.6)
[2022-12-04 19:07] LABS: Prothrombin Time 10.5 sec (9.0-12.0)
--- NOTE | 2022-12-04 19:19 | XR ---
EXAMINATION: XR chest 2V: 12/04/2022 6:58 PM CLINICAL INDICATION: Chest Pain TECHNIQUE: Departmental protocol COMPARISON: 07/19/2010 FINDINGS: The lungs are clear. The pleural spaces are negative. EKG leads. The cardiac silhouette is not enlarged. The remainder of the mediastinal silhouette is unr emarkable. The skeletal structures and soft tissues are negative for acute findings. IMPRESSION: No acute radiographic process.
[2022-12-04] MEDS ORDERED: MORPHINE SULFATE 4 MG/ML SYRINGE IV STA (19:38)
[2022-12-04] MEDS ORDERED: ASPIRIN 81 MG PO STA (19:38)
[2022-12-04 20:23] LABS: Calcium 8.8 mg/dL (8.4-10.2); Magnesium 2.2 mg/dL (1.6-2.3); Potassium 3.9 mmol/L (3.5-5.1); Total Bilirubin 0.3 mg/dL (0.2-1.3); Total Protein 7.2 g/dL (6.3-8.2)
[2022-12-04] MEDS ORDERED: NITROGLYCERIN SL TABS 0.4 MG TAB SUBLINGUAL PRN (21:39)
[2022-12-05] MEDS ORDERED: ATORVASTATIN 80 MG TAB PO STA (00:12)
--- NOTE | 2022-12-05 00:14 | P.CONS ---
History of Present Illness - Reason for Consult Consult date: 12/04/22 - History of Present Illness The patient is a 61-year-old male with a PMH of hypertension, hyperlipidemia, and anxiety who presents to the emergency room with complaints of left-sided chest and arm discomfort. The patient states that he's been experiencing this pain intermittently for the past 3-4 months and has been evaluated by Dr. Terrazas. He reports having undergone a stress test and an echocardiogram which were both unremarkable as per the patient and that he was told he was okay. Reports however that earlier today at around 4 PM, he developed this left-sided chest discomfort, constant, stabbing in nature, with radiation into the left posterior arm down to the elbow. Reports a pleuritic component to the pain. The patient states the pain was 8 out of 10 on maximal intensity, currently at a 4 out of 10 at the time of interview. He also reports experiencing positional shortness of breath since 4 PM but denied experiencing nausea, vomiting, diaphoresis, palpitations. ED notes reviewed and case discussed with the ED physician in detail. Review of systems: Pertinent positives and negatives as discussed in HPI, a complete review of systems was performed and all other systems are negative. Physical examination: Vital signs reviewed General: non toxic, no distress, appears at stated age, normal weight Derm: no unusual rashes/lesions, warm Head: atraumatic, normocephalic, symmetric Eyes: EOMI, no lid lag, anicteric sclera, pupils equal round reactive to light ENT: Nose and ears atraumatic Neck: No cervical lymphadenopathy, trachea midline, supple Mouth: no lip lesion, mucus membranes moist Cardiovascular: S1S2 reg, no murmur, positive dorsalis pedis pulse bilateral, no edema Lungs: CTA bilateral, no rhonchi, no rales, no accessory muscle use Abdominal: soft, nontender to palpation, no guarding Ext: muscle strength 5 out of 5 in all 4 extremities grossly, no gross muscle atrophy, no contractures, Neuro: CN II-XI grossly intact, no gross focal neuro deficits Psych: Alert, oriented, appropriate affect Assessment: Chest pain with atypical features Leukocytosis Chronic conditions: Hypertension, hyperlipidemia, anxiety Imaging: Chest x-ray in the emergency room was unremarkable. EKG revealed sinus rhythm a nd incomplete right bundle branch block at 81 bpm with left anterior fascicular block. Data Review: Laboratory evaluation was remarkable for leukocytosis of 10.9 with troponin less than 0.012. Hemoglobin was 13.6 with platelet count 264, sodium 140, potassium 3.9, CO2 is 32, BUN 13, creatinine 1.06. Plan: Trend troponin Cardiology consulted Continue with aspirin and statin Cardiac monitoring No signs of active infection at this time DVT prophylaxis: Heparin subcu The patient is admitted with an anticipated less than 2 midnight stay for ev aluation of chest pain CODE STATUS: Full Code Discussed with: Patient Anticipated discharge date: in am Anticipated discharge place: Home Past Medical History Past Medical History: Chest Pain / Angina, Eye Disorder, GERD/Reflux, Hyperlipidemia, Hypertension, Musculoskeletal Disorder, Skin Disorder Additional Past Medical History / Comment(s): Intestinal malrotation/elongated colon/bowel obstruction/sigmoid volvulus - abdominal/intestinal pain chronic, constipation, recurrent R inguinal hernia with recent repair, cervical pain/pi nched nerve, bilateral detached retinas, Vtach with ablation, Psoriasis. History of Any Multi-Drug Resistant Organisms: None Reported Past Surgical History: Appendectomy, Bowel Resection, Cardiac Ablation, Cholecystectomy, Heart Catheterization, Hernia Repair Additional Past Surgical History / Comment(s): R inguinal hernia repairs with last one done 07/22/19, colon resection/lysis of adhesions on 04/22/19, diagnostic laparoscopy/lysis of adhesions, multiple colon surgeries, bilateral cataract removals/lens implants, bilateral retinal detachment surgeries (7). Pain proc, last 10/18/19 Past Anesthesia/Blood Transfusion Reactions: Postoperative Nausea & Vomiting (PONV) Past Psychological History: Anxiety Smoking Status: Former smoker Past Alcohol Use History: None Reported Past Drug Use History: None Reported - Past Family History Mother Family Medical History: Musculoskeletal Disorder, Neurologic Disorder Additional Family Medical History / Comment(s): Parkinsons Father Family Medical History: Pulmonary Embolus Medications and Allergies Home Medications Medication Instructions Recorded Confirmed Type Atorvastatin [Lipitor] 10 mg PO HS 12/06/18 12/04/22 History Sertraline [Zoloft] 100 mg PO BID 07/20/19 12/04/22 History Multivitamins, Thera [Multivitamin 1 tab PO DAILY 08/26/19 12/04/22 History (formulary)] Atogepant [Qulipta] 60 mg PO DAILY 12/04/22 12/04/22 History Cholecalciferol [Vitamin D3 (125 125 mcg PO DAILY 12/04/22 12/04/22 History Mcg = 5000 Iu)] Labetalol HCl 300 mg PO DAILY 12/04/22 12/04/22 History Losartan Potassium [Cozaar] 100 mg PO DAILY 12/04/22 12/04/22 History Pantoprazole Sodium [Protonix] 40 mg PO BID 12/04/22 12/04/22 History Pramipexole [Mirapex] 1 mg PO TID 12/04/22 12/04/22 History Testosterone Cypionate 200 mg IM Q14D 12/04/22 12/04/22 History [Depo-Testosterone] Verapamil HCl [Calan] 120 mg PO TID 12/04/22 12/04/22 History rOPINIRole HCL [Requip] 2 mg PO HS 12/04/22 12/04/22 History traZODone HCL [Desyrel] 100 mg PO HS 12/04/22 12/04/22 History Allergies Allergy/AdvReac Type Severity Reaction Status Date / Time No Known Allergies Allergy Verified 12/04/22 21:28 Physical Exam Vitals: Vital Signs Temp Pulse Resp BP Pulse Ox 12/04/22 22:00 73 18 113/67 98 12/04/22 18:41 81 20 113/74 98 12/04/22 18:12 98.7 F 87 20 131/82 97 Intake and Output 12/04/22 12/04/22 12/05/22 14:59 22:59 06:59 Other: Weight 77.111 kg Results CBC & Chem 7: 12/04/22 18:49 12/04/22 19:46 Labs: Abnormal Lab Results - Last 24 Hours (Table) 12/04/22 12/04/22 Range/Units 18:49 19:46 WBC 10.9 H (3.8-10.6) k/uL RBC 4.29 L (4.30-5.90) m/uL Hct 37.6 L (39.0-53.0) % Carbon Dioxide 32 H (22-30) mmol/L
[2022-12-05] MEDS ORDERED: MORPHINE SULFATE 2 MG/ML SYRINGE IVP STA (01:07)
[2022-12-05] MEDS ORDERED: DOBUTamine DRIP for NUC MED 500 MG in DEXTROSE/WATER 1 250ML.BAG IV PRN (07:56)
[2022-12-05] MEDS: HEPARIN SODIUM,PORCINE/PF 5,000 UNIT/0.5 ML SYRINGE SQ SCH ×2 (08:22→15:13)
[2022-12-05] MEDS ORDERED: ASPIRIN 325 MG TAB PO SCH (09:00)
[2022-12-05 10:20] VITALS: RESP 16
--- NOTE | 2022-12-05 11:01 | CT ---
EXAMINATION TYPE: CT angio chest DATE OF EXAM: 12/05/2022 COMPARISON: CTA chest July 10, 2022 HISTORY: pe. Elevated d-dimer shortness of breath CT DLP: 354.2 mGycm. Automated Exposure Control for Dose Reduction was Utilized. CONTRAST: CTA scan of the thorax is performed with IV Contrast, patient injected with 65 mL of Isovue 370, pulm onary embolism protocol. MIP Images are created on CT scanner and reviewed. FINDINGS: LUNGS: Mild bibasilar linear atelectasis on current study. No suspicious focal consolidation. No new masses. There is no pleural effusion or pneumothorax seen. The tracheobronchial tree is patent. MEDIASTINUM: There is satisfactory enhancement of the pulmonary artery and its branches, there is no CT evidence for pulmonary embolism. Satisfactory enhancement of the thoracic aorta with thoracic asce nding thoracic aorta measuring up to 3.7 cm in diameter axial image 75 redemonstrated. There is direc t origin of the left vertebral artery from the arch redemonstrated. There are no new greater than 1 cm hilar or mediastinal lymph nodes. No cardiomegaly or pericardial effusion is seen. Coronary latesha ry calcification is redemonstrated. OTHER: No additional significant abnormality is seen. IMPRESSION: No CT evidence for acute pulmonary embolism. Mild bibasilar linear atelectasis. No suspic ious acute pulmonary process.
[2022-12-05 11:23] LABS: Chol/HDL Ratio 5.01 Ratio; LDL Cholesterol,Calculated 89.1 mg/dL (0.0-131.0)
--- NOTE | 2022-12-05 11:43 | P.CRDCN ---
History of Present Illness Consult date: 12/05/22 Consult reason: chest pain History of present illness: History of present illness: This is a 61-year-old male patient of Dr. Terrazas with past medical history of hypertension, hyperlipidemia, coronary artery disease in the family less than 60 years of age, tobacco use and dependence. We have been asked to evaluate the patient for chest pain. Patient is seen today in the emergency center waiting for a bed. Patient states that he has developed chest pain on the left side with pain in his left arm left shoulder and above the left scapula. It started while he was sitting. When he walks a distance or upstairs he becomes short of breath. EKG sinus rhythm with no acute ST changes Chest x-ray: No acute process WBC 10.9, hemoglobin 13.6, platelet count 264. INR 1.0. Sodium 140, potassium 3.9, chloride 103, CO2 32, BUN 13 and creatinine 1.06. Troponin negative 3. Magnesium 2.2. Liver function tests are normal. Triglycerides 339, cholesterol 196, LDL 89, HDL 39. D-dimer 0.78. CTA of the chest showed no evidence of acute pulmonary embolism. Mild bibasilar linear atelectasis. No suspicious acute pulmonary process. Home cardiac medications: Atorvastatin 10 mg at bedtime, labetalol 3 mg daily, losartan 100 mg daily, verapamil 120 mg 3 times daily Echocardiogram 11/2021: EF 50%, no LVH, ascending aorta 4.0 cm Holter monitor 11/2021: Sinus rhythm heart rate 46-107 with average of 75 bpm. Ablation RV OT PT, posterior wall RV OT 10/2009 Roya scan stress test 02/2022 no reversible ischemia Carotid duplex 04/2022 mild disease in bilateral ICAs Review Of Systems: At the time of my evaluation: Constitutional: No fever, no chills. No weakness, fatigue or lethargy. EENT: No headache. No dizziness. Lungs: No shortness of breath, cough, no sputum production. No wheezing. Reports dyspnea on exertion Cardiovascular: Reports left-sided chest pain with left arm discomfort, no lower extremity edema. No palpitations. No paroxysmal nocturnal dyspnea. No orthopnea. No lightheadedness or dizziness. No syncopal episodes. Abdominal: No abdominal pain. No nausea, vomiting. No diarrhea. No constipation. No bloody or tarry stools. Genitourinary: No dysuria.. No urinary retention. Musculoskeletal: No myalgias. No muscle weakness, no frequent falls. No back pain. Reports mild neck pain. Integumentary: No wounds. No rash. No unusual bruising. Neurologic: No aphasia. No facial droop. No change in mentation. No head injury. No headache. Physical examination: Gen: This is a 61-year-old male. He is resting on the ear structure appears to be comfortable and in no acute distress VS: reviewed HEENT: Head is atraumatic, normocephalic. Pupils equal, round. Sclerae is anicteric. NECK: Supple. No JVD. . LUNGS: Clear to auscultation. No wheezes or rhonchi. No intercostal retractions. HEART: Regular rate and rhythm. No murmur. ABDOMEN: Soft No tenderness. EXTREMITIES: No pedal edema. No calf tenderness. NEUROLOGICAL: Patient is awake, alert and oriented x3. Assessment: Chest pain, acute coronary syndrome ruled out Hypertension Hyperlipidemia Family history coronary artery disease Tobacco use and dependence Plan: Dobutamine stress echo today No need for 2-D echocardiogram Resume patient's home cardiac medications As stress testing is negative, patient is cleared for discharge from a follow-up in the office in 2 weeks. Thank you kindly for this consultation. Nurse practitioner note has been reviewed, I agree with documented findings and plan of care. Patient was seen and examined. Past Medical History Past Medical History: Chest Pain / Angina, Eye Disorder, GERD/Reflux, Hyperlipidemia, Hypertension, Musculoskeletal Disorder, Skin Disorder Additional Past Medical History / Comment(s): Intestinal malrotation/elongated colon/bowel obstruction/sigmoid volvulus - abdominal/intestinal pain chronic, constipation, recurrent R inguinal hernia with recent repair, cervical pain/pinched nerve, bilateral detached retinas, Vtach with ablation, Psoriasis. History of Any Multi-Drug Resistant Organisms: None Reported Past Surgical History: Appendectomy, Bowel Resection, Cardiac Ablation, Cholecystectomy, Heart Catheterization, Hernia Repair Additional Past Surgical History / Comment(s): R inguinal hernia repairs with last one done 07/22/19, colon resection/lysis of adhesions on 04/22/19, diagnostic laparoscopy/lysis of adhesions, multiple colon surgeries, bilateral cataract removals/lens implants, bilateral retinal detachment surgeries (7). Pain proc, last 10/18/19 Past Anesthesia/Blood Transfusion Reactions: Postoperative Nausea & Vomiting (PONV) Past Psychological History: Anxiety Smoking Status: Former smoker Past Alcohol Use History: None Reported Past Drug Use History: None Reported - Past Family History Mother Family Medical History: Musculoskeletal Disorder, Neurologic Disorder Additional Family Medical History / Comment(s): Parkinsons Father Family Medical History: Pulmonary Embolus Medications and Allergies Home Medications Medication Instructions Recorded Confirmed Type Atorvastatin [Lipitor] 10 mg PO HS 12/06/18 12/04/22 History Sertraline [Zoloft] 100 mg PO BID 07/20/19 12/04/22 History Multivitamins, Thera [Multivitamin 1 tab PO DAILY 08/26/19 12/04/22 History (formulary)] Atogepant [Qulipta] 60 mg PO DAILY 12/04/22 12/04/22 History Cholecalciferol [Vitamin D3 (125 125 mcg PO DAILY 12/04/22 12/04/22 History Mcg = 5000 Iu)] Labetalol HCl 300 mg PO DAILY 12/04/22 12/04/22 History Losartan Potassium [Cozaar] 100 mg PO DAILY 12/04/22 12/04/22 History Pantoprazole Sodium [Protonix] 40 mg PO BID 12/04/22 12/04/22 History Pramipexole [Mirapex] 1 mg PO TID 12/04/22 12/04/22 History Testosterone Cypionate 200 mg IM Q14D 12/04/22 12/04/22 History [Depo-Testosterone] Verapamil HCl [Calan] 120 mg PO TID 12/04/22 12/04/22 History rOPINIRole HCL [Requip] 2 mg PO HS 12/04/22 12/04/22 History traZODone HCL [Desyrel] 100 mg PO HS 12/04/22 12/04/22 History Allergies Allergy/AdvReac Type Severity Reaction Status Date / Time No Known Allergies Allergy Verified 12/04/22 21:28 Physical Exam Vitals: Vital Signs Temp Pulse Resp BP Pulse Ox 12/05/22 00:00 67 17 96/60 97 12/04/22 22:00 73 18 113/67 98 12/04/22 18:41 81 20 113/74 98 12/04/22 18:12 98.7 F 87 20 131/82 97 Intake and Output 12/04/22 12/05/22 12/05/22 22:59 06:59 14:59 Other: Weight 77.111 kg Results 12/04/22 18:49 12/04/22 19:46 Cardiac Enzymes 12/04/22 12/04/22 12/04/22 Range/Units 19:46 19:46 22:17 AST 28 (17-59) U/L Troponin I <0.012 <0.012 (0.000-0.034) ng/mL 12/05/22 Range/Units 02:00 AST (17-59) U/L Troponin I <0.012 (0.000-0.034) ng/mL Coagulation 12/04/22 Range/Units 18:49 PT 10.5 (9.0-12.0) sec APTT 26.0 (22.0-30.0) sec CBC 12/04/22 Range/Units 18:49 WBC 10.9 H (3.8-10.6) k/uL RBC 4.29 L (4.30-5.90) m/uL Hgb 13.6 (13.0-17.5) gm/dL Hct 37.6 L (39.0-53.0) % Plt Count 264 (150-450) k/uL Comprehensive Metabolic Panel 12/04/22 Range/Units 19:46 Sodium 140 (137-145) mmol/L Potassium 3.9 (3.5-5.1) mmol/L Chloride 103 (98-107) mmol/L Carbon Dioxide 32 H (22-30) mmol/L BUN 13 (9-20) mg/dL Creatinine 1.06 (0.66-1.25) mg/dL Glucose 89 (74-99) mg/dL Calcium 8.8 (8.4-10.2) mg/dL AST 28 (17-59) U/L ALT 21 (4-49) U/L Alkaline Phosphatase 103 (38-126) U/L Total Protein 7.2 (6.3-8.2) g/dL Albumin 4.0 (3.5-5.0) g/dL Current Medications Generic Name Dose Route Start Last Admin Trade Name Freq PRN Reason Stop Dose Admin Aspirin 325 mg 12/05/22 09:00 Aspirin 325 Mg Tab PO DAILY AILYN Heparin Sodium (Porcine) 5,000 unit 12/05/22 08:00 12/05/22 08:22 Heparin Sodium,Porcine/Pf 5,000 Unit/0.5 Ml Syringe SQ 5,000 unit Q8HR AILYN Administration Dobutamine HCl/Dextrose 500 mg 250 mls @ 23.133 mls/hr 12/05/22 07:56 / IV Solution IV 12/05/22 11:56 .[id number] PRN Per Protocol Protocol 10 MCG/KG/MIN Nitroglycerin 0.4 mg 12/04/22 21:39 Nitroglycerin Sl Tabs 0.4 Mg Tab SUBLINGUAL Q5M PRN Chest Pain Intake and Output 12/04/22 12/05/22 12/05/22 22:59 06:59 14:59 Other: Weight 77.111 kg 12/04/22 18:49 12/04/22 19:46
[2022-12-05] MEDS ORDERED: ATROPINE SULFATE 0.1 MG/ML 10ML SYRINGE ONE (12:40)
[2022-12-05] MEDS ORDERED: DOBUTamine DRIP for NUC MED 500 MG/250 ML BAG IV ONE (12:50)
[2022-12-05 14:24] VITALS: BMI 23.7
[2022-12-05 15:12] VITALS: BP 115/81; PULSE 92; TEMP 98.2
[2022-12-05] MEDS ORDERED: PRAMIPEXOLE 1 MG TAB PO SCH (16:00)
--- NOTE | 2022-12-05 17:20 | CA ---
Dobutamine Stress Echocardiogram Report Sujit Burrows Age: 61 Gender: M : 1960 Exam Date: 12/05/2022 11:37 Exam Location: [facility] Ordering Physician: Ladi Lorenzana Referring Physician: Harriett GOEL Dental Technician Metal: VIBHA Technologist: Ht (in): 71 Wt (lb): 170 Procedure CPT: Indication: CP ICD-9 Codes: Rhythm: Patient History: chest pain, DIFFICULTY IN BREATHING, NUMBNESS IN FACE/NECK, HTN, ELEVATED CHOLESTEROL LEVELS, FAMILY HX OF HEART DISEASE, FORMER SMOKER, PRIOR CARDIAC CATH Cardiac Medications: Medications in past 24 hours: Contrast: Total Dose (mL): Stress Results Protocol: Dobutamine Peak Dose (???g/kg/min): 40 Duration (min:sec): Atropine:(mg) 0.5 Target HR: 137 Double Product: [id number] Resting HR: 66 Resting BP: 140 / 86 Peak HR: 143 Peak BP: 196 / 119 Max Predicted HR: 161 89 % Max Predicted HR Stress Summary: BP Response: Reason for Termination: INFUSION COMPLETE/TARGET HR Cardiac Symptoms: NO SYMPTOMS ECG Analysis Resting EKG: Stress EKG: Arrhythmia: Echo Analysis Base Echo Analysis: Low Echo Anaylsis: Peak Echo Analysis: Recovery Echo: MEASUREMENTS (Male/Female) Normal Values CONCLUSIONS Patient underwent dobutamine stress echo with infusion of dobutamine for a total of 14 minutes. Patient's maximum heart rate was 143 which represented 88 % age-predicted maximum heart rate. Stress EKG portion: At baseline patient's EKG showed normal sinus rhythm, normal axis, no significant ST or T wave abnormalities. At peak dobutamine infusion, EKG showed 0.[address] depressions in inferolateral leads which is nonspecific. Stress echo portion: 2-D echocardiogram was performed in the parasternal long, personal short, apical 2 and apical four-chamber views at rest, low-dose, peak infusion and in recovery. At baseline, echocardiogram showed left ventricular ejection fraction 55% without wall motion abnormalities. With peak infusion, echocardiogram shows improvement in left ventricular ejection fraction, increase contractility, decrease in left ventricular end systolic dimension without wall motion abnormalities consistent with a normal response to dobutamine. Conclusions: 1. Normal stress EKG and echo response to dobutamine infusion without any evidence of inducible ischemia. Dr. Jose Alberto Rosenthal DO (Electronically Signed) Final Date: 05 December 2022 17:20
[2022-12-05] MEDS ORDERED: PANTOPRAZOLE 40 MG TABLET PO SCH (17:30)
--- NOTE | 2022-12-05 17:43 | P.DS ---
Providers Date of admission: 12/04/22 21:39 Expected date of discharge: 12/05/22 Attending physician: Gloria Arshad MD Consults: 12/04/22 21:39 Consult Physician Routine Consulting Provider: Abdelrahman Montelongo Consult Reason/Comments: chest pain Do you want consulting provider notified?: Yes Primary care physician: [place] [facility] Course: The patient is a 61-year-old male with a PMH of hypertension, hyperlipidemia, and anxiety who presents to the emergency room with complaints of left-sided chest and arm discomfort. The patient states that he's been experiencing this pain intermittently for the past 3-4 months and has been evaluated by Dr. Terrazas. He reports having undergone a stress test and an echocardiogram which were both unremarkable as per the patient and that he was told he was okay. Reports however that earlier today at around 4 PM, he developed this left-sided chest discomfort, constant, stabbing in nature, with radiation into the left posterior arm down to the elbow. Reports a pleuritic component to the pain. The patient states the pain was 8 out of 10 on maximal intensity, currently at a 4 out of 10 at the time of interview. He also reports experiencing positional shortness of breath since 4 PM but denied experiencing nausea, vomiting, diaphoresis, palpitations. Chest x-ray in the emergency room was unremarkable. EKG revealed sinus rhythm and incomplete right bundle branch block at 81 bpm with left anterior fascicular block. Laboratory evaluation was remarkable for leukocytosis of 10.9 with troponin less than 0.012. Hemoglobin was 13.6 with platelet count 264, sodium 140, potassium 3.9, CO2 is 32, BUN 13, creatinine 1.06. Troponins were trended and ACS was ruled out. D-dimer is elevated at 0.78. Cardiology recommended CTA chest which was negative for PE. Also recommended stress test which was negative. Patient was cleared from a cardiology standpoint for discharge. The case was also discussed with Dr. Rosenthal. Patient was seen and examined. No acute events overnight. Patient continues to report vague chest pain worsened with deep inspiration. He is requesting to be discharged home. He states that he has an appointment with Dr. Terrazas on Thursday. Pertinent studies include chest x-ray, chest CT, stress test. General: non toxic, no distress, appears at stated age Derm: warm, dry Head: atraumatic, normocephalic, symmetric Eyes: EOMI, no lid lag, anicteric sclera Mouth: no lip lesion, mucus membranes moist Cardiovascular: S1S2 reg, no murmur Lungs: no accessory muscle use Ext: no gross muscle atrophy, no edema, no contractures Psych: Alert, oriented, appropriate affect Discharge diagnosis: Chest pain with atypical features Leukocytosis Elevated d-dimer Chronic conditions: Hypertension, hyperlipidemia, anxiety This complication discharge took 35 minutes complete. Patient Condition at Discharge: Stable Plan - Discharge Summary Discharge Rx Participant: No New Discharge Prescriptions: No Action Atorvastatin [Lipitor] 10 mg PO HS Sertraline [Zoloft] 100 mg PO BID Multivitamins, Thera [Multivitamin (formulary)] 1 tab PO DAILY Atogepant [Qulipta] 60 mg PO DAILY Pantoprazole Sodium [Protonix] 40 mg PO BID Pramipexole [Mirapex] 1 mg PO TID Losartan Potassium [Cozaar] 100 mg PO DAILY Cholecalciferol [Vitamin D3 (125 Mcg = 5000 Iu)] 125 mcg PO DAILY Verapamil HCl [Calan] 120 mg PO TID rOPINIRole HCL [Requip] 2 mg PO HS Labetalol HCl 300 mg PO DAILY Testosterone Cypionate [Depo-Testosterone] 200 mg IM Q14D traZODone HCL [Desyrel] 100 mg PO HS Discharge Medication List Atorvastatin [Lipitor] 10 mg PO HS 12/06/18 [History] Sertraline [Zoloft] 100 mg PO BID 07/20/19 [History] Multivitamins, Thera [Multivitamin (formulary)] 1 tab PO DAILY 08/26/19 [History] Atogepant [Qulipta] 60 mg PO DAILY 12/04/22 [History] Cholecalciferol [Vitamin D3 (125 Mcg = 5000 Iu)] 125 mcg PO DAILY 12/04/22 [History] Labetalol HCl 300 mg PO DAILY 12/04/22 [History] Losartan Potassium [Cozaar] 100 mg PO DAILY 12/04/22 [History] Pantoprazole Sodium [Protonix] 40 mg PO BID 12/04/22 [History] Pramipexole [Mirapex] 1 mg PO TID 12/04/22 [History] Testosterone Cypionate [Depo-Testosterone] 200 mg IM Q14D 12/04/22 [History] Verapamil HCl [Calan] 120 mg PO TID 12/04/22 [History] rOPINIRole HCL [Requip] 2 mg PO HS 12/04/22 [History] traZODone HCL [Desyrel] 100 mg PO HS 12/04/22 [History] Follow up Appointment(s)/Referral(s): None,Stated [REFERRING] - 1-2 days Patient Instructions/Handouts: Chest Pain (ED)
[2022-12-05] MEDS ORDERED: traZODone HCL 100 MG TAB PO SCH (21:00)
[2022-12-05] MEDS ORDERED: SERTRALINE 100 MG TAB PO SCH (21:00)
[2022-12-05] MEDS ORDERED: ATORVASTATIN 10 MG TAB PO SCH (21:00)
== END 2022-12-05 18:45 | disposition home or self-care (01) ==
LOC: EC 18:05 → 6NMEDSUR 21:39 → 3SCARD 12-05 07:32
PROVIDERS: ADMIT Internal Medicine; ATTEND Internal Medicine
DX: R07.89 Other chest pain (principal); I45.10 Unspecified right bundle-branch block; I44.4 Left anterior fascicular block; D72.829 Elevated white blood cell count, unspecified; R79.1 Abnormal coagulation profile; I10 Essential (primary) hypertension; E78.5 Hyperlipidemia, unspecified; K21.9 Gastro-esophageal reflux disease without esophagitis; L40.9 Psoriasis, unspecified; Z90.49 Acquired absence of other specified parts of digestive tract; Z98.42 Cataract extraction status, left eye; Z98.41 Cataract extraction status, right eye; Z96.1 Presence of intraocular lens; Z98.890 Other specified postprocedural states; Z87.891 Personal history of nicotine dependence; Z86.39 Personal history of other endocrine, nutritional and metabolic disease; Z82.49 Family history of ischemic heart disease and other diseases of the circulatory system; F41.9 Anxiety disorder, unspecified; Z79.52 Long term (current) use of systemic steroids; Z79.899 Other long term (current) drug therapy
CPT/HCPCS: 96376; 96374; 96375; 99285; 36415; 93005; 93351; 85379; 80061; 80053; 83735; 84484 ×2; 85025; 85610; 85730; 71046; 71275; G0378 ×3; J1250; J2270 ×2; J0461; Q9967; J1644

== ENCOUNTER 2023-01-01 08:03 | Observation (INO) | payer BC ==
[2023-01-01] MEDS ORDERED: HYDROmorphone 0.5 MG/0.5 ML SYRINGE IVP STA (08:22)
[2023-01-01] MEDS ORDERED: SODIUM CHLORIDE 0.9% 1,000 ML IV STA (08:22)
[2023-01-01 08:44] LABS: Basophils % (A) 0 %; Eosinophils # (A) 0.7 k/uL (0-0.7); Eosinophils % (A) 8 %; HCT 45.5 % (39.0-53.0); HGB 15.3 gm/dL (13.0-17.5); Lymphocytes # (A) 1.5 k/uL (1.0-4.8); Lymphocytes % (A) 17 %; MCH 30.7 pg (25.0-35.0); MCHC 33.6 g/dL (31.0-37.0); MCV 91.5 fL (80.0-100.0); Mean Platelet Volume 6.9; Monocytes # (A) 0.4 k/uL (0-1.0); Monocytes % (A) 4 %; Neutrophils # (A) 5.8 k/uL (1.3-7.7); Neutrophils % (A) 69 %; Platelet Count 272 k/uL (150-450); RBC 4.98 m/uL (4.30-5.90); RDW 13.3 % (11.5-15.5); WBC 8.4 k/uL (3.8-10.6)
--- NOTE | 2023-01-01 08:45 | ED ---
General Adult HPI - General Chief complaint: Abdominal Pain Stated complaint: Abd Pain Time Seen by Provider: 01/01/23 08:07 Source: patient, RN notes reviewed, old records reviewed Mode of arrival: ambulatory Limitations: no limitations - History of Present Illness Initial comments: 62-year-old male presents for progressive abdominal pain over the past one month. Pain is predominantly right upper quadrant. Patient has had multiple abdominal surgeries including a prolonged surgery at [facility] approximately 3 years ago. He states he has been doing quite well since that time. Patient denies fever. He's had nausea without vomiting. Anytime he eats the pain is significantly worse. He did have a bowel movement this morning which she states was diarrhea. - Related Data Home Medications Medication Instructions Recorded Confirmed Atorvastatin [Lipitor] 10 mg PO HS 12/06/18 01/01/23 Sertraline [Zoloft] 100 mg PO BID 07/20/19 01/01/23 Multivitamins, Thera [Multivitamin 1 tab PO DAILY 08/26/19 01/01/23 (formulary)] Atogepant [Qulipta] 60 mg PO DAILY 12/04/22 01/01/23 Cholecalciferol [Vitamin D3 (125 125 mcg PO DAILY 12/04/22 01/01/23 Mcg = 5000 Iu)] Labetalol HCl 300 mg PO DAILY 12/04/22 01/01/23 Pantoprazole Sodium [Protonix] 40 mg PO BID 12/04/22 01/01/23 Pramipexole [Mirapex] 1 mg PO TID 12/04/22 01/01/23 Testosterone Cypionate 200 mg IM Q14D 12/04/22 01/01/23 [Depo-Testosterone] rOPINIRole HCL [Requip] 2 mg PO HS 12/04/22 01/01/23 traZODone HCL [Desyrel] 100 mg PO HS 12/04/22 01/01/23 Allergies Allergy/AdvReac Type Severity Reaction Status Date / Time No Known Allergies Allergy Verified 01/01/23 08:58 Review of Systems ROS Statement: Those systems with pertinent positive or pertinent negative responses have been documented in the HPI. ROS Other: All systems not noted in ROS Statement are negative. Past Medical History Past Medical History: Chest Pain / Angina, Eye Disorder, GERD/Reflux, Hyperlipidemia, Hypertension, Musculoskeletal Disorder, Skin Disorder Additional Past Medical History / Comment(s): Intestinal malrotation/elongated colon/bowel obstruction/sigmoid volvulus - abdominal/intestinal pain chronic, constipation, recurrent R inguinal hernia with recent repair, cervical pain/pinched nerve, bilateral detached retinas, Vtach with ablation, Psoriasis. History of Any Multi-Drug Resistant Organisms: None Reported Past Surgical History: Appendectomy, Bowel Resection, Cardiac Ablation, Cholecystectomy, Heart Catheterization, Hernia Repair Additional Past Surgical History / Comment(s): R inguinal hernia repairs with last one done 07/22/19, colon resection/lysis of adhesions on 04/22/19, diagnostic laparoscopy/lysis of adhesions, multiple colon surgeries, bilateral cataract removals/lens implants, bilateral retinal detachment surgeries (7). Pain proc, last 10/18/19 Past Anesthesia/Blood Transfusion Reactions: Postoperative Nausea & Vomiting (PONV) Past Psychological History: Anxiety Smoking Status: Former smoker Past Alcohol Use History: None Reported Past Drug Use History: None Reported - Past Family History Mother Family Medical History: Musculoskeletal Disorder, Neurologic Disorder Additional Family Medical History / Comment(s): Parkinsons Father Family Medical History: Pulmonary Embolus General Exam Limitations: no limitations General appearance: alert, in no apparent distress Head exam: Present: atraumatic, normocephalic Eye exam: Present: normal appearance, PERRL ENT exam: Present: mucous membranes dry Neck exam: Present: normal inspection. Absent: tenderness, meningismus Respiratory exam: Present: normal lung sounds bilaterally. Absent: respiratory distress, wheezes Cardiovascular Exam: Present: regular rate, normal rhythm GI/Abdominal exam: Present: distended, tenderness. Absent: guarding, rebound, rigid Extremities exam: Present: normal inspection, normal capillary refill Neurological exam: Present: alert, oriented X3, CN II-XII intact. Absent: motor sensory deficit Psychiatric exam: Present: normal affect, normal mood Skin exam: Present: warm, dry, intact. Absent: cyanosis, diaphoretic Course Vital Signs 01/01/23 08:03 Temperature 97.6 F Pulse Rate 64 Respiratory 18 Rate Blood Pressure 152/92 O2 Sat by Pulse 100 Oximetry Medical Decision Making - Medical Decision Making Was pt. sent in by a medical professional or institution (, PA, [facility], urgent care, hospital, or shelter...) When possible be specific @ -No Did you speak to anyone other than the patient for history (EMS, parent, family, police, friend...)? What history was obtained from this source @ -No Did you review nursing and triage notes (agree or disagree)? Why? @ -I reviewed and agree with nursing and triage notes Were old charts reviewed (outside hosp., previous admission, EMS record, old EKG, old radiological studies, urgent care reports/EKG's, shelter records)? Report findings @ -Previous operative reports Differential Diagnosis (chest pain, altered mental status, abdominal pain women, abdominal pain men, vaginal bleeding, weakness, fever, dyspnea, syncope, headache, dizziness, GI bleed, back pain, seizure, CVA, palpatations, mental health, musculoskeletal)? @ -Differential Abdominal Pain Men: Appendicitis, cholecystitis, diverticulosis, ischemic bowel, pancreatitis, hepatitis, UTI, gastroenteritis, AAA, incarcerated hernia, bowel obstruction, constipation, inflammatory bowel, hepatitis, peptic ulcer disease, splenic infarction, perforated viscus, testicular torsion, this is not meant to be an all-inclusive list EKG interpreted by me (3pts min.). @ -As above X-rays interpreted by me (1pt min.). @ -None done CT interpreted by me (1pt min.). @ -CT negative for acute findings, mild distention of small bowel U/S interpreted by me (1pt. min.). @ -None done What testing was considered but not performed or refused? (CT, X-rays, U/S, labs)? Why? @ -None What meds were considered but not given or refused? Why? @ -None Did you discuss the management of the patient with other professionals (professionals i.e. , PA, [facility], lab, RT, psych nurse, social insurance specialist, criminal lawyer, teacher, seal delivery vehicle officer, vocational case manager)? Give summary @ -Dr. Araya Was smoking cessation discussed for >3mins.? @ -No Was critical care preformed (if so, how long)? @ -No Were there social determinants of health that impacted care today? How? (Homelessness, low income, unemployed, alcoholism, drug addiction, transportation, low edu. Level, literacy, decrease access to med. care, alf, rehab)? @ -No Was there de-escalation of care discussed even if they declined (Discuss DNR or withdrawal of care, Hospice)? DNR status @ -No What co-morbidities impacted this encounter? (DM, HTN, Smoking, COPD, CAD, Cancer, CVA, ARF, Chemo, Hep., AIDS, mental health diagnosis, sleep apnea, morbid obesity)? @ Malrotation Was patient admitted / discharged? Hospital course, mention meds given and route, prescriptions, significant lab abnormalities, going to OR and other pertinent info. @ -62-year-old male presented with abdominal pain nausea telemetry testing unremarkable, CT negative for acute findings. Given the patient's history and current symptoms she will be placed in observation for IV hydration and symptom control. Undiagnosed new problem with uncertain prognosis? @ -No Drug Therapy requiring intensive monitoring for toxicity (Heparin, Nitro, Insulin, Cardizem)? @ -No Were any procedures done? @ -No Diagnosis/symptom? @ Abdominal pain Acute, or Chronic, or Acute on Chronic? @ Acute on chronic Uncomplicated (without systemic symptoms) or Complicated (systemic symptoms)? @ -default Side effects of treatment? @ -No Exacerbation, Progression, or Severe Exacerbation? @ -No Poses a threat to life or bodily function? How? (Chest pain, [place], [place], pneumonia, PE, COPD, DKA, ARF, appy, cholecystitis, CVA, Diverticulitis, Homicidal, Suicidal, threat to staff... and all critical care pts) @ -No - Lab Data Result diagrams: 01/01/23 08:38 01/01/23 08:38 Lab Results 01/01/23 01/01/23 01/01/23 Range/Units 08:38 08:38 08:38 WBC 8.4 (3.8-10.6) k/uL RBC 4.98 (4.30-5.90) m/uL Hgb 15.3 (13.0-17.5) gm/dL Hct 45.5 (39.0-53.0) % MCV 91.5 (80.0-100.0) fL MCH 30.7 (25.0-35.0) pg MCHC 33.6 (31.0-37.0) g/dL RDW 13.3 (11.5-15.5) % Plt Count 272 (150-450) k/uL MPV 6.9 Neutrophils % 69 % Lymphocytes % 17 % Monocytes % 4 % Eosinophils % 8 % Basophils % 0 % Neutrophils # 5.8 (1.3-7.7) k/uL Lymphocytes # 1.5 (1.0-4.8) k/uL Monocytes # 0.4 (0-1.0) k/uL Eosinophils # 0.7 (0-0.7) k/uL Basophils # 0.0 (0-0.2) k/uL Sodium 142 (137-145) mmol/L Potassium 4.1 (3.5-5.1) mmol/L Chloride 101 (98-107) mmol/L Carbon Dioxide 31 H (22-30) mmol/L Anion Gap 10 mmol/L BUN 11 (9-20) mg/dL Creatinine 0.97 (0.66-1.25) mg/dL Est GFR (CKD-EPI)AfAm >90 (>60 ml/min/1.73 sqM) Est GFR (CKD-EPI)NonAf 85 (>60 ml/min/1.73 sqM) Glucose 105 H (74-99) mg/dL Plasma Lactic Acid Edgar (0.7-2.0) mmol/L Calcium 9.5 (8.4-10.2) mg/dL Total Bilirubin 0.4 (0.2-1.3) mg/dL AST 33 (17-59) U/L ALT 26 (4-49) U/L Alkaline Phosphatase 91 (38-126) U/L Total Protein 8.6 H (6.3-8.2) g/dL Albumin 4.8 (3.5-5.0) g/dL Amylase 53 (30-110) U/L Lipase 113 (23-300) U/L Urine Color Yellow Urine Appearance Clear (Clear) Urine pH 8.5 H (5.0-8.0) Ur Specific [place] 1.016 (1.001-1.035) Urine Protein Trace H (Negative) Urine Glucose (UA) Negative (Negative) Urine Ketones Negative (Negative) Urine Blood Negative (Negative) Urine Nitrite Negative (Negative) Urine Bilirubin Negative (Negative) Urine Urobilinogen <2.0 (<2.0) mg/dL Ur Leukocyte Esterase Negative (Negative) 01/01/23 Range/Units 08:38 WBC (3.8-10.6) k/uL RBC (4.30-5.90) m/uL Hgb (13.0-17.5) gm/dL Hct (39.0-53.0) % MCV (80.0-100.0) fL MCH (25.0-35.0) pg MCHC (31.0-37.0) g/dL RDW (11.5-15.5) % Plt Count (150-450) k/uL MPV Neutrophils % % Lymphocytes % % Monocytes % % Eosinophils % % Basophils % % Neutrophils # (1.3-7.7) k/uL Lymphocytes # (1.0-4.8) k/uL Monocytes # (0-1.0) k/uL Eosinophils # (0-0.7) k/uL Basophils # (0-0.2) k/uL Sodium (137-145) mmol/L Potassium (3.5-5.1) mmol/L Chloride (98-107) mmol/L Carbon Dioxide (22-30) mmol/L Anion Gap mmol/L BUN (9-20) mg/dL Creatinine (0.66-1.25) mg/dL Est GFR (CKD-EPI)AfAm (>60 ml/min/1.73 sqM) Est GFR (CKD-EPI)NonAf (>60 ml/min/1.73 sqM) Glucose (74-99) mg/dL Plasma Lactic Acid Edgar 0.7 (0.7-2.0) mmol/L Calcium (8.4-10.2) mg/dL Total Bilirubin (0.2-1.3) mg/dL AST (17-59) U/L ALT (4-49) U/L Alkaline Phosphatase (38-126) U/L Total Protein (6.3-8.2) g/dL Albumin (3.5-5.0) g/dL Amylase (30-110) U/L Lipase (23-300) U/L Urine Color Urine Appearance (Clear) Urine pH (5.0-8.0) Ur Specific [place] (1.001-1.035) Urine Protein (Negative) Urine Glucose (UA) (Negative) Urine Ketones (Negative) Urine Blood (Negative) Urine Nitrite (Negative) Urine Bilirubin (Negative) Urine Urobilinogen (<2.0) mg/dL Ur Leukocyte Esterase (Negative) Disposition Clinical Impression: Abdominal pain Disposition: ADMITTED IP TO [facility] Condition: Stable Is patient prescribed a controlled substance at d/c from ED?: No Referrals: Rod Mckinnon MD [Primary Care Provider] - 1-2 days Time of Disposition: 09:41
[2023-01-01 08:57] LABS: Appearance,Urine Clear (Clear); Bilirubin,Urine Negative (Negative); Blood,Urine Negative (Negative); Color,Urine Yellow; Glucose,Urine (UA) Negative (Negative); Ketones,Urine Negative (Negative); Leukocyte Esterase,Urine Negative (Negative); Nitrite,Urine Negative (Negative); PH, Urine 8.5 (5.0-8.0); Protein,Urine Trace (Negative); Specific Gravity,Urine 1.016 (1.001-1.035); Urobilinogen,Urine <2.0 mg/dL (<2.0)
[2023-01-01 09:25] LABS: ALT 26 U/L (4-49); AST 33 U/L (17-59); African American GFR (CKD) >90 (>60 ml/min/1.73 sqM); Albumin 4.8 g/dL (3.5-5.0); Alkaline Phosphatase 91 U/L (38-126); Amylase 53 U/L (30-110); Anion Gap 10 mmol/L; Blood Urea Nitrogen 11 mg/dL (9-20); Calcium 9.5 mg/dL (8.4-10.2); Carbon Dioxide 31 mmol/L (22-30); Chloride 101 mmol/L (98-107); Glucose 105 mg/dL (74-99); Lipase 113 U/L (23-300); Non-African American GFR(CKD) 85 (>60 ml/min/1.73 sqM); Potassium 4.1 mmol/L (3.5-5.1); Sodium 142 mmol/L (137-145); Total Bilirubin 0.4 mg/dL (0.2-1.3); Total Protein 8.6 g/dL (6.3-8.2)
--- NOTE | 2023-01-01 09:28 | CT ---
EXAMINATION TYPE: CT abdomen pelvis w con DATE OF EXAM: 01/01/2023 COMPARISON: 08/26/2019 HISTORY: Right sided abdominal pain CT DLP: 824.8 mGycm CONTRAST: CT scan of the abdomen and pelvis is performed without Oral Contrast and with IV Contrast, patient in jected with 100 mL of Isovue 300. FINDINGS: LUNG BASES-: No visible nodule. No infiltrate. LIVER/GB: The gallbladder may be contracted. No space occupying hepatic lesion. Biliary tree is of no rmal caliber. PANCREAS: No inflammation. No distinct mass. SPLEEN: No splenic enlargement. No lesion seen. ADRENALS: No nodule. No thickening. KIDNEYS/BLADDER: No hydronephrosis. No nephrolithiasis. No solid distinct renal mass. Small exophy tic cyst midpole left kidney. There is irregular thickening of the urinary bladder which may reflect underlying cystitis. Correlate clinically. BOWEL: Subtotal colectomy with an anastomosis noted at the sigmoid colon. Adjacent to an anastomotic small bowel is mildly distended at 2.5 cm without evidence for obstructive change. There is no eviden ce for leak or free air. No inflammatory process appreciated. GENITAL ORGANS: No gross abnormality. LYMPH NODES: No greater than 1cm abdominal or pelvic lymph nodes are appreciated. AORTA: No significant abnormality. OSSEOUS STRUCTURES: No significant abnormality is seen. OTHER: No significant additional abnormality is seen. IMPRESSION: 1. There is irregular thickening of the urinary bladder which may reflect underlying cystitis. Correl ate clinically. 2. Mild distention of small bowel measuring up to 2.5 cm without inflammatory process or obstructive change. Postoperative changes as discussed.
[2023-01-01] MEDS ORDERED: ONDANSETRON 4 MG/2 ML VIAL IVP PRN (09:36)
[2023-01-01] MEDS ORDERED: NALOXONE 0.4 MG/ML 1 ML VIAL IV PRN (09:36)
[2023-01-01] MEDS ORDERED: HYDROmorphone 0.5 MG/0.5 ML SYRINGE IVP PRN (09:36)
[2023-01-01] MEDS ORDERED: SODIUM CHLORIDE 0.9% 1,000 ML IV SCH (09:45)
--- NOTE | 2023-01-01 13:59 | P.GSHP ---
History of Present Illness H&P Date: 01/01/23 Patient seen and evaluated. CT scan results reviewed. Patient reports chronic abdominal pain. Surgery done at [facility]. Recommend FU as outpatient and FU at [facility] due to extensive surgery. Non-narcotic pain management described. Past Medical History Past Medical History: Chest Pain / Angina, Eye Disorder, GERD/Reflux, Hyperlipidemia, Hypertension, Musculoskeletal Disorder, Skin Disorder Additional Past Medical History / Comment(s): Intestinal malrotation/elongated colon/bowel obstruction/sigmoid volvulus - abdominal/intestinal pain chronic, constipation, recurrent R inguinal hernia with recent repair, cervical pain/pinched nerve, bilateral detached retinas, Vtach with ablation, Psoriasis. History of Any Multi-Drug Resistant Organisms: None Reported Past Surgical History: Appendectomy, Bowel Resection, Cardiac Ablation, Cholecystectomy, Heart Catheterization, Hernia Repair Additional Past Surgical History / Comment(s): R inguinal hernia repairs with last one done 07/22/19, colon resection/lysis of adhesions on 04/22/19, diagnos tic laparoscopy/lysis of adhesions, multiple colon surgeries, bilateral cataract removals/lens implants, bilateral retinal detachment surgeries (7). Pain proc, last 10/18/19 Past Anesthesia/Blood Transfusion Reactions: Postoperative Nausea & Vomiting (PONV) Past Psychological History: Anxiety Smoking Status: Former smoker Past Alcohol Use History: None Reported Past Drug Use History: None Reported - Past Family History Mother Family Medical History: Musculoskeletal Disorder, Neurologic Disorder Additional Family Medical History / Comment(s): Parkinsons Father Family Medical History: Pulmonary Embolus Medications and Allergies Home Medications Medication Instructions Recorded Confirmed Type Atorvastatin [Lipitor] 10 mg PO HS 12/06/18 01/01/23 History Sertraline [Zoloft] 100 mg PO BID 07/20/19 01/01/23 History Multivitamins, Thera [Multivitamin 1 tab PO DAILY 08/26/19 01/01/23 History (formulary)] Atogepant [Qulipta] 60 mg PO DAILY 12/04/22 01/01/23 History Cholecalciferol [Vitamin D3 (125 125 mcg PO DAILY 12/04/22 01/01/23 History Mcg = 5000 Iu)] Labetalol HCl 300 mg PO DAILY 12/04/22 01/01/23 History Pantoprazole Sodium [Protonix] 40 mg PO BID 12/04/22 01/01/23 History Pramipexole [Mirapex] 1 mg PO TID 12/04/22 01/01/23 History Testosterone Cypionate 200 mg IM Q14D 12/04/22 01/01/23 History [Depo-Testosterone] rOPINIRole HCL [Requip] 2 mg PO HS 12/04/22 01/01/23 History traZODone HCL [Desyrel] 100 mg PO HS 12/04/22 01/01/23 History Allergies Allergy/AdvReac Type Severity Reaction Status Date / Time No Known Allergies Allergy Verified 01/01/23 08:58 Surgical - Exam Vital Signs Temp Pulse Resp BP Pulse Ox 97.6 F 64 18 152/92 100 01/01/23 08:03 01/01/23 08:03 01/01/23 08:03 01/01/23 08:03 01/01/23 08:03 Results - Labs 01/01/23 08:38 01/01/23 08:38 Abnormal Lab Results - Last 24 Hours (Table) 01/01/23 01/01/23 Range/Units 08:38 08:38 Carbon Dioxide 31 H (22-30) mmol/L Glucose 105 H (74-99) mg/dL Total Protein 8.6 H (6.3-8.2) g/dL Urine pH 8.5 H (5.0-8.0) Urine Protein Trace H (Negative) Diabetes panel 01/01/23 Range/Units 08:38 Sodium 142 (137-145) mmol/L Potassium 4.1 (3.5-5.1) mmol/L Chloride 101 (98-107) mmol/L Carbon Dioxide 31 H (22-30) mmol/L BUN 11 (9-20) mg/dL Creatinine 0.97 (0.66-1.25) mg/dL Glucose 105 H (74-99) mg/dL Calcium 9.5 (8.4-10.2) mg/dL AST 33 (17-59) U/L ALT 26 (4-49) U/L Alkaline Phosphatase 91 (38-126) U/L Total Protein 8.6 H (6.3-8.2) g/dL Albumin 4.8 (3.5-5.0) g/dL Calcium panel 01/01/23 Range/Units 08:38 Calcium 9.5 (8.4-10.2) mg/dL Albumin 4.8 (3.5-5.0) g/dL Pituitary panel 01/01/23 Range/Units 08:38 Sodium 142 (137-145) mmol/L Potassium 4.1 (3.5-5.1) mmol/L Chloride 101 (98-107) mmol/L Carbon Dioxide 31 H (22-30) mmol/L BUN 11 (9-20) mg/dL Creatinine 0.97 (0.66-1.25) mg/dL Glucose 105 H (74-99) mg/dL Calcium 9.5 (8.4-10.2) mg/dL Adrenal panel 01/01/23 Range/Units 08:38 Sodium 142 (137-145) mmol/L Potassium 4.1 (3.5-5.1) mmol/L Chloride 101 (98-107) mmol/L Carbon Dioxide 31 H (22-30) mmol/L BUN 11 (9-20) mg/dL Creatinine 0.97 (0.66-1.25) mg/dL Glucose 105 H (74-99) mg/dL Calcium 9.5 (8.4-10.2) mg/dL Total Bilirubin 0.4 (0.2-1.3) mg/dL AST 33 (17-59) U/L ALT 26 (4-49) U/L Alkaline Phosphatase 91 (38-126) U/L Total Protein 8.6 H (6.3-8.2) g/dL Albumin 4.8 (3.5-5.0) g/dL
--- NOTE | 2023-01-01 13:59 | ED ---
Medical Decision Making - Lab Data Result diagrams: 01/01/23 08:38 01/01/23 08:38 Lab Results 01/01/23 01/01/23 01/01/23 Range/Units 08:38 08:38 08:38 WBC 8.4 (3.8-10.6) k/uL RBC 4.98 (4.30-5.90) m/uL Hgb 15.3 (13.0-17.5) gm/dL Hct 45.5 (39.0-53.0) % MCV 91.5 (80.0-100.0) fL MCH 30.7 (25.0-35.0) pg MCHC 33.6 (31.0-37.0) g/dL RDW 13.3 (11.5-15.5) % Plt Count 272 (150-450) k/uL MPV 6.9 Neutrophils % 69 % Lymphocytes % 17 % Monocytes % 4 % Eosinophils % 8 % Basophils % 0 % Neutrophils # 5.8 (1.3-7.7) k/uL Lymphocytes # 1.5 (1.0-4.8) k/uL Monocytes # 0.4 (0-1.0) k/uL Eosinophils # 0.7 (0-0.7) k/uL Basophils # 0.0 (0-0.2) k/uL Sodium 142 (137-145) mmol/L Potassium 4.1 (3.5-5.1) mmol/L Chloride 101 (98-107) mmol/L Carbon Dioxide 31 H (22-30) mmol/L Anion Gap 10 mmol/L BUN 11 (9-20) mg/dL Creatinine 0.97 (0.66-1.25) mg/dL Est GFR (CKD-EPI)AfAm >90 (>60 ml/min/1.73 sqM) Est GFR (CKD-EPI)NonAf 85 (>60 ml/min/1.73 sqM) Glucose 105 H (74-99) mg/dL Plasma Lactic Acid Edgar (0.7-2.0) mmol/L Calcium 9.5 (8.4-10.2) mg/dL Total Bilirubin 0.4 (0.2-1.3) mg/dL AST 33 (17-59) U/L ALT 26 (4-49) U/L Alkaline Phosphatase 91 (38-126) U/L Total Protein 8.6 H (6.3-8.2) g/dL Albumin 4.8 (3.5-5.0) g/dL Amylase 53 (30-110) U/L Lipase 113 (23-300) U/L Urine Color Yellow Urine Appearance Clear (Clear) Urine pH 8.5 H (5.0-8.0) Ur Specific [place] 1.016 (1.001-1.035) Urine Protein Trace H (Negative) Urine Glucose (UA) Negative (Negative) Urine Ketones Negative (Negative) Urine Blood Negative (Negative) Urine Nitrite Negative (Negative) Urine Bilirubin Negative (Negative) Urine Urobilinogen <2.0 (<2.0) mg/dL Ur Leukocyte Esterase Negative (Negative) 01/01/23 Range/Units 08:38 WBC (3.8-10.6) k/uL RBC (4.30-5.90) m/uL Hgb (13.0-17.5) gm/dL Hct (39.0-53.0) % MCV (80.0-100.0) fL MCH (25.0-35.0) pg MCHC (31.0-37.0) g/dL RDW (11.5-15.5) % Plt Count (150-450) k/uL MPV Neutrophils % % Lymphocytes % % Monocytes % % Eosinophils % % Basophils % % Neutrophils # (1.3-7.7) k/uL Lymphocytes # (1.0-4.8) k/uL Monocytes # (0-1.0) k/uL Eosinophils # (0-0.7) k/uL Basophils # (0-0.2) k/uL Sodium (137-145) mmol/L Potassium (3.5-5.1) mmol/L Chloride (98-107) mmol/L Carbon Dioxide (22-30) mmol/L Anion Gap mmol/L BUN (9-20) mg/dL Creatinine (0.66-1.25) mg/dL Est GFR (CKD-EPI)AfAm (>60 ml/min/1.73 sqM) Est GFR (CKD-EPI)NonAf (>60 ml/min/1.73 sqM) Glucose (74-99) mg/dL Plasma Lactic Acid Edgar 0.7 (0.7-2.0) mmol/L Calcium (8.4-10.2) mg/dL Total Bilirubin (0.2-1.3) mg/dL AST (17-59) U/L ALT (4-49) U/L Alkaline Phosphatase (38-126) U/L Total Protein (6.3-8.2) g/dL Albumin (3.5-5.0) g/dL Amylase (30-110) U/L Lipase (23-300) U/L Urine Color Urine Appearance (Clear) Urine pH (5.0-8.0) Ur Specific [place] (1.001-1.035) Urine Protein (Negative) Urine Glucose (UA) (Negative) Urine Ketones (Negative) Urine Blood (Negative) Urine Nitrite (Negative) Urine Bilirubin (Negative) Urine Urobilinogen (<2.0) mg/dL Ur Leukocyte Esterase (Negative) Disposition Clinical Impression: Abdominal pain Disposition: HOME SELF-CARE Condition: Good Is patient prescribed a controlled substance at d/c from ED?: No Time of Disposition: 13:59
[2023-01-01 14:07] VITALS: BP 130/90; PULSE 57; RESP 16; TEMP 98.1
== END 2023-01-01 14:15 | disposition home or self-care (01) ==
LOC: EC 08:03 → 6NMEDSUR 09:37
PROVIDERS: ADMIT Surgery Plastic and Reconstructive Surgery; ATTEND Surgery Plastic and Reconstructive Surgery
DX: R10.11 Right upper quadrant pain (principal); G89.29 Other chronic pain; K21.9 Gastro-esophageal reflux disease without esophagitis; E78.5 Hyperlipidemia, unspecified; I10 Essential (primary) hypertension; F41.9 Anxiety disorder, unspecified; Z87.891 Personal history of nicotine dependence; Z79.899 Other long term (current) drug therapy
CPT/HCPCS: 36415; 74177; 80053; 81003; 82150; 83605; 83690; 85025; 96361; 96374; 96376; 99285

== ENCOUNTER → 2023-02-07 | Outpatient (CLI) | payer BC ==
--- NOTE | 2023-02-07 10:36 | MR ---
EXAMINATION TYPE: MR cervical spine wo/w con DATE OF EXAM: 02/07/2023 9:51 AM COMPARISON: 621 HISTORY: Neck pain that radiates into left arm to fingers CONTRAST: The patient was injected with 8 mL intravenous Gadavist gadolinium contrast. Multiplanar MultiSpin echo imaging of the cervical spine was performed. C2-C3: No evidence for degenerative disc disease. No disc bulge/herniation or protrusion. No Canal stenosis. Foramina are patent bilaterally. C3-C4: No evidence for degenerative disc disease. No disc bulge/herniation or protrusion. No Canal stenosis. Foramina are patent bilaterally. C4-C5: No evidence for degenerative disc disease. No disc bulge/herniation or protrusion. No Canal stenosis. Foramina are patent bilaterally. C5-C6: Moderate disc desiccation. Small posterior disc bulge noted. Mild effacement ventral thecal sa c. Degenerative change cervical apophyseal joints with left greater than right neural foraminal encro achment. C6-C7: Postsurgical changes of cervical fusion with anterior fixation plate in place. Anatomic postop erative alignment. No evidence for recurrent or residual disease. Foramina are patent. C7-T1: No evidence for degenerative disc disease. No disc bulge/herniation or protrusion. No Canal stenosis. Foramina are patent bilaterally. No cervical spine fracture. There is normal alignment. Cervical spinal cord is of normal signal. C raniovertebral junction relationships are within normal limits. No pathologic enhancement. IMPRESSION: 1. ACDF changes C6-7. 2. Disc Bulging at C5-6 with disc desiccation. Bilateral neural foraminal encroachment at this level.
== END | disposition home or self-care (01) ==
LOC: RADMRIMAIN 09:09
PROVIDERS: ATTEND Psychiatry & Neurology Neurology
DX: M50.222 Other cervical disc displacement at C5-C6 level (principal); M99.71 Connective tissue and disc stenosis of intervertebral foramina of cervical region
CPT/HCPCS: 72156; A9585

== ENCOUNTER 2023-04-27 12:46 | Emergency (ER) | payer BC ==
[2023-04-27 13:11] VITALS: TEMP 98
--- NOTE | 2023-04-27 13:38 | ED ---
Abdominal Pain HPI - General Source: patient, RN notes reviewed Mode of arrival: ambulatory Limitations: no limitations - History of Present Illness MD Complaint: abdominal pain Onset/Timin -: days(s) <Kacy Quinn - Last Filed: 04/27/23 13:36> <Clover Munoz - Last Filed: 04/28/23 21:11> - General Chief Complaint: Abdominal Pain Stated Complaint: abd pain Time Seen by Provider: 04/27/23 13:35 - History of Present Illness Initial Comments: This is a 62-year-old male who presents to the emergency department for abdominal pain, nausea, and diarrhea. Symptoms started yesterday. Denies any sick contacts or coming into contact with any new foods. Also denies any fevers or chills. (Kacy Quinn) Quick note reviewed: This is a pleasant 62-year-old male with an extensive trauma surgery history who presents the emergency department with acute abdominal pain. Patient reports worsening right upper quadrant epigastric pain that started last night. He denies taking anything for his symptoms. He reports worsening symptoms of nausea however no vomiting. Denies known fever or chills, chest pain, shortness of breath. He does have diarrhea however this is chronic and condition. He denies any melena, hematochezia, dysuria, flank pain. Patient to use [facility] for his GI specialist. (Clover Munoz) - Related Data Home Medications Medication Instructions Recorded Confirmed Atorvastatin [Lipitor] 10 mg PO HS 12/06/18 04/27/23 Sertraline [Zoloft] 100 mg PO DAILY 07/20/19 04/27/23 Cholecalciferol [Vitamin D3 (125 125 mcg PO DAILY 12/04/22 04/27/23 Mcg = 5000 Iu)] Labetalol HCl 300 mg PO BID 12/04/22 04/27/23 Pantoprazole Sodium [Protonix] 40 mg PO BID 12/04/22 04/27/23 Pramipexole [Mirapex] 1 mg PO TID 12/04/22 04/27/23 Testosterone Cypionate 200 mg IM Q14D 12/04/22 04/27/23 [Depo-Testosterone] traZODone HCL [Desyrel] 100 mg PO HS 12/04/22 04/27/23 Betamethasone Dipropionate 1 applic TOPICAL BID PRN 04/27/23 04/27/23 [Diprolene AF 0.05% Cream] Guselkumab [Tremfya] 100 mg SQ Q56D 04/27/23 04/27/23 Losartan [Cozaar] 50 mg PO BID 04/27/23 04/27/23 Previous Rx's Medication Instructions Recorded Acetaminophen Tab [Tylenol Tab] 1,000 mg PO Q6HR PRN #30 tablet 01/01/23 Allergies Allergy/AdvReac Type Severity Reaction Status Date / Time No Known Allergies Allergy Verified 04/27/23 16:26 Review of Systems ROS Other: All systems not noted in ROS Statement are negative. <Kacy Quinn - Last Filed: 04/27/23 13:36> ROS Other: All systems not noted in ROS Statement are negative. <Clover Munoz - Last Filed: 04/28/23 21:11> ROS Statement: Those systems with pertinent positive or pertinent negative responses have been documented in the HPI. Past Medical History Past Medical History: Chest Pain / Angina, Eye Disorder, GERD/Reflux, Hyperlipidemia, Hypertension, Musculoskeletal Disorder, Skin Disorder Additional Past Medical History / Comment(s): Intestinal malrotation/elongated colon/bowel obstruction/sigmoid volvulus - abdominal/intestinal pain chronic, constipation, recurrent R inguinal hernia with recent repair, cervical pain/pinched nerve, bilateral detached retinas, Vtach with ablation, Psoriasis. History of Any Multi-Drug Resistant Organisms: None Reported Past Surgical History: Appendectomy, Bowel Resection, Cardiac Ablation, Cholecystectomy, Heart Catheterization, Hernia Repair Additional Past Surgical History / Comment(s): R inguinal hernia repairs with last one done 07/22/19, colon resection/lysis of adhesions on 04/22/19, diagnostic laparoscopy/lysis of adhesions, multiple colon surgeries, bilateral cataract removals/lens implants, bilateral retinal detachment surgeries (7). Pain proc, last 10/18/19 Past Anesthesia/Blood Transfusion Reactions: Postoperative Nausea & Vomiting (PONV) Past Psychological History: Anxiety Smoking Status: Former smoker Past Alcohol Use History: None Reported Past Drug Use History: None Reported - Past Family History Mother Family Medical History: Musculoskeletal Disorder, Neurologic Disorder Additional Family Medical History / Comment(s): Parkinsons Father Family Medical History: Pulmonary Embolus <Kacy Quinn - Last Filed: 04/27/23 13:36> General Exam Limitations: no limitations <Kacy Quinn - Last Filed: 04/27/23 13:36> <Clover Munoz - Last Filed: 04/28/23 21:11> - General Exam Comments Initial Comments: Visual Physical Exam Vital signs reviewed General: Well-appearing, nontoxic, no acute distress. Head: Normocephalic, atraumatic Eyes: PERRLA, EOMI ENT: Airway patent Chest: Nonlabored breathing Skin: No visual rash, normal skin tone Neuro: Alert and oriented 3 Musculoskeletal: No gross abnormalities I performed the QuickNote portion of this chart. Signed Kacy Quinn PA-C. (Kacy Quinn) General: Alert, in no acute distress Head: atraumatic normocephalic. Eyes PERRL, EOMI intact, mucous membranes moist Respiratory: Lungs clear to auscultation bilaterally Cardiovascular: Heart rate regular rate and rhythm Abdominal: Soft without guarding or rebound, generalized tenderness Extremities: Normal inspection with full range of motion and normal capillary refill Neuroogic: alert and oriented 3, CN II-XII intact, able to ambulate with steady gait Skin: warm dry and intact with normal color (Clover Munoz) Course Vital Signs 04/27/23 04/27/23 04/27/23 13:09 16:33 17:50 Temperature 98.0 F Pulse Rate 62 66 62 Respiratory 20 18 18 Rate Blood Pressure 132/84 131/80 127/84 O2 Sat by Pulse 99 99 98 Oximetry Medical Decision Making - Lab Data Result diagrams: 04/27/23 13:19 04/27/23 13:19 <Clover Munoz - Last Filed: 04/28/23 21:11> - Medical Decision Making Was pt. sent in by a medical professional or institution ([facility], [employer]PECTOR, urgent care, hospital, or care home...) When possible be specific @ -[No] Did you speak to anyone other than the patient for history (EMS, parent, family, police, friend...)? What history was obtained from this source @ - Did you review nursing and triage notes (agree or disagree)? Why? @ -[I reviewed and agree with nursing and triage notes] Were old charts reviewed (outside hosp., previous admission, EMS record, old EKG, old radiological studies, urgent care reports/EKG's, care home records)? Report findings @ -[No old charts were reviewed] Differential Diagnosis (chest pain, altered mental status, abdominal pain women, abdominal pain men, vaginal bleeding, weakness, fever, dyspnea, syncope, headache, dizziness, GI bleed, back pain, seizure, CVA, palpatations, mental health, musculoskeletal)? @ -[not applicable] EKG interpreted by me (3pts min.). @ -[As above] X-rays interpreted by me (1pt min.). @ -Abdominal x-ray does not reveal any specific bowel pattern CT interpreted by me (1pt min.). @ -CT abdomen reveals status post partial colectomy for visual mid to distal sigmoid colon and rectum shows no gross abnormality. There are some mildly thickened jejunal loops in the left side of the abdomen considered nonspecific mild generalized enteritis U/S interpreted by me (1pt. min.). @ -[None done] What testing was considered but not performed or refused? (CT, X-rays, U/S, labs)? Why? @ -[None] What meds were considered but not given or refused? Why? @ -[None] Did you discuss the management of the patient with other professionals (professionals i.e. , PA, QUARTER INSPECTOR, lab, RT, psych nurse, social sciences instructor, conductor freight, teacher, employee service officer, lead case manager)? Give summary @ -[No] Was smoking cessation discussed for >3mins.? @ -[No] Was critical care preformed (if so, how long)? @ -[No] Were there social determinants of health that impacted care today? How? (Homelessness, low income, unemployed, alcoholism, drug addiction, transportation, low edu. Level, literacy, decrease access to med. care, detention, rehab)? @ -[No] Was there de-escalation of care discussed even if they declined (Discuss DNR or withdrawal of care, Hospice)? DNR status @ -[No] What co-morbidities impacted this encounter? (DM, HTN, Smoking, COPD, CAD, Cancer, CVA, ARF, Chemo, Hep., AIDS, mental health diagnosis, sleep apnea, morbid obesity)? @ -[None] Was patient admitted / discharged? Hospital course, mention meds given and route, prescriptions, significant lab abnormalities, going to OR and other pertinent info. @ -Discharged. This is a pleasant 62-year-old male with extensive abdominal history who presents the emergency department with generalized abdominal pain. Patient had a thorough history and physical exam performed on the ED. Physical exam is essentially unremarkable. Heart rate regular rate and rhythm, lungs clear to auscultation bilaterally, abdomen is soft with mild epigastric tenderness. Patient able to ambulate with a steady gait move all extremities freely. Patient had extensive laboratory and imaging workup which is essentially unremarkable. I discussed results in detail with the patient who verbalized understanding. Patient was given a Toradol, Pepcid, Zofran, morphine with symptomatic relief on the emergency department. Patient discharged in stable condition. Return precautions were discussed at length. Case discussed with Dr. Hughes [facility] who agrees with plan of care Undiagnosed new problem with uncertain prognosis? @ -[No] Drug Therapy requiring intensive monitoring for toxicity (Heparin, Nitro, Insulin, Cardizem)? @ -[No] Were any procedures done? @ -[No] Diagnosis/symptom? @ -Abdominal Pain Acute, or Chronic, or Acute on Chronic? @ -Acute on Chronic Uncomplicated (without systemic symptoms) or Complicated (systemic symptoms)? @ -Uncomplicated Side effects of treatment? @ -[No] Exacerbation, Progression, or Severe Exacerbation? @ -[No] Poses a threat to life or bodily function? How? (Chest pain, [place], [place], pneumonia, PE, COPD, DKA, ARF, appy, cholecystitis, CVA, Diverticulitis, Homicidal, Suicidal, threat to staff... and all critical care pts) @ -Low likelihood (Clover Munoz) - Lab Data Lab Results 04/27/23 04/27/23 04/27/23 Range/Units 13:19 13:19 14:43 WBC 10.4 (3.8-10.6) k/uL RBC 4.85 (4.30-5.90) m/uL Hgb 15.4 (13.0-17.5) gm/dL Hct 43.8 (39.0-53.0) % MCV 90.2 (80.0-100.0) fL MCH 31.7 (25.0-35.0) pg MCHC 35.2 (31.0-37.0) g/dL RDW 12.6 (11.5-15.5) % Plt Count 262 (150-450) k/uL MPV 7.6 Neutrophils % 65 % Lymphocytes % 24 % Monocytes % 5 % Eosinophils % 5 % Basophils % 0 % Neutrophils # 6.7 (1.3-7.7) k/uL Lymphocytes # 2.5 (1.0-4.8) k/uL Monocytes # 0.5 (0-1.0) k/uL Eosinophils # 0.5 (0-0.7) k/uL Basophils # 0.0 (0-0.2) k/uL Sodium 139 (137-145) mmol/L Potassium 4.0 (3.5-5.1) mmol/L Chloride 102 (98-107) mmol/L Carbon Dioxide 30 (22-30) mmol/L Anion Gap 7 mmol/L BUN 14 (9-20) mg/dL Creatinine 1.09 (0.66-1.25) mg/dL Est GFR (CKD-EPI)AfAm 85 (>60 ml/min/1.73 sqM) Est GFR (CKD-EPI)NonAf 73 (>60 ml/min/1.73 sqM) Glucose 103 H (74-99) mg/dL Plasma Lactic Acid Edgar (0.7-2.0) mmol/L Calcium 9.1 (8.4-10.2) mg/dL Total Bilirubin 0.7 (0.2-1.3) mg/dL AST 35 (17-59) U/L ALT 26 (4-49) U/L Alkaline Phosphatase 91 (38-126) U/L Total Protein 7.8 (6.3-8.2) g/dL Albumin 4.5 (3.5-5.0) g/dL Amylase 50 (30-110) U/L Lipase 105 (23-300) U/L Coronavirus (PCR) Not Detected (Not Detectd) 04/27/23 Range/Units 14:51 WBC (3.8-10.6) k/uL RBC (4.30-5.90) m/uL Hgb (13.0-17.5) gm/dL Hct (39.0-53.0) % MCV (80.0-100.0) fL MCH (25.0-35.0) pg MCHC (31.0-37.0) g/dL RDW (11.5-15.5) % Plt Count (150-450) k/uL MPV Neutrophils % % Lymphocytes % % Monocytes % % Eosinophils % % Basophils % % Neutrophils # (1.3-7.7) k/uL Lymphocytes # (1.0-4.8) k/uL Monocytes # (0-1.0) k/uL Eosinophils # (0-0.7) k/uL Basophils # (0-0.2) k/uL Sodium (137-145) mmol/L Potassium (3.5-5.1) mmol/L Chloride (98-107) mmol/L Carbon Dioxide (22-30) mmol/L Anion Gap mmol/L BUN (9-20) mg/dL Creatinine (0.66-1.25) mg/dL Est GFR (CKD-EPI)AfAm (>60 ml/min/1.73 sqM) Est GFR (CKD-EPI)NonAf (>60 ml/min/1.73 sqM) Glucose (74-99) mg/dL Plasma Lactic Acid Edgar 1.0 (0.7-2.0) mmol/L Calcium (8.4-10.2) mg/dL Total Bilirubin (0.2-1.3) mg/dL AST (17-59) U/L ALT (4-49) U/L Alkaline Phosphatase (38-126) U/L Total Protein (6.3-8.2) g/dL Albumin (3.5-5.0) g/dL Amylase (30-110) U/L Lipase (23-300) U/L Coronavirus (PCR) (Not Detectd) Disposition <Kacy Quinn - Last Filed: 04/27/23 13:36> Is patient prescribed a controlled substance at d/c from ED?: No Time of Disposition: 17:17 <Clover Munoz - Last Filed: 04/28/23 21:11> Clinical Impression: Abdominal pain Disposition: HOME SELF-CARE Condition: Stable Instructions (If sedation given, give patient instructions): Abdominal Pain (ED) Additional Instructions: Please return to the nearest emergency department if nausea, vomiting, abdominal pain develop Referrals: Martir Godoy DO [Primary Care Provider] - 1-2 days
[2023-04-27 13:57] LABS: ALT 26 U/L (4-49); AST 35 U/L (17-59); African American GFR (CKD) 85 (>60 ml/min/1.73 sqM); Albumin 4.5 g/dL (3.5-5.0); Alkaline Phosphatase 91 U/L (38-126); Amylase 50 U/L (30-110); Anion Gap 7 mmol/L; Blood Urea Nitrogen 14 mg/dL (9-20); Calcium 9.1 mg/dL (8.4-10.2); Carbon Dioxide 30 mmol/L (22-30); Chloride 102 mmol/L (98-107); Glucose 103 mg/dL (74-99); Lipase 105 U/L (23-300); Non-African American GFR(CKD) 73 (>60 ml/min/1.73 sqM); Sodium 139 mmol/L (137-145); Total Bilirubin 0.7 mg/dL (0.2-1.3); Total Protein 7.8 g/dL (6.3-8.2)
[2023-04-27 14:05] LABS: Basophils % (A) 0 %; Eosinophils # (A) 0.5 k/uL (0-0.7); Eosinophils % (A) 5 %; HCT 43.8 % (39.0-53.0); HGB 15.4 gm/dL (13.0-17.5); Lymphocytes # (A) 2.5 k/uL (1.0-4.8); Lymphocytes % (A) 24 %; MCH 31.7 pg (25.0-35.0); MCHC 35.2 g/dL (31.0-37.0); MCV 90.2 fL (80.0-100.0); Mean Platelet Volume 7.6; Monocytes # (A) 0.5 k/uL (0-1.0); Monocytes % (A) 5 %; Neutrophils # (A) 6.7 k/uL (1.3-7.7); Neutrophils % (A) 65 %; Platelet Count 262 k/uL (150-450); RBC 4.85 m/uL (4.30-5.90); RDW 12.6 % (11.5-15.5); WBC 10.4 k/uL (3.8-10.6)
--- NOTE | 2023-04-27 14:22 | XR ---
EXAMINATION TYPE: XR abdomen complete w decub DATE OF EXAM: 04/27/2023 COMPARISON: 01/01/2023 HISTORY: Pain TECHNIQUE: Supine, upright, and left side down lateral decubitus views of the abdomen are obtained. FINDINGS: There is no evidence for pneumoperitoneum. Mild hypertrophic degenerative change of the spine. Calci fications in pelvis appears related to vascular phlebolith. The bowel gas pattern is unremarkable as there is air throughout nondilated small and large bowel. No sizeable air fluid levels. No mass effects are seen. No unusual calcifications. IMPRESSION: Nonspecific abdomen with no diagnostic evidence of obstruction.
[2023-04-27] MEDS ORDERED: ONDANSETRON 4 MG/2 ML VIAL IVP STA (14:39)
[2023-04-27] MEDS ORDERED: KETOROLAC 15 MG/ML 1 ML VIAL IVP STA (14:39)
[2023-04-27] MEDS ORDERED: FAMOTIDINE 20 MG/2 ML VIAL IV STA (14:39)
[2023-04-27] MEDS ORDERED: SODIUM CHLORIDE 0.9% 1,000 ML IV ONE (14:39)
--- NOTE | 2023-04-27 16:06 | CT ---
EXAMINATION TYPE: CT abdomen pelvis w con DATE OF EXAM: 04/27/2023 COMPARISON: 01/01/2023 HISTORY: 62-year-old male Abdominal pain TECHNIQUE: Contiguous axial scanning of the abdomen and pelvis following administration of 100 ml Iso apollo 300 IV contrast. Delayed images through the kidneys and coronal/sagittal reconstructions perform ed. CT DLP: 981 mGycm Automated exposure control for dose reduction was used. FINDINGS: LUNG BASES: No significant abnormality is appreciated. LIVER/GB: No significant abnormality is appreciated. PANCREAS: No significant abnormality is seen. SPLEEN: No significant abnormality is seen. ADRENALS: No significant abnormality is seen. KIDNEYS: A couple renal cortical cysts on the left measuring up to 1.8 cm. BOWEL: Many mild jejunal fold thickening in the left side of the abdomen with some scattered small ai r-fluid levels. No dilated small bowel, free fluid, or free air. There may be previous near complete colectomy. The visualized mid to distal sigmoid colon and rectum shows no gross abnormality. LYMPH NODES: No significant abnormality is seen. OTHER: No significant abnormality is seen. PELVIS: Mild circumferential bladder wall thickening may be chronic from the patient. No abnormal flu id collection in the pelvis or pelvic lymphadenopathy. BONES: No significant abnormality is seen. IMPRESSION: 1. STATUS POST PARTIAL COLECTOMY. THE VISUALIZED MID TO DISTAL SIGMOID COLON AND RECTUM SHOWS NO LAURA S ANOMALY. 2. MAY BE SOME MILDLY THICKENED JEJUNAL LOOPS IN THE LEFT SIDE OF THE ABDOMEN. CONSIDER A NONSPECIFIC MILD REGIONAL ENTERITIS. 3. MILD CIRCUMFERENTIAL BLADDER WALL THICKENING MAY BE CHRONIC FOR THE PATIENT. CORRELATE TO EXCLUDE CYSTITIS.
[2023-04-27] MEDS ORDERED: MORPHINE SULFATE 4 MG/ML SYRINGE IVP STA (16:26)
[2023-04-27 16:34] VITALS: RESP 18
[2023-04-27 17:52] VITALS: BP 127/84; PULSE 62
== END 2023-04-27 17:51 | disposition home or self-care (01) ==
LOC: EC 12:46
DX: K52.9 Noninfective gastroenteritis and colitis, unspecified (principal); I10 Essential (primary) hypertension; K21.9 Gastro-esophageal reflux disease without esophagitis; E78.5 Hyperlipidemia, unspecified; F41.9 Anxiety disorder, unspecified; Z20.822 Contact with and (suspected) exposure to COVID-19; Z79.899 Other long term (current) drug therapy; Z90.49 Acquired absence of other specified parts of digestive tract; Z87.891 Personal history of nicotine dependence
CPT/HCPCS: 99285; 96374; 96375 ×3; 96361; 36415; 80053; 82150; 83605; 83690; 85025; 87635; 74021; 74177; J2270; J2405; J3490; J1885; Q9967

== ENCOUNTER → 2023-07-01 | Outpatient (CLI) | payer BC ==
--- NOTE | 2023-07-01 17:55 | MR ---
EXAMINATION TYPE: MR lumbar spine wo con DATE OF EXAM: 07/01/2023 COMPARISON: CT abdomen and pelvis April 27, 2023 HISTORY: Low back pain that radiates down both legs. Radiculopathy per order. TECHNIQUE: Multiplanar, multisequence imaging of the lumbar spine is performed without IV contrast. FINDINGS: Sagittal images of the lumbar spine show vertebral body heights and alignment to appear sat isfactory. Multilevel disc desiccation is seen. There is mild disc space narrowing at L4-L5 level re demonstrated. The conus medullaris is normal in position and signal ending at mid L1 level. The bone marrow signal intensity is within normal limits. Axial images show T12-L1 level to appear within normal limits. Axial images at L1-L2 level show broad-based right paracentral disc protrusion mildly facing anterior thecal sac. Patent bilateral neural foramina. Axial images at L2-L3 level and L3-L4 levels show mild broad disc bulges minimally effacing the anter ior thecal sac. There is mild facet arthropathy bilaterally at L3-L4 level. Bilateral neural foramina remain patent. Axial images at L4-L5 level show mild broad disc bulge and facet arthropathy bilaterally. There is mi nimal effacement of the anterior thecal sac. Bilateral neural foramina remain patent. Axial images at L5-S1 level shows mild facet arthropathy bilaterally. Spinal canal is preserved. Bila teral neural foramina are patent. Paraspinal muscle bulk is preserved. There is 1.9 cm simple appearing thin-walled cyst in the left ki dney axial image 26. IMPRESSION: Multilevel degenerative change in the lumbar spine as detailed above.
== END | disposition home or self-care (01) ==
LOC: RADMRIMAIN 16:19
PROVIDERS: ATTEND Neurological Surgery
DX: M51.16 Intervertebral disc disorders with radiculopathy, lumbar region (principal); M47.27 Other spondylosis with radiculopathy, lumbosacral region; M99.73 Connective tissue and disc stenosis of intervertebral foramina of lumbar region
CPT/HCPCS: 72148

== ENCOUNTER → 2023-07-09 | Outpatient (CLI) | payer BC ==
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
== END ==
LOC: 3 N SLEEP 14:10
PROVIDERS: ATTEND Internal Medicine
DX: G47.33 Obstructive sleep apnea (adult) (pediatric) (principal); I10 Essential (primary) hypertension; M51.9 Unspecified thoracic, thoracolumbar and lumbosacral intervertebral disc disorder; G89.29 Other chronic pain; F41.9 Anxiety disorder, unspecified; E78.5 Hyperlipidemia, unspecified; K21.9 Gastro-esophageal reflux disease without esophagitis; Z86.79 Personal history of other diseases of the circulatory system; Z98.41 Cataract extraction status, right eye; Z98.42 Cataract extraction status, left eye; Z98.890 Other specified postprocedural states; Z86.69 Personal history of other diseases of the nervous system and sense organs; Z87.39 Personal history of other diseases of the musculoskeletal system and connective tissue; Z87.891 Personal history of nicotine dependence; Z87.19 Personal history of other diseases of the digestive system; Z79.899 Other long term (current) drug therapy
CPT/HCPCS: 99211

== ENCOUNTER → 2023-07-21 | Outpatient (CLI) | payer BC ==
--- NOTE | 2023-07-23 08:30 | CT ---
EXAMINATION TYPE: CT angio chest DATE OF EXAM: 07/21/2023 COMPARISON: 12/05/2022 HISTORY: Patient states that he has 2 existing aneurysms that are too small for surgery but have been monitoring for [address] DLP: 670.2 mGycm CONTRAST: CTA thoracic aorta with 3-D reconstruction is performed and without and with IV Contrast, patient inj ected with 100 cc mL of Isovue 370. Contrast CTA of the thoracic aorta was performed from the lung apex through the upper abdomen. 3D re construction imaging obtained at a separate workstation. CT Chest: THORACIC AORTA: Descending thoracic aorta is mildly aneurysmal at 4 cm AP dimension. The aortic arch is of normal caliber. Proximal descending thoracic aorta is mildly aneurysmal at 3.2 cm at the aortic hiatus seen the thoracic aorta is of normal caliber measuring 2.3 cm. Mid descending thoracic aorta is of normal caliber at 2.6 cm. Mild atheromatous changes seen. There is no evidence for dissection or periaortic collection. LUNGS: The lungs are clear and free of infiltrate or atelectasis. No pulmonary nodule or mass is det ected. No pleural effusion or CT evidence of interstitial lung disease. MEDIASTINUM: No evidence for mediastinal hematoma. The heart is not enlarged. No evidence for med iastinal mass or adenopathy. HILAR STRUCTURES: No evidence for mass. No hilar adenopathy is appreciated. OTHER: No significant abnormality. IMPRESSION- 1. Mild ascending thoracic aortic aneurysm as well as mild aneurysm of the proximal descending thorac ic aorta. No complicating factors noted.
== END | disposition home or self-care (01) ==
LOC: RADCTMAIN 15:37
PROVIDERS: ATTEND Surgery
DX: I71.21 Aneurysm of the ascending aorta, without rupture (principal); I71.23 Aneurysm of the descending thoracic aorta, without rupture
CPT/HCPCS: 71275; Q9967

== ENCOUNTER → 2023-07-22 | Outpatient (CLI) | payer BC ==
--- NOTE | 2023-07-23 12:38 | P.PCN ---
Description of Procedure: CLINICAL: A home sleep apnea test has been done for confirmation of possible obstructive sleep apnea-hypopnea syndrome. DESCRIPTION OF PROCEDURE: RESULTS: Recording time was 6 hours 56 minutes. Evaluation time was 6 hours 43 minutes. Evaluation time is sufficient for making conclusion about results of the test. Raw data of sleep recording has been reviewed and is adequate. Respiratory channel showed 175 apneas and 281 hypopneas. Apnea-hypopnea index was 67.8 per hour. Pulse rate in the range between minimum 50, maximum 105, average 72 by computer calculation. Lowest desaturation was 69%. IMPRESSION: 1. Severe Obstructive Sleep Apnea Hypopnea Syndrome with severe oxygen desaturation. Please see other impressions from consultation. PLAN: 1. The patient should have PAP titration for correction of respiratory abnormallities during sleep. 2. I will see patient for follow up visit to discuss results of the test, eval uate clinical response on treatment with PAP therapy and make any necessary adjustments related to mask fitting, pressure, and humidification. 3. Watching weight. 4. Sleep hygiene with regular time in bed for at least 8 hours. 5. No driving if feeling any sleepiness. Thank you very much for allowing me to participate in the management of your patient. Sincerely, David eSrra MD, PhD, FAASM Diplomat of [place] [employer] Sleep Medicine Board of [place] [employer] Head Counselor of [facility] [place]
== END ==
LOC: 3 N SLEEP 13:03
PROVIDERS: ATTEND Internal Medicine
DX: G47.33 Obstructive sleep apnea (adult) (pediatric) (principal); G47.10 Hypersomnia, unspecified; Z87.891 Personal history of nicotine dependence

== ENCOUNTER → 2023-08-25 | Outpatient (CLI) | payer BC ==
[2023-08-25 09:11] VITALS: BP 120/82; PULSE 89; RESP 16; TEMP 98
--- NOTE | 2023-08-25 12:59 | P.PAINPG ---
PQRS Measure Charge Sheet Comment: HISTORY OF PRESENT ILLNESS: A 62 yr old male as a referral from Dr Rachel Ellis NPC presents today w severe and chronic neck pain x 3 yrs secondary to post laminectomy syndrome for evaluation. Pt states pain level is provoked at 7/10 in intensity, constant, localized in the mid to lower cervical spine, predominantly axial, stabbing in character w occasional shooting pain towards the L shoulder. Pain is provoked by rotation or hyperextension. Pain is alleviated by PT x 6 wks in Apr 2023, manual massage, THC gummies, repositioning and rest. Cervical disability pain score at 33. PMH: OA, Ascending AAA, Cerebral aneurysm, HTN, Angina, Hyperlipidemia, GERD, Psoriasis, SAYRA, Anxiety PSH: R CTR, ACDF, BL Retinal Detachment Surgeries x7, BL Cataract Extraction w Lens Implants, Bowel Resection/ Volvulus Surgeries/ Abd Lysis of Adhesions, Cardiac Ablation for V-tach, Cholecystectomy, R Inguinal Hernia Repair (2018), JR/ LESI (2019) SH: 25 pack yr tobacco use and quit in 2007, Occasional ETOH use, THC gummies FH: HTN, CAD, CVA, GERD, Mo- Parkinsons. Fa- PE/ CVA. All: See list Meds: See list REVIEW OF ORGAN SYSTEMS: CONSTITUTIONAL: No fevers or chills. No recent weight loss. NEUROLOGICAL: + numbness and tingling along the distal extremities. No seizure disorders or headaches. MUSCULOSKELETAL: + pain PSYCHIATRIC: Denies current depression or suicidal thoughts. Physical Examinations : Constitutional : Cooperative , not in acute distress . Neurologic : Cranial nerve II to XII intact. No focal neurological deficits. Psychiatric : alert & oriented x 3. Matching mood & appropriate affect. Judgment & insight intact. Musculoskeletal : Cervical Spine Motor strength in the deltoid and biceps: Normal right side. Normal Left side Motor strength biceps and the wrist extensors: Normal right side . Normal left side Motor strength in the triceps muscle: Normal right side. Normal left side Deep tendon reflexes: Normal at the biceps. Normal at Brachioradialis. Normal at triceps Vertebral body tenderness to deep palpation over C7 Cervical facet loading test: positive bilaterally Spurling test: positive bilaterally Neck distraction test: positive bilaterally Teddy sign: positive bilaterally Lumbar spine Motor strength lower extremities ,thigh and legs 5/5 Right side , 5/5 Left side Deep tendon reflexes : Normal Knee Jerk. Normal Ankle Jerk Vertebral body tenderness over Portillo Test positive Lumbar facet Loading Test: positive Right / positive Left Range of motion of the lumbar spine Flexion 30 degrees, extension 10 degrees Straight Leg Raise test: Left/ Right positive at degree Emeterio test: positive right / positive left. Severe tenderness over the Sacroiliac joint on the Right / Left sides Gaenslen test: positive bilaterally Seated flexion test: positive bilaterally. Sacral spine : Severe tenderness over the Sacroiliac joint: right side / left side Range of motion: Flexion of the lumbar spine <60 degrees Range of motion: Extension of the lumbar spine <20 degrees Gaenslen's Test positive Emeterio test: positive right side / left side Thigh Thrust Test Sacral Thrust Test Imaging: MRI with/without contrast of the cervical spine from 02/07/23 reviewed Assessment/ Plan : C6-C7 ACDF Recommendation of LEANDER C6-C7 #1. May need a series of injections for optimal pain relief. Risks, benefits of procedure discussed and patient verbalized understanding. Admits to anti- coagulant use or medical history of diabetes. Protocol for discontinuation/ continuation of medications santiago procedure discussed. All questions answered. I have spent greater than 30 minutes on patient care today. Dr Hamilton was available by phone for the evaluation of this patient. The time was used to review the medical records including relevant urine studies and Prescription history (MAPs), review of the available imaging, evaluation and examination of the patient, coordination of care with the medical staff and if applicable referring physicians, as well as creation of the medical record - Pain Location Bilateral Neck Non-Pharmacological Interventions: Inactivity, Physical Therapy Pharmacological Interventions: Topical Medication PQRS Narrative: Smoking Status Former smoker Hx Alcohol Use (MH) No Home Medications: Ambulatory Orders Atorvastatin [Lipitor] 10 mg PO HS 12/06/18 Sertraline [Zoloft] 100 mg PO DAILY 07/20/19 Cholecalciferol [Vitamin D3 (125 Mcg = 5000 Iu)] 125 mcg PO DAILY 12/04/22 Labetalol HCl 300 mg PO BID 12/04/22 Pantoprazole Sodium [Protonix] 40 mg PO BID 12/04/22 Pramipexole [Mirapex] 1 mg PO TID 12/04/22 Testosterone Cypionate [Depo-Testosterone] 200 mg IM Q14D 12/04/22 traZODone HCL [Desyrel] 100 mg PO HS 12/04/22 Acetaminophen Tab [Tylenol Tab] 1,000 mg PO Q6HR PRN #30 tablet 01/01/23 Betamethasone Dipropionate [Diprolene AF 0.05% Cream] 1 applic TOPICAL BID PRN 04/27/23 Guselkumab [Tremfya] 100 mg SQ Q56D 04/27/23 Losartan [Cozaar] 50 mg PO BID 04/27/23 Controlled Substance Measures - Controlled Substance Measures Is patient prescribed a controlled substance at discharge?: No
== END ==
LOC: PNWHC3 08:09
PROVIDERS: ATTEND Specialist
DX: M50.30 Other cervical disc degeneration, unspecified cervical region (principal); M43.22 Fusion of spine, cervical region; Z87.891 Personal history of nicotine dependence
CPT/HCPCS: 99211

== ENCOUNTER 2023-09-03 07:27 | Day surgery (SDC) | payer BC ==
[2023-09-03] MEDS ORDERED: LACTATED RINGERS 1,000 ML IV SCH (07:34)
[2023-09-03 08:07] VITALS: RESP 18; TEMP 96.9
[2023-09-03] MEDS ORDERED: DEXAMETHASONE SOD PHOSPHATE 10 MG/ML 1 ML VIAL ONE (08:41)
[2023-09-03] MEDS ORDERED: IOPAMIDOL M200 10 ML VIAL ONE (08:41)
--- NOTE | 2023-09-03 08:50 | P.PCN ---
Date of Procedure: 09/03/23 Procedure(s) Performed: . PROCEDURE 1. Cervical epidural steroid injection under fluoroscopic guidance, C6-7 (fluoroscopy images available in the radiology department ) 2. Cervical epidurogram. PREOPERATIVE DIAGNOSIS: 1- Cervical Degenerative Disc Diseases 2-cervical spinal stenosis. 3-history of anterior cervical decompression and fusion POSTOPERATIVE DIAGNOSIS: : 1- Cervical Degenerative Disc Diseases , 2-cervical spinal stenosis. 3-history of anterior cervical decompression and fusion ANESTHESIA: Local anesthesia with lidocaine 1% 3 ml only EBL 0 PROCEDURE INDICATION: The patient with neck pain and radiculitis unresponsive to conservative treatment consents for procedure. PROCEDURE DESCRIPTION / TECHNIQUE: The patient was seen and identified in the preoperative area. Risks, benefits, complications, including but not limited to infections ,bleeding , allergic reactions to the medications ,and not complete pain releife, and alternatives were discussed with the patient, the patient agreed to proceed with the procedure and signed the consent. Patient was taken to the OR and time out was completed. The patient was placed in the prone position on the procedure table. A pillow was placed under the patients chest to increase the cervical interlaminar space. The cervical area was prepped and draped in the usual sterile fashion. Vital signs were closely monitored during the procedure. Using anterior-posterior fluoroscopy, the C6-7 interlaminar space was identified and the skin over this site was marked and then infiltrated with 1% lidocaine subcutaneously. Subsequently, a 20-gauge 3-1/2-inch Tuohy epidural needle was inserted and advanced toward the epidural space by means of the ``hanging-drop technique and guided by AP and lateral fluoroscopy. The correct needle position in the epidural space was verified with the injection of 2 mL of the water soluble contrast dye Isovue-200 and observing an excellent epidurogram with the epidural spread of the dye, after negative aspiration for blood and CSF and in the absence of paresthesias. then, mixture containing 20 mg Dexamethasone and 2 ml of preservative-free normal saline injected and a washout of epidurogram was seen. Needle was withdrawn intact, skin was cleansed, and bandages were applied. Complications= none. Disposition= patient was placed in supine position and transferred to the recovery room area in stable condition and there was no evidence of upper or lower extremity motor or sensory deficit after the procedure patient was discharged from recovery room after discharge criteria met and home discharge instructions was given by the staff and patient will follow with the pain clinic in 2-4 weeks
[2023-09-03 09:23] VITALS: BP 116/73; PULSE 63
--- NOTE | 2023-09-03 10:15 | FL ---
EXAMINATION TYPE: FL guided pain mgmt statistic Intraoperative/procedural fluoroscopic services were provided. Total fluoroscopy time is 3.6 seconds with a total of 1 submitted images to PACS. Please se e the operative/procedural note for further details. DAP: [id number] mGym2
== END 2023-09-03 09:06 | disposition home or self-care (01) ==
LOC: ORPAIN 07:27
PROVIDERS: ATTEND Specialist
DX: M50.323 Other cervical disc degeneration at C6-C7 level (principal); M48.02 Spinal stenosis, cervical region
CPT/HCPCS: 62321; J1100; Q9966

== ENCOUNTER → 2023-09-28 | Outpatient (CLI) | payer BC ==
[2023-09-28 09:45] VITALS: BP 131/77; PULSE 61; RESP 16; TEMP 97.8
--- NOTE | 2023-09-28 15:01 | P.PAINPG ---
PQRS Measure Charge Sheet Comment: HISTORY OF PRESENT ILLNESS: A 62 yr old male presents today w severe and chronic neck pain x 3 yrs secondary to post laminectomy syndrome for evaluation s/p LEANDER C6-C7 #1. Pt states he experienced 50 % pain relief x 2 wks s/p procedure. Pt states pain level is provoked at 8/10 in intensity, constant, localized in the L lower cervical spine, predominantly axial, stabbing in character w occasional shooting pain towards the L shoulder. Pain is provoked by rotation or hyperextension. Pain is alleviated by PT x 6 wks in Apr 2023, manual massage, THC gummies, repositioning and rest. Cervical disability pain score at 31. Interventional procedures include LEANDER C6-C7 #1 Medications include Mobic, THC gummies REVIEW OF ORGAN SYSTEMS: CONSTITUTIONAL: No fevers or chills. No recent weight loss. NEUROLOGICAL: + numbness and tingling along the distal extremities. No seizure disorders or headaches. MUSCULOSKELETAL: + pain PSYCHIATRIC: Denies current depression or suicidal thoughts. Physical Examinations : Constitutional : Cooperative , not in acute distress . Neurologic : Cranial nerve II to XII intact. No focal neurological deficits. Psychiatric : alert & oriented x 3. Matching mood & appropriate affect. Judgment & insight intact. Musculoskeletal : Cervical Spine Motor strength in the deltoid and biceps: Normal right side. Normal Left side Motor strength biceps and the wrist extensors: Normal right side . Normal left side Motor strength in the triceps muscle: Normal right side. Normal left side Deep tendon reflexes: Normal at the biceps. Normal at Brachioradialis. Normal at triceps Vertebral body tenderness to deep palpation over C7 Cervical facet loading test: positive bilaterally Spurling test: positive L C6-C7 Neck distraction test: positive bilaterally Teddy sign: positive bilaterally Lumbar spine Motor strength lower extremities ,thigh and legs 5/5 Right side , 5/5 Left side Deep tendon reflexes : Normal Knee Jerk. Normal Ankle Jerk Vertebral body tenderness over Portillo Test positive Lumbar facet Loading Test: positive Right / positive Left Range of motion of the lumbar spine Flexion 30 degrees, extension 10 degrees Straight Leg Raise test: Left/ Right positive at degree Emeterio test: positive right / positive left. Severe tenderness over the Sacroiliac joint on the Right / Left sides Gaenslen test: positive bilaterally Seated flexion test: positive bilaterally. Sacral spine : Severe tenderness over the Sacroiliac joint: right side / left side Range of motion: Flexion of the lumbar spine <60 degrees Range of motion: Extension of the lumbar spine <20 degrees Gaenslen's Test positive Emeterio test: positive right side / left side Thigh Thrust Test Sacral Thrust Test Imaging: MRI with/without contrast of the cervical spine from 02/07/23 reviewed Assessment/ Plan : C6-C7 ACDF Recommendation of L TFESI C6-C7 #1. May need a series of injections for optimal pain relief. Risks, benefits of procedure discussed and patient verbalized understanding. Admits to anti- coagulant use or medical history of diabetes. Protocol for discontinuation/ continuation of medications santiago procedure discussed. All questions answered. I have spent greater than 30 minutes on patient care today. Dr Hamilton was available by phone for the evaluation of this patient. The time was used to review the medical records including relevant urine studies and Prescription history (MAPs), review of the available imaging, evaluation and examination of the patient, coordination of care with the medical staff and if applicable referring physicians, as well as creation of the medical record PQRS Narrative: Smoking Status Former smoker Hx Alcohol Use (MH) No Home Medications: Ambulatory Orders Atorvastatin [Lipitor] 10 mg PO HS 12/06/18 Sertraline [Zoloft] 100 mg PO DAILY 07/20/19 Labetalol HCl 300 mg PO DAILY 12/04/22 Pantoprazole Sodium [Protonix] 40 mg PO BID 12/04/22 Pramipexole [Mirapex] 1 mg PO TID 12/04/22 Testosterone Cypionate [Depo-Testosterone] 200 mg IM Q14D 12/04/22 Guselkumab [Tremfya] 100 mg SQ Q56D 04/27/23 Losartan [Cozaar] 50 mg PO BID 04/27/23 Meloxicam [Mobic] 15 mg PO DAILY PRN 09/01/23 modafiniL [Provigil] 200 mg PO DAILY 09/01/23 Controlled Substance Measures - Controlled Substance Measures Is patient prescribed a controlled substance at discharge?: No
== END ==
LOC: PNWHC3 08:58
PROVIDERS: ATTEND Specialist
DX: M50.123 Cervical disc disorder at C6-C7 level with radiculopathy (principal); Z87.891 Personal history of nicotine dependence
CPT/HCPCS: 99211

== ENCOUNTER 2023-10-07 19:41 | Outpatient (CLI) | payer BC ==
--- NOTE | 2023-10-08 17:56 | P.PCN ---
Description of Procedure: CLINICAL: Titration with positive air pressure has been done for correction of respiratory abnormalities during sleep. DESCRIPTION OF PROCEDURE: The standard montage for clinical polysomnography included the electroencephalogram, the electrocardiogram, the mentalis surface electromyography and Lead II cardiography. The respiratory battery consisted of measurements of nasal /buccal air flow, pressure transducer measurements from the nose, thoracic and /or abdominal effort and intercostal surface electromyography. Video monitoring has been done to check for any parasomnia events. Nocturnal oxyhemoglobin saturations were obtained by finger oximetry. Step-tilley titration with positive airway pressure was utilized to control respiratory events. Raw data of sleep recording has been reviewed and is adequate. RESULTS: Sleep efficiency was close to normal 86.2 %. Latency to sleep onset was normal 13.5 minutes.]. Sleep architecture showed stage N1 was increased to 16.7 %, Delta sleep was extremely short 0.4 %, REM sleep was slightly decreased to 16.6 %. Heart rate was minimum 64 BPM, maximum 72 BPM, average 68 BPM. EMG showed 1.7 periodic limb movements per hour with 1.5 micriarousals per hour. PAP titration have been done with CPAP up to the pressure 13 cm H2O. Patient had problems with CPAP, continued to have abnormal respiration, switched to BPAP. BPAP titrated up to 24/20 cm H2O. The best results were at the pressure 23/19 cm H2O. Apnea hypopnea index reduced to 10.2. IMPRESSION: 1. Severe obstructive sleep apnea hypopnea syndrome improved on treatment with BiPAP. 2. No significant periodic limb movements have been documented. Please see other impressions from consultation. PLAN: 1. The patient will have treatment with positive air pressure equipment with the level of pressure AutoBPAP with maximal inspiratory pressure 24 and minimal expiratory pressure 7 this pressure-support of 4 cm H2O and should use it every night for the whole night. 2. Watching weight. 3. Sleep hygiene with regular time in bed for at least 8 hours. 4. No driving if feeling any sleepiness. 5. I will see the patient for follow up visit to explain the results of the test, recommendations, check compliance with treatment and make any necessary adjustment related to mask fitting, pressure and humidification. Thank you very much for allowing me to participate in the management of your patient. Sincerely, David Serra MD, PhD, FAASM Diplomat of [employer] Sleep Medicine Board of [employer] [facility] [place]
== END 2023-10-08 05:25 | disposition home or self-care (01) ==
LOC: 3 N SLEEP 19:41
PROVIDERS: ATTEND Internal Medicine
DX: G47.33 Obstructive sleep apnea (adult) (pediatric) (principal); G47.10 Hypersomnia, unspecified; G47.52 REM sleep behavior disorder; Z87.891 Personal history of nicotine dependence
CPT/HCPCS: 95811

== ENCOUNTER 2023-10-08 09:37 | Day surgery (SDC) | payer BC ==
[~2023-10-08 09:37] MED LIST changes: +LACTATED RINGERS 1,000 ML IV SCH; -REGADENOSON 0.4 MG/5 ML SYRINGE IV PRN
[2023-10-08 10:06] VITALS: RESP 14; TEMP 97.4
[2023-10-08] MEDS ORDERED: ROPIVACAINE 5MG/ML 20ML VIAL ONE (10:22)
[2023-10-08] MEDS ORDERED: DEXAMETHASONE SOD PHOSPHATE 10 MG/ML 1 ML VIAL ONE (10:22)
[2023-10-08] MEDS ORDERED: IOPAMIDOL M300 15ML VIAL ONE (10:22)
--- NOTE | 2023-10-08 10:49 | P.PCN ---
Description of Procedure: PROCEDURE 1. Cervical epidural steroid injection under fluoroscopic guidance, C5-6 left paramedian (fluoroscopy images available in the radiology department ) 2. Cervical epidurogram. PREOPERATIVE DIAGNOSIS: 1- Cervical Degenerative Disc Diseases 2- Cervical radiculopathy., 3-cervical spondylosis with cervical Facet arthropathy without myelopathy.4-cervical spinal stenosis POSTOPERATIVE DIAGNOSIS: : 1- Cervical Degenerative Disc Diseases , 2- Cervical radiculopathy. 3-,cervical spondylosis with cervical Facet arthropathy without myelopathy. 4-cervical spinal stenosis ANESTHESIA: Local anesthetics infiltration. In the OR continuous pulse ox, EKG, blood pressure and verbal communication was maintained. EBL : None PROCEDURE INDICATION: The patient with neck pain and radiculitis unresponsive to conservative treatment consents for procedure. Discussed the procedure, alternatives and possible complications which may include increased pain, infection, bleeding, nerve damage, paralysis all of which could be permanent. Patient understands and all questions were answered. PROCEDURE DESCRIPTION : After getting consent patient was taken to the OR , positioned in prone position and time out was completed. A pillow was placed under the patients chest to increase the cervical interlaminar space. The cervical area was prepped and draped in the usual sterile fashion. Using anterior-posterior fluoroscopy, interlaminar space was identified and the skin over this site was marked and then infiltrated with 1% lidocaine subcutaneously. Subsequently, a 20-gauge 3-1/2-inch Tuohy epidural needle was inserted and advanced toward the epidural space with the loss of resistance technique using a syringe filled with preservative-free normal saline and guided by AP and lateral fluoroscopy. Negative CSF, negative blood, negative paresthesia. The correct needle position in the epidural space was verified with the injection of 2 mL of the water soluble contrast dye Isovue-200 and observing an excellent epidurogram with the epidural spread of the dye, after repeat negative aspiration 3 mL solution was injected which consists of 1 mL of preservative-free normal saline mixed with 2 mL of 20 mg dexamethasone and a washout of epidurogram was seen. Needle was withdrawn intact, skin was cleansed, and bandages were applied. Disposition: Patient tolerated the procedure well. No complication. Patient was placed in supine position and transferred to the recovery room area in stable condition and there was no evidence of upper or lower extremity motor or sensory deficit after the procedure patient was discharged from recovery room after discharge criteria met and home discharge instructions was given by the staff and patient will follow with the pain clinic in 2-4 weeks
--- NOTE | 2023-10-08 10:56 | FL ---
EXAMINATION TYPE: FL guided pain mgmt statistic Intraoperative/procedural fluoroscopic services were provided. Total fluoroscopy time is 43.9 seconds with a total of 2 submitted images to PACS. Please s ee the operative/procedural note for further details. DAP: [id number] mGym2
[2023-10-08 11:17] VITALS: BP 129/82; PULSE 79
== END 2023-10-08 11:05 | disposition home or self-care (01) ==
LOC: ORPAIN 09:37
PROVIDERS: ATTEND Pain Medicine Interventional Pain Medicine
DX: M50.122 Cervical disc disorder at C5-C6 level with radiculopathy (principal); M47.22 Other spondylosis with radiculopathy, cervical region; M48.02 Spinal stenosis, cervical region
CPT/HCPCS: 62321; J1100; Q9967; J2795; 64483

== ENCOUNTER → 2023-10-10 | Outpatient (CLI) | payer BC ==
--- NOTE | 2023-10-10 09:24 | CT ---
EXAMINATION TYPE: CT cervical spine wo con DATE OF EXAM: 10/10/2023 COMPARISON: None HISTORY: Pseudoarthrosis after fusion or arthrodesis, neck pain CT DLP: 552.[address] of the cervical spine was performed with bone and soft tissue window settings submitted . Coronal and sagittal reconstruction is obtained. C2-3: Within normal limits C3-4: Within normal limits C4-5: Mild degenerative narrowing and minimal posterior disc bulge. Ventral spondylosis. No central s tenosis or disc herniation. Mild right foraminal encroachment. C5-6: Mild degenerative narrowing and minimal posterior disc bulge. Ventral spondylosis. No central s tenosis or disc herniation. No significant foraminal encroachment. C6-7:Postoperative changes of anterior cervical discectomy and fusion.There is pseudoarthrosis noted at the fusion site. Alignment is within normal limits. No evidence for residual process. C7-T1: Within normal limits IMPRESSION: 1.Postoperative changes of anterior cervical discectomy and fusion.There is pseudoarthrosis noted at the fusion site.
== END | disposition home or self-care (01) ==
LOC: RADCTMAIN 07:56
PROVIDERS: ATTEND Neurological Surgery
DX: M96.0 Pseudarthrosis after fusion or arthrodesis (principal)
CPT/HCPCS: 72125

== ENCOUNTER → 2023-10-26 | Outpatient (CLI) | payer BC ==
[2023-10-26 09:42] VITALS: BP 142/72; PULSE 83; RESP 15; TEMP 97.6
--- NOTE | 2023-10-26 12:46 | P.PAINPG ---
PQRS Measure Charge Sheet Comment: HISTORY OF PRESENT ILLNESS: A 62 yr old male presents today w severe and chronic neck pain x 3 yrs secondary to post laminectomy syndrome for evaluation s/p L paramedian C5-C6 #1. Pt states he experienced 80 % pain relief x 3 wks s/p procedure. Pt states pain level is provoked at 2/10 in intensity, constant, localized in the L lower cervical spine, predominantly axial, stabbing in character w occasional shooting pain towards the L shoulder. Pain is provoked by rotation or hyperextension. Pain is alleviated by PT x 6 wks in Apr 2023, manual massage, THC gummies, repositioning and rest. Cervical disability pain score at 31. Interventional procedures include LEANDER C6-C7 #1, L paramedian C5-C6 #1 Medications include Mobic, THC gummies REVIEW OF ORGAN SYSTEMS: CONSTITUTIONAL: No fevers or chills. No recent weight loss. NEUROLOGICAL: + numbness and tingling along the distal extremities. No seizure disorders or headaches. MUSCULOSKELETAL: + pain PSYCHIATRIC: Denies current depression or suicidal thoughts. Physical Examinations : Constitutional : Cooperative , not in acute distress . Neurologic : Cranial nerve II to XII intact. No focal neurological deficits. Psychiatric : alert & oriented x 3. Matching mood & appropriate affect. Judgment & insight intact. Musculoskeletal : Cervical Spine Motor strength in the deltoid and biceps: Normal right side. Normal Left side Motor strength biceps and the wrist extensors: Normal right side . Normal left side Motor strength in the triceps muscle: Normal right side. Normal left side Deep tendon reflexes: Normal at the biceps. Normal at Brachioradialis. Normal at triceps Vertebral body tenderness to deep palpation over C7 Cervical facet loading test: positive bilaterally Spurling test: positive L C6-C7 Neck distraction test: positive bilaterally Teddy sign: positive bilaterally Lumbar spine Motor strength lower extremities ,thigh and legs 5/5 Right side , 5/5 Left side Deep tendon reflexes : Normal Knee Jerk. Normal Ankle Jerk Vertebral body tenderness over Portillo Test positive Lumbar facet Loading Test: positive Right / positive Left Range of motion of the lumbar spine Flexion 30 degrees, extension 10 degrees Straight Leg Raise test: Left/ Right positive at degree Emeterio test: positive right / positive left. Severe tenderness over the Sacroiliac joint on the Right / Left sides Gaenslen test: positive bilaterally Seated flexion test: positive b ilaterally. Sacral spine : Severe tenderness over the Sacroiliac joint: right side / left side Range of motion: Flexion of the lumbar spine <60 degrees Range of motion: Extension of the lumbar spine <20 degrees Gaenslen's Test positive Emeterio test: positive right side / left side Thigh Thrust Test Sacral Thrust Test Imaging: MRI with/without contrast of the cervical spine from 02/07/23 reviewed Assessment/ Plan : C6-C7 ACDF Will manage residual pain and may RTC on an as needed basis. All questions answered. I have spent greater than 30 minutes on patient care today. Dr Hamilton was available by phone for the evaluation of this patient. The time was used to review the medical records including relevant urine studies and Prescription history (MAPs), review of the available imaging, evaluation and examination of the patient, coordination of care with the medical staff and if applicable referring physicians, as well as creation of the medical record PQRS Narrative: Smoking Status Former smoker Hx Alcohol Use (MH) No Home Medications: Ambulatory Orders Atorvastatin [Lipitor] 10 mg PO HS 12/06/18 Sertraline [Zoloft] 100 mg PO DAILY 07/20/19 Labetalol HCl 300 mg PO DAILY 12/04/22 Pantoprazole Sodium [Protonix] 40 mg PO BID 12/04/22 Pramipexole [Mirapex] 1 mg PO TID 12/04/22 Guselkumab [Tremfya] 100 mg SQ Q56D 04/27/23 Losartan [Cozaar] 50 mg PO BID 04/27/23 Meloxicam [Mobic] 15 mg PO DAILY PRN 09/01/23 modafiniL [Provigil] 200 mg PO DAILY 09/01/23 Controlled Substance Measures - Controlled Substance Measures Is patient prescribed a controlled substance at discharge?: No
== END ==
LOC: PNWHC3 09:03
PROVIDERS: ATTEND Specialist
DX: M47.812 Spondylosis without myelopathy or radiculopathy, cervical region (principal); M43.22 Fusion of spine, cervical region; M50.823 Other cervical disc disorders at C6-C7 level; Z87.891 Personal history of nicotine dependence
CPT/HCPCS: 99211

== ENCOUNTER → 2023-12-01 | Outpatient (CLI) | payer BC ==
--- NOTE | 2023-12-01 13:16 | US ---
EXAMINATION TYPE: US groin RT DATE OF EXAM: 12/01/2023 COMPARISON: NONE CLINICAL INDICATION: Male, 62 years old with history of R10.31 RIGHT LOWER QUADRANT PAIN; Right ingui nal canal pain x few days; R groin hernia repair x 3 TECHNIQUE: FINDINGS: Possible hernia = 6.7 x 1.4 x 0.7 cm IMPRESSION: 1. Clinical correlation recommended for right inguinal hernia
== END | disposition home or self-care (01) ==
LOC: RADUSWWP 12:54
PROVIDERS: ATTEND Family Medicine
DX: R10.31 Right lower quadrant pain (principal); Z98.890 Other specified postprocedural states

== ENCOUNTER → 2023-12-03 | Outpatient (CLI) | payer BC ==
[2023-12-03 08:42] VITALS: BP 180/95; PULSE 76; RESP 15; TEMP 98.5
--- NOTE | 2023-12-03 14:08 | P.PAINPG ---
PQRS Measure Charge Sheet Comment: HISTORY OF PRESENT ILLNESS: A 62 yr old male presents today w severe and chronic neck pain x 3 yrs secondary to post laminectomy syndrome for evaluation. Pt states pain level is provoked at 6/10 in intensity, constant, localized in the L lower cervical spine, predominantly axial, stabbing in character w occasional shooting pain towards the L shoulder. Pain is provoked by rotation or hyperextension. Pain is alleviated by PT x 6 wks in Apr 2023, manual massage, THC gummies, repositioning and rest. Cervical disability pain score at 31. Interventional procedures include LEANDER C6-C7 #1, L paramedian C5-C6 #1 Medications include Mobic, THC gummies REVIEW OF ORGAN SYSTEMS: CONSTITUTIONAL: No fevers or chills. No recent weight loss. NEUROLOGICAL: + numbness and tingling along the distal extremities. No seizure disorders or headaches. MUSCULOSKELETAL: + pain PSYCHIATRIC: Denies current depression or suicidal thoughts. Physical Examinations : Constitutional : Cooperative , not in acute distress . Neurologic : Cranial nerve II to XII intact. No focal neurological deficits. Psychiatric : alert & oriented x 3. Matching mood & appropriate affect. Judgment & insight intact. Musculoskeletal : Cervical Spine Motor strength in the deltoid and biceps: Normal right side. Normal Left side Motor strength biceps and the wrist extensors: Normal right side . Normal left side Motor strength in the triceps muscle: Normal right side. Normal left side Deep tendon reflexes: Normal at the biceps. Normal at Brachioradialis. Normal at triceps Vertebral body tenderness to deep palpation over C6 Cervical facet loading test: positive bilaterally Spurling test: positive LC5- C6 Neck distraction test: positive bilaterally Teddy sign: positive bilaterally Lumbar spine Motor strength lower extremities ,thigh and legs 5/5 Right side , 5/5 Left side Deep tendon reflexes : Normal Knee Jerk. Normal Ankle Jerk Vertebral body tenderness over Portillo Test positive Lumbar facet Loading Test: positive Right / positive Left Range of motion of the lumbar spine Flexion 30 degrees, extension 10 degrees Straight Leg Raise test: Left/ Right positive at degree Emeterio test: positive right / positive left. Severe tenderness over the Sacroiliac joint on the Right / Left sides Gaenslen test: positive bilaterally Seated flexion test: positive bilaterally. Sacral spine : Severe tenderness over the Sacroiliac joint: right side / left side Range of motion: Flexion of the lumbar spine <60 degrees Range of motion: Extension of the lumbar spine <20 degrees Gaenslen's Test positive Emeterio test: positive right side / left side Thigh Thrust Test Sacral Thrust Test Imaging: MRI with/without contrast of the cervical spine from 02/07/23 reviewed Assessment/ Plan : C6-C7 ACDF Recommendation of L paramedian C5-C6 #2. May need a series of injections for optimal pain relief. Risks, benefits of procedure discussed and pt verbalized understanding. Protocol for discontinuation/ continuation of medications santiago procedure discussed. All questions answered. I have spent greater than 30 minutes on patient care today. Dr Hamilton was available by phone for the evaluation of this patient. The time was used to review the medical records including relevant urine studies and Prescription history (MAPs), review of the available imaging, evaluation and examination of the patient, coordination of care with the medical staff and if applicable referring physicians, as well as creation of the medical record PQRS Narrative: Smoking Status Former smoker Hx Alcohol Use (MH) No Home Medications: Ambulatory Orders Atorvastatin [Lipitor] 10 mg PO HS 12/06/18 Sertraline [Zoloft] 100 mg PO DAILY 07/20/19 Labetalol HCl 300 mg PO DAILY 12/04/22 Pantoprazole Sodium [Protonix] 40 mg PO BID 12/04/22 Pramipexole [Mirapex] 1 mg PO TID 12/04/22 Guselkumab [Tremfya] 100 mg SQ Q56D 04/27/23 Losartan [Cozaar] 50 mg PO BID 04/27/23 Meloxicam [Mobic] 15 mg PO DAILY PRN 09/01/23 modafiniL [Provigil] 200 mg PO DAILY 09/01/23 Controlled Substance Measures - Controlled Substance Measures Is patient prescribed a controlled substance at discharge?: No
== END ==
LOC: PNWHC3 07:54
PROVIDERS: ATTEND Specialist
DX: M43.22 Fusion of spine, cervical region (principal); Z87.891 Personal history of nicotine dependence
CPT/HCPCS: 99211

== ENCOUNTER → 2023-12-16 | Outpatient (CLI) | payer BC ==
[2023-12-16 16:41] VITALS: BP 139/89; PULSE 104; RESP 16; TEMP 98.3
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
== END ==
LOC: 3 N SLEEP 15:59
PROVIDERS: ATTEND Internal Medicine
DX: Z04.1 Encounter for examination and observation following transport accident (principal); G47.33 Obstructive sleep apnea (adult) (pediatric); I10 Essential (primary) hypertension; K21.9 Gastro-esophageal reflux disease without esophagitis; I67.1 Cerebral aneurysm, nonruptured; I71.40 Abdominal aortic aneurysm, without rupture, unspecified; G56.01 Carpal tunnel syndrome, right upper limb; Z86.79 Personal history of other diseases of the circulatory system; Z98.890 Other specified postprocedural states; Z99.89 Dependence on other enabling machines and devices; Z87.891 Personal history of nicotine dependence
CPT/HCPCS: 99212

== ENCOUNTER 2023-12-22 07:05 | Day surgery (SDC) | payer BC ==
[2023-12-22 07:59] VITALS: RESP 18; TEMP 97
[2023-12-22] MEDS ORDERED: DEXAMETHASONE SOD PHOSPHATE 10 MG/ML 1 ML VIAL ONE (08:12)
[2023-12-22] MEDS ORDERED: IOPAMIDOL M200 10 ML VIAL ONE (08:12)
--- NOTE | 2023-12-22 08:19 | P.PCN ---
Date of Procedure: 12/22/23 Procedure(s) Performed: PROCEDURE 1. Cervical epidural steroid injection under fluoroscopic guidance, C5-6 (fluoroscopy images available in the radiology department ) 2. Cervical epidurogram. PREOPERATIVE DIAGNOSIS: 1- Cervical Degenerative Disc Diseases 2-cervical spinal stenosis. 3-history of anterior cervical decompression and fusion POSTOPERATIVE DIAGNOSIS: : 1- Cervical Degenerative Disc Diseases , 2-cervical spinal stenosis. 3-history of anterior cervical decompression and fusion ANESTHESIA: Local anesthesia with lidocaine 1% 3 ml only EBL 0 PROCEDURE INDICATION: The patient with neck pain and radiculitis unresponsive to conservative treatment consents for procedure. PROCEDURE DESCRIPTION / TECHNIQUE: The patient was seen and identified in the preoperative area. Risks, benefits, complications, including but not limited to infections ,bleeding , allergic reactions to the medications ,and not complete pain releife, and alternatives were discussed with the patient, the patient agreed to proceed with the procedure and signed the consent. Patient was taken to the OR and time out was completed. The patient was placed in the prone position on the procedure table. A pillow was placed under the patients chest to increase the cervical interlaminar space. The cervical area was prepped and draped in the usual sterile fashion. Vital signs were closely monitored during the procedure. Using anterior-posterior fluoroscopy, the C5-6 interlaminar space was brooke ntified and the skin over this site was marked and then infiltrated with 1% lidocaine subcutaneously. Subsequently, a 20-gauge 3-1/2-inch Tuohy epidural needle was inserted and advanced toward the epidural space ( left paramedial ) by means of the ``hanging-drop technique and guided by AP and lateral fluoroscopy. The correct needle position in the epidural space was verified with the injection of 2 mL of the water soluble contrast dye Isovue-200 and observing an excellent epidurogram with the epidural spread of the dye, after negative aspiration for blood and CSF and in the absence of paresthesias. then, mixture containing 20 mg Dexamethasone and 2 ml of preservative-free normal saline injected and a washout of epidurogram was seen. Needle was withdrawn intact, skin was cleansed, and bandages were applied. Complications= none. Disposition= patient was placed in supine position and transferred to the recovery room area in stable condition and there was no evidence of upper or l ower extremity motor or sensory deficit after the procedure patient was discharged from recovery room after discharge criteria met and home discharge instructions was given by the staff and patient will follow with the pain clinic in 2-4 weeks
[2023-12-22 09:27] VITALS: BP 131/77; PULSE 78
--- NOTE | 2023-12-22 09:33 | FL ---
EXAMINATION TYPE: FL guided pain mgmt statistic Intraoperative/procedural fluoroscopic services were provided. Total fluoroscopy time is 9.2 seconds with a total of 1 submitted images to PACS. Please se e the operative/procedural note for further details. DAP: [id number] mGym2
== END 2023-12-22 08:48 | disposition home or self-care (01) ==
LOC: ORPAIN 07:05
PROVIDERS: ATTEND Specialist
DX: M50.122 Cervical disc disorder at C5-C6 level with radiculopathy (principal); M47.22 Other spondylosis with radiculopathy, cervical region
CPT/HCPCS: 62321; J1100; Q9966

== ENCOUNTER → 2024-01-13 | Outpatient (CLI) | payer BC ==
[2024-01-13 09:51] VITALS: BP 120/81; PULSE 76; RESP 16; TEMP 98
--- NOTE | 2024-01-13 15:49 | P.PAINPG ---
PQRS Measure Charge Sheet Comment: HISTORY OF PRESENT ILLNESS: A 63 yr old male presents today w severe and chronic neck pain x 3 yrs secondary to post laminectomy syndrome for evaluation s/p LEANDER C5-C6 #1. Pt states he experienced 0 % pain relief x 3 wks s/p procedure. Pt states pain level is provoked at 8 /10 in intensity, constant, localized in the BL mid cervical spine, L> R, predominantly axial, stabbing in character without shooting pain. Pain is provoked by rotation or hyperextension. Pain is alleviated by PT x 6 wks in Apr 2023, physician guided exercises daily since Apr 2023, manual massage, THC gummies, repositioning and rest. Cervical disability pain score at 30. Interventional procedures include LEANDER C6-C7 #1, LEANDER C5-C6 x1, L paramedian C5-C6 #1 Medications include Mobic, THC gummies REVIEW OF ORGAN SYSTEMS: CONSTITUTIONAL: No fevers or chills. No recent weight loss. NEUROLOGICAL: + numbness and tingling along the distal extremities. No seizure disorders or headaches. MUSCULOSKELETAL: + pain PSYCHIATRIC: Denies current depression or suicidal thoughts. Physical Examinations : Constitutional : Cooperative , not in acute distress . Neurologic : Cranial nerve II to XII intact. No focal neurological deficits. Psychiatric : alert & oriented x 3. Matching mood & appropriate affect. Judgment & insight intact. Musculoskeletal : Cervical Spine Motor strength in the deltoid and biceps: Normal right side. Normal Left side Motor strength biceps and the wrist extensors: Normal right side . Normal left side Motor strength in the triceps muscle: Normal right side. Normal left side Deep tendon reflexes: Normal at the biceps. Normal at Brachioradialis. Normal at triceps Vertebral body tenderness to deep palpation over C6 Cervical facet loading test: positive L > R C4-C5, C5-C6 Spurling test: positive LC5- C6 Neck distraction test: positive bilaterally Teddy sign: positive bilaterally Lumbar spine Motor strength lower extremities ,thigh and legs 5/5 Right side , 5/5 Left side Deep tendon reflexes : Normal Knee Jerk. Normal Ankle Jerk Vertebral body tenderness over Portillo Test positive Lumbar facet Loading Test: positive Right / positive Left Range of motion of the lumbar spine Flexion 30 degrees, extension 10 degrees Straight Leg Raise test: Left/ Right positive at degree Emeterio test: positive right / positive left. Severe tenderness over the Sacroiliac joint on the Right / Left sides Gaenslen test: positive bilaterally Seated flexion test: positive bilaterally. Sacral spine : Severe tenderness over the Sacroiliac joint: right side / left side Range of motion: Flexion of the lumbar spine <60 degrees Range of motion: Extension of the lumbar spine <20 degrees Gaenslen's Test positive Emeterio test: positive right side / left side Thigh Thrust Test Sacral Thrust Test Imaging: MRI with/without contrast of the cervical spine from 02/07/23 reviewed Assessment/ Plan : C6-C7 ACDF Recommendation of BL MBB C4-C6 #1. May need a series of injections, up until RFA, for optimal pain relief. Risks, benefits of procedure discussed and pt verbalized understanding. Protocol for discontinuation/ continuation of medications santiago procedure discussed. Minimal anesthesia including Fentanyl and Versed if clinically indicated. All questions answered. I have spent greater than 30 minutes on patient care today. Dr Hamilton was available by phone for the evaluation of this patient. The time was used to review the medical records including relevant urine studies and Prescription history (MAPs), review of the available imaging, evaluation and examination of the patient, coordination of care with the medical staff and if applicable referring physicians, as well as creation of the medical record PQRS Narrative: Smoking Status Former smoker Hx Alcohol Use (MH) No Home Medications: Ambulatory Orders Atorvastatin [Lipitor] 10 mg PO HS 12/06/18 Sertraline [Zoloft] 100 mg PO DAILY 07/20/19 Labetalol HCl 300 mg PO DAILY 12/04/22 Pantoprazole Sodium [Protonix] 40 mg PO BID 12/04/22 Pramipexole [Mirapex] 1 mg PO TID 12/04/22 Guselkumab [Tremfya] 100 mg SQ Q56D 04/27/23 Losartan [Cozaar] 50 mg PO BID 04/27/23 Meloxicam [Mobic] 15 mg PO DAILY PRN 09/01/23 modafiniL [Provigil] 200 mg PO DAILY 09/01/23 Controlled Substance Measures - Controlled Substance Measures Is patient prescribed a controlled substance at discharge?: No
== END ==
LOC: PNWHC3 08:39
PROVIDERS: ATTEND Specialist
DX: M43.22 Fusion of spine, cervical region (principal); M96.1 Postlaminectomy syndrome, not elsewhere classified; G89.29 Other chronic pain; Z87.891 Personal history of nicotine dependence
CPT/HCPCS: 99211

== ENCOUNTER 2024-01-28 06:27 | Day surgery (SDC) | payer BC ==
[2024-01-26 15:24] VITALS: BMI 29.2
[2024-01-28] MEDS: LIDOCAINE 1% (10MG/ML) FOR IV START INTRADERMA ONE (07:12)
[2024-01-28] MEDS: LACTATED RINGERS 1,000 ML IV SCH (07:12)
[2024-01-28 07:21] LABS: Glucose,Whole Blood 130 mg/dL (70-110)
[2024-01-28 07:24] VITALS: TEMP 97.3
[2024-01-28] MEDS ORDERED: MIDAZOLAM 2 MG/2 ML VIAL ONE (07:25)
[2024-01-28] MEDS ORDERED: ROPIVACAINE 5MG/ML 20ML VIAL ONE (07:25)
[2024-01-28] MEDS ORDERED: fentaNYL (PF) 50 MCG/ML 2 ML AMP ONE (07:25)
--- NOTE | 2024-01-28 07:56 | P.PCN ---
Date of Procedure: 01/28/24 Procedure(s) Performed: PREOPERATIVE DIAGNOSIS: 1-Cervical Spondylosis with Facet Arthropathy.without myelopathy. 2-cervical degenerative disc disease POSTOPERATIVE DIAGNOSIS:1-cervical spondylosis with facet arthropathy without myelopathy. 2-cervical degenerative disc disease PROCEDURES: Diagnostic bilateral C4 , C5 , C6 medial branch blocks, with fluoroscopic guidance (fluoroscopy images available in radiology department ) ( to target the facet joint at bilateral C4- 5 , C5- 6 )#1st ANESTHESIA: moderate sedation with Versed 2 mg , and fentanyl 100 micrograms Sedation start time 07:25, end time 07:51 ) EBL: Minimal PROCEDURE INDICATION: The patient with neck pain secondary to cervical arthropathy unresponsive to more conservative treatments. PROCEDURE DESCRIPTION / TECHNIQUE: The patient was seen and identified in the preoperative area. Risks, benefits, complications, and alternatives were discussed with the patient, the patient agreed to proceed with the procedure and signed the consent. IV was started. Vital signs remained stable throughout the procedure. Patient was taken to the OR and time out was completed. The patient was placed in the Lateral position on the procedure table.. The cervical area was prepped and draped in the usual sterile fashion. Critical pause was taken. Vital signs were closely monitored during the procedure. Conscious sedation was used during the procedure to decrease patients anxiety. Using cross-table lateral fluoroscopy, the centroid of the trapezoid of right C4 , C5 and C6, was identified, marked, and localized with 1% lidocaine 1 ml at each level for skin and Sub Q infiltrations . Subsequently, a 22 G 3 spinal needle was advanced guided by fluoroscopy to the centroid of the trapezoid of Right C4 , C5, C6 . [place] tip position was confirmed at the centroid of the trapezoids of Right C4 , C5 ,C6 with anteroposterior fluoroscopy. Subsequently, 2 ml of preservative-free Ropivacaine 0.5% and half ml of the was injected after negative aspiration for blood and CSF. [place] was then removed intact the same procedure was repeated at the left C4 , C5 , and C6 levels. COMPLICATIONS: No acute complications. COMMENTS:( because of the patient's body habitus, I was not able to visualize the appropriate area in the prone position, this reason the procedure was done in the lateral position) DISPOSITION / PLANS: The patient was placed in a supine position and transferred to the recovery area in a stable condition for observation and was discharged from the recovery room after meeting discharge criteria. Home discharge instructions given to the patient by the staff. The patient was reexamined prior to discharge. The patient will schedule a follow up in the clinic in 2-4 weeks.
[2024-01-28] MEDS: IV FLUID CONTINUATION 650 ML IV ONE (07:58)
[2024-01-28 08:07] LABS: Glucose,Whole Blood 132 mg/dL (70-110)
[2024-01-28 08:18] VITALS: RESP 16
[2024-01-28 09:14] VITALS: BP 128/84; PULSE 74
--- NOTE | 2024-01-28 16:10 | FL ---
EXAMINATION TYPE: FL guided pain mgmt statistic Intraoperative/procedural fluoroscopic services were provided. Total fluoroscopy time is 58.6 seconds with a total of 7 submitted images to PACS. Please s ee the operative/procedural note for further details. DAP: [id number] mGym2
== END 2024-01-28 08:30 | disposition home or self-care (01) ==
LOC: ORPAIN 06:27
PROVIDERS: ATTEND Specialist
DX: M47.812 Spondylosis without myelopathy or radiculopathy, cervical region (principal); M50.322 Other cervical disc degeneration at C5-C6 level; E11.9 Type 2 diabetes mellitus without complications; Z79.899 Other long term (current) drug therapy; Z91.040 Latex allergy status
CPT/HCPCS: 64490; 64491 ×2; 99152; 99153; J2250; J3010; J2795

== ENCOUNTER → 2024-02-17 | Outpatient (CLI) | payer BC ==
[2024-02-17 08:50] VITALS: BP 123/85; PULSE 78; RESP 16
--- NOTE | 2024-02-17 14:48 | P.PAINPG ---
PQRS Measure Charge Sheet Comment: HISTORY OF PRESENT ILLNESS: A 63 yr old male presents today w severe and chronic neck pain x 3 yrs secondary to post laminectomy syndrome for evaluation s/p BL MBB C4-C6 #1. Pt states he experienced 90 % pain relief x 24 hrs s/p procedure. Pt states pain level is provoked at 8 /10 in intensity, constant, localized in the BL mid cervical spine, L> R, predominantly axial, stabbing in character without shooting pain. Pain is provoked by rotation or hyperextension. Pain is alleviated by PT x 6 wks in Apr 2023, physician guided exercises daily since Apr 2023, manual massage, THC gummies, repositioning and rest. Cervical disability pain score at 29. Interventional procedures include LEANDER C6-C7 #1, LEANDER C5-C6 x1, L paramedian C5-C6 x1, BL MBB C4-C6 x1 Medications include Mobic, THC gummies REVIEW OF ORGAN SYSTEMS: CONSTITUTIONAL: No fevers or chills. No recent weight loss. NEUROLOGICAL: + numbness and tingling along the distal extremities. No seizure disorders or headaches. MUSCULOSKELETAL: + pain PSYCHIATRIC: Denies current depression or suicidal thoughts. Physical Examinations : Constitutional : Cooperative , not in acute distress . Neurologic : Cranial nerve II to XII intact. No focal neurological deficits. Psychiatric : alert & oriented x 3. Matching mood & appropriate affect. Judgment & insight intact. Musculoskeletal : Cervical Spine Motor strength in the deltoid and biceps: Normal right side. Normal Left side Motor strength biceps and the wrist extensors: Normal right side . Normal left side Motor strength in the triceps muscle: Normal right side. Normal left side Deep tendon reflexes: Normal at the biceps. Normal at Brachioradialis. Normal at triceps Vertebral body tenderness to deep palpation over C6 Cervical facet loading test: positive L > R C4-C5, C5-C6 Spurling test: positive LC5- C6 Neck distraction test: positive bilaterally Teddy sign: positive bilaterally Lumbar spine Motor strength lower extremities ,thigh and legs 5/5 Right side , 5/5 Left side Deep tendon reflexes : Normal Knee Jerk. Normal Ankle Jerk Vertebral body tenderness over Portillo Test positive Lumbar facet Loading Test: positive Right / positive Left Range of motion of the lumbar spine Flexion 30 degrees, extension 10 degrees Straight Leg Raise test: Left/ Right positive at degree Emeterio test: positive right / positive left. Severe tenderness over the Sacroiliac joint on the Right / Left sides Gaenslen test: positive bilaterally Seated flexion test: positive bilaterally. Sacral spine : Severe tenderness over the Sacroiliac joint: right side / left side Range of motion: Flexion of the lumbar spine <60 degrees Range of motion: Extension of the lumbar spine <20 degrees Gaenslen's Test positive Emeterio test: positive right side / left side Thigh Thrust Test Sacral Thrust Test Imaging: MRI with/without contrast of the cervical spine from 02/07/23 reviewed Assessment/ Plan : C6-C7 ACDF Recommendation of BL MBB C4-C6 #2. May need a series of injections, up until RFA, for optimal pain relief. Risks, benefits of procedure discussed and pt verbalized understanding. Protocol for discontinuation/ continuation of medications santiago procedure discussed. Minimal anesthesia including Fentanyl and Versed if clinically indicated. All questions answered. I have spent greater than 30 minutes on patient care today. Dr Hamilton was available by phone for the evaluation of this patient. The time was used to review the medical records including relevant urine studies and Prescription history (MAPs), review of the available imaging, evaluation and examination of the patient, coordination of care with the medical staff and if applicable referring physicians, as well as creation of the medical record PQRS Narrative: Smoking Status Former smoker Hx Alcohol Use (MH) No Home Medications: Ambulatory Orders Atorvastatin [Lipitor] 10 mg PO HS 12/06/18 Pantoprazole Sodium [Protonix] 40 mg PO BID 12/04/22 Losartan [Cozaar] 50 mg PO BID 04/27/23 Albuterol Inhaler [Ventolin Hfa Inhaler] 1 - 2 puff INHALATION Q6H PRN 01/26/24 Dextroamphetamine/Amphetamine [Dextroamphetamine/Amphetamine 20 mg Tab] 20 mg PO BID 01/26/24 Ergocalciferol [Vitamin D2 (1250 Mcg = 66650 Iu)] 1,250 mcg PO QURESHI 01/26/24 Fluticasone Nasal [place] [Flonase Nasal [place]] 1 spray EA NOSTRIL DAILY 01/26/24 Ixekizumab [Taltz Autoinjector] 80 mg SQ DIRECTED 01/26/24 Montelukast [Singulair] 10 mg PO HS 01/26/24 Ondansetron [Zofran] 8 mg PO Q12HR 01/26/24 Pramipexole Di-HCl [Pramipexole Dihydrochloride] 1.5 mg PO TID 01/26/24 Semaglutide [Ozempic] 0.25 mg SQ FR 01/26/24 Testosterone Cypionate [Depo-Testosterone] 200 mg IM Q14D 01/26/24 carvediloL [Coreg] 6.25 mg PO BID 01/26/24 traZODone HCL 100 mg PO HS 01/26/24 Controlled Substance Measures - Controlled Substance Measures Is patient prescribed a controlled substance at discharge?: No
== END ==
LOC: PNWHC3 08:32
PROVIDERS: ATTEND Specialist
DX: M43.22 Fusion of spine, cervical region (principal); Z87.891 Personal history of nicotine dependence; Z91.040 Latex allergy status
CPT/HCPCS: 99211

== ENCOUNTER 2024-03-03 08:24 | Day surgery (SDC) | payer BC ==
[2024-03-01 16:03] VITALS: BMI 29.2
[2024-03-03 08:47] VITALS: TEMP 97.3
[2024-03-03 08:57] LABS: Glucose,Whole Blood 104 mg/dL (70-110)
[2024-03-03] MEDS: LACTATED RINGERS 1,000 ML IV SCH (08:58)
[2024-03-03] MEDS: IV FLUID CONTINUATION 1,000 ML IV ONE ×2 (08:58→10:40)
[2024-03-03] MEDS ORDERED: ROPIVACAINE 5MG/ML 20ML VIAL ONE (10:08)
[2024-03-03] MEDS ORDERED: fentaNYL (PF) 50 MCG/ML 2 ML AMP ONE (10:08)
[2024-03-03] MEDS ORDERED: MIDAZOLAM 2 MG/2 ML VIAL ONE (10:08)
[2024-03-03 10:42] VITALS: RESP 14
--- NOTE | 2024-03-03 10:44 | P.PCN ---
Description of Procedure: Preprocedure diagnosis. Cervical facet joint arthropathy, cervical spine spondylosis, cervical degenerative disc disease. Postprocedure diagnosis. As above. Procedure done. Bilateral C4-5, C5-6 facet joint (C4, C5, C6 medial branch of dorsal ramus) diagnostic injection with local anesthetics under fluoroscopic guidance. Anesthesia. IV sedation of Versed 2 milligram, fentanyl 100 micrograms give in OR. Continuous pulse ox, EKG, blood pressure and verbal communication was maintained with the patient in OR. Blood loss. None. Indication. Patient has got the diagnoses of cervical spondylolysis, facet joint arthropathy with neck pain. Discussed with the patient procedure, alternatives, complications including infection, bleeding, nerve damage, paralysis all of which could be permanent. Patient understands and all questions are answered. Procedure note. After getting consent patient in OR in prone position. Back of the neck was prepped with chlorhexidine and draped in sterile fashion. After injecting 3 mL of plain 1% lidocaine subcutaneously, a 22-gauge spinal needle was introduced under tunnel vision of the fluoroscope AP view at the waist of the articular pillar (lateral mass) at C4 vertebral level. In the lateral view of the fluoroscope it was confirmed that the tip of the needle stayed within the dorsal half of the articular pillar (lateral mass). So, right C4-5 facet joint was targeted by blocking right C4 and C5 medial branch, right C5-6 facet joint was targeted by blocking right C5 and C6 medial branch. In exactly the same way , after subcutaneous injection of lidocaine, 22-gauge spinal needles were introduced under tunnel vision of the fluoroscope AP view at the waist of the articular pillars (lateral mass) at C5 and C6 vertebral level. In the lateral view of the fluoroscope it was confirmed that the tip of the needle stayed within the dorsal half of the articular pillar (lateral mass). At each needle, 0.5 mL of 0.5% ropivacaine preservative-free was injected. In exactly same way left C4-5, C5-6 facet joints were targeted by blocking left C4, C5, C6 medial branch of dorsal ramus. After the procedure needle was taken out and bandage was applied. Disposition. Patient tolerated the procedure well. No complication. Discharged home in stable condition.
[2024-03-03 10:57] VITALS: BP 115/78; PULSE 82
--- NOTE | 2024-03-03 11:38 | FL ---
EXAMINATION TYPE: FL guided pain mgmt statistic Intraoperative/procedural fluoroscopic services were provided. Total fluoroscopy time is 44.4 seconds with a total of 3 submitted images to PACS. Please s ee the operative/procedural note for further details. DAP: [id number] mGym2
== END 2024-03-03 11:10 | disposition home or self-care (01) ==
LOC: ORPAIN 08:24
PROVIDERS: ATTEND Pain Medicine Interventional Pain Medicine
DX: M47.812 Spondylosis without myelopathy or radiculopathy, cervical region (principal); M50.322 Other cervical disc degeneration at C5-C6 level; E11.9 Type 2 diabetes mellitus without complications; Z91.040 Latex allergy status
CPT/HCPCS: 64490; 64491 ×2; 99152; 99153; J2250; J3010; J2795

== ENCOUNTER 2024-03-11 08:13 | Day surgery (SDC) | payer BC ==
--- NOTE | 2024-03-11 06:45 | P.GSHP ---
History of Present Illness H&P Date: 03/11/24 CHIEF COMPLAINT: Inguinal hernia, right. HISTORY OF PRESENT ILLNESS: The patient is a 63-year-old male who presents with a history of swelling and pain along the right groin. He has had previous repairs including intra-abdominal reconstruction at [facility] for congenital malformation over 2 years ago. He's noted increased swelling including pain of the area. Now he presents for repair of his inguinal hernia. PAST MEDICAL HISTORY: Please see list. PAST SURGICAL HISTORY: Please see list. MEDICATIONS: Please see list. ALLERGIES: Please see list. SOCIAL HISTORY: No illicit drug use FAMILY HISTORY: No reports of Crohn disease or ulcerative colitis. REVIEW OF ORGAN SYSTEMS: CONSTITUTIONAL: No reports of fevers or chills. No reports of weight loss despite prior attempts. GI: Denies any blood in stools or constipation. PHYSICAL EXAM: VITAL SIGNS: Stable GENERAL: Well-developed pleasant male in no acute distress. HEENT: No scleral icterus. Extraocular movements grossly intact. Moist buccal mucosa. NECK: Supple without lymphadenopathy. CHEST: Unlabored respirations. Equal bilateral excursions. CARDIOVASCULAR: Regular rate and rhythm. Distal 2+ pulses. ABDOMEN: Soft, nondistended. No peritoneal signs. Palpable defect of the right groin. MUSCULOSKELETAL: No clubbing, cyanosis, or edema. ASSESSMENT: 1. Inguinal hernia, bilateral 2. Congenital malformation PLAN: 1. Recommend proceeding with a robotic inguinal repair with mesh with possible bilateral approach. 2. Benefits and risks of surgical intervention was discussed including possibility of open technique. 3. DVT prophylaxis. 4. Antibiotic prophylaxis. 5. Non narcotic pain management including abdominal wall block described 6. Blood sugar glucose described. 7. Weight loss management described. 8. Obtain CBC and CMP on day of procedure. 9. He is extremely high risk for adhesions due to prior surgeries and type of novel procedure done at [facility]. Diagnostic laparoscopy to be done to determine feasibility of his surgery. 10. Possibility of deferring surgery back to [facility] also described for which patient wished to proceed with lysis of adhesions and attempt of bilateral inguinal hernia repair. Past Medical History Past Medical History: Asthma, Chest Pain / Angina, Diabetes Mellitus, Eye Disorder, GERD/Reflux, Hyperlipidemia, Hypertension, Musculoskeletal Disorder, Skin Disorder Additional Past Medical History / Comment(s): Intestinal malrotation/elongated colon/bowel obstruction/sigmoid volvulus - abdominal/intestinal pain chronic, constipation, recurrent R inguinal hernia with recent repair, cervical pain/pinched nerve, bilateral detached retinas,V tach with ablation, psoriasis, narcolepsy?, new onset type II diabetes History of Any Multi-Drug Resistant Organisms: None Reported Past Surgical History: Appendectomy, Bowel Resection, Cardiac Ablation, Cholecystectomy, Heart Catheterization, Hernia Repair Additional Past Surgical History / Comment(s): R inguinal hernia repairs with last one done 07/22/19, colon resection/lysis of adhesions on 04/22/19, diagnostic laparoscopy/lysis of adhesions, multiple colon surgeries, bilateral cataract removals/lens implants, bilateral retinal detachment surgeries (7). Pain proc, last 10/18/19 disc replaced in neck with plate and screws 12/16/23 BILATERAL ELBOW CUBITAL TUNNEL SURGERY, AND BILATERALCARPAL TUNNEL SURGERY (OCTOBER AND NOVEMBER 2023) Past Anesthesia/Blood Transfusion Reactions: No Reported Reaction Smoking Status: Former smoker - Past Family History Mother Family Medical History: Musculoskeletal Disorder, Neurologic Disorder Additional Family Medical History / Comment(s): Parkinsons Father Family Medical History: Pulmonary Embolus Brother(s) Family Medical History: Cancer Additional Family Medical History / Comment(s): of bladder cancer age 68 Medications and Allergies Home Medications Medication Instructions Recorded Confirmed Type Atorvastatin [Lipitor] 10 mg PO HS 12/06/18 03/07/24 History Pantoprazole Sodium [Protonix] 40 mg PO BID 12/04/22 03/07/24 History Losartan [Cozaar] 50 mg PO BID 04/27/23 03/07/24 History Albuterol Inhaler [Ventolin Hfa 1 - 2 puff INHALATION Q6H PRN 01/26/24 03/07/24 History Inhaler] Dextroamphetamine/Amphetamine 20 mg PO BID 01/26/24 03/07/24 History [Dextroamphetamine/Amphetamine 20 mg Tab] Ergocalciferol [Vitamin D2 (1250 1,250 mcg PO QURESHI 01/26/24 03/07/24 History Mcg = 58204 Iu)] Fluticasone Nasal [place] [Flonase 1 spray EA NOSTRIL DAILY 01/26/24 03/07/24 History Nasal [place]] Ixekizumab [Taltz Autoinjector] 80 mg SQ DIRECTED 01/26/24 03/07/24 History Montelukast [Singulair] 10 mg PO HS 01/26/24 03/07/24 History Ondansetron [Zofran] 8 mg PO Q12HR 01/26/24 03/07/24 History Pramipexole Di-HCl [Pramipexole 1.5 mg PO TID 01/26/24 03/07/24 History Dihydrochloride] Semaglutide [Ozempic] 0.25 mg SQ FR 01/26/24 03/07/24 History Testosterone Cypionate 200 mg IM Q14D 01/26/24 03/07/24 History [Depo-Testosterone] carvediloL [Coreg] 6.25 mg PO BID 01/26/24 03/07/24 History traZODone HCL 100 mg PO HS 01/26/24 03/07/24 History Multivitamin(Unknown Dose) 1 dose PO QAM 03/02/24 03/07/24 History Allergies Allergy/AdvReac Type Severity Reaction Status Date / Time latex Allergy Unknown Verified 03/07/24 14:52
[~2024-03-11 08:13] MED LIST changes: +HYDROmorphone 0.5 MG/0.5 ML SYRINGE IVP PRN; -LACTATED RINGERS 1,000 ML IV SCH; +LIDOCAINE 1% (10MG/ML) FOR IV START INTRADERMA PRN; +ONDANSETRON 4 MG/2 ML VIAL IVP PRN
[2024-03-11] MEDS: IV FLUID CONTINUATION 1,000 ML IV ONE (08:37)
[2024-03-11] MEDS: LACTATED RINGERS 1,000 ML IV SCH (09:16)
[2024-03-11] MEDS: MIDAZOLAM 2 MG/2 ML VIAL IV PRN (09:34)
[2024-03-11] MEDS: fentaNYL (PF) 50 MCG/ML 2 ML AMP IVP ONE (09:34)
[2024-03-11 09:37] LABS: ALT 24 U/L (4-49); AST 32 U/L (17-59); African American GFR (CKD) 87 (>60 ml/min/1.73 sqM); Alkaline Phosphatase 80 U/L (38-126); Anion Gap 6 mmol/L; Blood Urea Nitrogen 12 mg/dL (9-20); Calcium 8.9 mg/dL (8.4-10.2); Carbon Dioxide 27 mmol/L (22-30); Chloride 107 mmol/L (98-107); Glucose 101 mg/dL (74-99); Non-African American GFR(CKD) 75 (>60 ml/min/1.73 sqM); Potassium 3.6 mmol/L (3.5-5.1); Sodium 140 mmol/L (137-145); Total Bilirubin 0.4 mg/dL (0.2-1.3); Total Protein 6.4 g/dL (6.3-8.2)
[2024-03-11 09:38] LABS: Basophils # (A) 0.1 k/uL (0-0.2); Basophils % (A) 1 %; Eosinophils # (A) 0.8 k/uL (0-0.7); Eosinophils % (A) 10 %; HCT 42.1 % (39.0-53.0); HGB 14.6 gm/dL (13.0-17.5); Lymphocytes % (A) 27 %; MCH 30.9 pg (25.0-35.0); MCHC 34.6 g/dL (31.0-37.0); MCV 89.2 fL (80.0-100.0); Mean Platelet Volume 7.6; Monocytes # (A) 0.4 k/uL (0-1.0); Monocytes % (A) 6 %; Neutrophils # (A) 4.2 k/uL (1.3-7.7); Neutrophils % (A) 55 %; Platelet Count 262 k/uL (150-450); RBC 4.72 m/uL (4.30-5.90); RDW 12.8 % (11.5-15.5); WBC 7.5 k/uL (3.8-10.6)
[2024-03-11] MEDS: MELOXICAM 7.5 MG TAB PO PRN (09:44)
[2024-03-11] MEDS: TAMSULOSIN 0.4 MG CAP.ER.24H PO STA (09:45)
[2024-03-11] MEDS: ACETAMINOPHEN TAB 500 MG TAB PO PRN (09:45)
--- NOTE | 2024-03-11 09:49 | P.ANPRN ---
Procedure Note - Anesthesia - Nerve Block Performed Bilateral Erector Spinae Single Time Out Performed: Yes Date of Procedure: 03/11/24 Procedure Start Time: :33 Procedure Stop Time: :40 Location of Patient: PreOp Indication: Acute Post-Operative Pain, Requested by Surgeon Sedation Type: Sedate with meaningful contact maintained Preparation: Sterile Prep Position: Prone Needle Types: Pajunk Needle Gauge: 21 Ultrasound used to visualize needle placement: Yes Ultrasound used to observe medication spread: Yes Injectate: 0.5% Ropivacaine (see comment for volume) (20 ml + 10 ml Lidocaine 1% with epi 1/100 k per side) Blood Aspirated: No Pain Paresthesia on Injection Noted: No Resistance on Injection: Normal Image Stored and Saved: Yes Events: Uneventful and Well Tolerated
[2024-03-11] MEDS: DEXAMETHASONE SOD PHOSPHATE 4 MG/ML 1 ML VIAL IV ONE (09:51)
[2024-03-11] MEDS: HEPARIN SODIUM,PORCINE 5,000 UNIT/ML 1 ML VIAL SQ PRN (09:51)
[2024-03-11] MEDS: ONDANSETRON 4 MG/2 ML VIAL IVP ONE (09:52)
[2024-03-11] MEDS ORDERED: ROPIVACAINE 5 MG/ML 30 ML VIAL ONE (09:58)
[2024-03-11] MEDS ORDERED: SUCCINYLCHOLINE CHLORIDE 200 MG/10 ML VIAL IV ONE (09:58)
[2024-03-11] MEDS ORDERED: GLYCOPYRROLATE 0.2 MG/ML 2 ML VIAL ONE (09:58)
[2024-03-11] MEDS ORDERED: PROPOFOL 10 MG/ML 20 ML VIAL IV ONE (09:58)
[2024-03-11] MEDS ORDERED: SODIUM CHLORIDE 0.9% (PF) 10 ML VIAL ONE (09:58)
[2024-03-11] MEDS ORDERED: LIDOCAINE 1%-EPI 1:100,000 20 ML VIAL ONE (09:58)
[2024-03-11] MEDS ORDERED: NEOSTIGMINE 1 MG/ML 10 ML VIAL ONE (09:58)
[2024-03-11] MEDS ORDERED: fentaNYL (PF) 50 MCG/ML 2 ML AMP ONE (09:58)
[2024-03-11] MEDS ORDERED: LIDOCAINE 1% INJ 10MG/ML (20 ML MDV) ONE (09:58)
[2024-03-11] MEDS ORDERED: PHENYLEPHRINE 10 MG/ML VIAL ONE (09:58)
[2024-03-11] MEDS ORDERED: ROCURONIUM 10 MG/ML (5 ML VIAL) IV ONE (09:58)
[2024-03-11] MEDS: LIDOCAINE 1%-EPI 1:100,000 20 ML VIAL SQ ONE (10:35)
[2024-03-11 11:07] VITALS: TEMP 97
[2024-03-11 11:42] VITALS: RESP 16
[2024-03-11 12:06] VITALS: BP 132/82; PULSE 72
--- NOTE | 2024-03-23 22:59 | P.OP ---
Date of Procedure: 03/11/24 Description of Procedure: SURGEON: LORA ARAYA MD PREOPERATIVE DIAGNOSES: 1. Recurrent right inguinal hernia 2. Diffuse abdominal pain 3. 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 History of small bowel obstruction 5. Hypertensive heart disease 6. Gastroesophageal reflux disease 7. Depressive disorder 8. Chronic pain syndrome 9. History of postop urinary retention 10. History of multiple abdominal surgeries including reversal of congenital malrotation 11. Diabetes type 2, [id number] 12. Chronic pain syndrome 13. Hypotestosteronism 14. Chronic obstructive pulmonary disease 15. History of ventricular tachyarrhythmia with ablation 16. Obstructive sleep apnea POSTOPERATIVE DIAGNOSES: 1. Recurrent right inguinal hernia 2. Diffuse abdominal pain due to severe intra-abdominal adhesions 3. 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 History of small bowel obstruction 5. Hypertensive heart disease 6. Gastroesophageal reflux disease 7. Depressive disorder 8. Chronic pain syndrome 9. History of postop urinary retention 10. History of multiple abdominal surgeries including reversal of congenital malrotation 11. Diabetes type 2, [id number] 12. Chronic pain syndrome 13. Hypotestosteronism 14. Chronic obstructive pulmonary disease 15. History of ventricular tachyarrhythmia with ablation 16. Obstructive sleep apnea OPERATION: 1. Robotic-assisted da Song Xi laparoscopic right inguinal hernia repair ABORTED ESTIMATED BLOOD LOSS: 5 mL. SPECIMENS REMOVED: None. COMPLICATIONS: None. OPERATIVE FINDINGS: 1. Severe intra-abdominal adhesions prohibiting laparoscopic surgery for hernia repair or abdominal adhesions 2. 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 Patient has had extensive surgery at [facility] including correction of his m alrotation with open abdominal exploration and reconstruction of the GI tract. Patient presents with recurrent inguinal hernia seeking laparoscopic approach. Robotic assisted laparoscopic approach was described. Benefits and risks of the procedure including but not limited to bleeding, infection, injury to the small bowel, and discontinuation of the planned procedure was described. Informed consent was obtained. DESCRIPTION OF PROCEDURE: Patient was brought to the operating room, placed in supine position. After general induction, the abdomen had been prepped and draped in standard sterile fashion. The robotic da Song XI system was primed. After a timeout protocol was performed, the patient had been prepped and draped in standard sterile fashion. The robot was prepped and primed. A 5 mm 0 degrees laparoscopic trocar entry was performed along the left upper quadrant. The abdomen was insufflated to 15 mmHg pressure which he tolerated well. Diagnostic laparoscopy was performed however limited due to dense intra- abdominal adhesions prohibiting any further entry into the abdomen or safe approach for laparoscopic surgery. Due to his extensive abdominal surgery and nature of congenital malformation reconstruction, open exploration was not performed and is being deferred to tertiary care center. All pneumoperitoneum instruments were evacuated from the abdominal cavity. The incision was reapproximated using 4-0 Monocryl in an interrupted subcuticular fashion. Please note along the trocar sites, local anesthetic was placed as a field block prior to insertion of all instruments. Dermabond was applied to the skin. At the end of the procedure needle, sponge, and instrument count had been verified correct by the surgical resident. The patient was transferred to postanesthesia care unit in stable condition. Plan - Discharge Summary Discharge Rx Participant: Yes New Discharge Prescriptions: Continue Atorvastatin [Lipitor] 10 mg PO HS Pantoprazole Sodium [Protonix] 40 mg PO BID Losartan [Cozaar] 50 mg PO BID Testosterone Cypionate [Depo-Testosterone] 200 mg IM Q14D Ixekizumab [Taltz Autoinjector] 80 mg SQ DIRECTED traZODone HCL 100 mg PO HS carvediloL [Coreg] 6.25 mg PO BID Fluticasone Nasal [place] [Flonase Nasal [place]] 1 spray EA NOSTRIL DAILY Ergocalciferol [Vitamin D2 (1250 Mcg = 50476 Iu)] 1,250 mcg PO QURESHI Albuterol Inhaler [Ventolin Hfa Inhaler] 1 - 2 puff INHALATION Q6H PRN PRN Reason: Shortness Of Breath Pramipexole Di-HCl [Mirapex] 1.5 mg PO TID Semaglutide [Ozempic] 0.25 mg SQ FR Multivitamin(Unknown Dose) 1 dose PO QAM Ondansetron [Zofran] 8 mg PO Q12HR Montelukast [Singulair] 10 mg PO HS Dextroamphetamine/Amphetamine [Dextroamphetamine/Amphetamine 20 mg Tab] 20 mg PO BID Discharge Medication List Atorvastatin [Lipitor] 10 mg PO HS 12/06/18 [History] Pantoprazole Sodium [Protonix] 40 mg PO BID 12/04/22 [History] Losartan [Cozaar] 50 mg PO BID 04/27/23 [History] Albuterol Inhaler [Ventolin Hfa Inhaler] 1 - 2 puff INHALATION Q6H PRN 01/26/24 [History] Dextroamphetamine/Amphetamine [Dextroamphetamine/Amphetamine 20 mg Tab] 20 mg PO BID 01/26/24 [History] Ergocalciferol [Vitamin D2 (1250 Mcg = 21165 Iu)] 1,250 mcg PO QURESHI 01/26/24 [History] Fluticasone Nasal [place] [Flonase Nasal [place]] 1 spray EA NOSTRIL DAILY 01/26/24 [History] Ixekizumab [Taltz Autoinjector] 80 mg SQ DIRECTED 01/26/24 [History] Montelukast [Singulair] 10 mg PO HS 01/26/24 [History] Ondansetron [Zofran] 8 mg PO Q12HR 01/26/24 [History] Pramipexole Di-HCl [Mirapex] 1.5 mg PO TID 01/26/24 [History] Semaglutide [Ozempic] 0.25 mg SQ FR 01/26/24 [History] Testosterone Cypionate [Depo-Testosterone] 200 mg IM Q14D 01/26/24 [History] carvediloL [Coreg] 6.25 mg PO BID 01/26/24 [History] traZODone HCL 100 mg PO HS 01/26/24 [History] Multivitamin(Unknown Dose) 1 dose PO QAM 03/02/24 [History] Follow up Appointment(s)/Referral(s): Lroa Araya MD [STAFF PHYSICIAN] - 03/15/24 (TELEHEALTH) Patient Instructions/Handouts: *Surgery [facility] - (Anesthesia) Discharge Instructions Outpatient Surgery Activity/Diet/Wound Care/Special Instructions: TELEHEALTH - DR WILL CALL YOU BETWEEN 9 am to 8 pm NO LONG DRIVES OR AIRPLANE RIDES OVER 30 MINUTES FOR THE NEXT 2 WEEKS DUE TO HIGH RISK OF PULMONARY EMBOLISM/DVTs May shower. No bath tub soaks for two weeks until March 25 Diet as tolerated. Use Tylenol, simethicone and ibuprofen or Aleve scheduled for the next 24-48 hours for best pain relief. Use ice along incisions for today to prevent swelling. Discharge Disposition: HOME SELF-CARE
== END 2024-03-11 12:24 | disposition home or self-care (01) ==
LOC: OR 08:13
PROVIDERS: ATTEND Surgery Plastic and Reconstructive Surgery
DX: K40.91 Unilateral inguinal hernia, without obstruction or gangrene, recurrent (principal); K66.0 Peritoneal adhesions (postprocedural) (postinfection); E78.5 Hyperlipidemia, unspecified; G89.18 Other acute postprocedural pain; I10 Essential (primary) hypertension; E11.9 Type 2 diabetes mellitus without complications; J45.909 Unspecified asthma, uncomplicated; K21.9 Gastro-esophageal reflux disease without esophagitis; F32.A Depression, unspecified; G47.33 Obstructive sleep apnea (adult) (pediatric); G89.4 Chronic pain syndrome; I11.9 Hypertensive heart disease without heart failure; J44.89 Other specified chronic obstructive pulmonary disease; Z87.891 Personal history of nicotine dependence; Z90.49 Acquired absence of other specified parts of digestive tract; Z91.040 Latex allergy status; Z98.890 Other specified postprocedural states; Z79.51 Long term (current) use of inhaled steroids; Z79.899 Other long term (current) drug therapy
CPT/HCPCS: 49651; S2900; 64999; 80053; 85025

== ENCOUNTER → 2024-03-23 | Outpatient (CLI) | payer BC ==
[2024-03-23 09:37] VITALS: BP 139/86; PULSE 72; RESP 16
--- NOTE | 2024-03-23 14:02 | P.PAINPG ---
PQRS Measure Charge Sheet Comment: HISTORY OF PRESENT ILLNESS: A 63 yr old male presents today w severe and chronic neck pain x 3 yrs secondary to post laminectomy syndrome for evaluation s/p BL MBB C4-C6 #2. Pt states he experienced 95 % pain relief x 4 days s/p procedure. Pt states pain level is provoked at 8 /10 in intensity, constant, localized in the BL mid cervical spine, L> R, predominantly axial, sharp in character without shooting pain. Pain is provoked by rotation or hyperextension. Pain is alleviated by PT x 6 wks in Apr 2023, physician guided exercises daily since Apr 2023, manual massage, THC gummies, repositioning and rest. Cervical disability pain score at 28. Interventional procedures include LEANDER C6-C7 #1, LEANDER C5-C6 x1, L paramedian C5-C6 x1, BL MBB C4-C6 x2 Medications include Mobic, THC gummies REVIEW OF ORGAN SYSTEMS: CONSTITUTIONAL: No fevers or chills. No recent weight loss. NEUROLOGICAL: + numbness and tingling along the distal extremities. No seizure disorders or headaches. MUSCULOSKELETAL: + pain PSYCHIATRIC: Denies current depression or suicidal thoughts. Physical Examinations : Constitutional : Cooperative , not in acute distress . Neurologic : Cranial nerve II to XII intact. No focal neurological deficits. Psychiatric : alert & oriented x 3. Matching mood & appropriate affect. Judgment & insight intact. Musculoskeletal : Cervical Spine Motor strength in the deltoid and biceps: Normal right side. Normal Left side Motor strength biceps and the wrist extensors: Normal right side . Normal left side Motor strength in the triceps muscle: Normal right side. Normal left side Deep tendon reflexes: Normal at the biceps. Normal at Brachioradialis. Normal at triceps Vertebral body tenderness to deep palpation over C6 Cervical facet loading test: positive L > R C4-C5, C5-C6 Spurling test: positive LC5- C6 Neck distraction test: positive bilaterally Teddy sign: positive bilaterally Lumbar spine Motor strength lower extremities ,thigh and legs 5/5 Right side , 5/5 Left side Deep tendon reflexes : Normal Knee Jerk. Normal Ankle Jerk Vertebral body tenderness over Portillo Test positive Lumbar facet Loading Test: positive Right / positive Left Range of motion of the lumbar spine Flexion 30 degrees, extension 10 degrees Straight Leg Raise test: Left/ Right positive at degree Emeterio test: positive right / positive left. Severe tenderness over the Sacroiliac joint on the Right / Left sides Gaenslen test: positive bilaterally Seated flexion test: positive bilaterally. Sacral spine : Severe tenderness over the Sacroiliac joint: right side / left side Range of motion: Flexion of the lumbar spine <60 degrees Range of motion: Extension of the lumbar spine <20 degrees Gaenslen's Test positive Emeterio test: positive right side / left side Thigh Thrust Test Sacral Thrust Test Imaging: MRI with/without contrast of the cervical spine from 02/07/23 reviewed Assessment/ Plan : C6-C7 ACDF Recommendation of BL RFA C4-C5/C5-C6. Exhibited optimal pain relief w prior BL MBB procedures. Risks, benefits of procedure discussed and pt verbalized understanding. Protocol for discontinuation/ continuation of medications santiago procedure discussed. Minimal anesthesia including Fentanyl and Versed if clinically indicated. All questions answered. I have spent greater than 30 minutes on patient care today. Dr Hamilton was available by phone for the evaluation of this patient. The time was used to review the medical records including relevant urine studies and Prescription history (MAPs), review of the available imaging, evaluation and examination of the patient, coordination of care with the medical staff and if applicable referring physicians, as well as creation of the medical record PQRS Narrative: Smoking Status Former smoker Hx Alcohol Use (MH) No Home Medications: Ambulatory Orders Atorvastatin [Lipitor] 10 mg PO HS 12/06/18 Pantoprazole Sodium [Protonix] 40 mg PO BID 12/04/22 Losartan [Cozaar] 50 mg PO BID 04/27/23 Albuterol Inhaler [Ventolin Hfa Inhaler] 1 - 2 puff INHALATION Q6H PRN 01/26/24 Dextroamphetamine/Amphetamine [Dextroamphetamine/Amphetamine 20 mg Tab] 20 mg PO BID 01/26/24 Ergocalciferol [Vitamin D2 (1250 Mcg = 17430 Iu)] 1,250 mcg PO QURESHI 01/26/24 Fluticasone Nasal [place] [Flonase Nasal [place]] 1 spray EA NOSTRIL DAILY 01/26/24 Ixekizumab [Taltz Autoinjector] 80 mg SQ DIRECTED 01/26/24 Montelukast [Singulair] 10 mg PO HS 01/26/24 Ondansetron [Zofran] 8 mg PO Q12HR 01/26/24 Pramipexole Di-HCl [Mirapex] 1.5 mg PO TID 01/26/24 Semaglutide [Ozempic] 0.25 mg SQ FR 01/26/24 Testosterone Cypionate [Depo-Testosterone] 200 mg IM Q14D 01/26/24 carvediloL [Coreg] 6.25 mg PO BID 01/26/24 traZODone HCL 100 mg PO HS 01/26/24 Multivitamin(Unknown Dose) 1 dose PO QAM 03/02/24 Controlled Substance Measures - Controlled Substance Measures Is patient prescribed a controlled substance at discharge?: No
== END ==
LOC: PNWHC3 08:51
PROVIDERS: ATTEND Specialist
DX: M43.22 Fusion of spine, cervical region (principal); Z87.891 Personal history of nicotine dependence; Z91.040 Latex allergy status
CPT/HCPCS: 99211

== ENCOUNTER 2024-04-08 11:18 | Day surgery (SDC) | payer BC ==
[2024-04-08] MEDS: IV FLUID CONTINUATION 1,000 ML IV ONE ×2 (11:33→12:55)
[2024-04-08 11:44] VITALS: RESP 16; TEMP 97.6
[2024-04-08 11:54] LABS: Glucose,Whole Blood 132 mg/dL (70-110)
[2024-04-08] MEDS: LACTATED RINGERS 1,000 ML IV SCH (11:55)
[2024-04-08] MEDS ORDERED: fentaNYL (PF) 50 MCG/ML 2 ML AMP ONE (12:27)
[2024-04-08] MEDS ORDERED: MIDAZOLAM 2 MG/2 ML VIAL ONE (12:27)
[2024-04-08] MEDS ORDERED: methylPREDNISolone ACETATE 40 MG/ML 1 ML VIAL ONE (12:27)
[2024-04-08] MEDS ORDERED: ROPIVACAINE 5MG/ML 20ML VIAL ONE (12:27)
--- NOTE | 2024-04-08 12:49 | P.PCN ---
Date of Procedure: 04/08/24 Procedure(s) Performed: PREOPERATIVE DIAGNOSIS: Cervical spondylosis with Facet Arthropathy without myelopathy. POSTOPERATIVE DIAGNOSIS: Cervical spondylosis with Facet Arthropathy without myelopathy. PROCEDURES: Radiofrequency thermocoagulation, Left C4, C5, C6 medial branch with Fluroscopy [place](fluoroscopy was available in Radiology department ) (to denervate the facet joint at Left C4- 5 , C5- 6 ) ANESTHESIA: moderate sedation with fentanyl 100 micrograms and Versed 2 mg (sedation start time 12:27, end time at 12:45 ) EBL: Minimal PROCEDURE INDICATION: The patient with neck pain secondary to cervical arthropathy who had more than 50% relief of her pain with previous diagnostic cervical medial branch block. PROCEDURE DESCRIPTION / TECHNIQUE: The patient was seen and identified in the preoperative area. Risks, benefits, complications, and alternatives were discussed with the patient, the patient agreed to proceed with the procedure and signed the consent. IV was started. Vital signs remained stable throughout the procedure. Patient was taken to the OR and time out was completed. The patient was placed in the prone position on the procedure table. A pillow was placed under the patients chest to increase the cervical interlaminar space. The cervical area was prepped and draped in the usual sterile fashion. Critical pause was taken. Vital signs were closely monitored during the procedure. Conscious sedation was used during the procedure to decrease patients anxiety. Using cross-table lateral fluoroscopy, the centroid of the trapezoid of left C4, C5, and C6 were identified, marked, and localized with 1% lidocaine. Subsequently, a 20 [id number] radiofrequency cannula with a 10-mm active tip was advanced guided by fluoroscopy to the centroid of the trapezoid of left C4, C5, and C6 . Needle tip position was confirmed at the centroid of the trapezoids of left C4, C5, and C6 with anteroposterior fluoroscopy. Each site then underwent sensory testing at 50 Hz and 0 to 1 volt and motor testing at 2 Hz and 0 to 3 volt with local stimulation, but no radicular symptoms down the arm. Thereafter each sites underwent radiofrequency thermocoagulation at 80 degrees celsius for 90 seconds after injecting 0.5 ml of PF Ropivacaine 0.5 %. After thermocoagulation, 1 ml of the block solution containing Depo-Medrol 40 mg and 3 mL of preservative-free normal saline was injected at the left C4, C5, and C6 levels after negative aspiration of CSF and blood and with no paresthesias. Cannulas were retracted while injecting lidocaine 1% until the needle is out. Skin was cleansed and bandages were applied. COMPLICATIONS: No acute complications. DISPOSITION / PLANS: The patient was placed in a supine position and transferred to the recovery area in a stable condition for observation and was discharged from the recovery room after meeting discharge criteria. Home discharge instructions given to the patient by the staff. The patient was reexamined prior to discharge. The patient will schedule for RFA on the right side C4-5, and C5-6.
[2024-04-08 12:58] VITALS: PULSE 70
[2024-04-08 13:13] VITALS: BP 124/80
--- NOTE | 2024-04-08 13:28 | FL ---
EXAMINATION TYPE: FL guided pain mgmt statistic Intraoperative/procedural fluoroscopic services were provided. Total fluoroscopy time is 14.6 seconds with a total of 3 submitted images to PACS. Please s ee the operative/procedural note for further details. DAP: [id number] mGym2
== END 2024-04-08 12:30 ==
LOC: ORPAIN 11:18
PROVIDERS: ATTEND Specialist
DX: M47.812 Spondylosis without myelopathy or radiculopathy, cervical region (principal); E11.9 Type 2 diabetes mellitus without complications; Z91.040 Latex allergy status
CPT/HCPCS: 99152; 64633; 64634; J2250; J3010; J2795; J1010

== ENCOUNTER 2024-04-26 06:36 | Day surgery (SDC) | payer BC ==
[2024-04-26] MEDS ORDERED: LACTATED RINGERS 1,000 ML BAG ONE (07:24)
[2024-04-26] MEDS ORDERED: ROPIVACAINE 5MG/ML 20ML VIAL ONE (07:30)
[2024-04-26] MEDS ORDERED: MIDAZOLAM 2 MG/2 ML VIAL ONE (07:30)
[2024-04-26] MEDS ORDERED: fentaNYL (PF) 50 MCG/ML 2 ML AMP ONE (07:30)
--- NOTE | 2024-06-07 18:20 | FL ---
EXAMINATION TYPE: FL guided pain mgmt statistic DATE OF EXAM: 05/10/2024 4:12 PM COMPARISON: Pre Operative Images if available both CT/MRI or plain film CLINICAL INDICATION: Male, 63 years old with history of RIGHT CERVICAL RFA; TECHNIQUE: FL guided pain mgmt statistic, multiple fluoroscopic images provided for procedure. Total fluoroscopy time: 17.6 seconds Total submitted images to PACS: 3 DAP: 0.0422 mGym2 Gycm2 uGym2 cGycm2 or equivalent. FINDINGS: Fluoroscopic images during injection for pain management demonstrate multilevel degeneration changes throughout the spine. No evidence for fracture. No acute process identified. Fixation hardware appear s intact. IMPRESSION: 1. No evidence for intraoperative complication. 2. Please see the operative/procedural note for further details. [facility], , 06/07/2024 6:18 PM
== END 2024-04-26 08:31 ==
LOC: ORPAIN 06:36
PROVIDERS: ATTEND Hospitalist
DX: M47.812 Spondylosis without myelopathy or radiculopathy, cervical region (principal); Z91.040 Latex allergy status
CPT/HCPCS: 64633; 64634; 99152

== ENCOUNTER → 2024-05-16 | Outpatient (CLI) | payer BC ==
[2024-05-16 09:28] VITALS: BP 109/73; PULSE 83; RESP 16; TEMP 97.6
--- NOTE | 2024-05-16 13:32 | P.PAINPG ---
PQRS Measure Charge Sheet Comment: HISTORY OF PRESENT ILLNESS: A 63 yr old male presents today w severe and chronic neck pain x 3 yrs secondary to post laminectomy syndrome for evaluation s/p BL RFA C4-C6. Pt states he experienced 100 % pain relief s/p procedure. Pt states pain level is provoked at 6 /10 in intensity, intermittent, localized in the BL mid cervical spine, L> R, predominantly axial, sharp in character without shooting pain. Pain is provoked by rotation or hyperextension. Pain is alleviated by PT x 6 wks in Apr 2023, physician guided exercises daily since Apr 2023, manual massage, THC gummies, repositioning and rest. Interventional procedures include LEANDER C6-C7 #1, LEANDER C5-C6 x1, L paramedian C5-C6 x1, BL RFA C4-C6 (Apr 2024) Medications include Mobic, THC gummies REVIEW OF ORGAN SYSTEMS: CONSTITUTIONAL: No fevers or chills. No recent weight loss. NEUROLOGICAL: + numbness and tingling along the distal extremities. No seizure disorders or headaches. MUSCULOSKELETAL: + pain PSYCHIATRIC: Denies current depression or suicidal th oughts. Physical Examinations : Constitutional : Cooperative , not in acute distress . Neurologic : Cranial nerve II to XII intact. No focal neurological deficits. Psychiatric : alert & oriented x 3. Matching mood & appropriate affect. Judgment & insight intact. Musculoskeletal : Cervical Spine Motor strength in the deltoid and biceps: Normal right side. Normal Left side Motor strength biceps and the wrist extensors: Normal right side . Normal left side Motor strength in the triceps muscle: Normal right side. Normal left side Deep tendon reflexes: Normal at the biceps. Normal at Brachioradialis. Normal at triceps Vertebral body tenderness to deep palpation over C6 Cervical facet loading test: positive L > R C4-C5, C5-C6 Taut bands w twitch response over BL C3-T2 Spurling test: positive LC5- C6 Neck distraction test: positive bilaterally Teddy sign: positive bilaterally Lumbar spine Motor strength lower extremities ,thigh and legs 5/5 Right side , 5/5 Left side Deep tendon reflexes : Normal Knee Jerk. Normal Ankle Jerk Vertebral body tenderness over Portillo Test positive Lumbar facet Loading Test: positive Right / positive Left Range of motion of the lumbar spine Flexion 30 degrees, extension 10 degrees Straight Leg Raise test: Left/ Right positive at degree Emeterio test: positive right / positive left. Severe tenderness over the Sacroiliac joint on the Right / Left sides Gaenslen test: positive bilaterally Seated flexion test: positive bilaterally. Sacral spine : Severe tenderness over the Sacroiliac joint: right side / left side Range of motion: Flexion of the lumbar spine <60 degrees Range of motion: Extension of the lumbar spine <20 degrees Gaenslen's Test positive Emeterio test: positive right side / left side Thigh Thrust Test Sacral Thrust Test Imaging: MRI with/without contrast of the cervical spine from 02/07/23 reviewed Assessment/ Plan : C6-C7 ACDF Recommendation of BL TPIs C3-T2 #1. Risks, benefits of procedure discussed and pt verbalized understanding. Protocol for discontinuation/ continuation of medications santiago procedure discussed. All questions answered. I have spent greater than 30 minutes on patient care today. Dr Hamilton was available by phone for the evaluation of this patient. The time was used to re view the medical records including relevant urine studies and Prescription history (MAPs), review of the available imaging, evaluation and examination of the patient, coordination of care with the medical staff and if applicable referring physicians, as well as creation of the medical record PQRS Narrative: Smoking Status Former smoker Hx Alcohol Use (MH) No Home Medications: Ambulatory Orders Atorvastatin [Lipitor] 10 mg PO HS 12/06/18 Pantoprazole Sodium [Protonix] 40 mg PO BID 12/04/22 Losartan [Cozaar] 50 mg PO BID 04/27/23 Dextroamphetamine/Amphetamine [Dextroamphetamine/Amphetamine 20 mg Tab] 20 mg PO BID 01/26/24 Ergocalciferol [Vitamin D2 (1250 Mcg = 21396 Iu)] 1,250 mcg PO QURESHI 01/26/24 Fluticasone Nasal [place] [Flonase Nasal [place]] 1 spray EA NOSTRIL DAILY 01/26/24 Ixekizumab [Taltz Autoinjector] 80 mg SQ DIRECTED 01/26/24 Montelukast [Singulair] 10 mg PO HS 01/26/24 Ondansetron [Zofran] 8 mg PO Q12HR 01/26/24 Pramipexole Di-HCl [Mirapex] 1.5 mg PO TID 01/26/24 Semaglutide [Ozempic] 0.25 mg SQ FR 01/26/24 Testosterone Cypionate [Depo-Testosterone] 200 mg IM Q14D 01/26/24 carvediloL [Coreg] 6.25 mg PO BID 01/26/24 traZODone HCL 100 mg PO HS 01/26/24 Multivitamin(Unknown Dose) 1 dose PO QAM 03/02/24 Controlled Substance Measures - Controlled Substance Measures Is patient prescribed a controlled substance at discharge?: No
== END ==
LOC: PNWHC3 08:51
PROVIDERS: ATTEND Specialist
DX: M47.812 Spondylosis without myelopathy or radiculopathy, cervical region
CPT/HCPCS: 99211

== ENCOUNTER 2024-05-20 11:31 | Emergency (ER) | payer BC ==
[2024-05-20 11:45] VITALS: TEMP 98.1
--- NOTE | 2024-05-20 12:14 | ED ---
Abdominal Pain HPI - General Source: patient, RN notes reviewed Mode of arrival: ambulatory Limitations: no limitations <Catina España - Last Filed: 05/20/24 12:12> <Lemuel Corbett - Last Filed: 05/20/24 15:33> - General Chief Complaint: Abdominal Pain Stated Complaint: Abd pain Time Seen by Provider: 05/20/24 11:46 - History of Present Illness Initial Comments: Quick [id number] male with history of intestinal malrotation presents emergency department with chief complaint of right lower quadrant abdominal pain that has been worsening over the past 3 to 4 days. Patient endorses nausea, denies vomiting, fevers, chills. Still passing gas and having bowel movements. States that this pain feels similar and recent ileus in the past. (Catina España) This is a 63-year-old male who presents to the emergency department the past medical history significant for malrotation of the intestines. Patient states he had somewhere between 8-9 surgeries and he had to go to [facility] to have the malrotation corrected. Patient states for the last 3 and half years has been doing pretty good but lately he has been having more more pain and over the last week the pain has become unbearable. Patient states he is nauseous but has not vomited. Patient has any diarrhea. Patient has any fever chills or cough. Patient states the pain is more in the right side than the left. (Lemuel Corbett) - Related Data Home Medications Medication Instructions Recorded Confirmed Atorvastatin [Lipitor] 10 mg PO HS 12/06/18 04/07/24 Pantoprazole Sodium [Protonix] 40 mg PO BID 12/04/22 04/07/24 Losartan [Cozaar] 50 mg PO BID 04/27/23 04/07/24 Dextroamphetamine/Amphetamine 20 mg PO BID 01/26/24 04/07/24 [Dextroamphetamine/Amphetamine 20 mg Tab] Ergocalciferol [Vitamin D2 (1250 1,250 mcg PO QURESHI 01/26/24 04/07/24 Mcg = 22091 Iu)] Fluticasone Nasal [place] [Flonase 1 spray EA NOSTRIL DAILY 01/26/24 04/07/24 Nasal [place]] Ixekizumab [Taltz Autoinjector] 80 mg SQ DIRECTED 01/26/24 04/07/24 Montelukast [Singulair] 10 mg PO HS 01/26/24 04/07/24 Ondansetron [Zofran] 8 mg PO Q12HR 01/26/24 04/07/24 Pramipexole Di-HCl [Mirapex] 1.5 mg PO TID 01/26/24 04/07/24 Semaglutide [Ozempic] 0.25 mg SQ FR 01/26/24 04/07/24 Testosterone Cypionate 200 mg IM Q14D 01/26/24 04/07/24 [Depo-Testosterone] carvediloL [Coreg] 6.25 mg PO BID 01/26/24 04/07/24 traZODone HCL 100 mg PO HS 01/26/24 04/07/24 Multivitamin(Unknown Dose) 1 dose PO QAM 03/02/24 04/07/24 Allergies Allergy/AdvReac Type Severity Reaction Status Date / Time latex Allergy Unknown Verified 04/08/24 11:38 Review of Systems ROS Other: All systems not noted in ROS Statement are negative. <Catina España - Last Filed: 05/20/24 12:12> ROS Other: All systems not noted in ROS Statement are negative. <Lemuel Corbett - Last Filed: 05/20/24 15:33> ROS Statement: Those systems with pertinent positive or pertinent negative responses have been documented in the HPI. Past Medical History Past Medical History: Asthma, Chest Pain / Angina, Diabetes Mellitus, Eye Disorder, GERD/Reflux, Hyperlipidemia, Hypertension, Musculoskeletal Disorder, Skin Disorder Additional Past Medical History / Comment(s): Intestinal malrotation/elongated colon/bowel obstruction/sigmoid volvulus - abdominal/intestinal pain chronic, constipation, recurrent R inguinal hernia with recent repair, cervical pain/pinched nerve, bilateral detached retinas,V tach with ablation, psoriasis, narcolepsy?, new onset type II diabetes, incomplete Rt. inguinal hernia repair d/t scar tissue - pt. referred to [facility] History of Any Multi-Drug Resistant Organisms: None Reported Past Surgical History: Appendectomy, Bowel Resection, Cardiac Ablation, Cholecystectomy, Heart Catheterization, Hernia Repair Additional Past Surgical History / Comment(s): Rt. inguinal hernia repairs with last one done 07/22/19, colon resection/lysis of adhesions on 04/22/19, diag nostic laparoscopy/lysis of adhesions, multiple colon surgeries, bilateral cataract removals/lens implants, bilateral retinal detachment surgeries (7). Pain proc, last 10/18/19 disc replaced in neck with plate and screws 12/16/23 BILATERAL ELBOW CUBITAL TUNNEL SURGERY, AND BILATERALCARPAL TUNNEL SURGERY (OCTOBER AND NOVEMBER 2023) Past Anesthesia/Blood Transfusion Reactions: No Reported Reaction Past Psychological History: Anxiety, Depression Smoking Status: Former smoker Past Alcohol Use History: None Reported Past Drug Use History: Marijuana - Past Family History Mother Family Medical History: Musculoskeletal Disorder, Neurologic Disorder Additional Family Medical History / Comment(s): Parkinsons Father Family Medical History: Pulmonary Embolus Brother(s) Family Medical History: Cancer Additional Family Medical History / Comment(s): Bladder cancer. <Catina España - Last Filed: 05/20/24 12:12> General Exam Limitations: no limitations <Catina España - Last Filed: 05/20/24 12:12> <Lemuel Corbett - Last Filed: 05/20/24 15:33> - General Exam Comments Initial Comments: Visual Physical Exam Vital signs reviewed General: Well-appearing, nontoxic, no acute distress. Head: Normocephalic, atraumatic Eyes: PERRLA, EOMI ENT: Airway patent Chest: Nonlabored breathing Skin: No visual rash, normal skin tone Neuro: Alert and oriented 3 Musculoskeletal: No gross abnormalities (NoreeneleCatina everett) GENERAL: Patient is well-developed and well-nourished. Patient is nontoxic and well- hydrated and is in mild distress. ENT: Neck is soft and supple. No significant lymphadenopathy is noted. Oropharynx is clear. Moist mucous membranes. Neck has full range of motion without eliciting any pain. EYES: The sclera were anicteric and conjunctiva were pink and moist. Extraocular movements were intact and pupils were equal round and reactive to light. Eyelids were unremarkable. PULMONARY: Unlabored respirations. Good breath sounds bilaterally. No audible rales rhonchi or wheezing was noted. CARDIOVASCULAR: There is a regular rate and rhythm without any murmurs gallops or rubs. ABDOMEN: Right-sided abdominal pain. SKIN: Skin is clear with no lesions or rashes and otherwise unremarkable. NEUROLOGIC: Patient is alert and oriented x3. Cranial nerves II through XII are grossly intact. Motor and sensory are also intact. Normal speech, volume and content. Symmetrical smile. MUSCULOSKELETAL: Normal extremities with adequate strength and full range of motion. LYMPHATICS: No significant lymphadenopathy is noted PSYCHIATRIC: Normal psychiatric evaluation. (Lemuel Corbett) Course Vital Signs 05/20/24 11:41 Temperature 98.1 F Pulse Rate 77 Respiratory 20 Rate Blood Pressure 97/52 O2 Sat by Pulse 98 Oximetry Medical Decision Making <Catina Espaañ - Last Filed: 05/20/24 12:12> - Lab Data Result diagrams: 05/20/24 12:26 05/20/24 12:26 <Lemuel Corbett - Last Filed: 05/20/24 15:33> - Medical Decision Making I completed the quick note portion of this chart signed Catina España PA-C (Catina España) Was pt. sent in by a medical professional or institution ([facility], [facility], urgent care, hospital, or residential...) When possible be specific @ -No Did you speak to anyone other than the patient for history (EMS, parent, family, police, friend...)? What history was obtained from this source @ -No Did you review nursing and triage notes (agree or disagree)? Why? @ -I reviewed and agree with nursing and triage notes Were old charts reviewed (outside hosp., previous admission, EMS record, old EKG, old radiological studies, urgent care reports/EKG's, residential records)? Report findings @ -No old charts were reviewed Differential Diagnosis? @ -Differential abdominal pain min EKG interpreted by me (3pts min.). @ -As above X-rays interpreted by me (1pt min.). @ -None done CT interpreted by me (1pt min.). @ -Patient's CT abdomen pelvis shows no acute abnormality the same surgical changes as before U/S interpreted by me (1pt. min.). @ -None done What testing was considered but not performed or refused? (CT, X-rays, U/S, labs)? Why? @ -None What meds were considered but not given or refused? Why? @ -None Did you discuss the management of the patient with other professionals (professionals i.e. Dr., PA, [employer], lab, RT, psych nurse, psych social worker, bpm analyst, teacher, asset protection officer, medical case worker)? Give summary @ -No Was smoking cessation discussed for >3mins.? @ -No Was critical care preformed (if so, how long)? @ -No Were there social determinants of health that impacted care today? How? (Homelessness, low income, unemployed, alcoholism, drug addiction, transportation, low edu. Level, literacy, decrease access to med. care, senior living, rehab)? @ -No Was there de-escalation of care discussed even if they declined (Discuss DNR or withdrawal of care, Hospice)? DNR status @ -No What co-morbidities impacted this encounter? (DM, HTN, Smoking, COPD, CAD, Cancer, CVA, ARF, Chemo, Hep., AIDS, mental health diagnosis, sleep apnea, morbid obesity)? @ -None Was patient admitted / discharged? Hospital course, mention meds given and route, prescriptions, significant lab abnormalities, going to OR and other pertinent info. @ -I went back and discussed the lab results as well as the CT results with the patient and he indicated that he was able to go home will be comfortable going home because there would be nothing we would be able to do from here other than some pain relief. I told the patient given some pain meds and he did receive Toradol and Dilaudid prior to his discharge Undiagnosed new problem with uncertain prognosis? @ -No Drug Therapy requiring intensive monitoring for toxicity (Heparin, Nitro, Insulin, Cardizem)? @ -No Were any procedures done? @ -No Diagnosis/symptom? @ -Chronic abdominal pain Acute, or Chronic, or Acute on Chronic? @ -Chronic Uncomplicated (without systemic symptoms) or Complicated (systemic symptoms)? @ -Complicated Side effects of treatment? @ -No Exacerbation, Progression, or Severe Exacerbation? @ -No Poses a threat to life or bodily function? How? (Chest pain, USA, OR, pneumonia, PE, COPD, DKA, ARF, appy, cholecystitis, CVA, Diverticulitis, Homicidal, Suicidal, threat to staff... and all critical care pts) @ -No (Lemuel Corbett) - Lab Data Lab Results 05/20/24 05/20/24 05/20/24 Range/Units 12:26 12:26 12:26 WBC 5.5 (3.8-10.6) k/uL RBC 4.49 (4.30-5.90) m/uL Hgb 13.9 (13.0-17.5) gm/dL Hct 40.8 (39.0-53.0) % MCV 90.9 (80.0-100.0) fL MCH 30.9 (25.0-35.0) pg MCHC 34.0 (31.0-37.0) g/dL RDW 13.5 (11.5-15.5) % Plt Count 262 (150-450) k/uL MPV 7.0 Neutrophils % 65 % Lymphocytes % 26 % Monocytes % 4 % Eosinophils % 3 % Basophils % 0 % Neutrophils # 3.5 (1.3-7.7) k/uL Lymphocytes # 1.4 (1.0-4.8) k/uL Monocytes # 0.2 (0-1.0) k/uL Eosinophils # 0.2 (0-0.7) k/uL Basophils # 0.0 (0-0.2) k/uL Sodium 141 (137-145) mmol/L Potassium 3.7 (3.5-5.1) mmol/L Chloride 96 L (98-107) mmol/L Carbon Dioxide 34 H (22-30) mmol/L Anion Gap 11 mmol/L BUN 11 (9-20) mg/dL Creatinine 1.08 (0.66-1.25) mg/dL Est GFR (CKD-EPI)AfAm 85 (>60 ml/min/1.73 sqM) Est GFR (CKD-EPI)NonAf 74 (>60 ml/min/1.73 sqM) Glucose 116 H (74-99) mg/dL Plasma Lactic Acid Edgar (0.7-2.0) mmol/L Calcium 9.2 (8.4-10.2) mg/dL Total Bilirubin 0.7 (0.2-1.3) mg/dL AST 30 (17-59) U/L ALT 29 (4-49) U/L Alkaline Phosphatase 86 (38-126) U/L Total Protein 6.6 (6.3-8.2) g/dL Albumin 4.2 (3.5-5.0) g/dL Lipase 113 (23-300) U/L Urine Color Light Yellow Urine Appearance Turbid (Clear) Urine pH 8.5 H (5.0-8.0) Ur Specific [place] 1.019 (1.001-1.035) Urine Protein Trace H (Negative) Urine Glucose (UA) Negative (Negative) Urine Ketones Negative (Negative) Urine Blood Moderate H (Negative) Urine Nitrite Negative (Negative) Urine Bilirubin Negative (Negative) Urine Urobilinogen <2.0 (<2.0) mg/dL Ur Leukocyte Esterase Negative (Negative) Urine RBC 16 H (0-5) /hpf Amorphous Sediment Few H (None) /hpf Urine Bacteria Rare H (None) /hpf Urine Mucus Rare H (None) /hpf 05/20/24 Range/Units 12:26 WBC (3.8-10.6) k/uL RBC (4.30-5.90) m/uL Hgb (13.0-17.5) gm/dL Hct (39.0-53.0) % MCV (80.0-100.0) fL MCH (25.0-35.0) pg MCHC (31.0-37.0) g/dL RDW (11.5-15.5) % Plt Count (150-450) k/uL MPV Neutrophils % % Lymphocytes % % Monocytes % % Eosinophils % % Basophils % % Neutrophils # (1.3-7.7) k/uL Lymphocytes # (1.0-4.8) k/uL Monocytes # (0-1.0) k/uL Eosinophils # (0-0.7) k/uL Basophils # (0-0.2) k/uL Sodium (137-145) mmol/L Potassium (3.5-5.1) mmol/L Chloride (98-107) mmol/L Carbon Dioxide (22-30) mmol/L Anion Gap mmol/L BUN (9-20) mg/dL Creatinine (0.66-1.25) mg/dL Est GFR (CKD-EPI)AfAm (>60 ml/min/1.73 sqM) Est GFR (CKD-EPI)NonAf (>60 ml/min/1.73 sqM) Glucose (74-99) mg/dL Plasma Lactic Acid Edgar 1.5 (0.7-2.0) mmol/L Calcium (8.4-10.2) mg/dL Total Bilirubin (0.2-1.3) mg/dL AST (17-59) U/L ALT (4-49) U/L Alkaline Phosphatase (38-126) U/L Total Protein (6.3-8.2) g/dL Albumin (3.5-5.0) g/dL Lipase (23-300) U/L Urine Color Urine Appearance (Clear) Urine pH (5.0-8.0) Ur Specific [place] (1.001-1.035) Urine Protein (Negative) Urine Glucose (UA) (Negative) Urine Ketones (Negative) Urine Blood (Negative) Urine Nitrite (Negative) Urine Bilirubin (Negative) Urine Urobilinogen (<2.0) mg/dL Ur Leukocyte Esterase (Negative) Urine RBC (0-5) /hpf Amorphous Sediment (None) /hpf Urine Bacteria (None) /hpf Urine Mucus (None) /hpf Disposition <Catina España - Last Filed: 05/20/24 12:12> Is patient prescribed a controlled substance at d/c from ED?: No Time of Disposition: 15:33 <Lemuel Corbett - Last Filed: 05/20/24 15:33> Clinical Impression: Chronic abdominal pain Disposition: HOME SELF-CARE Instructions (If sedation given, give patient instructions): Abdominal Pain (ED) Referrals: Rod Mckinnon MD [Primary Care Provider] - 1-2 days
[2024-05-20 12:38] LABS: Basophils % (A) 0 %; Eosinophils # (A) 0.2 k/uL (0-0.7); Eosinophils % (A) 3 %; HCT 40.8 % (39.0-53.0); HGB 13.9 gm/dL (13.0-17.5); Lymphocytes # (A) 1.4 k/uL (1.0-4.8); Lymphocytes % (A) 26 %; MCH 30.9 pg (25.0-35.0); MCV 90.9 fL (80.0-100.0); Monocytes # (A) 0.2 k/uL (0-1.0); Monocytes % (A) 4 %; Neutrophils # (A) 3.5 k/uL (1.3-7.7); Neutrophils % (A) 65 %; Platelet Count 262 k/uL (150-450); RBC 4.49 m/uL (4.30-5.90); RDW 13.5 % (11.5-15.5); WBC 5.5 k/uL (3.8-10.6)
[2024-05-20 12:50] LABS: Sodium 141 mmol/L (137-145)
[2024-05-20 12:51] LABS: ALT 29 U/L (4-49); AST 30 U/L (17-59); African American GFR (CKD) 85 (>60 ml/min/1.73 sqM); Albumin 4.2 g/dL (3.5-5.0); Alkaline Phosphatase 86 U/L (38-126); Anion Gap 11 mmol/L; Blood Urea Nitrogen 11 mg/dL (9-20); Calcium 9.2 mg/dL (8.4-10.2); Carbon Dioxide 34 mmol/L (22-30); Chloride 96 mmol/L (98-107); Glucose 116 mg/dL (74-99); Lipase 113 U/L (23-300); Non-African American GFR(CKD) 74 (>60 ml/min/1.73 sqM); Potassium 3.7 mmol/L (3.5-5.1); Total Bilirubin 0.7 mg/dL (0.2-1.3); Total Protein 6.6 g/dL (6.3-8.2)
--- NOTE | 2024-05-20 13:58 | CT ---
EXAMINATION TYPE: CT abdomen pelvis w con DATE OF EXAM: 05/20/2024 COMPARISON: 04/27/2023 HISTORY: RLQ ab pain, hx of intestinal malrotation CT DLP: 954.9 mGycm Automated exposure control for dose reduction was used. TECHNIQUE: Helical acquisition of images was performed from the lung bases through the pelvis. CONTRAST: Performed without Oral Contrast and with IV Contrast, patient injected with 100 mL of Isovue 300. FINDINGS: The lung bases are clear. There is surgical absence of the gallbladder. There is no biliary ductal dilatation. There is no focal mass or organomegaly involving the liver, pancreas, spleen or adrenal glands. There is no solid renal mass or hydronephrosis and there is homogeneous contrast enhancement of the r enal parenchyma. The caliber the abdominal aorta is normal is no retroperitoneal adenopathy or hemorr david. There are postsurgical changes of partial colectomy. There is no bowel dilatation or obstruction. No inflammatory changes are identified in the bowel wall or mesentery. There is no free intraperitoneal air or fluid No pelvic mass, free fluid, abscess or adenopathy. The osseous structures and soft tissues are intact. IMPRESSION: Postsurgical changes as described above. No acute changes within the abdomen or pelvis to account for right lower quadrant pain
[2024-05-20 14:08] LABS: Amorphous Sediment,Urine Few /hpf; Appearance,Urine Turbid (Clear); Bacteria,Urine Rare /hpf; Bilirubin,Urine Negative (Negative); Blood,Urine Moderate (Negative); Color,Urine Light Yellow; Glucose,Urine (UA) Negative (Negative); Ketones,Urine Negative (Negative); Leukocyte Esterase,Urine Negative (Negative); Mucus,Urine Rare /hpf; Nitrite,Urine Negative (Negative); PH, Urine 8.5 (5.0-8.0); Protein,Urine Trace (Negative); RBC,Urine 16 /hpf (0-5); Specific Gravity,Urine 1.019 (1.001-1.035); Urobilinogen,Urine <2.0 mg/dL (<2.0)
[2024-05-20] MEDS: KETOROLAC 15 MG/ML 1 ML VIAL IVP STA (16:34)
[2024-05-20] MEDS: HYDROmorphone 0.5 MG/0.5 ML SYRINGE IVP STA (16:35)
[2024-05-20 16:37] VITALS: BP 109/71; PULSE 75; RESP 16
== END 2024-05-20 16:45 | disposition home or self-care (01) ==
LOC: EC 11:31
DX: R10.9 Unspecified abdominal pain
CPT/HCPCS: 36415; 74177; 80053; 81001; 83605; 83690; 85025; 96374; 96375; 99284

== ENCOUNTER 2024-06-07 12:10 | Day surgery (SDC) | payer BC ==
[~2024-06-07 12:10] MED LIST changes: -HYDROmorphone 0.5 MG/0.5 ML SYRINGE IVP PRN; +LACTATED RINGERS 1,000 ML IV SCH; -LIDOCAINE 1% (10MG/ML) FOR IV START INTRADERMA PRN; -ONDANSETRON 4 MG/2 ML VIAL IVP PRN
[2024-06-07 12:41] LABS: Glucose,Whole Blood 109 mg/dL (70-110)
[2024-06-07 12:46] VITALS: RESP 16; TEMP 98
[2024-06-07] MEDS ORDERED: ROPIVACAINE 5MG/ML 20ML VIAL ONE (12:49)
[2024-06-07] MEDS ORDERED: TRIAMCINOLONE ACETONIDE 40 MG/ML 1 ML VIAL ONE (12:49)
--- NOTE | 2024-06-07 13:00 | P.PCN ---
Date of Procedure: 06/07/24 Description of Procedure: Pre and postop diagnosis : Myofascial pain syndrome Procedure : Trigger point injections X 10. Muscle group -bilateral cervical paraspinal, bilateral trapezius, bilateral rhomboids. Surgeon: Tuan Morales Anesthesia: None Complications : None Specimen removed: None Estimated blood loss: None Procedure indications : Patient had a history of myofascial pain syndrome . Patient tried conservative therapy . Came here for intervention procedure for better pain relief. Procedure description : Patient was seen and identified in the holding area risk benefits competitions alternative discussed with the patient. Patient agreed to proceed for the procedure signed the consent. Patient taken to the procedure area. Timeout was completed. 10 - trigger point area were marked with a sterile marker. After ChloraPrep used to clean the area. Critical pause was taken. Using 25-gauge 1-1/2 inch needle bended half way. He entered in each market site 2 mL of block solution injected at each level. The block solution containing 19 ml of 0.5% preservative-free ropivacaine with Kenalog 40 MG. Needle removed intact skin cleaned and Band-Aid applied. Patient tolerated the procedure well. Disposition: Patient discharge home after meeting the discharge criteria from the recovery. Patient scheduled to follow up with the pain clinic in 4 weeks for follow-up visit.
[2024-06-07 13:19] VITALS: BP 127/84; PULSE 83
== END 2024-06-07 13:22 | disposition home or self-care (01) ==
LOC: ORPAIN 12:10
DX: M79.18 Myalgia, other site (principal); J45.909 Unspecified asthma, uncomplicated; E11.9 Type 2 diabetes mellitus without complications; K21.9 Gastro-esophageal reflux disease without esophagitis; I10 Essential (primary) hypertension; F41.9 Anxiety disorder, unspecified; F32.A Depression, unspecified; Z79.85 Long-term (current) use of injectable non-insulin antidiabetic drugs; Z79.899 Other long term (current) drug therapy; Z91.040 Latex allergy status
CPT/HCPCS: 20553

== ENCOUNTER → 2024-06-09 | Outpatient (CLI) | payer BC ==
[2024-06-09 16:17] LABS: African American GFR (CKD) >90 (>60 ml/min/1.73 sqM); Blood Urea Nitrogen 17 mg/dL (9-20); Non-African American GFR(CKD) 87 (>60 ml/min/1.73 sqM)
--- NOTE | 2024-06-09 17:54 | CT ---
Faintly EXAMINATION TYPE: CT abdomen pelvis w con DATE OF EXAM: 06/09/2024 COMPARISON: 05/20/2024 HISTORY: ABD PAIN CT DLP: 873.3 mGycm CONTRAST: CT scan of the abdomen and pelvis is performed with Oral Contrast and with IV Contrast, patient injec kanika with 100 mL of Isovue 370. FINDINGS: LUNG BASES-: No visible nodule. No infiltrate. LIVER/GB: The gallbladder is surgically absent. No space occupying hepatic lesion. Biliary tree is of normal caliber. PANCREAS: No inflammation. No distinct mass. SPLEEN: No splenic enlargement. No lesion seen. ADRENALS: No nodule. No thickening. KIDNEYS/BLADDER: No hydronephrosis. No nephrolithiasis. No solid distinct renal mass. 1.8 cm simp le cyst upper pole left kidney with small cortical cyst noted midpole. Urinary bladder grossly unrema rkable. BOWEL: Again noted are changes of near total colectomy. Anastomotic sutures appear to be grossly inta ct. No evidence for obstruction or leak. No free air or free fluid evident. No evidence for volvulus. GENITAL ORGANS: No gross abnormality. LYMPH NODES: No greater than 1cm abdominal or pelvic lymph nodes are appreciated. AORTA: No significant abnormality. OSSEOUS STRUCTURES: No significant abnormality is seen. OTHER: No significant additional abnormality is seen. IMPRESSION: 1. Again noted are changes of near total colectomy. Anastomotic sutures appear to be grossly intact. No evidence for obstruction or leak. No free air or free fluid evident. [facility], , 06/09/2024 5:52 PM
== END | disposition home or self-care (01) ==
LOC: RADCTMAIN 15:12
PROVIDERS: ATTEND Family Medicine
DX: K56.50 Intestinal adhesions [bands], unspecified as to partial versus complete obstruction (principal); Q43.3 Congenital malformations of intestinal fixation; Z90.49 Acquired absence of other specified parts of digestive tract
CPT/HCPCS: 82565; 84520; 74177; 36415; Q9967

== ENCOUNTER → 2024-06-23 | Outpatient (CLI) | payer BC ==
[2024-06-23 10:01] VITALS: RESP 16
[2024-06-23 10:24] VITALS: BP 120/84; PULSE 81; TEMP 97.1
--- NOTE | 2024-06-23 13:57 | P.PAINPG ---
PQRS Measure Charge Sheet Comment: HISTORY OF PRESENT ILLNESS: A 63 yr old male presents today w severe and chronic neck pain x 3 yrs secondary to post laminectomy syndrome for evaluation s/p BL TPIs C3-T2 #2. Pt states he experienced 90 % pain relief x 2 wks s/p procedure. Pt states pain level is provoked at 2 /10 in intensity, intermittent, localized in the BL mid cervical spine, L> R, predominantly axial, sharp in character without shooting pain. Pain is provoked by rotation or hyperextension. Pain is alleviated by PT x 6 wks in Apr 2023, physician guided exercises daily since Apr 2023, manual massage, THC gummies, repositioning and rest. Interventional procedures include LEANDER C6-C7 #1, LEANDER C5-C6 x1, L paramedian C5-C6 x1, BL RFA C4-C6 (Apr 2024), BL TPIs C3-T2 x1 Medications include Mobic, THC gummies REVIEW OF ORGAN SYSTEMS: CONSTITUTIONAL: No fevers or chills. No recent weight loss. NEUROLOGICAL: + numbness and tingling along the distal extremities. No seizure disorders or headaches. MUSCULOSKELETAL: + pain PSYCHIATRIC: Denies current depression or suicidal thoughts. Physical Examinations : Constitutional : Cooperative , not in acute distress . Neurologic : Cranial nerve II to XII intact. No focal neurological deficits. Psychiatric : alert & oriented x 3. Matching mood & appropriate affect. Judgment & insight intact. Musculoskeletal : Cervical Spine Motor strength in the deltoid and biceps: Normal right side. Normal Left side Motor strength biceps and the wrist extensors: Normal right side . Normal left side Motor strength in the triceps muscle: Normal right side. Normal left side Deep tendon reflexes: Normal at the biceps. Normal at Brachioradialis. Normal at triceps Vertebral body tenderness to deep palpation over C6 Cervical facet loading test: positive L > R C4-C5, C5-C6 Taut bands w twitch response over BL C3-T2 Spurling test: positive LC5- C6 Neck distraction test: positive bilaterally Teddy sign: positive bilaterally Lumbar spine Motor strength lower extremities ,thigh and legs 5/5 Right side , 5/5 Left side Deep tendon reflexes : Normal Knee Jerk. Normal Ankle Jerk Vertebral body tenderness over Portillo Test positive Lumbar facet Loading Test: positive Right / positive Left Range of motion of the lumbar spine Flexion 30 degrees, extension 10 degrees Straight Leg Raise test: Left/ Right positive at degree Emeterio test: positive right / positive left. Severe tenderness over the Sacroiliac joint on the Right / Left sides Gaenslen test: positive bilaterally Seated flexion test: positive bilaterally. Sacral spine : Severe tenderness over the Sacroiliac joint: right side / left side Range of motion: Flexion of the lumbar spine <60 degrees Range of motion: Extension of the lumbar spine <20 degrees Gaenslen's Test positive Emeterio test: positive right side / left side Thigh Thrust Test Sacral Thrust Test Imaging: MRI with/without contrast of the cervical spine from 02/07/23 reviewed Assessment/ Plan : C6-C7 ACDF Will manage residual pain and may RTC on an as needed basis. All questions answered. I have spent greater than 30 minutes on patient care today. Dr Hamilton was available by phone for the evaluation of this patient. The time was used to review the medical records including relevant urine studies and Prescription history (MAPs), review of the available imaging, evaluation and examination of the patient, coordination of care with the medical staff and if applicable referring physicians, as well as creation of the medical record PQRS Narrative: Smoking Status Former smoker Hx Alcohol Use (MH) No Home Medications: Ambulatory Orders Atorvastatin [Lipitor] 10 mg PO HS 12/06/18 Pantoprazole Sodium [Protonix] 40 mg PO BID 12/04/22 Losartan [Cozaar] 50 mg PO DAILY 04/27/23 Dextroamphetamine/Amphetamine [Dextroamphetamine/Amphetamine 20 mg Tab] 20 mg PO BID 01/26/24 Ergocalciferol [Vitamin D2 (1250 Mcg = 28500 Iu)] 1,250 mcg PO QURESHI 01/26/24 Fluticasone Nasal [place] [Flonase Nasal [place]] 1 spray EA NOSTRIL DAILY 01/26/24 Ixekizumab [Taltz Autoinjector] 80 mg SQ Q30D 01/26/24 Montelukast [Singulair] 10 mg PO HS 01/26/24 Ondansetron [Zofran] 8 mg PO Q12HR 01/26/24 Pramipexole Di-HCl [Mirapex] 1.5 mg PO TID 01/26/24 Semaglutide [Ozempic] 0.25 mg SQ FR 01/26/24 Testosterone Cypionate [Depo-Testosterone] 200 mg IM Q14D 01/26/24 carvediloL [Coreg] 6.25 mg PO BID 01/26/24 traZODone HCL 100 mg PO HS 01/26/24 Multivitamin(Unknown Dose) 1 dose PO QAM 03/02/24 Diclofenac Sodium Gel [Voltaren 1% Gel] 50 gm TOPICAL BID 30 Days #1 each 06/23/24 Controlled Substance Measures - Controlled Substance Measures Is patient prescribed a controlled substance at discharge?: No
== END ==
LOC: PNWHC3 08:32
PROVIDERS: ATTEND Specialist
DX: M47.812 Spondylosis without myelopathy or radiculopathy, cervical region
CPT/HCPCS: 99211

== ENCOUNTER → 2024-07-18 | Outpatient (CLI) | payer BC ==
--- NOTE | 2024-07-18 11:15 | CT ---
EXAMINATION TYPE: CT chest wo con CT DLP: 363.9 mGycm, Automated exposure control for dose reduction was used. DATE OF EXAM: 07/18/2024 11:00 AM COMPARISON: CTA chest 07/21/2023, 12/05/2022, 07/10/2022, 04/10/2021. 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 Lack of IV or o ral contrast limits evaluation of solid and hollow organ viscera. . Coronal and sagittal reformats re viewed. FINDINGS: LUNGS/ PLEURA: No pleural effusion, pneumothorax, focal consolidation. Stable lateral right midlung 2 .5 mm pulmonary nodule dating back to at least 2020 and considered benign (series 4, image 32). No ne w or enlarging pulmonary nodules. AIRWAY: Patent and unremarkable.. HEART: Size within normal limits. No pericardial effusion. Small corner tear calcification. MEDIASTINUM: No gross evidence of adenopathy. VASCULATURE: Four-vessel aortic arch. No evidence for intramural hematoma. Stable aneurysm dilatatio n of the ascending thoracic aorta measuring up to 4.0 cm. The aortic root measures up to 3.7 cm which is stable. The upper descending thoracic aorta measures 3.1 cm which is stable. The distal descendin g thoracic aorta measures up to 2.8 cm which is stable. MUSCULOSKELETAL: No acute osseous abnormalities. Partial visualization of anterior cervical fusion haddad rdware. Mild multilevel degenerative disc disease. SOFT TISSUES/LYMPH NODES: Unremarkable. LOWER NECK: No significant findings. UPPER ABDOMEN: Stable peripheral left renal subcentimeter cortical hypodensities likely representing proteinaceous/hemorrhagic cysts. Gallbladder is not definitely visualized and may be surgically absen t. IMPRESSION: Stable aneurysm dilatation of the ascending thoracic aorta measuring up to 4.0 cm. [facility], , 07/18/2024 11:13 AM
== END | disposition home or self-care (01) ==
LOC: RADCTMAIN 10:45
PROVIDERS: ATTEND Surgery
DX: I71.21 Aneurysm of the ascending aorta, without rupture (principal); Z86.79 Personal history of other diseases of the circulatory system
CPT/HCPCS: 71250

== ENCOUNTER → 2024-12-21 | Outpatient (CLI) | payer BC ==
[2024-12-21 08:35] VITALS: BP 126/92; PULSE 91; RESP 17
[2024-12-21 08:36] VITALS: TEMP 97.3
--- NOTE | 2024-12-21 16:28 | P.PAINPG ---
PQRS Measure Charge Sheet Comment: HISTORY OF PRESENT ILLNESS: A 63 yr old male presents today w severe and chronic neck pain x 3 yrs secondary to post laminectomy syndrome for evaluation. Pt underwent a BL RFA C4-C6 on 04/08/25 where he experienced 85% pain relief x 7 mo s/p procedure. Pt states pain level is provoked at 7 /10 in intensity, intermittent, localized in the L cervical spine, predominantly axial, sharp in character w occasional shooting pain L & R of midline. Pain is provoked by hyperextension. Pain is alleviated by injections, PT x 6 wks in Apr 2023, physician guided exercises daily since Apr 2023, manual massage, THC gummies, repositioning and rest. Interventional procedures include LEANDER C6-C7 #1, LEANDER C5-C6 x1, L paramedian C5-C6 x1, BL RFA C4-C6 (Apr 2024), BL TPIs C3-T2 x1 (06/30) Medications include Mobic, THC gummies REVIEW OF ORGAN SYSTEMS: CONSTITUTIONAL: No fevers or chills. No recent weight loss. NEUROLOGICAL: + numbness and tingling along the distal extremities. No seizure disorders or headaches. MUSCULOSKELETAL: + pain PSYCHIATRIC: Denies current depression or suicidal thoughts. Physical Examinations : Constitutional : Cooperative , not in acute distress . Neurologic : Cranial nerve II to XII intact. No focal neurological deficits. Psychiatric : alert & oriented x 3. Matching mood & appropriate affect. Judgment & insight intact. Musculoskeletal : Cervical Spine Motor strength in the deltoid and biceps: Normal right side. Normal Left side Motor strength biceps and the wrist extensors: Normal right side . Normal left side Motor strength in the triceps muscle: Normal right side. Normal left side Deep tendon reflexes: Normal at the biceps. Normal at Brachioradialis. Normal at triceps Vertebral body tenderness to deep palpation over C6 Cervical facet loading test: positive L > R C4-C5, C5-C6 Taut bands w twitch response over BL C3-T2 Spurling test: positive LC5- C6 Neck distraction test: positive bilaterally Teddy sign: positive bilaterally Lumbar spine Motor strength lower extremities ,thigh and legs 5/5 Right side , 5/5 Left side Deep tendon reflexes : Normal Knee Jerk. Normal Ankle Jerk Vertebral body tenderness over Portillo Test positive Lumbar facet Loading Test: positive Right / positive Left Range of motion of the lumbar spine Flexion 30 degrees, extension 10 degrees Straight Leg Raise test: Left/ Right positive at degree Emeterio test: positive right / positive left. Severe tenderness over the Sacroiliac joint on the Right / Left sides Gaenslen test: positive bilaterally Seated flexion test: positive bilaterally. Sacral spine : Severe tenderness over the Sacroiliac joint: right side / left side Range of motion: Flexion of the lumbar spine <60 degrees Range of motion: Extension of the lumbar spine <20 degrees Gaenslen's Test positive Emeterio test: positive right side / left side Thigh Thrust Test Sacral Thrust Test Imaging: MRI with/without contrast of the cervical spine from 02/07/23 reviewed Assessment/ Plan : C6-C7 ACDF Recommendation of BL RFA C4-C5/ C5-C6. Risks, benefits of procedure discussed and patient verbalized understanding. Protocol for discontinuation/continuation of medication surrounding procedure discussed. Minimal anesthesia including Fentanyl and Versed if clinically indicated. All questions answered. I have spent greater than 30 minutes on patient care today. Dr Hamilton was available by phone for the evaluation of this patient. The time was used to review the medical records including relevant urine studies and Prescription history (MAPs), review of the available imaging, evaluation and examination of the patient, coordination of care with the medical staff and if applicable referring physicians, as well as creation of the medical record PQRS Narrative: Smoking Status Former smoker Hx Alcohol Use (MH) No Home Medications: Ambulatory Orders Atorvastatin [Lipitor] 10 mg PO HS 12/06/18 Pantoprazole Sodium [Protonix] 40 mg PO BID 12/04/22 Losartan [Cozaar] 50 mg PO DAILY 04/27/23 Dextroamphetamine/Amphetamine [Dextroamphetamine/Amphetamine 20 mg Tab] 20 mg PO BID 01/26/24 Ergocalciferol [Vitamin D2 (1250 Mcg = 94363 Iu)] 1,250 mcg PO QURESHI 01/26/24 Fluticasone Nasal [place] [Flonase Nasal [place]] 1 spray EA NOSTRIL DAILY 01/26/24 Ixekizumab [Taltz Autoinjector] 80 mg SQ Q30D 01/26/24 Montelukast [Singulair] 10 mg PO HS 01/26/24 Ondansetron [Zofran] 8 mg PO Q12HR 01/26/24 Pramipexole Di-HCl [Mirapex] 1.5 mg PO TID 01/26/24 Semaglutide [Ozempic] 0.25 mg SQ FR 01/26/24 Testosterone Cypionate [Depo-Testosterone] 200 mg IM Q14D 01/26/24 carvediloL [Coreg] 6.25 mg PO BID 01/26/24 traZODone HCL 100 mg PO HS 01/26/24 Multivitamin(Unknown Dose) 1 dose PO QAM 03/02/24 Diclofenac Sodium Gel [Voltaren 1% Gel] 50 gm TOPICAL BID 30 Days #1 each 06/23/24 Controlled Substance Measures - Controlled Substance Measures Is patient prescribed a controlled substance at discharge?: No
== END ==
LOC: PNWHC3 08:02
PROVIDERS: ATTEND Specialist
DX: M43.22 Fusion of spine, cervical region (principal); Z87.891 Personal history of nicotine dependence; Z91.040 Latex allergy status
CPT/HCPCS: 99212

== ENCOUNTER 2025-01-05 06:05 | Day surgery (SDC) | payer BC ==
[2025-01-05 06:46] VITALS: TEMP 97.6
[2025-01-05] MEDS: LACTATED RINGERS 1,000 ML IV SCH (06:49)
[2025-01-05] MEDS: IV FLUID CONTINUATION 1,000 ML IV ONE ×3 (06:49→08:28)
[2025-01-05 06:57] LABS: Glucose,Whole Blood 201 mg/dL (70-110)
[2025-01-05] MEDS ORDERED: MIDAZOLAM 2 MG/2 ML VIAL ONE (07:08)
[2025-01-05] MEDS ORDERED: ROPIVACAINE 5 MG/ML 30 ML VIAL ONE (07:08)
[2025-01-05] MEDS ORDERED: ePHEDrine 50 MG/ML 1 ML VIAL ONE (07:08)
[2025-01-05] MEDS ORDERED: fentaNYL (PF) 50 MCG/ML 2 ML AMP ONE (07:08)
--- NOTE | 2025-01-05 07:45 | FL ---
Fluoroscopy History: RF CERVICAL left LEFT CERVICAL RF, 50 SEC FLUORO, DAP .[id number] [id number], , 01/05/2025 7:42 AM
[2025-01-05 08:07] VITALS: PULSE 66
[2025-01-05 08:19] VITALS: BP 113/76; RESP 16
--- NOTE | 2025-01-05 08:38 | P.PCN ---
Description of Procedure: Preprocedure diagnosis. Cervical spondylosis. Cervical facet joint arthropathy. Postprocedure diagnosis. As above. Procedure done. left C4-5, C5-6 facet joint (C4.5,6 medial branch of dorsal ramus ) radiofrequency ablation under fluoroscopic guidance. Anesthesia. IV sedation with versed 2mg and fentanyl microgram. Continuous pulse ox, EKG, blood pressure and verbal communication was maintained with the patient in OR. Sedation time-start ,stop . Blood loss. None. Indication. Patient has got the diagnoses of cervical spondylolysis, facet joint arthropathy with neck pain. Diagnostic medial branch block relieved significant pain. Discussed with the patient procedure, alternatives, complications including infection, bleeding, nerve damage, paralysis all of which could be permanent. Patient understands and all questions are answered. Procedure note. After getting consent patient in OR in prone position. Back of the neck was prepped with chlorhexidine and draped in sterile fashion. After injecting 5 mL of plain 1% lidocaine subcutaneously, a 20-gauge RFA needle was introduced under tunnel vision of the fluoroscope AP view at the waist of the articular pillar (lateral mass) at C4 vertebral level. In the lateral view of the fluoroscope it was confirmed that the tip of the needle stayed within the dorsal half of the articular pillar (lateral mass). C4-5 facet joint was targeted by blocking C4 and C5 medial branch, C5-6 facet joint was targeted by blocking C5 and C6 medial branch . After subcutaneous injection of lidocaine, RFA needle were introduced under tunnel vision of the fluoroscope AP view at the waist of the articular pillars (lateral mass) at C5 vertebral level. In the lateral view of the fluoroscope it was confirmed that the tip of the needle stayed within the dorsal half of the articular pillar (lateral mass). After subcutaneous injection of lidocaine, RFA needle were introduced under tunnel vision of the fluoroscope AP view at the waist of the articular pillars (lateral mass) at C6 vertebral level. In the lateral view of the fluoroscope it was confirmed that the tip of the needle stayed within the dorsal half of the articular pillar (lateral mass). . After positive sensory and negative motor stimulation,injection of 1 ml of 0.5% Ropivacaine, radiofrequency ablation was done at 80 C's for 90 seconds. Second lesion was done at the same settings after rotating the needls 180 degrees. After the procedure needle was taken out and bandage was applied. Disposition. Patient tolerated the procedure well. No complication. Discharged home in stable condition.
== END 2025-01-05 08:40 | disposition home or self-care (01) ==
LOC: ORPAIN 06:05
PROVIDERS: ATTEND Pain Medicine Interventional Pain Medicine
DX: M47.812 Spondylosis without myelopathy or radiculopathy, cervical region (principal)
CPT/HCPCS: 64633; 64634; J2250; J3010; J2795; 99152

== ENCOUNTER → 2025-02-27 | Outpatient (CLI) | payer BC ==
[2025-02-27 09:25] VITALS: BP 114/80; PULSE 52; RESP 18
--- NOTE | 2025-02-27 15:58 | P.PAINPG ---
Objective - Vital Signs Vital signs: Intake & Output 02/26/25 02/27/25 02/27/25 18:59 06:59 18:59 Weight 90.718 kg PQRS Measure Charge Sheet Comment: HISTORY OF PRESENT ILLNESS: A 64 yr old male presents today w severe and chronic neck pain x 3 yrs secondary to post laminectomy syndrome for evaluation s/p BL RFA C4-C5/ C5-C6. Pt states experienced 80% pain relief s/p procedure. Pt states pain level is provoked at 8 /10 in intensity, intermittent, localized in the L cervical spine, predominantly axial, sharp in character w occasional shooting pain L of midline. Pain is provoked by hyperextension. Pain is alleviated by injections, PT x 6 wks in Apr 2023, physician guided exercises daily since Apr 2023, manual massage, THC gummies, repositioning and rest. Interventional procedures include LEANDER C6-C7 #1, LEANDER C5-C6 x1, L paramedian C5-C6 x1, BL RFA C4-C6 x2 (04/30, 01/26/25), BL TPIs C3-T2 x1 (06/30) Medications include Mobic, THC gummies REVIEW OF ORGAN SYSTEMS: CONSTITUTIONAL: No fevers or chills. No recent weight loss. NEUROLOGICAL: + numbness and tingling along the distal extremities. No seizure disorders or headaches. MUSCULOSKELETAL: + pain PSYCHIATRIC: Denies current depression or suicidal thoughts. Physical Examinations : Constitutional : Cooperative , not in acute distress . Neurologic : Cranial nerve II to XII intact. No focal neurological deficits. Psychiatric : alert & oriented x 3. Matching mood & appropriate affect. Judgment & insight intact. Musculoskeletal : Cervical Spine Motor strength in the deltoid and biceps: Normal right side. Normal Left side Motor strength biceps and the wrist extensors: Normal right side . Normal left side Motor strength in the triceps muscle: Normal right side. Normal left side Deep tendon reflexes: Normal at the biceps. Normal at Brachioradialis. Normal at triceps Vertebral body tenderness to deep palpation over C6 Cervical facet loading test: positive L > R C4-C5, C5-C6 Taut bands w twitch response over L C3- T2 Spurling test: positive LC5- C6 Neck distraction test: positive bilaterally Teddy sign: positive bilaterally Lumbar spine Motor strength lower extremities ,thigh and legs 5/5 Right side , 5/5 Left side Deep tendon reflexes : Normal Knee Jerk. Normal Ankle Jerk Vertebral body tenderness over Portillo Test positive Lumbar facet Loading Test: positive Right / positive Left Range of motion of the lumbar spine Flexion 30 degrees, extension 10 degrees Straight Leg Raise test: Left/ Right positive at degree Emeterio test: positive right / positive left. Severe tenderness over the Sacroiliac joint on the Right / Left sides Gaenslen test: positive bilaterally Seated flexion test: positive bilaterally. Sacral spine : Severe tenderness over the Sacroiliac joint: right side / left side Range of motion: Flexion of the lumbar spine <60 degrees Range of motion: Extension of the lumbar spine <20 degrees Gaenslen's Test positive Emeterio test: positive right side / left side Thigh Thrust Test Sacral Thrust Test Imaging: MRI with/without contrast of the cervical spine from 02/07/23 reviewed Assessment/ Plan : C6-C7 ACDF, Myofacial pain syndrome Recommendation of L TPIs C3-T2 #1. Risks, benefits of procedure discussed and patient verbalized understanding. All questions answered. I have spent greater than 30 minutes on patient care today. Dr Hamilton was available by phone for the evaluation of this patient. The time was used to review the medical records including relevant urine studies and Prescription history (MAPs), review of the available imaging, evaluation and examination of the patient, coordination of care with the medical staff and if applicable referring physicians, as well as creation of the medical record PQRS Narrative: Smoking Status Former smoker Hx Alcohol Use (MH) No Home Medications: Ambulatory Orders Atorvastatin [Lipitor] 10 mg PO HS 12/06/18 Pantoprazole Sodium [Protonix] 40 mg PO BID 12/04/22 Losartan [Cozaar] 50 mg PO DAILY 04/27/23 Dextroamphetamine/Amphetamine [Dextroamphetamine/Amphetamine 20 mg Tab] 20 mg PO DAILY 01/26/24 Ergocalciferol [Vitamin D2 (1250 Mcg = 38778 Iu)] 1,250 mcg PO QURESHI 01/26/24 Fluticasone Nasal [place] [Flonase Nasal [place]] 1 spray EA NOSTRIL DAILY 01/26/24 Ixekizumab [Taltz Autoinjector] 80 mg SQ Q30D 01/26/24 Pramipexole Di-HCl [Mirapex] 1.5 mg PO TID 01/26/24 Semaglutide [Ozempic] 0.25 mg SQ FR 01/26/24 carvediloL [Coreg] 25 mg PO BID 01/26/24 traZODone HCL 100 mg PO HS 01/26/24 Multivitamins, Thera [Multivitamin (formulary)] 1 tab PO DAILY 01/24/25 Controlled Substance Measures - Controlled Substance Measures Is patient prescribed a controlled substance at discharge?: No
== END ==
LOC: PNWHC3 09:01
PROVIDERS: ATTEND Specialist
DX: M79.18 Myalgia, other site (principal); F12.90 Cannabis use, unspecified, uncomplicated; Z98.890 Other specified postprocedural states; Z87.891 Personal history of nicotine dependence; Z91.040 Latex allergy status
CPT/HCPCS: 99211

== ENCOUNTER 2025-03-14 06:03 | Day surgery (SDC) | payer BC ==
[2025-03-13 11:42] VITALS: BMI 27.8
[2025-03-14 06:40] VITALS: RESP 16; TEMP 97.4
[2025-03-14 06:48] LABS: Glucose,Whole Blood 139 mg/dL (70-110)
[2025-03-14] MEDS ORDERED: ROPIVACAINE 5 MG/ML 30 ML VIAL ONE (07:43)
[2025-03-14] MEDS ORDERED: TRIAMCINOLONE ACETONIDE 40 MG/ML 1 ML VIAL ONE (07:43)
--- NOTE | 2025-03-14 07:51 | P.PCN ---
Date of Procedure: 03/14/25 Description of Procedure: Pre and postop diagnosis : Myofascial pain syndrome, status post anterior cervical spine fusion and post RFA of the cervical medial branches Procedure : Trigger point injections X [8 ]. Muscle group -[ 3] including the left trapezius muscle, left supra spinatus muscle, left cervical paravertebral musculature. Surgeon: Floresita Chahal MD Anesthesia: None Complications : None Specimen removed: None Estimated blood loss: None Procedure indications : Patient had a history of myofascial pain syndrome . Patient tried conservative therapy . Came here for intervention procedure for better pain relief. Procedure description : Patient was seen and identified in the holding area risk benefits competitions alternative discussed with the patient. Patient agreed to proceed for the procedure signed the consent. Patient taken to the procedure area. Timeout was completed. 8 - trigger point area were marked with a sterile marker. After ChloraPrep used to clean the area. Critical pause was taken. Using 25-gauge 1-1/2 [address] needle b[address] half way. He entered in each marked site 1 mL of block solution injected at each level. The block solution containing [8 ] ml of 0.5% preservative-free bupivacaine with Kenalog 40 MG. Needle removed intact skin cleaned and Band-Aid applied. Patient tolerated the procedure well. Disposition: Patient discharge home after meeting the discharge criteria from the recovery. Patient scheduled to follow up with the pain clinic in 4 weeks for follow-up visit.
[2025-03-14 08:07] VITALS: PULSE 73
[2025-03-14 08:15] VITALS: BP 105/85
== END 2025-03-14 08:17 | disposition home or self-care (01) ==
LOC: ORPAIN 06:03
PROVIDERS: ATTEND Anesthesiology
DX: M79.18 Myalgia, other site (principal); Z91.040 Latex allergy status; Z98.1 Arthrodesis status; Z98.890 Other specified postprocedural states
CPT/HCPCS: 20553; J3301; J2795